=== PATIENT | male | born 1950 | race Caucasian/White ===

== ENCOUNTER 2016-08-03 02:59 | Inpatient (IN) | payer MEDICARE, MEDICAID ==
[~2016-08-03] VITALS: Ht 185.4 cm; Wt 86.5 kg
[2016-08-03] VITALS (8 sets, daily range): BP systolic 111–160; BP diastolic 63–88; PULSE 53–71; RESP 17–22; TEMP 96.3–97.9; O2SAT 97–100
[~2016-08-03 02:59] MED LIST: AMLO5 PO; CALC0.25 PO; COUM3TAB PO; DIAL800T3 PO; DOCU1CAP39 PO; FENO54TA PO; HYDR-3516 PO; LEVA250T PO; MEMA1TAB PO; ROPI0.25 PO; SEVEL800 PO; VANC1000P IP
[2016-08-03] MEDS ORDERED: SODIUM CHLOR 0.9% 1000 ML INJ 1,000 ML IV SCH ×2 (03:18→04:48)
[2016-08-03] MEDS ORDERED: ONDANSETRON HCL 4 MG/2 ML VIAL IVP ONE (03:30)
[2016-08-03] MEDS ORDERED: MORPHINE SULFATE 8 MG/ML INJ IV PUSH ONE (03:30)
[2016-08-03] MEDS ORDERED: SODIUM CHLORIDE 0.9% FLUSH 5 ML FLUSH IVF PRN ×2 (03:30→13:45)
[2016-08-03 03:41] LABS: AUTOMATED NEUTROPHIL # 6.6 TH/MM3 (1.8-7.7); BASOPHIL # 0.1 TH/MM3 (0-0.2); BASOPHIL % 0.9 % (0.0-2.0); EOSINOPHIL # 0.2 TH/MM3 (0-0.4); EOSINOPHIL % 2.4 % (0.0-4.0); HEMATOCRIT 38.7 % (39.0-51.0); HEMO FLAGS DIFF FINAL; LYMPH % 17.5 % (9.0-44.0); LYMPHOCYTE # 1.6 TH/MM3 (1.0-4.8); MEAN CELL VOLUME 93.5 FL (80.0-100.0); MEAN CORPUSCULAR HGB CONC 34.2 % (32.0-36.0); MONO % 6.3 % (0.0-8.0); NEUT % 72.9 % (16.0-70.0); PLATELET COUNT 229 TH/MM3 (150-450); RED BLOOD COUNT 4.14 MIL/MM3 (4.50-5.90); RED CELL DISTRIBUTION WIDTH 14.2 % (11.6-17.2); WHITE BLOOD COUNT 9.1 TH/MM3 (4.0-11.0)
--- NOTE | 2016-08-03 03:46 | PD ---
HPI Chief Complaint: Abdominal Pain Time Seen by Provider: 03:18 Travel History International Travel<30 days: No Contact w/Intl Traveler<30days: No Traveled to known affect area: No History of Present Illness HPI 66-year-old male history pancreatitis arrives with epigastric bowel pain that radiates to the back. Duration a few hours. He cannot recall last oral intake which he attributes to prior stroke. Pain is constant. Moderate to severe in severity. Worse with palpation. No fever. No vomiting. Onset sudden. Similar episodes have occurred previously. He does not know etiology of his pancreatitis. PFSH Past Medical History Hx Anticoagulant Therapy: Yes Arthritis: No Asthma: No Atrial Fibrillation: Yes (ABLATION) Autoimmune Disease: No Blood Disorders: No Anxiety: No Depression: No Heart Rhythm Problems: Yes (Afib) Cancer: No Cardiac Catheterization: Yes Cardiovascular Problems: Yes High Cholesterol: No Chemotherapy: No Chest Pain: Yes (history ) Congestive Heart Failure: No COPD: No Cerebrovascular Accident: Yes (January 2016) Diabetes: Yes Patient Takes Glucophage: No Dialysis: Yes (PERITONEAL DIALYSIS ) Diminished Hearing: No Endocrine: Yes (Diabetes) Gastrointestinal Disorders: No GERD: No Genitourinary: No Headaches: No Hepatitis: Yes (B) Hiatal Hernia: No Heparin Induced Thrombocytopen: No Hypertension: Yes Immune Disorder: No Implanted Vascular Access Dvce: No Insomnia: Yes (OCCASIONAL) Kidney Stones: No Musculoskeletal: No Neurologic: Yes Psychiatric: No Reproductive: No Respiratory: No Immunizations Current: Yes Migraines: No Radiation Therapy: No Renal Failure: Yes (PERITONEAL DIALYSIS ) Seizures: No Sickle Cell Disease: No Sleep Apnea: No Thyroid Disease: No Ulcer: No Tetanus Vaccination: Unknown Influenza Vaccination: Yes Past Surgical History Abdominal Surgery: Yes (appendectomy at age 10) AICD: No Appendectomy: Yes Arteriovenous Shunt: No Cardiac Surgery: Yes (ablation 2014) Coronary Artery Bypass Graft: No Ear Surgery: No Endocrine Surgery: No Eye Surgery: No Genitourinary Surgery: No Gynecologic Surgery: No Insulin Pump: No Joint Replacement: No Neurologic Surgery: No Oral Surgery: Yes Pacemaker: No Thoracic Surgery: No Tonsillectomy: Yes Other Surgery: Yes (Open Heart) Family History Family Myocardial Infarction: Yes (SISTER) Social History Alcohol Use: No Tobacco Use: Yes (5 CIGS PER DAY) Substance Use: No Allergies-Medications (Allergen,Severity, Reaction): Coded Allergies: Contrast Media (Verified Allergy, Mild, Itching, 08/03/16) STATES AFTER IV CONTRAST FROM LAST HOSPITAL VISIT WAS ITCHY FOR 10 DAYS WITH BAD HEARTBURN Reported Meds & Prescriptions Reported Meds & Active Scripts Active Coumadin (Warfarin) 3 Mg Tab 3 Mg PO DAILY@16 Dok (Docusate Sodium) 100 Mg Cap 100 Mg PO Q12HR Norvasc (Amlodipine Besylate) 5 Mg Tab 5 Mg PO DAILY Reported Calcitriol 0.25 Mcg Cap 0.25 Mcg PO DAILY Ropinirole 0.25 Mg Tab 0.25 Mg PO HS Renvela (Sevelamer Carbonate) 800 Mg Tab 800 Mg PO TID Memantine 5 Mg Tab 5 Mg PO DAILY Fenofibrate 54 Mg Tab 54 Mg PO DAILY Dialyvite 800 (B-Complex W/ C & Folic Acid) 1 Tab 800 Mg PO Review of Systems Except as stated in HPI: all other systems reviewed are Neg Physical Exam Narrative GENERAL: 66-year-old male well-nourished well-developed SKIN: Warm and dry. HEAD: Atraumatic. Normocephalic. EYES: Pupils equal and round. No scleral icterus. No injection or drainage. ENT: No nasal bleeding or discharge. Mucous membranes pink and moist. NECK: Trachea midline. No JVD. CARDIOVASCULAR: Regular rate and rhythm. RESPIRATORY: No accessory muscle use. Clear to auscultation. Breath sounds equal bilaterally. GASTROINTESTINAL: Soft. Mild epigastric tenderness. MUSCULOSKELETAL: Extremities without clubbing, cyanosis, or edema. No obvious deformities. NEUROLOGICAL: Awake and alert. No obvious cranial nerve deficits. Motor grossly within normal limits. Five out of 5 muscle strength in the arms and legs. Normal speech. PSYCHIATRIC: Appropriate mood and affect; insight and judgment normal. Data Data Last Documented VS Vital Signs Date Time Temp Pulse Resp B/P Pulse Ox O2 Delivery O2 Flow Rate FiO2 08/03/16 03:12 97.9 71 20 145/72 98 Room Air Orders Complete Blood Count With Diff (08/03/16 03:18) Comprehensive Metabolic Panel (08/03/16 03:18) Lipase (08/03/16 03:18) Iv Access Insert/Monitor (08/03/16 03:18) Ecg Monitoring (08/03/16 03:18) Oximetry (08/03/16 03:18) Ondansetron Inj (Zofran Inj) (08/03/16 03:30) Sodium Chlor 0.9% 1000 Ml Inj (Ns 1000 M (08/03/16 03:18) Sodium Chloride 0.9% Flush (Ns Flush) (08/03/16 03:30) Morphine Inj (Morphine Inj) (08/03/16 03:30) Admit Order (Ed Use Only) (08/03/16 04:39) Labs Laboratory Tests Test 08/03/16 03:30 White Blood Count 9.1 TH/MM3 Red Blood Count 4.14 MIL/MM3 Hemoglobin 13.3 GM/DL Hematocrit 38.7 % Mean Corpuscular Volume 93.5 FL Mean Corpuscular Hemoglobin 32.0 PG Mean Corpuscular Hemoglobin 34.2 % Concent Red Cell Distribution Width 14.2 % Platelet Count 229 TH/MM3 Mean Platelet Volume 8.1 FL Neutrophils (%) (Auto) 72.9 % Lymphocytes (%) (Auto) 17.5 % Monocytes (%) (Auto) 6.3 % Eosinophils (%) (Auto) 2.4 % Basophils (%) (Auto) 0.9 % Neutrophils # (Auto) 6.6 TH/MM3 Lymphocytes # (Auto) 1.6 TH/MM3 Monocytes # (Auto) 0.6 TH/MM3 Eosinophils # (Auto) 0.2 TH/MM3 Basophils # (Auto) 0.1 TH/MM3 CBC Comment DIFF FINAL Differential Comment Sodium Level 141 MEQ/L Potassium Level 3.9 MEQ/L Chloride Level 107 MEQ/L Carbon Dioxide Level 23.4 MEQ/L Anion Gap 11 MEQ/L Blood Urea Nitrogen 35 MG/DL Creatinine 6.15 MG/DL Random Glucose 125 MG/DL Calcium Level 9.2 MG/DL Total Bilirubin 0.4 MG/DL Aspartate Amino Transf 26 U/L (AST/SGOT) Alanine Aminotransferase 34 U/L (ALT/SGPT) Alkaline Phosphatase 45 U/L Total Protein 7.3 GM/DL Albumin 3.3 GM/DL Lipase 37174 U/L [facility] Medical Decision Making Medical Screen Exam Complete: Yes Emergency Medical Condition: Yes Medical Record Reviewed: Yes Differential Diagnosis Constipation, Gastritis, Acute Cholecystitis, Biliary Colic, Pancreatitis, COOPER , Hepatitis, Bowel Obstruction, Cystitis, Mesenteric Ischemia, AAA, Appendicitis , Renal Stone/Hydronephrosis, GERD, perforated viscous Narrative Course CBC & BMP Diagram 08/03/16 03:30 LFTs are normal Lipase 12,927 Patient will be admitted for treatment of pancreatitis. He has received 5 mg of morphine with some benefit. Etiology of pancreatitis is unclear based on review of prior documentation. The patient has poor memory 2/[address] Najera. Diagnosis Primary Impression: Pancreatitis Qualified Code: K85.90 - Acute pancreatitis, unspecified complication status, unspecified pancreatitis type Admitting Information Admitting Physician Requests: Admit Additional Instructions: You have a choice when it comes to health care, and we are glad that you chose [facility]. Hopefully, we have met your expectations on today's visit. You are welcome to return to [facility] at any time, as we are committed to meeting the health care needs of our community. Ruiz Dean MD Aug 03, 2016 03:46
[2016-08-03 04:08] LABS: ALT (GPT) 34 U/L (12-78); ANION GAP 11 MEQ/L (5-15); AST (GOT) 26 U/L (15-37); BICARBONATE 23.4 MEQ/L (21.0-32.0); BLOOD UREA NITROGEN 35 MG/DL (7-18); CHLORIDE 107 MEQ/L (98-107); POTASSIUM 3.9 MEQ/L (3.5-5.1); SODIUM (NA) 141 MEQ/L (136-145)
[2016-08-03 04:11] LABS: ALKALINE PHOSPHATASE 45 U/L (45-117); TOTAL BILIRUBIN ADULT 0.4 MG/DL (0.2-1.0)
[2016-08-03] MEDS ORDERED: ACETAMINOPHEN/HYDROcodone 325 MG/5 MG TAB PO PRN (05:00)
[2016-08-03] MEDS ORDERED: ACETAMINOPHEN 325 MG TAB PO PRN (05:00)
[2016-08-03] MEDS ORDERED: ONDANSETRON HCL 4 MG/2 ML VIAL IVP PRN (05:00)
--- NOTE | 2016-08-03 05:11 | HHI.HP ---
[facility] Her MD Admission Diagnosis Pancreatitis Diagnoses: (1) Pancreatitis Diagnosis: Principal (2) ESRD (end stage renal disease) on dialysis Diagnosis: Principal (3) AF (atrial fibrillation) Diagnosis: Principal (4) HTN (hypertension) Diagnosis: Principal Travel History International Travel<30 Days: No Contact w/Intl Traveler <30 Da: No Traveled to Known Affected Are: No History of Present Illness This is a 66-year-old male with PMH of HTN, ESRD on PD, A. fib on Coumadin, CAD and Recurrent Pancreatitis who came into the ER with complaints of epigastric pain with radiation to his back, typical of his previous episodes of pancreatitis. Denies fever, chills or diarrhea. Reports nausea, but no vomiting. On arrival, BP 160/88, HR 66, O2 sat 98% on RA, Afebrile. CBC essentially unremarkable. Creatinine 6.15, previously 4.40 and 06/18/16. Lipase 12,927. S/p Morphine in ER w/ improvement in pain. Review of Systems Other ROS: 14 point review of systems otherwise negative. Past Family Social History Past Medical History PMH: HTN, ESRD on PD, A. fib on Coumadin, CAD and Recurrent Pancreatitis Past Surgical History PAST SURGICAL HISTORY: Appendectomy, Peritoneal Dialysis Catheter, Tonsillectomy, Cardiac Ablation Allergies: Coded Allergies: Contrast Media (Verified Allergy, Mild, Itching, 08/03/16) STATES AFTER IV CONTRAST FROM LAST HOSPITAL VISIT WAS ITCHY FOR 10 DAYS WITH BAD HEARTBURN Family History PAST FAMILY HISTORY: Reviewed. No h/o DM or CAD Social History PAST SOCIAL HISTORY: Negative for alcohol or drugs. Positive for tobacco. Physical Exam Vital Signs Vital Signs Date Time Temp Pulse Resp B/P Pulse Ox O2 Delivery O2 Flow Rate FiO2 08/03/16 03:12 97.9 71 20 145/72 98 Room Air 08/03/16 03:05 97.9 66 20 160/88 98 Physical Exam PE: GENERAL: Pleasant middle-aged male in no acute distress. HEENT: PERRLA, EOMI. No scleral icterus or conjunctival pallor. No lid lag or facial droop. CARDIOVASCULAR: Regular rate and rhythm. No obvious murmurs to auscultation. No chest tenderness to palpation. RESPIRATORY: No obvious rhonchi or wheezing. Clear to auscultation. Breath sounds equal bilaterally. GASTROINTESTINAL: Abdomen soft, mild epigastric tenderness to palpation, nondistended. BS normal. MUSCULOSKELETAL: Extremities without clubbing, cyanosis, or edema. No obvious deformities. NEUROLOGICAL: Awake, alert and oriented x4. No focal neurologic deficits. Moving both upper and lower extremities spontaneously. Laboratory Laboratory Tests Test 08/03/16 03:30 White Blood Count 9.1 Red Blood Count 4.14 Hemoglobin 13.3 Hematocrit 38.7 Mean Corpuscular Volume 93.5 Mean Corpuscular Hemoglobin 32.0 Mean Corpuscular Hemoglobin 34.2 Concent Red Cell Distribution Width 14.2 Platelet Count 229 Mean Platelet Volume 8.1 Neutrophils (%) (Auto) 72.9 Lymphocytes (%) (Auto) 17.5 Monocytes (%) (Auto) 6.3 Eosinophils (%) (Auto) 2.4 Basophils (%) (Auto) 0.9 Neutrophils # (Auto) 6.6 Lymphocytes # (Auto) 1.6 Monocytes # (Auto) 0.6 Eosinophils # (Auto) 0.2 Basophils # (Auto) 0.1 CBC Comment DIFF FINAL Differential Comment Sodium Level 141 Potassium Level 3.9 Chloride Level 107 Carbon Dioxide Level 23.4 Anion Gap 11 Blood Urea Nitrogen 35 Creatinine 6.15 Random Glucose 125 Calcium Level 9.2 Total Bilirubin 0.4 Aspartate Amino Transf 26 (AST/SGOT) Alanine Aminotransferase 34 (ALT/SGPT) Alkaline Phosphatase 45 Total Protein 7.3 Albumin 3.3 Lipase 39745 Result Diagram: 08/03/16 0330 08/03/16 0330 Assessment and Plan Problem List: (1) Pancreatitis ICD Code: K85.90 Status: Acute (2) ESRD (end stage renal disease) on dialysis ICD Code: N18.6 Status: Chronic (3) AF (atrial fibrillation) ICD Code: I48.91 Status: Acute (4) HTN (hypertension) ICD Code: I10 Status: Chronic Assessment and Plan A/P: 1. Pancreatitis: Recurrent. Etiology unclear. Previous admit 06/13-06/20/16 for same. Lipase 12,927. NPO, IVF, Protonix IV, repeat Lipase. LFTs normal. Check PT/INR. 2. ESRD on PD: Follows w/ Dr. Bird as outpatient, will consult to resume PD. Resume home meds. 3. A-fib: On Coumadin. Check PT/INR, resume Coumadin to keep INR 2-3. 4. DVT Prophylaxis: Coumadin 5. Social work for d/c planning as needed. 6. Case discussed w/ ER physician at length. Physician Certification 2 Midnight Certification Type: Admission for Inpatient Services Order for Inpatient Services The services are ordered in accordance with Medicare regulations or non- Medicare payer requirements, as applicable. In the case of services not specified as inpatient-only, they are appropriately provided as inpatient services in accordance with the 2-midnight benchmark. Estimated LOS (days): 2 days is the estimated time the patient will need to remain in the hospital, assuming treatment plan goals are met and no additional complications. Post-Hospital Plan: Home Problem Qualifiers (1) Pancreatitis: Qualified Code: K85.90 - Acute pancreatitis, unspecified complication status, unspecified pancreatitis type Adore Najera MD Aug 03, 2016 05:11
[2016-08-03] MEDS: PANTOPRAZOLE SODIUM 40 MG VIAL IV PUSH SCH ×2 (05:50→18:32)
[2016-08-03] MEDS: MORPHINE SULFATE 4 MG/ML INJ IV PRN ×3 (06:32→13:25)
[2016-08-03] MEDS: CALCITRIOL 0.25 MCG CAP PO SCH (10:05)
[2016-08-03] MEDS: SEVELAMER CARBONATE 800 MG TAB PO SCH ×3 (10:05→18:00)
[2016-08-03] MEDS: MEMANTINE HCL 5 MG TAB PO SCH (10:05)
[2016-08-03] MEDS: amLODIPine BESYLATE 5 MG TAB PO SCH (10:05)
[2016-08-03] MEDS: SODIUM CHLORIDE 0.9% FLUSH 5 ML FLUSH FLUSH SCH ×2 (10:06→22:28)
[2016-08-03 11:04] LABS: INTERNATIONAL NORMALIZED RATIO 1.2 RATIO; PROTHROMBIN TIME - PATIENT 13.9 SEC (9.8-11.6)
--- NOTE | 2016-08-03 13:26 | HHI.PR ---
Subjective Remarks Follow-up pancreatitis Abdominal pain stools, had soup for lunch, no nausea or vomiting today. Afebrile. Not short of breath. Had episodes of hypertriglyceridemia in the past. Objective Vitals Vital Signs Date Time Temp Pulse Resp B/P Pulse Ox O2 Delivery O2 Flow Rate FiO2 08/03/16 11:40 97.1 53 20 117/71 98 08/03/16 07:50 96.3 61 20 122/72 100 08/03/16 07:00 20 08/03/16 06:19 97.9 71 22 158/84 100 08/03/16 05:51 57 22 132/82 100 Room Air 08/03/16 05:51 22 100 Room Air 08/03/16 03:12 97.9 71 20 145/72 98 Room Air 08/03/16 03:05 97.9 66 20 160/88 98 Result Diagram: 08/03/16 03308/03/16 033 Objective Remarks Not in distress, well-nourished, looks stated age PERRL, pink conjunctiva without injection, anicteric Nose without bleeding, airway patent, oropharynx clear Supple neck, no masses or thyromegaly, trachea midline Normal rate and regular rhythm, no murmurs gallops or rubs appreciated. Clear to auscultation and symmetric bilaterally, normal respiratory effort. Normal bowel sounds, soft, non-tender, nondistended, no guarding. ED catheter in place, positive for epigastric tenderness. Extremities without clubbing, cyanosis, or edema. No rash of generalized distribution. Skin is warm and dry. AAO x3, no cranial nerve deficits, moves all 4 extremities, no focal neurologic deficits Normal mood, appropriate affect A/P Problem List: (1) Pancreatitis ICD Code: K85.90 Status: Acute (2) ESRD (end stage renal disease) on dialysis ICD Code: N18.6 Status: Chronic (3) AF (atrial fibrillation) ICD Code: I48.91 Status: Acute (4) HTN (hypertension) ICD Code: I10 Status: Chronic Assessment and Plan Pancreatitis: Recurrent. Etiology unclear. Previous admit 06/13-06/20/[address] scan of the abdomen from June reviewed, no cholelithiasis. Keep nothing by mouth, recheck lipase tomorrow, IVF, Protonix, supportive management with pain medications intravenously. LFTs are within normal limits. Check triglycerides. End stage renal disease-nephrology consulted, continue peritoneal dialysis. Atrial fibrillation-on Coumadin, INR subtherapeutic, monitor for now. Hypertension-continue Norvasc DVT prophylaxis: Coumadin. Problem Qualifiers (1) Pancreatitis: Qualified Code: K85.90 - Acute pancreatitis, unspecified complication status, unspecified pancreatitis type Ivory Hanson MD Aug 03, 2016 13:26
--- NOTE | 2016-08-03 13:40 | PD.CONS ---
HPI Service Nephrology Consult Requested By Dr. Najera Reason for Consult ESRD on peritoneal dialysis Primary Care Physician Griffin Her MD History of Present Illness Patient is 66-year-old white male with history of atrial fibrillation status post ablation 2, hypertension, ESRD who has recurrent pancreatitis and developed abdominal pain yesterday around 6 PM which got worse and he has to come to the emergency is lipase is greater than 12,000, he was admitted for pancreatitis, he states that he has missed his peritoneal dialysis yesterday as he was in abdominal pain. He has nausea associated with denies any vomiting and pain is in epigastric area. Review of Systems Constitutional: COMPLAINS OF: Fatigue Gastrointestinal: COMPLAINS OF: Abdominal pain Psychiatric: COMPLAINS OF: Anxiety Past Family Social History Allergies: Coded Allergies: Contrast Media (Verified Allergy, Mild, Itching, 08/03/16) STATES AFTER IV CONTRAST FROM LAST HOSPITAL VISIT WAS ITCHY FOR 10 DAYS WITH BAD HEARTBURN Past Medical History Atrial fibrillation status post ablation 2 Hypertension COPD GERD Recurrent pancreatitis Anemia Secondary hyperparathyroidism Past Surgical History Appendectomy Tonsillectomy Tenckhoff catheter placement Cardiac ablation x 2 Reported Medications Reported Meds & Active Scripts Active Coumadin (Warfarin) 3 Mg Tab 3 Mg PO DAILY@16 Dok (Docusate Sodium) 100 Mg Cap 100 Mg PO Q12HR Norvasc (Amlodipine Besylate) 5 Mg Tab 5 Mg PO DAILY Reported Calcitriol 0.25 Mcg Cap 0.25 Mcg PO DAILY Ropinirole 0.25 Mg Tab 0.25 Mg PO HS Renvela (Sevelamer Carbonate) 800 Mg Tab 800 Mg PO TID Memantine 5 Mg Tab 5 Mg PO DAILY Fenofibrate 54 Mg Tab 54 Mg PO DAILY Dialyvite 800 (B-Complex W/ C & Folic Acid) 1 Tab 800 Mg PO Active Ordered Medications Current Medications Medications (Trade) Dose Ordered Sig/Maximus Route Start Time Stop Time Status Last Admin (NS 1000 ml Inj) 1,000 ml @ 50 mls/hr Q20H IV 08/03/16 04:48 08/03/16 05:50 (NS Flush) 2 ml UNSCH PRN FLUSH 08/03/16 05:00 (NS Flush) 2 ml BID FLUSH 08/03/16 09:00 08/03/16 10:06 (Zofran Inj) 4 mg Q6H PRN IVP 08/03/16 05:00 (Dulcolax Supp) 10 mg DAILY PRN W[place] 08/03/16 05:00 (Tylenol) 650 mg Q6H PRN PO 08/03/16 05:00 ([place]well 5-325 Mg) 1 tab Q4H PRN PO 08/03/16 05:00 08/03/16 12:20 (Morphine Inj) 2 mg Q3H PRN IV 08/03/16 05:00 08/03/16 13:25 (Norvasc) 5 mg DAILY PO 08/03/16 09:00 08/03/16 10:05 (Rocaltrol) 0.25 mcg DAILY PO 08/03/16 09:00 08/03/16 10:05 (Namenda) 5 mg DAILY PO 08/03/16 09:00 08/03/16 10:05 (Requip) 0.25 mg HS PO 08/03/16 21:00 (Renvela) 800 mg TID PO 08/03/16 09:00 08/03/16 12:48 (Protonix Inj) 40 mg Q12H IV PUSH 08/03/16 06:00 08/03/16 05:50 Family History Noncontributory Social History Previous history of smoking Physical Exam Vital Signs Vital Signs Date Time Temp Pulse Resp B/P Pulse Ox O2 Delivery O2 Flow Rate FiO2 08/03/16 11:40 97.1 53 20 117/71 98 08/03/16 07:50 96.3 61 20 122/72 100 08/03/16 07:00 20 08/03/16 06:19 97.9 71 22 158/84 100 08/03/16 05:51 57 22 132/82 100 Room Air 08/03/16 05:51 22 100 Room Air 08/03/16 03:12 97.9 71 20 145/72 98 Room Air 08/03/16 03:05 97.9 66 20 160/88 98 Physical Exam GENERAL: Well-nourished, well-developed patient. SKIN: Warm and dry. HEAD: Normocephalic. EYES: No scleral icterus. No injection or drainage. NECK: Supple, trachea midline. No JVD or lymphadenopathy. CARDIOVASCULAR: Regular rate and rhythm without murmurs, gallops, or rubs. RESPIRATORY: Breath sounds equal bilaterally. No accessory muscle use. GASTROINTESTINAL: Abdomen tender, nondistended. EXTREMITIES: No cyanosis, or edema. NEUROLOGICAL: Awake, alert, and oriented x 3. Non-focal. Laboratory Laboratory Tests Test 08/03/16 08/03/16 03:30 10:05 White Blood Count 9.1 Red Blood Count 4.14 Hemoglobin 13.3 Hematocrit 38.7 Mean Corpuscular Volume 93.5 Mean Corpuscular Hemoglobin 32.0 Mean Corpuscular Hemoglobin 34.2 Concent Red Cell Distribution Width 14.2 Platelet Count 229 Mean Platelet Volume 8.1 Neutrophils (%) (Auto) 72.9 Lymphocytes (%) (Auto) 17.5 Monocytes (%) (Auto) 6.3 Eosinophils (%) (Auto) 2.4 Basophils (%) (Auto) 0.9 Neutrophils # (Auto) 6.6 Lymphocytes # (Auto) 1.6 Monocytes # (Auto) 0.6 Eosinophils # (Auto) 0.2 Basophils # (Auto) 0.1 CBC Comment DIFF FINAL Differential Comment Sodium Level 141 Potassium Level 3.9 Chloride Level 107 Carbon Dioxide Level 23.4 Anion Gap 11 Blood Urea Nitrogen 35 Creatinine 6.15 Random Glucose 125 Calcium Level 9.2 Total Bilirubin 0.4 Aspartate Amino Transf 26 (AST/SGOT) Alanine Aminotransferase 34 (ALT/SGPT) Alkaline Phosphatase 45 Total Protein 7.3 Albumin 3.3 Triglycerides Level 110 Lipase 64603 Prothrombin Time 13.9 Prothromb Time International 1.2 Ratio Result Diagram: 08/03/16 0330 08/03/16 0330 Assessment and Plan Problem List: (1) ESRD (end stage renal disease) on dialysis Plan: Patient is going to get peritoneal dialysis tonight we will continue to monitor send fluid for Gram stain and cell count and culture (2) Acute pancreatitis Plan: Patient has history of recurrent pancreatitis continue to observe (3) HTN (hypertension) Plan: Monitor blood pressure Michelle Bird MD Aug 03, 2016 13:40
[2016-08-03] MEDS ORDERED: HEPARIN SODIUM - IV 10,000 UNITS/10 ML VIAL XX PRN (13:45)
[2016-08-03] MEDS: HYDROmorphone HCL PF 1 MG/ML VIAL IV PUSH PRN ×2 (14:20→18:33)
[2016-08-03] MEDS: DEXT 5%-NACL 0.45% 1000 ML INJ 1,000 ML IV SCH (14:22)
[2016-08-03] MEDS: diphenhydrAMINE HCL 50 MG/ML VIAL IV PRN (18:33)
[2016-08-03 21:05] LABS: PERITONEAL LYMPHS 26 %; PERITONEAL MESOTHELIAL 12 %; PERITONEAL MONOS 34 %; PERITONEAL POLYS(SEGS) 28 %; PERITONEAL WBC 26 /MM3 (0-10)
[2016-08-04] VITALS: BP 129/75; PULSE 55; RESP 16; TEMP 96.5; O2SAT 100
[2016-08-04] MEDS: DEXT 5%-NACL 0.45% 1000 ML INJ 1,000 ML IV SCH ×2 (02:00→18:26)
[2016-08-04 04:00] VITALS: BP 144/79; PULSE 66; RESP 16; TEMP 96.3; O2SAT 99
[2016-08-04] MEDS: diphenhydrAMINE HCL 50 MG/ML VIAL IV PRN ×4 (04:58→18:26)
[2016-08-04] MEDS: HYDROmorphone HCL PF 1 MG/ML VIAL IV PUSH PRN ×4 (04:59→18:26)
[2016-08-04] MEDS: PANTOPRAZOLE SODIUM 40 MG VIAL IV PUSH SCH ×2 (04:59→18:29)
[2016-08-04 07:39] LABS: AUTOMATED NEUTROPHIL # 4.1 TH/MM3 (1.8-7.7); BASOPHIL # 0.1 TH/MM3 (0-0.2); BASOPHIL % 0.9 % (0.0-2.0); EOSINOPHIL # 0.2 TH/MM3 (0-0.4); EOSINOPHIL % 3.2 % (0.0-4.0); HEMATOCRIT 36.8 % (39.0-51.0); HEMO FLAGS DIFF FINAL; LYMPH % 25.7 % (9.0-44.0); LYMPHOCYTE # 1.7 TH/MM3 (1.0-4.8); MEAN CELL VOLUME 95.8 FL (80.0-100.0); MEAN CORPUSCULAR HEMOGLOBIN 31.3 PG (27.0-34.0); MEAN CORPUSCULAR HGB CONC 32.7 % (32.0-36.0); MONO % 9.1 % (0.0-8.0); NEUT % 61.1 % (16.0-70.0); PLATELET COUNT 197 TH/MM3 (150-450); RED BLOOD COUNT 3.85 MIL/MM3 (4.50-5.90); RED CELL DISTRIBUTION WIDTH 14.4 % (11.6-17.2); WHITE BLOOD COUNT 6.7 TH/MM3 (4.0-11.0)
[2016-08-04 07:45] LABS: INTERNATIONAL NORMALIZED RATIO 1.3 RATIO; PROTHROMBIN TIME - PATIENT 14.8 SEC (9.8-11.6)
[2016-08-04 07:56] LABS: ALT (GPT) 35 U/L (12-78); ANION GAP 8 MEQ/L (5-15); AST (GOT) 28 U/L (15-37); BICARBONATE 23.8 MEQ/L (21.0-32.0); CHLORIDE 109 MEQ/L (98-107); POTASSIUM 4.4 MEQ/L (3.5-5.1); SODIUM (NA) 141 MEQ/L (136-145)
[2016-08-04 07:58] LABS: ALKALINE PHOSPHATASE 42 U/L (45-117); BLOOD UREA NITROGEN 30 MG/DL (7-18); TOTAL BILIRUBIN ADULT 0.4 MG/DL (0.2-1.0)
[2016-08-04 08:00] VITALS: BP 108/62; PULSE 55; RESP 18; TEMP 97.5; O2SAT 97
[2016-08-04] MEDS: amLODIPine BESYLATE 5 MG TAB PO SCH (09:00)
[2016-08-04] MEDS: BISACODYL 10 MG SUPP PR PRN (09:11)
[2016-08-04] MEDS: CALCITRIOL 0.25 MCG CAP PO SCH (09:11)
[2016-08-04] MEDS: MEMANTINE HCL 5 MG TAB PO SCH (09:12)
[2016-08-04] MEDS: SODIUM CHLORIDE 0.9% FLUSH 5 ML FLUSH FLUSH SCH ×2 (09:12→19:54)
[2016-08-04] MEDS: SEVELAMER CARBONATE 800 MG TAB PO SCH ×3 (09:12→17:10)
--- NOTE | 2016-08-04 10:59 | HHI.PR ---
Subjective Remarks Follow-up for pancreatitis Still having severe epigastric abdominal pain, about 8/10, controlled by IV narcotics, however has itching with Dilaudid, no nausea or vomiting, not hungry. No fever or chills. Objective Vitals Vital Signs Date Time Temp Pulse Resp B/P Pulse Ox O2 Delivery O2 Flow Rate FiO2 08/04/16 08:00 97.5 55 18 108/62 97 08/04/16 04:00 96.3 66 16 144/79 99 08/04/16 00:00 96.5 55 16 129/75 100 08/03/16 20:00 96.5 54 17 114/68 100 08/03/16 15:30 96.9 55 20 111/63 97 08/03/16 11:40 97.1 53 20 117/71 98 I/O 08/03/16 08/03/16 08/03/16 08/04/16 08/04/16 08/04/16 07:00 15:00 23:00 07:00 15:00 23:00 Intake Total 120 ml 672 ml 600 ml Output Total 350 ml 400 ml 0 ml Balance -230 ml 672 ml 200 ml 0 ml Intake Oral 120 ml 0 ml IV Total 672 ml 600 ml Output Urine Total 350 ml 400 ml Peritoneal Fluid 0 ml # Voids 0 # Bowel Movements 0 Result Diagram: 08/04/1671308/04/16713 Objective Remarks Not in distress, well-nourished, looks stated age PERRL, pink conjunctiva without injection, anicteric Nose without bleeding, airway patent, oropharynx clear Supple neck, no masses or thyromegaly, trachea midline Normal rate and regular rhythm, no murmurs gallops or rubs appreciated. Clear to auscultation and symmetric bilaterally, normal respiratory effort. Normal bowel sounds, soft, non-tender, nondistended, no guarding. PD catheter in place, positive for mild epigastric tenderness. Extremities without clubbing, cyanosis, or edema. No rash of generalized distribution. Skin is warm and dry. AAO x3, no cranial nerve deficits, moves all 4 extremities, no focal neurologic deficits Normal mood, appropriate affect A/P Problem List: (1) Pancreatitis ICD Code: K85.90 Status: Acute (2) ESRD (end stage renal disease) on dialysis ICD Code: N18.6 Status: Chronic (3) AF (atrial fibrillation) ICD Code: I48.91 Status: Acute (4) HTN (hypertension) ICD Code: I10 Status: Chronic Assessment and Plan Pancreatitis: Recurrent. Etiology unclear. Previous admit 06/13-06/20/[address] scan of the abdomen from June reviewed, no cholelithiasis. Keep nothing by mouth, lipase improved, continue IVF, Protonix, continue supportive management with pain medications intravenously. LFTs are within normal limits. Triglycerides normal, CA 199 normal. Check ultrasound of the gallbladder to rule out choledocholithiasis or cholelithiasis. Continue nothing by mouth for now. Peritoneal fluid negative for peritonitis. No antibiotics. End stage renal disease-nephrology consulted, continue peritoneal dialysis. Atrial fibrillation-on Coumadin, INR subtherapeutic, monitor for now. Restart. Hypertension-continue Norvasc DVT prophylaxis: Coumadin. Problem Qualifiers (1) Pancreatitis: Qualified Code: K85.90 - Acute pancreatitis, unspecified complication status, unspecified pancreatitis type Ivory Hanson MD Aug 04, 2016 10:59
[2016-08-04 12:00] VITALS: BP 109/60; PULSE 55; RESP 16; TEMP 98; O2SAT 95
--- NOTE | 2016-08-04 13:49 | HHI.NPPN ---
Subjective History of Present Illness 66 year old with acute pancreatitis ESRD on PD Objective Data Data 08/03/16 08/04/16 19:00 07:00 Intake Total 120 ml 1272 ml Output Total 350 ml 400 ml Balance -230 ml 872 ml Intake Oral 120 ml 0 ml IV Total 1272 ml Output Urine Total 350 ml 400 ml # Voids 0 # Bowel Movements 0 Vital Signs Date Time Temp Pulse Resp B/P Pulse Ox O2 Delivery O2 Flow Rate FiO2 08/04/16 08:00 97.5 55 18 108/62 97 08/04/16 04:00 96.3 66 16 144/79 99 08/04/16 00:00 96.5 55 16 129/75 100 08/03/16 20:00 96.5 54 17 114/68 100 08/03/16 15:30 96.9 55 20 111/63 97 -: 08/04/16 0714 08/04/16 0714 Microbiology 08/03/16 Gram Stain - Final, Resulted 08/03/16 Body Fluid Culture - Preliminary, Resulted NO GROWTH IN 24 HOURS. Physical Exam General Appearance: Well Developed, Well Nourished Neck Neck Exam: Neck Supple Pulmonary Resp Exam: Clear Bilaterally, Breath Sounds Equal Cardiology CV Exam: Regular, Normal Sinus Rhythm Gastrointestinal/Abdomen GI Exam: Soft GI Remarks Tender in epigastric area Extremeties Extremities Exam: No Edema Assessment/Plan Problem List: (1) ESRD (end stage renal disease) on dialysis Plan: Patient is on peritoneal dialysis tonight we will continue to monitor cell count not significant (2) Acute pancreatitis Plan: Patient has history of recurrent pancreatitis continue to observe (3) HTN (hypertension) Plan: Monitor blood pressure Michelle Bird MD Aug 04, 2016 13:49
[2016-08-04 16:00] VITALS: BP 107/66; PULSE 54; RESP 16; TEMP 97.5; O2SAT 100
[2016-08-04] MEDS: WARFARIN SOD 3 MG TAB PO SCH (16:55)
[2016-08-04 20:00] VITALS: BP 113/67; PULSE 58; RESP 18; TEMP 98.8; O2SAT 96
[2016-08-05] VITALS: BP 131/71; PULSE 60; RESP 17; TEMP 99.2; O2SAT 99
[2016-08-05 04:00] VITALS: BP 129/77; PULSE 65; RESP 17; TEMP 98.5; O2SAT 97
[2016-08-05] MEDS: diphenhydrAMINE HCL 50 MG/ML VIAL IV PRN ×3 (04:30→18:18)
[2016-08-05] MEDS: PANTOPRAZOLE SODIUM 40 MG VIAL IV PUSH SCH ×2 (04:30→18:18)
[2016-08-05] MEDS: HYDROmorphone HCL PF 1 MG/ML VIAL IV PUSH PRN ×4 (04:30→22:11)
[2016-08-05] MEDS: DEXT 5%-NACL 0.45% 1000 ML INJ 1,000 ML IV SCH (04:31)
[2016-08-05 07:50] VITALS: BP 102/67; PULSE 66; RESP 20; TEMP 97.9; O2SAT 97
[2016-08-05 08:03] LABS: INTERNATIONAL NORMALIZED RATIO 1.4 RATIO; PROTHROMBIN TIME - PATIENT 16.2 SEC (9.8-11.6)
[2016-08-05] MEDS: MEMANTINE HCL 5 MG TAB PO SCH (08:12)
[2016-08-05] MEDS: amLODIPine BESYLATE 5 MG TAB PO SCH (08:12)
[2016-08-05] MEDS: SEVELAMER CARBONATE 800 MG TAB PO SCH ×3 (08:12→18:18)
[2016-08-05] MEDS: CALCITRIOL 0.25 MCG CAP PO SCH (08:12)
[2016-08-05] MEDS: SODIUM CHLORIDE 0.9% FLUSH 5 ML FLUSH FLUSH SCH ×2 (08:12→22:12)
--- NOTE | 2016-08-05 09:42 | RADRPT ---
EXAM DATE/TIME: 08/05/2016 08:38 [place] COMPARISON: CT ABDOMEN & PELVIS W/O CONTRAST, June 13, 2016, 15:43. INDICATIONS : Pancreatitis. MEDICAL HISTORY : Hypertension. Hepatitis B. Hypertension. Atrial fibrillation. CVA. Dialysis. Diabetes. SURGICAL HISTORY : Appendectomy. Cardiac ablation. Cardiac catheterization. ENCOUNTER: Initial ACUITY: 2 days PAIN SCORE: 0/10 LOCATION: Right upper quadrant MEASUREMENTS: LIVER: 17.4 cm length COMMON DUCT: 5 mm RIGHT KIDNEY: 8.0 x 3.8 x 3.8 cm FINDINGS: LIVER: Normal echotexture without focal lesion or ductal dilatation. COMMON DUCT: No intraluminal mass or stone visualized. GALLBLADDER: Olelithiasis, gallbladder appears contracted with mild wall thickening. No pericholecystic fluid. PANCREAS: The visualized portions are within normal limits. RIGHT KIDNEY: No evidence of hydronephrosis, stone, or mass. CONCLUSION: Mild perihepatic free fluid, cholelithiasis with mild wall thickening. Gallbladder appears contracted . Mild hepatomegaly. Karl Curtis MD on August 05, 2016 at 9:39 Board Certified Radiologist. This report was verified electronically.
[2016-08-05 11:50] VITALS: BP 154/86; PULSE 75; RESP 20; TEMP 97.7; O2SAT 95
--- NOTE | 2016-08-05 12:48 | HHI.PR ---
Subjective Remarks Follow-up for pancreatitis Abdominal pain is mild to moderate, no nausea or vomiting. Afebrile. No shortness of breath or chest pain. Objective Vitals Vital Signs Date Time Temp Pulse Resp B/P Pulse Ox O2 Delivery O2 Flow Rate FiO2 08/05/16 07:50 97.9 66 20 102/67 97 08/05/16 04:00 98.5 65 17 129/77 97 08/05/16 00:00 99.2 60 17 131/71 99 08/04/16 20:00 98.8 58 18 113/67 96 08/04/16 16:00 97.5 54 16 107/66 100 I/O 08/04/16 08/04/16 08/04/16 08/05/16 08/05/16 08/05/16 07:00 15:00 23:00 07:00 15:00 23:00 Intake Total 600 ml 0 ml 1515 ml 600 ml Output Total 400 ml 500 ml 400 ml 400 ml 107 ml Balance 200 ml -500 ml 1115 ml 200 ml -107 ml Intake Oral 0 ml IV Total 600 ml 1515 ml 600 ml Output Urine Total 400 ml 500 ml 400 ml 400 ml Peritoneal Fluid 0 ml 107 ml # Voids 4 # Bowel Movements 1 Result Diagram: 08/04/1671308/04/16713 Objective Remarks Not in distress, well-nourished, looks stated age PERRL, pink conjunctiva without injection, anicteric Nose without bleeding, airway patent, oropharynx clear Supple neck, no masses or thyromegaly, trachea midline Normal rate and regular rhythm, no murmurs gallops or rubs appreciated. Clear to auscultation and symmetric bilaterally, normal respiratory effort. Normal bowel sounds, soft, non-tender, nondistended, no guarding. PD catheter in place, tenderness resolved. Extremities without clubbing, cyanosis, or edema. No rash of generalized distribution. Skin is warm and dry. AAO x3, no cranial nerve deficits, moves all 4 extremities, no focal neurologic deficits Normal mood, appropriate affect A/P Problem List: (1) Pancreatitis ICD Code: K85.90 Status: Acute (2) ESRD (end stage renal disease) on dialysis ICD Code: N18.6 Status: Chronic (3) AF (atrial fibrillation) ICD Code: I48.91 Status: Acute (4) HTN (hypertension) ICD Code: I10 Status: Chronic Assessment and Plan Pancreatitis: Recurrent. Etiology unclear. Previous admit 06/13-06/20/[address] scan of the abdomen from June reviewed, no cholelithiasis. Lipase now 400, resume diet, full liquid, decrease IVF. Continue Protonix and supportive management with pain medications intravenously. LFTs are within normal limits. Triglycerides normal, CA 199 normal. Ultrasound of the gallbladder revealed contracted gallbladder, cholelithiasis, and hepatomegaly. Consult general surgery, will likely need cholecystectomy. Patient's second episode. Peritoneal fluid negative for peritonitis. No antibiotics. End stage renal disease-nephrology following, continue peritoneal dialysis. Atrial fibrillation-on Coumadin, INR subtherapeutic, monitor for now. Hold Coumadin today, might need surgery. Hypertension-continue Norvasc DVT prophylaxis: Coumadin. Heparin while INR subtherapeutic. Problem Qualifiers (1) Pancreatitis: Qualified Code: K85.90 - Acute pancreatitis, unspecified complication status, unspecified pancreatitis type Ivory Hanson MD Aug 05, 2016 12:48
[2016-08-05] MEDS: HEPARIN SODIUM - SQ 10,000 UNITS/ML VIAL SQ SCH ×2 (14:09→22:15)
--- NOTE | 2016-08-05 15:25 | HHI.NPPN ---
Subjective History of Present Illness 66 year old with acute pancreatitis ESRD on PD Objective Data Data 08/04/16 08/05/16 19:00 07:00 Intake Total 865 ml 1250 ml Output Total 500 ml 800 ml Balance 365 ml 450 ml Intake Oral 0 ml IV Total 865 ml 1250 ml Output Urine Total 500 ml 800 ml Peritoneal Fluid 0 ml # Voids 4 # Bowel Movements 1 Vital Signs Date Time Temp Pulse Resp B/P Pulse Ox O2 Delivery O2 Flow Rate FiO2 08/05/16 11:50 97.7 75 20 154/86 95 08/05/16 07:50 97.9 66 20 102/67 97 08/05/16 04:00 98.5 65 17 129/77 97 08/05/16 00:00 99.2 60 17 131/71 99 08/04/16 20:00 98.8 58 18 113/67 96 08/04/16 16:00 97.5 54 16 107/66 100 -: 08/04/16 0714 08/04/16 0714 Physical Exam General Appearance: Well Developed, Well Nourished Neck Neck Exam: Neck Supple Pulmonary Resp Exam: Clear Bilaterally, Breath Sounds Equal Cardiology CV Exam: Regular, Normal Sinus Rhythm Gastrointestinal/Abdomen GI Exam: Soft GI Remarks Tender in epigastric area Extremeties Extremities Exam: No Edema Assessment/Plan Problem List: (1) ESRD (end stage renal disease) on dialysis Plan: Patient is on peritoneal dialysis doing well Pancreatitis resolved GB stone may need surgery (2) Acute pancreatitis Plan: Patient has history of recurrent pancreatitis continue to observe (3) HTN (hypertension) Plan: Monitor blood pressure Michelle Bird MD Aug 05, 2016 15:25
[2016-08-05 15:45] VITALS: BP 129/73; PULSE 70; RESP 20; TEMP 98.8; O2SAT 96
[2016-08-05 20:00] VITALS: BP 117/73; PULSE 71; RESP 16; TEMP 98.2; O2SAT 97
[2016-08-06] VITALS: BP 132/67; PULSE 71; RESP 16; TEMP 98.5; O2SAT 97
[2016-08-06 04:00] VITALS: BP 122/68; PULSE 67; RESP 16; TEMP 98.3; O2SAT 95
[2016-08-06] MEDS: SODIUM CHLORIDE 0.9% FLUSH 5 ML FLUSH FLUSH PRN (06:02)
[2016-08-06] MEDS: PANTOPRAZOLE SODIUM 40 MG VIAL IV PUSH SCH ×2 (06:02→18:41)
[2016-08-06] MEDS: HEPARIN SODIUM - SQ 10,000 UNITS/ML VIAL SQ SCH ×3 (06:06→22:25)
[2016-08-06 08:00] VITALS: BP 126/79; PULSE 70; RESP 18; TEMP 98; O2SAT 97
[2016-08-06 08:05] LABS: INTERNATIONAL NORMALIZED RATIO 1.5 RATIO; PROTHROMBIN TIME - PATIENT 16.8 SEC (9.8-11.6)
[2016-08-06] MEDS: SODIUM CHLORIDE 0.9% FLUSH 5 ML FLUSH FLUSH SCH ×2 (09:53→20:34)
[2016-08-06] MEDS: CALCITRIOL 0.25 MCG CAP PO SCH (09:53)
[2016-08-06] MEDS: amLODIPine BESYLATE 5 MG TAB PO SCH (09:54)
[2016-08-06] MEDS: MEMANTINE HCL 5 MG TAB PO SCH (09:54)
[2016-08-06] MEDS: SEVELAMER CARBONATE 800 MG TAB PO SCH ×3 (09:55→18:40)
[2016-08-06 12:00] VITALS: BP 133/87; PULSE 73; RESP 20; TEMP 97.2; O2SAT 98
--- NOTE | 2016-08-06 14:47 | HHI.NPPN ---
Subjective History of Present Illness 66 year old with acute pancreatitis ESRD on PD Objective Data Data 08/05/16 08/06/16 19:00 07:00 Intake Total 120 ml 680 ml Output Total 957 ml 400 ml Balance -837 ml 280 ml Intake Oral 120 ml 680 ml Output Urine Total 850 ml 400 ml Peritoneal Fluid 107 ml # Bowel Movements 0 Vital Signs Date Time Temp Pulse Resp B/P Pulse Ox O2 Delivery O2 Flow Rate FiO2 08/06/16 12:00 97.2 73 20 133/87 98 08/06/16 08:00 98.0 70 18 126/79 97 08/06/16 04:00 98.3 67 16 122/68 95 08/06/16 00:00 98.5 71 16 132/67 97 08/05/16 20:00 98.2 71 16 117/73 97 08/05/16 15:45 98.8 70 20 129/73 96 -: 08/04/16 0714 08/04/16 0714 Physical Exam General Appearance: Well Developed, Well Nourished Neck Neck Exam: Neck Supple Pulmonary Resp Exam: Clear Bilaterally, Breath Sounds Equal Cardiology CV Exam: Regular, Normal Sinus Rhythm Gastrointestinal/Abdomen GI Exam: Soft GI Remarks Tender in epigastric area Extremeties Extremities Exam: No Edema Assessment/Plan Problem List: (1) ESRD (end stage renal disease) on dialysis Plan: Patient is on peritoneal dialysis doing well Pancreatitis resolved GB stone may need surgery but surgery has yet to see I told him to eat today (2) Acute pancreatitis Plan: Patient has history of recurrent pancreatitis continue to observe (3) HTN (hypertension) Plan: Monitor blood pressure Michelle Bird MD Aug 06, 2016 14:46
[2016-08-06 16:00] VITALS: BP 168/90; PULSE 80; RESP 18; TEMP 98; O2SAT 98
--- NOTE | 2016-08-06 16:48 | HHI.PR ---
Subjective Remarks Follow-up for acute pancreatitis Abdominal pain mild, almost resolved, no nausea or vomiting, tolerated full liquid diet. Afebrile. Objective Vitals Vital Signs Date Time Temp Pulse Resp B/P Pulse Ox O2 Delivery O2 Flow Rate FiO2 08/06/16 16:00 98.0 80 18 168/90 98 08/06/16 12:00 97.2 73 20 133/87 98 08/06/16 08:00 98.0 70 18 126/79 97 08/06/16 04:00 98.3 67 16 122/68 95 08/06/16 00:00 98.5 71 16 132/67 97 08/05/16 20:00 98.2 71 16 117/73 97 I/O 08/05/16 08/05/16 08/05/16 08/06/16 08/06/16 08/06/16 07:00 15:00 23:00 07:00 15:00 23:00 Intake Total 600 ml 120 ml 480 ml 200 ml 531 ml Output Total 400 ml 957 ml 400 ml Balance 200 ml -837 ml 80 ml 200 ml 531 ml Intake Oral 120 ml 480 ml 200 ml IV Total 600 ml Other 531 ml Output Urine Total 400 ml 850 ml 400 ml Peritoneal Fluid 107 ml # Bowel Movements 0 Result Diagram: 08/04/1671308/04/16713 Objective Remarks Not in distress, well-nourished, looks stated age PERRL, pink conjunctiva without injection, anicteric Nose without bleeding, airway patent, oropharynx clear Supple neck, no masses or thyromegaly, trachea midline Normal rate and regular rhythm, no murmurs gallops or rubs appreciated. Clear to auscultation and symmetric bilaterally, normal respiratory effort. Normal bowel sounds, soft, non-tender, nondistended, no guarding. PD catheter in place, tenderness resolved. Extremities without clubbing, cyanosis, or edema. No rash of generalized distribution. Skin is warm and dry. AAO x3, no cranial nerve deficits, moves all 4 extremities, no focal neurologic deficits Normal mood, appropriate affect A/P Problem List: (1) Pancreatitis ICD Code: K85.90 Status: Acute (2) ESRD (end stage renal disease) on dialysis ICD Code: N18.6 Status: Chronic (3) AF (atrial fibrillation) ICD Code: I48.91 Status: Acute (4) HTN (hypertension) ICD Code: I10 Status: Chronic Assessment and Plan Pancreatitis: Recurrent. Etiology unclear. Previous admit 06/13-06/20/[address] scan of the abdomen from June reviewed, no cholelithiasis. Continue Protonix and supportive management with pain medications intravenously. LFTs are within normal limits. Triglycerides normal, CA 199 normal. Ultrasound of the gallbladder revealed contracted gallbladder, cholelithiasis, and hepatomegaly. Consult general surgery, will likely need cholecystectomy, awaiting input. This is Patient's second episode. Peritoneal fluid negative for peritonitis. No antibiotics. Tolerated full liquid diet, advance to regular diet, stop IVF. End stage renal disease-nephrology following, continue peritoneal dialysis. Atrial fibrillation-on Coumadin, INR subtherapeutic, monitor for now. Hold Coumadin , might need surgery. Hypertension-continue Norvasc DVT prophylaxis: Coumadin. Heparin while INR subtherapeutic. Discharge Planning Discharge tomorrow if tolerating diet and if surgery will do elective cholecystectomy as outpatient, otherwise, will wait until patient status post cholecystectomy. Problem Qualifiers (1) Pancreatitis: Qualified Code: K85.90 - Acute pancreatitis, unspecified complication status, unspecified pancreatitis type Ivory Hanson MD Aug 06, 2016 16:48
[2016-08-06 20:00] VITALS: BP 131/79; PULSE 74; RESP 18; TEMP 99.5; O2SAT 97
[2016-08-07] VITALS: BP 117/74; PULSE 77; RESP 16; TEMP 98.6; O2SAT 96
[2016-08-07 04:00] VITALS: BP 120/75; PULSE 74; RESP 16; TEMP 98.6; O2SAT 95
[2016-08-07] MEDS: PANTOPRAZOLE SODIUM 40 MG VIAL IV PUSH SCH ×2 (05:49→18:03)
[2016-08-07] MEDS: SODIUM CHLORIDE 0.9% FLUSH 5 ML FLUSH FLUSH PRN (05:49)
[2016-08-07] MEDS: HEPARIN SODIUM - SQ 10,000 UNITS/ML VIAL SQ SCH ×3 (05:49→19:32)
[2016-08-07 08:00] VITALS: BP 157/85; PULSE 75; RESP 20; TEMP 98.4; O2SAT 96
[2016-08-07 08:27] LABS: INTERNATIONAL NORMALIZED RATIO 1.5 RATIO; PROTHROMBIN TIME - PATIENT 16.4 SEC (9.8-11.6)
[2016-08-07] MEDS: amLODIPine BESYLATE 5 MG TAB PO SCH (09:18)
[2016-08-07] MEDS: SEVELAMER CARBONATE 800 MG TAB PO SCH ×3 (09:18→18:02)
[2016-08-07] MEDS: MEMANTINE HCL 5 MG TAB PO SCH (09:18)
[2016-08-07] MEDS: CALCITRIOL 0.25 MCG CAP PO SCH (09:18)
[2016-08-07] MEDS: SODIUM CHLORIDE 0.9% FLUSH 5 ML FLUSH FLUSH SCH ×2 (09:21→19:37)
[2016-08-07 12:00] VITALS: BP 119/59; PULSE 73; RESP 18; TEMP 97.9; O2SAT 96
--- NOTE | 2016-08-07 12:36 | HHI.NPPN ---
Subjective History of Present Illness 66 year old with acute pancreatitis ESRD on PD Objective Data Data 08/06/16 08/07/16 19:00 07:00 Intake Total 531 ml 720 ml Balance 531 ml 720 ml Intake Oral 0 ml 720 ml Other 531 ml # Voids 3 1 # Bowel Movements 0 Vital Signs Date Time Temp Pulse Resp B/P Pulse Ox O2 Delivery O2 Flow Rate FiO2 08/07/16 08:00 98.4 75 20 157/85 96 08/07/16 04:00 98.6 74 16 120/75 95 08/07/16 00:00 98.6 77 16 117/74 96 08/06/16 20:00 99.5 74 18 131/79 97 08/06/16 16:00 98.0 80 18 168/90 98 -: 08/04/16 0714 08/04/16 0714 Physical Exam General Appearance: Well Developed, Well Nourished Neck Neck Exam: Neck Supple Pulmonary Resp Exam: Clear Bilaterally, Breath Sounds Equal Cardiology CV Exam: Regular, Normal Sinus Rhythm Gastrointestinal/Abdomen GI Exam: Soft GI Remarks Tender in epigastric area Extremeties Extremities Exam: No Edema Assessment/Plan Problem List: (1) ESRD (end stage renal disease) on dialysis Plan: Patient is on peritoneal dialysis doing well Pancreatitis resolved GB stone may need surgery he was seen by Dr. Medina possible surgery tomorrow he will need a PermCath for temp HD until he heals (2) Acute pancreatitis Plan: Patient has history of recurrent pancreatitis continue to observe (3) HTN (hypertension) Plan: Monitor blood pressure Michelle Bird MD Aug 07, 2016 12:36
[2016-08-07] MEDS ORDERED: metroNIDAZOLE 500 MG INJ 100 ML IV SCH (12:45)
[2016-08-07] MEDS ORDERED: ceFAZolin 2 GM PREMIX 50 ML IV SCH (12:45)
[2016-08-07] MEDS ORDERED: SODIUM CHLOR 0.9% 1000 ML INJ 1,000 ML IV PRN ×3 (12:52→13:00)
[2016-08-07] MEDS ORDERED: HEPARIN SODIUM - IV 10,000 UNITS/10 ML VIAL IVF PRN (13:00)
[2016-08-07] MEDS ORDERED: ACETAMINOPHEN 325 MG TAB PO PRN (13:00)
[2016-08-07] MEDS ORDERED: ALBUMIN HUMAN 25% 25 GM/100 ML BAGP IV PRN (13:00)
[2016-08-07] MEDS ORDERED: GELATIN 12 MM/7 MM FOAM TOP PRN (13:00)
[2016-08-07] MEDS ORDERED: cloNIDine HCL 0.1 MG TAB PO PRN (13:00)
[2016-08-07] MEDS ORDERED: diphenhydrAMINE HCL 25 MG CAP PO PRN (13:00)
[2016-08-07] MEDS ORDERED: EPOETIN ALFA 10,000 UNITS/ML VIAL IV PRN (13:00)
[2016-08-07] MEDS ORDERED: ONDANSETRON HCL 4 MG/2 ML VIAL IV PRN (13:00)
[2016-08-07] MEDS ORDERED: HEPARIN SODIUM - IV 10,000 UNITS/10 ML VIAL PRN (13:00)
[2016-08-07] MEDS ORDERED: MANNITOL 12.5 GM/50 ML VIAL IV PRN (13:00)
[2016-08-07] MEDS ORDERED: NITROGLYCERIN 0.4 MG SL 25 TABS/BTL SL PRN (13:00)
[2016-08-07] MEDS ORDERED: SODIUM CHLORIDE 0.9% FLUSH 5 ML FLUSH IVF PRN (13:00)
--- NOTE | 2016-08-07 13:24 | MB ---
cc: FLORINDA EUGENE M.D. DATE OF CONSULTATION 08/07/2016 REASON FOR CONSULTATION Cholelithiasis, cholecystitis, gallstone pancreatitis. HISTORY This is a pleasant 66-year-old gentleman who is had problems with abdominal pain on and off, has been in the emergency room and admitted a few times over the last 18 months. He has had problems with atrial fibrillation with RVR and was admitted for some vague abdominal discomfort. Imaging at that time did not show any gallstones. He had an elevation of his amylase and lipase in the past and had clinical symptomatology consistent with gallstone pancreatitis. Ultrasound recently done shows gallstones. Surgery was consulted for consideration of cholecystectomy. He is on chronic Coumadin because of atrial fibrillation and he is presently on heparin and his pancreatitis is somewhat resolving. PAST MEDICAL HISTORY 1. Consistent with previous atrial fibrillation and RVR in the past, was recently evaluated by the improvement coordinator. 2. He also is on peritoneal dialysis for renal insufficiency and has a peritoneal dialysis catheter in. 3. He had a CVA in January of last year. 4. He has had cardiac ablation in the past as well. 5. Appendectomy when he was 10 years old. 6. He has had recurrent pancreatitis thought to be related to his renal disease but recently found to have gallstones. 7. History of hepatitis C as well. He does his peritoneal dialysis on a daily basis. His main complaint is mid-epigastric pain that is somewhat resolved, sometimes radiating to the back. OUTPATIENT MEDICATIONS 1. Norvasc. 2. Dialyvite. 3. Calcitriol. 4. Some fiber. 5. Memantine. 6. Ropinirole 25 mcg each night. 7. Renvela 800 mg t.i.d. 8. Coumadin 3 mg - not on presently. ALLERGIES ALLERGIC TO CONTRAST MEDIUM. PHYSICAL EXAMINATION General: On physical exam he is an alert gentleman. Neck: Supple. Chest: Clear. Heart: Irregularly irregular. Chest: He has a monitor subcutaneous in the left chest wall. Lungs: Good breath sounds bilaterally. Abdomen: He has a peritoneal dialysis catheter in his abdomen on the right side. He has some mild tenderness in the right upper quadrant midepigastric region with deep palpation. No rebound or guarding. Extremities: He moves all extremities well. No clubbing, cyanosis or edema. Neurologic: He is alert, seems aware of his surroundings. Able to converse with me and give me his history. LABORATORY DATA He had a white count of 6 on the , H&H of 12 and 36. Chemistry showed elevation of his lipase in the 12,000 range; on the it was 400. His creatinine is 5.6 when he came in; it is in the 4-5 range for his chronic end-stage renal disease. His liver enzymes are fairly normal. When he came on the , they were all completely normal. IMAGING STUDIES He had an ultrasound which shows gallstones and some fluid around the gallbladder. A CT scan done in June when he came in with similar symptomatology did not show any stones but they did showed some inflammation around the pancreas. I suspect he had problems with gallstone pancreatitis back at that setting. He has the peritoneal dialysis catheter in. He had a nuclear medicine scan of his heart done in February showing an ejection fraction of 67%. ASSESSMENT AND PLAN A 66-year-old gentleman with end-stage renal disease, atrial fibrillation on chronic Coumadin with gallstones and probably three bouts of documented gallstone pancreatitis, recently in the hospital. I believe at this time, with him off his Coumadin, we can certainly proceed with cholecystectomy as his symptomatology has improved. He is willing to undergo cholecystectomy and I explained in detail with him possible open and other complications otherwise from doing a cholecystectomy. He does not want to come back to the hospital with another bout of gallstone pancreatitis. We will see when there is time in the operating room, we will hold his heparin prior surgical intervention. MD BRUCE Cameron/CHANTE /12:45 PM /1:03 PM
[2016-08-07 16:00] VITALS: BP 156/84; PULSE 78; RESP 18; TEMP 98; O2SAT 98
--- NOTE | 2016-08-07 16:16 | HHI.PR ---
Subjective Remarks currently no pain complain,nausea or vomiting Objective Vitals Vital Signs Date Time Temp Pulse Resp B/P Pulse Ox O2 Delivery O2 Flow Rate FiO2 08/07/16 12:00 97.9 73 18 119/59 96 08/07/16 08:00 98.4 75 20 157/85 96 08/07/16 04:00 98.6 74 16 120/75 95 08/07/16 00:00 98.6 77 16 117/74 96 08/06/16 20:00 99.5 74 18 131/79 97 I/O 08/06/16 08/06/16 08/06/16 08/07/16 08/07/16 08/07/16 07:00 15:00 23:00 07:00 15:00 23:00 Intake Total 200 ml 531 ml 480 ml 240 ml Output Total 0 ml Balance 200 ml 531 ml 480 ml 240 ml 0 ml Intake Oral 200 ml 0 ml 480 ml 240 ml Other 531 ml Peritoneal Fluid 0 ml # Voids 3 1 # Bowel Movements 0 Result Diagram: 08/04/16 0714 08/04/16 0714 Imaging Last Impressions Gall Bladder Ultrasound 08/05/16 0000 Signed Impressions: Service Date/Time: Friday, August 05, 2016 08:38 - CONCLUSION: Mild perihepatic free fluid, cholelithiasis with mild wall thickening. Gallbladder appears contracted. Mild hepatomegaly. Karl Curtis MD Objective Remarks awake and alert, oriented x 3 anicteric lungs clear irregular rhythm abdomen- soft, good bowel sounds, nontender right upper quadrant extremities no edema A/P Problem List: (1) Pancreatitis ICD Code: K85.90 Status: Acute (2) ESRD (end stage renal disease) on dialysis ICD Code: N18.6 Status: Chronic (3) AF (atrial fibrillation) ICD Code: I48.91 Status: Acute (4) HTN (hypertension) ICD Code: I10 Status: Chronic Assessment and Plan Gallstone Pancreatitis: Recurrent. CT scan of the abdomen from June, no cholelithiasis. Continue Protonix and supportive management with pain medications intravenously. LFTs are within normal limits. Triglycerides normal, CA 199 normal. Ultrasound of the gallbladder revealed contracted gallbladder, cholelithiasis, and hepatomegaly. GS ff- plan for lap- cholecystectomy End stage renal disease-nephrology following, continue peritoneal dialysis. Atrial fibrillation-on Coumadin, INR subtherapeutic, monitor for now. Hold Coumadin Hypertension-continue Norvasc DVT prophylaxis: Coumadin. Heparin while INR subtherapeutic. Problem Qualifiers (1) Pancreatitis: Qualified Code: K85.90 - Acute pancreatitis, unspecified complication status, unspecified pancreatitis type Marci Cadet MD Aug 07, 2016 16:16
[2016-08-07 20:00] VITALS: BP 169/90; PULSE 80; RESP 16; TEMP 97.8; O2SAT 97
[2016-08-07] MEDS: HYDROmorphone HCL PF 1 MG/ML VIAL IV PUSH PRN (22:38)
[2016-08-08] VITALS (8 sets, daily range): BP systolic 125–164; BP diastolic 78–92; PULSE 62–81; RESP 16–18; TEMP 96.1–97.4; O2SAT 94–97
[2016-08-08] MEDS: PANTOPRAZOLE SODIUM 40 MG VIAL IV PUSH SCH ×3 (04:44→18:00)
[2016-08-08 07:00] LABS: AUTOMATED NEUTROPHIL # 3.1 TH/MM3 (1.8-7.7); BASOPHIL # 0.1 TH/MM3 (0-0.2); BASOPHIL % 1.7 % (0.0-2.0); EOSINOPHIL # 0.3 TH/MM3 (0-0.4); EOSINOPHIL % 5.6 % (0.0-4.0); HEMATOCRIT 37.6 % (39.0-51.0); HEMO FLAGS DIFF FINAL; LYMPH % 22.5 % (9.0-44.0); LYMPHOCYTE # 1.2 TH/MM3 (1.0-4.8); MEAN CELL VOLUME 93.3 FL (80.0-100.0); MEAN CORPUSCULAR HEMOGLOBIN 31.5 PG (27.0-34.0); MEAN CORPUSCULAR HGB CONC 33.8 % (32.0-36.0); MONO % 11.2 % (0.0-8.0); PLATELET COUNT 242 TH/MM3 (150-450); RED BLOOD COUNT 4.03 MIL/MM3 (4.50-5.90); RED CELL DISTRIBUTION WIDTH 13.9 % (11.6-17.2); WHITE BLOOD COUNT 5.2 TH/MM3 (4.0-11.0)
[2016-08-08 07:04] LABS: INTERNATIONAL NORMALIZED RATIO 1.3 RATIO; PROTHROMBIN TIME - PATIENT 14.7 SEC (9.8-11.6)
[2016-08-08 07:21] LABS: BICARBONATE 25.6 MEQ/L (21.0-32.0); POTASSIUM 3.4 MEQ/L (3.5-5.1)
[2016-08-08] MEDS: SEVELAMER CARBONATE 800 MG TAB PO SCH ×4 (07:28→18:00)
[2016-08-08] MEDS: MEMANTINE HCL 5 MG TAB PO SCH (07:28)
[2016-08-08] MEDS: amLODIPine BESYLATE 5 MG TAB PO SCH (07:29)
[2016-08-08] MEDS: SODIUM CHLORIDE 0.9% FLUSH 5 ML FLUSH FLUSH SCH ×2 (07:29→21:00)
[2016-08-08] MEDS: CALCITRIOL 0.25 MCG CAP PO SCH (11:30)
--- NOTE | 2016-08-08 11:46 | HHI.NPPN ---
Subjective History of Present Illness 66 year old with acute pancreatitis ESRD on PD Objective Data Data 08/07/16 08/08/16 19:00 07:00 Intake Total 240 ml Output Total 0 ml Balance 0 ml 240 ml Intake Oral 240 ml Peritoneal Fluid 0 ml Vital Signs Date Time Temp Pulse Resp B/P Pulse Ox O2 Delivery O2 Flow Rate FiO2 08/08/16 08:09 94 21 08/08/16 08:00 97.4 79 16 164/92 95 08/08/16 04:00 96.6 62 16 132/78 95 08/08/16 00:00 97.1 65 18 150/80 94 08/07/16 23:39 18 08/07/16 20:00 97.8 80 16 169/90 97 08/07/16 16:00 98.0 78 18 156/84 98 08/07/16 12:00 97.9 73 18 119/59 96 -: 08/08/16 0621 08/08/16 0621 Physical Exam General Appearance: Well Developed, Well Nourished Neck Neck Exam: Neck Supple Pulmonary Resp Exam: Clear Bilaterally, Breath Sounds Equal Cardiology CV Exam: Regular, Normal Sinus Rhythm Gastrointestinal/Abdomen GI Exam: Soft GI Remarks Tender in epigastric area Extremeties Extremities Exam: No Edema Assessment/Plan Problem List: (1) ESRD (end stage renal disease) on dialysis Plan: Patient is on peritoneal dialysis doing well Pancreatitis resolved he was seen by Dr. Medina cholecystectomy this afternoon he will need a PermCath for temp HD K 3.4 Start NS With 20 meq KCL at 42 cc/hr until he heals (2) Acute pancreatitis Plan: Patient has history of recurrent pancreatitis continue to observe (3) HTN (hypertension) Plan: Monitor blood pressure Michelle Bird MD Aug 08, 2016 11:45
[2016-08-08] MEDS ORDERED: PROPOFOL 200 MG/20 ML AMP IV ONE (12:00)
[2016-08-08] MEDS ORDERED: NEOSTIGMINE 3 MG/3 ML SYR IV ONE (12:00)
[2016-08-08] MEDS ORDERED: BUPIVACAINE/EPINEPHRINE 0.25% PF 30 ML VIAL ONE (12:45)
[2016-08-08] MEDS ORDERED: MIDAZOLAM HCL 2 MG/2 ML VIAL ONE (15:15)
[2016-08-08] MEDS ORDERED: ONDANSETRON HCL 4 MG/2 ML VIAL ONE (15:16)
[2016-08-08] MEDS ORDERED: fentaNYL CITRATE 250 MCG/5 ML AMP ONE (15:16)
[2016-08-08] MEDS ORDERED: DEXAMETHASONE SOD PHOS 4 MG/ML VIAL ONE (15:16)
[2016-08-08] MEDS ORDERED: ceFAZolin INJ 1,000 MG VIAL IV ONE (15:50)
--- NOTE | 2016-08-08 16:10 | HHI.PR ---
Subjective Remarks had lap cholecystectomy done tolerated procedure well Objective Vitals Vital Signs Date Time Temp Pulse Resp B/P Pulse Ox O2 Delivery O2 Flow Rate FiO2 08/08/16 12:00 97.1 68 16 128/91 97 08/08/16 08:09 94 21 08/08/16 08:00 97.4 79 16 164/92 95 08/08/16 04:00 96.6 62 16 132/78 95 08/08/16 00:00 97.1 65 18 150/80 94 08/07/16 23:39 18 08/07/16 20:00 97.8 80 16 169/90 97 I/O 08/07/16 08/07/16 08/07/16 08/08/16 08/08/16 08/08/16 07:00 15:00 23:00 07:00 15:00 23:00 Intake Total 240 ml 240 ml Output Total 0 ml 553 ml Balance 240 ml 0 ml 240 ml -553 ml Intake Oral 240 ml 240 ml Peritoneal Fluid 0 ml 553 ml Result Diagram: 08/08/16 0621 08/08/16 0621 Imaging Last Impressions Gall Bladder Ultrasound 08/05/16 0000 Signed Impressions: Service Date/Time: Friday, August 05, 2016 08:38 - CONCLUSION: Mild perihepatic free fluid, cholelithiasis with mild wall thickening. Gallbladder appears contracted. Mild hepatomegaly. Karl Curtis MD Objective Remarks awake and alert, oriented x 3 anicteric lungs clear irregular rhythm abdomen- soft, good bowel sounds, nontender right upper quadrant extremities no edema Procedures 08/08- laparoscopic cholecystectomy A/P Problem List: (1) Pancreatitis ICD Code: K85.90 Status: Acute (2) ESRD (end stage renal disease) on dialysis ICD Code: N18.6 Status: Chronic (3) AF (atrial fibrillation) ICD Code: I48.91 Status: Acute (4) HTN (hypertension) ICD Code: I10 Status: Chronic Assessment and Plan S/P Laparoscopic cholecystectomy 08/08- for Gallstone Pancreatitis: Triglycerides normal, CA 199 normal. Ultrasound of the gallbladder revealed contracted gallbladder, cholelithiasis, and hepatomegaly. GS ff- End stage renal disease-nephrology following, continue peritoneal dialysis. Atrial fibrillation-on Coumadin, INR subtherapeutic, monitor for now. Hold Coumadin for OR. restart post op Hypertension-continue Norvasc DVT prophylaxis:- post op Problem Qualifiers (1) Pancreatitis: Qualified Code: K85.90 - Acute pancreatitis, unspecified complication status, unspecified pancreatitis type Marci Cadet MD Aug 08, 2016 16:10 Marci Cadet MD Aug 08, 2016 16:10
--- NOTE | 2016-08-08 16:39 | HHI.PR ---
cc: Ashvin Medina MD Immediate Post Op Note Procedure Date: Aug 08, 2016 Pre Op Diagnosis: (1) Hepatitis C (2) Pancreatitis (3) Acute pancreatitis (4) Gallstone Post Op Diagnosis: (1) Impaired cognition (2) Impaired mobility and activities of daily living (3) Elevated troponin (4) Hepatitis C (5) Hypothyroidism (6) Anemia (7) Metabolic bone disease (8) Atypical chest pain (9) Memory impairment (10) History of CVA (cerebrovascular accident) (11) Atrial fibrillation (12) Tobacco abuse (13) CVA (cerebral vascular accident) (14) Paroxysmal atrial fibrillation (15) Peritonitis (16) Pancreatitis (17) AF (atrial fibrillation) (18) Gallstone (19) Fever (20) Ileus (21) Acute pancreatitis (22) Fluid overload (23) ESRD (end stage renal disease) on dialysis (24) Chest pain (25) HTN (hypertension) (26) Mass of pancreas (27) Pulmonary edema (28) Increased serum lipase level (29) Abdominal pain (30) Gastritis (31) Palpitations Surgeon: Ashvin Medina [employer] Supervisor(s): see records Procedure: ammon almaguer Findings: inflammed gb Complications: 0 Specimen(s) removed: gallbladder Anesthesia: General Drains: None IVF Patient to: PACU Patient Condition: Good Implant/Devices: SEE IMPLANT LOG (if applicable) Date/Time of Procedure: SEE SURGICAL CARE RECORD Ashvin Medina MD Aug 08, 2016 16:38
[2016-08-08] MEDS ORDERED: DO NOT ADM ANY ANTICOAGULANT DRUGS XX PRN (16:56)
[2016-08-08] MEDS ORDERED: *morphine SULFATE 8 MG/ML PERIprocedure ONLY ONE ×2 (17:34→17:51)
[2016-08-08] MEDS: NS + KCL 20 MEQ INJ 1,000 ML IV SCH (18:53)
[2016-08-08] MEDS: HYDROmorphone HCL PF 1 MG/ML VIAL IV PUSH PRN ×2 (18:56→22:54)
[2016-08-09] VITALS: BP 140/78; PULSE 61; RESP 17; TEMP 96.3; O2SAT 96
[2016-08-09] MEDS: HYDROmorphone HCL PF 1 MG/ML VIAL IV PUSH PRN ×4 (02:55→22:05)
[2016-08-09 04:15] VITALS: BP 131/85; PULSE 66; RESP 20; TEMP 96.6; O2SAT 94
[2016-08-09] MEDS: PANTOPRAZOLE SODIUM 40 MG VIAL IV PUSH SCH ×2 (05:29→17:46)
[2016-08-09 07:21] LABS: INTERNATIONAL NORMALIZED RATIO 1.2 RATIO; PROTHROMBIN TIME - PATIENT 13.4 SEC (9.8-11.6)
[2016-08-09] MEDS: amLODIPine BESYLATE 5 MG TAB PO SCH (07:49)
[2016-08-09] MEDS: MEMANTINE HCL 5 MG TAB PO SCH (07:50)
[2016-08-09] MEDS: SODIUM CHLORIDE 0.9% FLUSH 5 ML FLUSH FLUSH SCH ×2 (07:50→20:35)
[2016-08-09] MEDS: CALCITRIOL 0.25 MCG CAP PO SCH (07:50)
[2016-08-09] MEDS: SEVELAMER CARBONATE 800 MG TAB PO SCH ×3 (07:50→17:45)
[2016-08-09 08:00] VITALS: BP 127/89; PULSE 92; RESP 16; TEMP 95.9; O2SAT 94
--- NOTE | 2016-08-09 09:34 | MP ---
cc: FLORINDA MEDINA M.D. DATE OF SURGERY: 08/08/2016 PREOPERATIVE DIAGNOSIS 1. Cholelithiasis, cholecystitis, history of gallstone pancreatitis. 2. End-stage renal disease on peritoneal dialysis. 3. Hepatitis C. POSTOPERATIVE DIAGNOSIS 1. Cholelithiasis, cholecystitis, history of gallstone pancreatitis. 2. End-stage renal disease on peritoneal dialysis. 3. Hepatitis C. 4. Mild cirrhosis of the liver. ANESTHESIA General. SURGEON Dr. Medina PROCEDURE Laparoscopic cholecystectomy INDICATION This is a pleasant elderly gentleman who was admitted to the hospital with gallstone pancreatitis. He had problems with gallstone pancreatitis for many months. He had a recurrent bout and was then set for the above-mentioned surgery. It is noted that he has a peritoneal dialysis catheter in. DETAILS OF PROCEDURE The patient is taken to the operating room, placed in supine position. After endotracheal anesthesia his abdomen is prepped with Betadine solution. We make an incision just below the umbilicus. A Veress needle was inserted and saline load test performed. The abdomen is insufflated to 15 mmHg. The camera is introduced after a 10 mm port is placed. A 5 mm port is placed below the xyphoid and a 5 mm in between the two previously placed ports. The peritoneal dialysis catheter can be seen below the umbilical port coming into the abdomen, going down to the pelvis. We place a third working port in the right upper quadrant. The gallbladder can be seen and is obviously inflamed. He has chronic scar tissue around the gallbladder and it is somewhat contracted as well. Omentum was stuck to the gallbladder. This is taken down with a mixture of blunt dissection, hydrodissection and electrocautery. We then dissect around the neck of the gallbladder, identifying the cystic duct and cystic artery, both of which are doubly ligated and transected. The gallbladder is then easily teased off the gallbladder bed, although it is chronically inflamed into the gallbladder fossa. Once it is completely free we placed it in an EndoCatch and pull it out through the umbilical incision and is passed off the field. Then we re-inspect the dissection. There is excellent hemostasis without biliary leakage. There is mild bleeding along the edge of the liver which is stopped with the electrocautery device. It is noted that the liver is consistent with cirrhosis, is very firm and nodular. After we irrigate copiously, removing all the irrigating solution and a small amount of blood, we then remove the trocars. The umbilical port is then closed with 0 Vicryl and skin is closed with 4-0 Vicryl. Steri-Strips are applied. Sterile bandage applied. The patient tolerated the procedure well with no immediate post-op complications. MD BRUCE Cameron/BLUE /8:42 AM /9:12 AM [id number]
[2016-08-09] MEDS ORDERED: ceFAZolin 2 GM PREMIX 50 ML IV SCH (11:00)
[2016-08-09] MEDS ORDERED: VANCOMYCIN INJ 1,000 MG in SODIUM CHLOR 0.9% 250 ML INJ 250 ML IV SCH (11:00)
[2016-08-09] MEDS: NS + KCL 20 MEQ INJ 1,000 ML IV SCH (11:49)
--- NOTE | 2016-08-09 11:49 | HHI.NPPN ---
Subjective History of Present Illness 66 year old with acute pancreatitis ESRD on PD Objective Data Data 08/08/16 08/09/16 19:00 07:00 Intake Total 400 ml 700 ml Output Total 553 ml 300 ml Balance -153 ml 400 ml Intake Oral 240 ml IV Total 460 ml Other 400 ml Output Urine Total 300 ml Peritoneal Fluid 553 ml # Voids 3 Vital Signs Date Time Temp Pulse Resp B/P Pulse Ox O2 Delivery O2 Flow Rate FiO2 08/09/16 08:00 95.9 92 16 127/89 94 08/09/16 07:40 19 08/09/16 04:15 96.6 66 20 131/85 94 08/09/16 00:00 96.3 61 17 140/78 96 08/08/16 21:30 95 Nasal Cannula 1.00 08/08/16 20:00 96.5 81 17 125/79 96 08/08/16 18:20 96.1 77 16 128/79 95 08/08/16 18:00 98.0 78 16 147/89 98 Nasal Cannula 2 08/08/16 17:45 79 17 151/86 98 08/08/16 17:30 78 16 148/95 97 08/08/16 17:15 80 16 149/92 99 08/08/16 17:00 88 18 145/90 97 Nasal Cannula 2 08/08/16 16:58 97.4 99 12 139/86 97 Nasal Cannula 2 08/08/16 12:00 97.1 68 16 128/91 97 -: 08/08/16 0621 08/08/16 0621 Physical Exam General Appearance: Well Developed, Well Nourished Neck Neck Exam: Neck Supple Pulmonary Resp Exam: Clear Bilaterally, Breath Sounds Equal Cardiology CV Exam: Regular, Normal Sinus Rhythm Gastrointestinal/Abdomen GI Exam: Soft GI Remarks Tender in epigastric area Extremeties Extremities Exam: No Edema Assessment/Plan Problem List: (1) ESRD (end stage renal disease) on dialysis Plan: Patient is on peritoneal dialysis cholecystectomy yesterday he will need a PermCath for temp HD HD today (2) Acute pancreatitis Plan: Patient has history of recurrent pancreatitis continue to observe (3) HTN (hypertension) Plan: Monitor blood pressure Michelle Bird MD Aug 09, 2016 11:49
--- NOTE | 2016-08-09 12:17 | HHI.PR ---
Subjective Subjective Notes doing well feels better Objective Vitals/I&O Vital Signs Date Time Temp Pulse Resp B/P Pulse Ox O2 Delivery O2 Flow Rate FiO2 08/09/16 08:00 95.9 92 16 127/89 94 08/08/16 21:30 Nasal Cannula 1.00 08/08/16 08:09 21 Labs Laboratory Tests Test 08/09/16 06:03 Prothrombin Time 13.4 Prothromb Time International 1.2 Ratio Radiology Last Impressions Gall Bladder Ultrasound 08/05/16 0000 Signed Impressions: Service Date/Time: Friday, August 05, 2016 08:38 - CONCLUSION: Mild perihepatic free fluid, cholelithiasis with mild wall thickening. Gallbladder appears contracted. Mild hepatomegaly. Karl Curtis MD Cardiovascular: Regular, Irregular Lungs: Clear Abdomen: Post-op tenderness, BS normal A/P Problem List: (1) Post-operative state (2) S/P laparoscopic cholecystectomy (3) AF (atrial fibrillation) (4) Gallstone (5) Hepatitis C (6) HCV (hepatitis C virus) Assessment and Plan 66-year-old gentleman with end-stage renal disease doing well status post laparoscopic cholecystectomy. Advance diet as tolerated discharge when medically cleared Okay for discharge at this point from general surgery standpoint Follow-up my office in 7-10 days I gave the patient my business card and contact information Problem Qualifiers (1) AF (atrial fibrillation): Qualified Code: I48.2 - Chronic atrial fibrillation (2) Gallstone: (3) Hepatitis C: (4) HCV (hepatitis C virus): Ashvin Medina MD Aug 09, 2016 12:17
[2016-08-09] MEDS ORDERED: MIDAZOLAM HCL 5 MG/5 ML VIAL ONE (12:56)
[2016-08-09] MEDS ORDERED: fentaNYL CITRATE 250 MCG/5 ML AMP ONE (12:57)
[2016-08-09] MEDS ORDERED: LIDOCAINE 1%/EPINEPHrine 1:100,000 SOLN 20 ML VIAL ONE (13:23)
--- NOTE | 2016-08-09 14:24 | PD.RAD ---
Post Procedure Progress Note Pre Procedure Diagnosis: (1) ESRD (end stage renal disease) on dialysis Post Procedure Diagnosis: (1) ESRD (end stage renal disease) on dialysis Procedure Date: Aug 09, 2016 Supervising Radiologist: Griffin Euceda Proceduralist/Assist: Julia Archibald RT(R)(CV) Anesthesia: Local, Conscious Sedation Plan of Activity Patient to Unit: Other Patient Condition: Good See PACS Report for procedural detail/treatment Central Venous Access Device Procedure 1 Right Internal Jugular Hemodialysis Catheter Tunneled Placement dual lumen [place]: 15 Additional Detail: 23cm Lundberg II permacath Griffin Euceda MD Aug 09, 2016 14:24
[2016-08-09] MEDS ORDERED: HEPARIN SODIUM - IV 10,000 UNITS/10 ML VIAL IVF PRN (14:30)
[2016-08-09] MEDS ORDERED: SODIUM CHLORIDE 0.9% FLUSH 5 ML FLUSH IVF PRN (14:30)
[2016-08-09] MEDS: GENTAMICIN SULFATE (DIALYSIS USE ONLY) 20 MG/2 ML VIAL IV PRN (16:58)
--- NOTE | 2016-08-09 17:32 | HHI.PR ---
Subjective Remarks f/u abdominal pain abdominal pain today after permcath placement, no N/V, no fever, No BM or flatus since Sx? No chest pain or SOB Objective Vitals Vital Signs Date Time Temp Pulse Resp B/P Pulse Ox O2 Delivery O2 Flow Rate FiO2 08/09/16 08:00 95.9 92 16 127/89 94 08/09/16 07:40 19 08/09/16 04:15 96.6 66 20 131/85 94 08/09/16 00:00 96.3 61 17 140/78 96 08/08/16 21:30 95 Nasal Cannula 1.00 08/08/16 20:00 96.5 81 17 125/79 96 08/08/16 18:20 96.1 77 16 128/79 95 08/08/16 18:00 98.0 78 16 147/89 98 Nasal Cannula 2 08/08/16 17:45 79 17 151/86 98 I/O 08/08/16 08/08/16 08/08/16 08/09/16 08/09/16 08/09/16 07:00 15:00 23:00 07:00 15:00 23:00 Intake Total 699 ml 401 ml Output Total 553 ml 300 ml 2000 ml Balance -553 ml 699 ml 101 ml -2000 ml Intake Oral 120 ml 120 ml IV Total 179 ml 281 ml Other 400 ml Output Urine Total 300 ml Peritoneal Fluid 553 ml Hemodialysis 2000 ml # Voids 3 Result Diagram: 08/08/16 0621 08/08/16 0621 Objective Remarks Not in distress, well-nourished, looks stated age PERRL, pink conjunctiva without injection, anicteric Nose without bleeding, airway patent, oropharynx clear Supple neck, no masses or thyromegaly, trachea midline Normal rate and regular rhythm, no murmurs gallops or rubs appreciated. Clear to auscultation and symmetric bilaterally, normal respiratory effort. sluggish BS, but present, soft, non-tender, nondistended, no guarding. PD catheter in place, tenderness resolved. Extremities without clubbing, cyanosis, or edema. No rash of generalized distribution. Skin is warm and dry. AAO x3, no cranial nerve deficits, moves all 4 extremities, no focal neurologic deficits Normal mood, appropriate affect Procedures 08/08- laparoscopic cholecystectomy A/P Problem List: (1) Pancreatitis ICD Code: K85.90 Status: Acute (2) ESRD (end stage renal disease) on dialysis ICD Code: N18.6 Status: Chronic (3) AF (atrial fibrillation) ICD Code: I48.91 Status: Acute (4) HTN (hypertension) ICD Code: I10 Status: Chronic Assessment and Plan This is a 66-year-old male with history of end-stage renal disease and peritoneal dialysis admitted for abdominal pain. S/P Laparoscopic cholecystectomy 08/08- for Gallstone Pancreatitis: Triglycerides normal, CA 199 normal. Ultrasound of the gallbladder revealed contracted gallbladder, cholelithiasis, and hepatomegaly. Cleared by general surgery for discharge. New abdominal pain, r/o Ileus - sluggis BS, no BM or flatus, check AXR, pain meds for now. End stage renal disease-nephrology following, continue peritoneal dialysis. Will convert to hemodialysis, status post PermCath placement today. Atrial fibrillation-on Coumadin, resume Coumadin today. Hypertension-continue Norvasc DVT prophylaxis:-Heparin Discharge Planning Discharge tomorrow if okay with nephrology. Problem Qualifiers (1) Pancreatitis: Qualified Code: K85.90 - Acute pancreatitis, unspecified complication status, unspecified pancreatitis type (2) AF (atrial fibrillation): Qualified Code: I48.2 - Chronic atrial fibrillation Ivory Hanson MD Aug 09, 2016 17:32
--- NOTE | 2016-08-09 19:11 | RADRPT ---
EXAM DATE/TIME: 08/09/2016 18:11 [facility] COMPARISON: No previous studies available for comparison. INDICATIONS : No bowel movement for 2 days and abdominal pain. MEDICAL HISTORY : None. SURGICAL HISTORY : Appendectomy. Cholecystectomy. ENCOUNTER: Initial ACUITY: 2 days PAIN SCORE: 4/10 LOCATION: Bilateral abdomen. FINDINGS: Supine view of the abdomen was performed. There is gaseous distention a small and large bowel charact eristic of diffuse ileus. Peritoneal dialysis catheter in the pelvis. Cholecystectomy clips. CONCLUSION: 1. Mild diffuse ileus. No free air identified. Ashvin Lopez MD on August 09, 2016 at 19:08 Board Certified Radiologist. This report was verified electronically.
[2016-08-09 20:00] VITALS: BP 108/65; PULSE 67; RESP 16; TEMP 98.3; O2SAT 97
[2016-08-09] MEDS: HEPARIN SODIUM - SQ 10,000 UNITS/ML VIAL SQ SCH (22:08)
[2016-08-10] VITALS (8 sets, daily range): BP systolic 107–128; BP diastolic 68–79; PULSE 66–76; RESP 16–20; TEMP 97–98.4; O2SAT 95–99
[2016-08-10] MEDS: HYDROmorphone HCL PF 1 MG/ML VIAL IV PUSH PRN ×6 (02:04→21:59)
[2016-08-10] MEDS: PANTOPRAZOLE SODIUM 40 MG VIAL IV PUSH SCH ×2 (06:02→16:23)
[2016-08-10] MEDS: HEPARIN SODIUM - SQ 10,000 UNITS/ML VIAL SQ SCH ×3 (06:02→20:46)
--- NOTE | 2016-08-10 07:57 | HHI.PR ---
Subjective Remarks Did not have a BM yet. Passed gas. Has pain at the surgical site. Has pain at the permacath. No fever or chills. no n/v/d/c. Objective Vitals Vital Signs Date Time Temp Pulse Resp B/P Pulse Ox O2 Delivery O2 Flow Rate FiO2 08/10/16 06:44 19 08/10/16 04:00 98.0 71 17 128/79 95 08/10/16 00:00 98.4 76 16 107/68 95 08/09/16 20:00 98.3 67 16 108/65 97 08/09/16 08:00 95.9 92 16 127/89 94 I/O 08/09/16 08/09/16 08/09/16 08/10/16 08/10/16 08/10/16 07:00 15:00 23:00 07:00 15:00 23:00 Intake Total 401 ml 240 ml 120 ml Output Total 300 ml 400 ml 2200 ml 300 ml Balance 101 ml -400 ml -1960 ml -180 ml Intake Oral 120 ml 240 ml 120 ml IV Total 281 ml Output Urine Total 300 ml 400 ml 200 ml 300 ml Hemodialysis 2000 ml # Bowel Movements 0 Result Diagram: 08/08/16 0621 08/08/16 0621 Imaging Last Impressions Abdomen X-Ray 08/09/16 0000 Signed Impressions: Service Date/Time: Tuesday, August 09, 2016 18:11 - CONCLUSION: 1. Mild diffuse ileus. No free air identified. Ashvin Lopez MD Gall Bladder Ultrasound 08/05/16 0000 Signed Impressions: Service Date/Time: Friday, August 05, 2016 08:38 - CONCLUSION: Mild perihepatic free fluid, cholelithiasis with mild wall thickening. Gallbladder appears contracted. Mild hepatomegaly. Karl Curtis MD Objective Remarks GENERAL: 66 yo male, well nourished, well developed appears in nad. SKIN: Warm and dry. HEAD: Atraumatic. Normocephalic. EYES: Pupils equal and round. No scleral icterus. No injection or drainage. ENT: No nasal bleeding or discharge. Mucous membranes pink and moist. NECK: Trachea midline. No JVD. Permacath in place right side. CARDIOVASCULAR: Regular rate and rhythm. RESPIRATORY: No accessory muscle use. Clear to auscultation. Breath sounds equal bilaterally. GASTROINTESTINAL: Abdomen soft, tender at the surgical site, nondistended. MUSCULOSKELETAL: Extremities without clubbing, cyanosis, or edema. No obvious deformities. NEUROLOGICAL: Awake and alert. No obvious cranial nerve deficits. Motor grossly within normal limits. Five out of 5 muscle strength in the arms and legs. Normal speech. PSYCHIATRIC: Appropriate mood and affect; insight and judgment normal. Procedures 08/08- laparoscopic cholecystectomy A/P Problem List: (1) Pancreatitis ICD Code: K85.90 Status: Acute (2) ESRD (end stage renal disease) on dialysis ICD Code: N18.6 Status: Chronic (3) AF (atrial fibrillation) ICD Code: I48.91 Status: Acute (4) HTN (hypertension) ICD Code: I10 Status: Chronic Assessment and Plan This is a 66-year-old male with history of end-stage renal disease and peritoneal dialysis admitted for abdominal pain. S/P Laparoscopic cholecystectomy 08/08- for Gallstone Pancreatitis: Triglycerides normal, CA 199 normal. Ultrasound of the gallbladder revealed contracted gallbladder, cholelithiasis, and hepatomegaly. Cleared by general surgery for discharge. Abdominal pain, with Ileus postsurgical - sluggish BS, no BM or flatus, Abd XR reviewed. Pain meds for now. Patient did not have a BM yet End stage renal disease-nephrology following, continue peritoneal dialysis. Will convert to hemodialysis, status post PermCath placement today. Atrial fibrillation-on Coumadin, resume Coumadin today. Hypertension-continue Norvasc DVT prophylaxis:-Heparin Discharge Planning Discharge tomorrow if okay with nephrology and ileus resolving Problem Qualifiers (1) Pancreatitis: Qualified Code: K85.90 - Acute pancreatitis, unspecified complication status, unspecified pancreatitis type (2) AF (atrial fibrillation): Qualified Code: I48.2 - Chronic atrial fibrillation Sandra Parker MD Aug 10, 2016 07:57
[2016-08-10 08:12] LABS: AUTOMATED NEUTROPHIL # 3.5 TH/MM3 (1.8-7.7); BASOPHIL # 0.1 TH/MM3 (0-0.2); BASOPHIL % 1.3 % (0.0-2.0); EOSINOPHIL # 0.1 TH/MM3 (0-0.4); EOSINOPHIL % 1.8 % (0.0-4.0); HEMATOCRIT 34.2 % (39.0-51.0); HEMO FLAGS DIFF FINAL; LYMPH % 23.7 % (9.0-44.0); LYMPHOCYTE # 1.3 TH/MM3 (1.0-4.8); MEAN CELL VOLUME 94.2 FL (80.0-100.0); MEAN CORPUSCULAR HEMOGLOBIN 31.9 PG (27.0-34.0); MEAN CORPUSCULAR HGB CONC 33.8 % (32.0-36.0); MONO % 10.1 % (0.0-8.0); NEUT % 63.1 % (16.0-70.0); PLATELET COUNT 189 TH/MM3 (150-450); RED BLOOD COUNT 3.63 MIL/MM3 (4.50-5.90); WHITE BLOOD COUNT 5.6 TH/MM3 (4.0-11.0)
[2016-08-10 08:15] LABS: INTERNATIONAL NORMALIZED RATIO 1.2 RATIO; PROTHROMBIN TIME - PATIENT 13.1 SEC (9.8-11.6)
[2016-08-10] MEDS: CALCITRIOL 0.25 MCG CAP PO SCH (08:29)
[2016-08-10] MEDS: amLODIPine BESYLATE 5 MG TAB PO SCH (08:29)
[2016-08-10] MEDS: MEMANTINE HCL 5 MG TAB PO SCH (08:29)
[2016-08-10] MEDS: SEVELAMER CARBONATE 800 MG TAB PO SCH ×3 (08:30→16:22)
[2016-08-10] MEDS: SODIUM CHLORIDE 0.9% FLUSH 5 ML FLUSH FLUSH SCH ×2 (08:30→20:45)
[2016-08-10 08:33] LABS: BICARBONATE 30.6 MEQ/L (21.0-32.0)
[2016-08-10] MEDS: NS + KCL 20 MEQ INJ 1,000 ML IV SCH (11:38)
--- NOTE | 2016-08-10 12:10 | HHI.NPPN ---
Subjective History of Present Illness 66 year old with acute pancreatitis ESRD on PD Interval History patient feels well. Some pain in the right upper quadrant. Review of Systems General Constitutional: Fatigue Objective Data Data 08/09/16 08/10/16 19:00 07:00 Intake Total 360 ml Output Total 2400 ml 500 ml Balance -2400 ml -140 ml Intake Oral 360 ml Output Urine Total 400 ml 500 ml Hemodialysis 2000 ml # Bowel Movements 0 Vital Signs Date Time Temp Pulse Resp B/P Pulse Ox O2 Delivery O2 Flow Rate FiO2 08/10/16 09:04 95 21 08/10/16 08:00 97.3 68 20 125/69 97 08/10/16 06:44 19 08/10/16 04:00 98.0 71 17 128/79 95 08/10/16 00:00 98.4 76 16 107/68 95 08/09/16 20:00 98.3 67 16 108/65 97 -: 08/10/16 0730 08/10/16 0730 Physical Exam General Appearance: Well Developed, Well Nourished Neck Neck Exam: Neck Supple Pulmonary Resp Exam: Clear Bilaterally, Breath Sounds Equal Cardiology CV Exam: Regular, Normal Sinus Rhythm Gastrointestinal/Abdomen GI Exam: Soft Extremeties Extremities Exam: No Edema Assessment/Plan Problem List: (1) ESRD (end stage renal disease) on dialysis Plan: He was on PD, underwent cholecystectomy on the . Transitioned to HD , had HD yesterday. Next dialysis will be on Friday. Needs outpatient placement for continued HD for a few weeks. (2) Acute pancreatitis Plan: Patient has history of recurrent pancreatitis continue to observe (3) HTN (hypertension) Plan: Monitor blood pressure Alex Rushing MD Aug 10, 2016 12:10
[2016-08-10] MEDS: WARFARIN SOD 3 MG TAB PO SCH (16:22)
[2016-08-11] VITALS (8 sets, daily range): BP systolic 110–126; BP diastolic 69–77; PULSE 58–87; RESP 16–20; TEMP 97.4–98.1; O2SAT 95–98
[2016-08-11] MEDS: HYDROmorphone HCL PF 1 MG/ML VIAL IV PUSH PRN ×2 (04:34→15:06)
[2016-08-11] MEDS: HEPARIN SODIUM - SQ 10,000 UNITS/ML VIAL SQ SCH ×3 (05:31→22:26)
[2016-08-11] MEDS: PANTOPRAZOLE SODIUM 40 MG VIAL IV PUSH SCH ×2 (05:31→17:17)
[2016-08-11 07:45] LABS: AUTOMATED NEUTROPHIL # 2.8 TH/MM3 (1.8-7.7); BASOPHIL # 0.1 TH/MM3 (0-0.2); BASOPHIL % 2.1 % (0.0-2.0); EOSINOPHIL # 0.2 TH/MM3 (0-0.4); EOSINOPHIL % 3.5 % (0.0-4.0); HEMATOCRIT 32.6 % (39.0-51.0); HEMO FLAGS DIFF FINAL; LYMPH % 26.9 % (9.0-44.0); LYMPHOCYTE # 1.3 TH/MM3 (1.0-4.8); MEAN CELL VOLUME 94.3 FL (80.0-100.0); MEAN CORPUSCULAR HEMOGLOBIN 32.3 PG (27.0-34.0); MEAN CORPUSCULAR HGB CONC 34.3 % (32.0-36.0); MONO % 11.8 % (0.0-8.0); NEUT % 55.7 % (16.0-70.0); PLATELET COUNT 175 TH/MM3 (150-450); RED BLOOD COUNT 3.46 MIL/MM3 (4.50-5.90)
[2016-08-11 08:15] LABS: BICARBONATE 25.9 MEQ/L (21.0-32.0); POTASSIUM 3.6 MEQ/L (3.5-5.1)
--- NOTE | 2016-08-11 09:06 | HHI.NPPN ---
Subjective History of Present Illness 66 year old with acute pancreatitis ESRD on PD Interval History He has been switched to HD. Needs confirmation of outpatient dialysis time and facility before discharge. We will verify this on Friday. Review of Systems General Constitutional: Fatigue Objective Data Data 08/10/16 08/11/16 19:00 07:00 Intake Total 1680 ml 1200 ml Output Total 1700 ml Balance -20 ml 1200 ml Intake Oral 1680 ml 1200 ml Output Urine Total 1700 ml # Voids 5 Vital Signs Date Time Temp Pulse Resp B/P Pulse Ox O2 Delivery O2 Flow Rate FiO2 08/11/16 08:00 97.4 58 20 124/69 97 08/11/16 05:41 18 08/11/16 04:00 98.0 87 18 110/75 95 08/11/16 00:00 97.4 64 16 118/76 97 08/10/16 20:00 97.6 74 18 121/78 96 08/10/16 17:41 99 21 08/10/16 16:00 97.0 66 20 117/71 99 08/10/16 12:00 97.1 66 20 121/71 97 08/10/16 09:04 95 21 -: 08/11/16 0619 08/11/16 0619 Physical Exam General Appearance: Well Developed, Well Nourished Neck Neck Exam: Neck Supple Pulmonary Resp Exam: Clear Bilaterally, Breath Sounds Equal Cardiology CV Exam: Regular, Normal Sinus Rhythm Gastrointestinal/Abdomen GI Exam: Soft Extremeties Extremities Exam: No Edema Assessment/Plan Problem List: (1) ESRD (end stage renal disease) on dialysis Plan: He was on PD, underwent cholecystectomy on the . Transitioned to HD , had HD yesterday. Next dialysis will be on Friday. Needs outpatient placement for continued HD for a few weeks. (2) Acute pancreatitis Plan: Patient has history of recurrent pancreatitis continue to observe (3) HTN (hypertension) Plan: Monitor blood pressure (4) Atrial fibrillation Plan: Coumadin has been resumed. Alex Rushing MD Aug 11, 2016 09:06
[2016-08-11] MEDS: SEVELAMER CARBONATE 800 MG TAB PO SCH ×3 (09:12→17:17)
[2016-08-11] MEDS: SODIUM CHLORIDE 0.9% FLUSH 5 ML FLUSH FLUSH SCH ×2 (09:12→21:00)
[2016-08-11] MEDS: CALCITRIOL 0.25 MCG CAP PO SCH (09:12)
[2016-08-11] MEDS: MEMANTINE HCL 5 MG TAB PO SCH (09:12)
[2016-08-11] MEDS: amLODIPine BESYLATE 5 MG TAB PO SCH (09:13)
[2016-08-11] MEDS: BISACODYL 10 MG SUPP PR PRN (09:20)
--- NOTE | 2016-08-11 10:34 | HHI.FPPN ---
Subjective Remarks Patient seen and examined this am. Vitals are stable and he is afebrile. Complaining of right neck pain. Tolerating full diet. Passing gas, but has not yet had a BM. Objective Vitals Vital Signs Date Time Temp Pulse Resp B/P Pulse Ox O2 Delivery O2 Flow Rate FiO2 08/11/16 10:10 96 21 08/11/16 08:00 97.4 58 20 124/69 97 08/11/16 05:41 18 08/11/16 04:00 98.0 87 18 110/75 95 08/11/16 00:00 97.4 64 16 118/76 97 08/10/16 20:00 97.6 74 18 121/78 96 08/10/16 17:41 99 21 08/10/16 16:00 97.0 66 20 117/71 99 08/10/16 12:00 97.1 66 20 121/71 97 I/O 08/10/16 08/10/16 08/10/16 08/11/16 08/11/16 08/11/16 07:00 15:00 23:00 07:00 15:00 23:00 Intake Total 120 ml 1680 ml 720 ml 480 ml Output Total 300 ml 1300 ml 400 ml Balance -180 ml 380 ml 320 ml 480 ml Intake Oral 120 ml 1680 ml 720 ml 480 ml Output Urine Total 300 ml 1300 ml 400 ml # Voids 3 2 # Bowel Movements 0 Result Diagram: 08/11/16 0619 08/11/16 0619 Imaging Last Impressions Abdomen X-Ray 08/09/16 0000 Signed Impressions: Service Date/Time: Tuesday, August 09, 2016 18:11 - CONCLUSION: 1. Mild diffuse ileus. No free air identified. Ashvin Lopez MD Gall Bladder Ultrasound 08/05/16 0000 Signed Impressions: Service Date/Time: Friday, August 05, 2016 08:38 - CONCLUSION: Mild perihepatic free fluid, cholelithiasis with mild wall thickening. Gallbladder appears contracted. Mild hepatomegaly. Karl Curtis MD Objective Remarks GENERAL: 66 yo male, well nourished, well developed appears in nad. SKIN: Warm and dry. HEAD: Atraumatic. Normocephalic. EYES: Pupils equal and round. No scleral icterus. No injection or drainage. ENT: No nasal bleeding or discharge. Mucous membranes pink and moist. NECK: Trachea midline. No JVD. Permacath in place right chest. CARDIOVASCULAR: Regular rate and rhythm. RESPIRATORY: No accessory muscle use. Clear to auscultation. Breath sounds equal bilaterally. GASTROINTESTINAL: Abdomen soft, nondistended. Surgical incision the the left of the umbilicus is c/d/i. Peritoneal dialysis catheter in place on right LQ that is clean and dry. MUSCULOSKELETAL: Extremities without clubbing, cyanosis, or edema. No obvious deformities. NEUROLOGICAL: Awake and alert. No obvious cranial nerve deficits. Motor grossly within normal limits. Normal speech. PSYCHIATRIC: Appropriate mood and affect; insight and judgment normal. Procedures Lap manuel 08/08 A/P Assessment and Plan This is a 66-year-old male with history of end-stage renal disease and peritoneal dialysis admitted for abdominal pain. S/P Laparoscopic cholecystectomy 08/08- for Gallstone Pancreatitis: Triglycerides normal, CA 199 normal. Ultrasound of the gallbladder revealed contracted gallbladder, cholelithiasis, and hepatomegaly. Cleared by general surgery for discharge. Advance diet as tolerated. Pain well controlled. Abdominal pain- improved; Ileus postsurgical - sluggish BS, no BM, + flatus, Abd XR reviewed per above. Pain meds for now. Encourage patient to get out of bed. End stage renal disease-nephrology following, converted to hemodialysis after status post PermCath placement yesterday. Will have dialysis on Friday and outpatient dialysis will be arranged at this time per Nephro, then may be discharge. Atrial fibrillation- Coumadin resumed, INR 1.2 Hypertension-continue Norvasc Neck pain/muscle spasm- flexiril 10 mg x1 Hepatitis C positive, to be followed up as an outpatient. DVT prophylaxis:-Heparin, coumadin resumed, subtherapeutic INR Discharge Planning D/C Fri per Nephro, outpatient dialysis to be arranged. Problem List: (1) Pancreatitis Status: Acute (2) Gallstone Status: Acute (3) Memory impairment Status: Acute (4) Atrial fibrillation Status: Chronic (5) History of CVA (cerebrovascular accident) Status: Acute (6) Ileus Status: Acute (7) HTN (hypertension) Status: Chronic Problem Qualifiers (1) Pancreatitis: Qualified Code: K85.90 - Acute pancreatitis, unspecified complication status, unspecified pancreatitis type (2) Gallstone: Gabbi Lara MD R3 Aug 11, 2016 10:34
[2016-08-11] MEDS ORDERED: CYCLOBENZAPRINE HCL 10 MG TAB PO ONE (11:00)
[2016-08-11] MEDS: NS + KCL 20 MEQ INJ 1,000 ML IV SCH (11:41)
[2016-08-11] MEDS: WARFARIN SOD 3 MG TAB PO SCH (15:06)
[2016-08-11] MEDS: ACETAMINOPHEN/HYDROcodone 325 MG/5 MG TAB PO PRN (20:43)
[2016-08-12] VITALS (8 sets, daily range): BP systolic 92–150; BP diastolic 59–77; PULSE 56–93; RESP 16–20; TEMP 97–99.5; O2SAT 93–97
[2016-08-12] MEDS: ACETAMINOPHEN/HYDROcodone 325 MG/5 MG TAB PO PRN ×2 (04:52→13:07)
[2016-08-12] MEDS: HEPARIN SODIUM - SQ 10,000 UNITS/ML VIAL SQ SCH ×3 (06:04→22:15)
[2016-08-12] MEDS: PANTOPRAZOLE SODIUM 40 MG VIAL IV PUSH SCH ×2 (06:05→16:41)
[2016-08-12 07:16] LABS: AUTOMATED NEUTROPHIL # 2.7 TH/MM3 (1.8-7.7); BASOPHIL # 0.1 TH/MM3 (0-0.2); BASOPHIL % 1.3 % (0.0-2.0); EOSINOPHIL # 0.2 TH/MM3 (0-0.4); EOSINOPHIL % 4.3 % (0.0-4.0); HEMATOCRIT 31.2 % (39.0-51.0); HEMO FLAGS DIFF FINAL; INTERNATIONAL NORMALIZED RATIO 1.1 RATIO; LYMPH % 32.2 % (9.0-44.0); LYMPHOCYTE # 1.7 TH/MM3 (1.0-4.8); MEAN CELL VOLUME 94.5 FL (80.0-100.0); MEAN CORPUSCULAR HEMOGLOBIN 32.3 PG (27.0-34.0); MEAN CORPUSCULAR HGB CONC 34.2 % (32.0-36.0); MONO % 10.9 % (0.0-8.0); NEUT % 51.3 % (16.0-70.0); PLATELET COUNT 181 TH/MM3 (150-450); PROTHROMBIN TIME - PATIENT 11.7 SEC (9.8-11.6); RED CELL DISTRIBUTION WIDTH 13.6 % (11.6-17.2); WHITE BLOOD COUNT 5.2 TH/MM3 (4.0-11.0)
[2016-08-12 07:43] LABS: BICARBONATE 23.4 MEQ/L (21.0-32.0)
--- NOTE | 2016-08-12 08:19 | HHI.PR ---
Subjective Remarks Patient complaints of neck pain. Will give flexeril. Still did not have a BM. Abd pain controlled by meds. No n/v/d/c. Objective Vitals Vital Signs Date Time Temp Pulse Resp B/P Pulse Ox O2 Delivery O2 Flow Rate FiO2 08/12/16 04:00 97.8 74 18 114/70 97 08/12/16 00:00 98.9 93 16 137/70 95 08/11/16 21:42 98 Nasal Cannula 08/11/16 20:00 98.1 72 18 126/72 97 08/11/16 16:00 97.8 60 20 111/77 97 08/11/16 12:00 97.7 62 18 115/69 95 08/11/16 10:10 96 21 I/O 08/11/16 08/11/16 08/11/16 08/12/16 08/12/16 08/12/16 07:00 15:00 23:00 07:00 15:00 23:00 Intake Total 480 ml 1320 ml 891 ml 1230 ml Output Total 650 ml 425 ml 500 ml Balance 480 ml 670 ml 466 ml 730 ml Intake Oral 480 ml 1320 ml 480 ml 960 ml IV Total 411 ml 270 ml Output Urine Total 650 ml 425 ml 500 ml # Voids 2 2 3 Result Diagram: 08/12/16 0637 08/12/16 0637 Imaging Last Impressions Abdomen X-Ray 08/09/16 0000 Signed Impressions: Service Date/Time: Tuesday, August 09, 2016 18:11 - CONCLUSION: 1. Mild diffuse ileus. No free air identified. Ashvin Lopez MD Gall Bladder Ultrasound 08/05/16 0000 Signed Impressions: Service Date/Time: Friday, August 05, 2016 08:38 - CONCLUSION: Mild perihepatic free fluid, cholelithiasis with mild wall thickening. Gallbladder appears contracted. Mild hepatomegaly. Karl Curtis MD Objective Remarks GENERAL: 66 yo male, well nourished, well developed appears in nad. SKIN: Warm and dry. HEAD: Atraumatic. Normocephalic. EYES: Pupils equal and round. No scleral icterus. No injection or drainage. ENT: No nasal bleeding or discharge. Mucous membranes pink and moist. NECK: Trachea midline. No JVD. Permacath in place right side. CARDIOVASCULAR: Regular rate and rhythm. RESPIRATORY: No accessory muscle use. Clear to auscultation. Breath sounds equal bilaterally. GASTROINTESTINAL: Abdomen soft, tender at the surgical site, nondistended. MUSCULOSKELETAL: Extremities without clubbing, cyanosis, or edema. No obvious deformities. NEUROLOGICAL: Awake and alert. No obvious cranial nerve deficits. Motor grossly within normal limits. Five out of 5 muscle strength in the arms and legs. Normal speech. PSYCHIATRIC: Appropriate mood and affect; insight and judgment normal. Procedures 08/08- laparoscopic cholecystectomy A/P Problem List: (1) Pancreatitis ICD Code: K85.90 Status: Acute (2) ESRD (end stage renal disease) on dialysis ICD Code: N18.6 Status: Chronic (3) AF (atrial fibrillation) ICD Code: I48.91 Status: Acute (4) HTN (hypertension) ICD Code: I10 Status: Chronic Assessment and Plan This is a 66-year-old male with history of end-stage renal disease and peritoneal dialysis admitted for abdominal pain. S/P Laparoscopic cholecystectomy 08/08- for Gallstone Pancreatitis: Triglycerides normal, CA 199 normal. Ultrasound of the gallbladder revealed contracted gallbladder, cholelithiasis, and hepatomegaly. Cleared by general surgery for discharge. Abdominal pain, with Ileus postsurgical - sluggish BS, no BM or flatus, Abd XR reviewed. Pain meds for now. Patient did not have a BM yet Constipation, postop ileus. Will add MOM, pericolace, lactulose, enema if need. Neck muscle spasm. Add flexeril. End stage renal disease-nephrology following, continue peritoneal dialysis. Will convert to hemodialysis, status post PermCath placement today. Atrial fibrillation-on Coumadin, resume Coumadin today. Hypertension-continue Norvasc DVT prophylaxis:-Heparin Discharge Planning Discharge tomorrow if okay with nephrology and ileus resolving Problem Qualifiers (1) Pancreatitis: Qualified Code: K85.90 - Acute pancreatitis, unspecified complication status, unspecified pancreatitis type (2) AF (atrial fibrillation): Qualified Code: I48.2 - Chronic atrial fibrillation Sandra Parker MD Aug 12, 2016 08:19
[2016-08-12] MEDS ORDERED: LACTULOSE SYRUP 20 GM/30 ML CUP PO PRN (08:30)
[2016-08-12] MEDS: SEVELAMER CARBONATE 800 MG TAB PO SCH ×3 (09:00→16:41)
[2016-08-12] MEDS ORDERED: SOD PHOSPHATE/SOD BIPHOSPHATE (ADULT) ENEMA 133ML PR ONE (09:30)
[2016-08-12] MEDS: GENTAMICIN SULFATE (DIALYSIS USE ONLY) 20 MG/2 ML VIAL IV PRN (12:17)
[2016-08-12] MEDS: MAGNESIUM HYDROXIDE SUSP 30 ML CUP PO PRN ×2 (13:05→13:06)
--- NOTE | 2016-08-12 13:05 | HHI.NPPN ---
Subjective History of Present Illness 66 year old with acute pancreatitis ESRD on PD Interval History converted to HD last Friday Review of Systems General Constitutional: Fatigue Objective Data Data 08/11/16 08/12/16 19:00 07:00 Intake Total 1446 ml 1995 ml Output Total 650 ml 925 ml Balance 796 ml 1070 ml Intake Oral 1320 ml 1440 ml IV Total 126 ml 555 ml Output Urine Total 650 ml 925 ml # Voids 2 3 Vital Signs Date Time Temp Pulse Resp B/P Pulse Ox O2 Delivery O2 Flow Rate FiO2 08/12/16 12:52 97.0 74 20 118/69 95 08/12/16 10:13 96 21 08/12/16 08:00 97.4 66 20 150/77 96 08/12/16 04:00 97.8 74 18 114/70 97 08/12/16 00:00 98.9 93 16 137/70 95 08/11/16 21:42 98 Nasal Cannula 08/11/16 20:00 98.1 72 18 126/72 97 08/11/16 16:00 97.8 60 20 111/77 97 -: 08/12/16 0637 08/12/16 0637 Physical Exam General Appearance: Well Developed, Well Nourished Neck Neck Exam: Neck Supple Pulmonary Resp Exam: Clear Bilaterally, Breath Sounds Equal Cardiology CV Exam: Regular, Normal Sinus Rhythm Gastrointestinal/Abdomen GI Exam: Soft GI Remarks Tender in epigastric area Extremeties Extremities Exam: No Edema Assessment/Plan Problem List: (1) ESRD (end stage renal disease) on dialysis Plan: He was on PD, underwent cholecystectomy on the . Transitioned to HD , had HD earlier 3 L taken off Next dialysis will be on Friday. Needs outpatient placement for continued HD for a few weeks. (2) Acute pancreatitis Plan: Patient has history of recurrent pancreatitis continue to observe (3) HTN (hypertension) Plan: Monitor blood pressure (4) Atrial fibrillation Plan: Coumadin has been resumed. Michelle Bird MD Aug 12, 2016 13:04
[2016-08-12] MEDS: CALCITRIOL 0.25 MCG CAP PO SCH (13:06)
[2016-08-12] MEDS: MEMANTINE HCL 5 MG TAB PO SCH (13:06)
[2016-08-12] MEDS: amLODIPine BESYLATE 5 MG TAB PO SCH (13:06)
[2016-08-12] MEDS: SODIUM CHLORIDE 0.9% FLUSH 5 ML FLUSH FLUSH SCH ×2 (13:08→21:00)
[2016-08-12] MEDS: NS + KCL 20 MEQ INJ 1,000 ML IV SCH (13:09)
[2016-08-12] MEDS: DOCUSATE SODIUM 50 MG/SENNA 8.6 MG TAB PO SCH ×2 (14:08→22:15)
[2016-08-12] MEDS: WARFARIN SOD 3 MG TAB PO SCH (16:41)
[2016-08-12] MEDS ORDERED: CYCLOBENZAPRINE HCL 10 MG TAB PO PRN (17:00)
[2016-08-13 00:45] VITALS: BP 134/79; PULSE 65; RESP 16; TEMP 97.3; O2SAT 97
[2016-08-13] MEDS: ACETAMINOPHEN/HYDROcodone 325 MG/5 MG TAB PO PRN ×2 (01:07→13:47)
[2016-08-13 05:30] VITALS: BP 108/65; PULSE 64; RESP 16; TEMP 97.1; O2SAT 97
[2016-08-13] MEDS: HEPARIN SODIUM - SQ 10,000 UNITS/ML VIAL SQ SCH ×2 (05:43→13:47)
[2016-08-13] MEDS: PANTOPRAZOLE SODIUM 40 MG VIAL IV PUSH SCH (05:44)
[2016-08-13] MEDS ORDERED: CYCL1TAB29 PO (07:37)
--- NOTE | 2016-08-13 07:38 | HHI.DCPOC ---
Discharge Care Plan Goals to Promote Your Health * To prevent worsening of your condition and complications * To maintain your health at the optimal level Directions to Meet Your Goals Take your medications as prescribed Follow your dietary instruction Follow activity as directed Keep your appointments as scheduled Take your immunizations and boosters as scheduled If your symptoms worsen call your PCP, if no PCP go to Urgent Care Center or Emergency Room Smoking is Dangerous to Your Health. Avoid second hand smoke Call the 24-hour hour crisis hotline for domestic abuse at Sandra Parker MD Aug 13, 2016 07:38
--- NOTE | 2016-08-13 07:38 | HHI.DS ---
Discharge Summary Admission Date Aug 03, 2016 at 04:41 Discharge Date: Aug 13, 2016 Admitting Diagnosis Pancreatitis (1) Pancreatitis ICD Code: K85.90 Diagnosis: Principal (2) ESRD (end stage renal disease) on dialysis ICD Code: N18.6 Diagnosis: Secondary (3) AF (atrial fibrillation) ICD Code: I48.91 Diagnosis: Secondary (4) HTN (hypertension) ICD Code: I10 Diagnosis: Secondary (5) Ileus ICD Code: K56.7 Diagnosis: Principal (6) History of CVA (cerebrovascular accident) ICD Code: Z86.73 Diagnosis: Secondary (7) S/P laparoscopic cholecystectomy ICD Code: Z90.49 Diagnosis: Principal Procedures 08/08- laparoscopic cholecystectomy Brief History - From Admission This is a 66-year-old male with PMH of HTN, ESRD on PD, A. fib on Coumadin, CAD and Recurrent Pancreatitis who came into the ER with complaints of epigastric pain with radiation to his back, typical of his previous episodes of pancreatitis. Denies fever, chills or diarrhea. Reports nausea, but no vomiting. On arrival, BP 160/88, HR 66, O2 sat 98% on RA, Afebrile. CBC essentially unremarkable. Creatinine 6.15, previously 4.40 and 06/18/16. Lipase 12,927. S/p Morphine in ER w/ improvement in pain. CBC/BMP: 08/12/16 0637 08/12/16 0637 Significant Findings Laboratory Tests Test 08/11/16 08/12/16 06:19 06:37 Red Blood Count 3.46 MIL/MM3 3.30 MIL/MM3 (4.50-5.90) (4.50-5.90) Hemoglobin 11.2 GM/DL 10.7 GM/DL (13.0-17.0) (13.0-17.0) Hematocrit 32.6 % 31.2 % (39.0-51.0) (39.0-51.0) Monocytes (%) (Auto) 11.8 % 10.9 % (0.0-8.0) (0.0-8.0) Basophils (%) (Auto) 2.1 % (0.0-2.0) Blood Urea Nitrogen 21 MG/DL (7-18) 26 MG/DL (7-18) Creatinine 5.67 MG/DL 6.11 MG/DL (0.60-1.30) (0.60-1.30) Estimat Glomerular Filtration 10 ML/MIN (>89) 9 ML/MIN (>89) Rate Random Glucose 107 MG/DL (74-106) Calcium Level 8.3 MG/DL (8.5-10.1) Eosinophils (%) (Auto) 4.3 % (0.0-4.0) Prothrombin Time 11.7 SEC (9.8-11.6) Chloride Level 111 MEQ/L (98-107) Imaging Last Impressions Abdomen X-Ray 08/09/16 0000 Signed Impressions: Service Date/Time: Tuesday, August 09, 2016 18:11 - CONCLUSION: 1. Mild diffuse ileus. No free air identified. Ashvin Lopez MD Gall Bladder Ultrasound 08/05/16 0000 Signed Impressions: Service Date/Time: Friday, August 05, 2016 08:38 - CONCLUSION: Mild perihepatic free fluid, cholelithiasis with mild wall thickening. Gallbladder appears contracted. Mild hepatomegaly. Karl Curtis MD PE at Discharge GENERAL: 66 yo male, well nourished, well developed appears in nad. SKIN: Warm and dry. HEAD: Atraumatic. Normocephalic. EYES: Pupils equal and round. No scleral icterus. No injection or drainage. ENT: No nasal bleeding or discharge. Mucous membranes pink and moist. NECK: Trachea midline. No JVD. Permacath in place right side. CARDIOVASCULAR: Regular rate and rhythm. RESPIRATORY: No accessory muscle use. Clear to auscultation. Breath sounds equal bilaterally. GASTROINTESTINAL: Abdomen soft, tender at the surgical site, nondistended. MUSCULOSKELETAL: Extremities without clubbing, cyanosis, or edema. No obvious deformities. NEUROLOGICAL: Awake and alert. No obvious cranial nerve deficits. Motor grossly within normal limits. Five out of 5 muscle strength in the arms and legs. Normal speech. PSYCHIATRIC: Appropriate mood and affect; insight and judgment normal. Pt update on day of discharge Feels much better. Had a BM yesterday 08/12. Pain is controlled by meds. No n/v/d/ c. Tolerates food. Hospital Course This is a 66-year-old male with history of end-stage renal disease and peritoneal dialysis admitted for abdominal pain. S/P Laparoscopic cholecystectomy 08/08- for Gallstone Pancreatitis: Triglycerides normal, CA 199 normal. Ultrasound of the gallbladder revealed contracted gallbladder, cholelithiasis, and hepatomegaly. Cleared by general surgery for discharge. Abdominal pain, with Ileus postsurgical - Abd XR reviewed. Pain meds for now. Had a normal BM 08/12/16. Pain controlled. Constipation, postop ileus. Will add MOM, pericolace, lactulose, enema if need. Neck muscle spasm. Add flexeril. End stage renal disease-nephrology following, continue peritoneal dialysis. Will convert to hemodialysis, status post PermCath placement today. Atrial fibrillation-on Coumadin, resume Coumadin today. Hypertension-continue Norvasc DVT prophylaxis:-Heparin Improved. Was DC home in fairly good condition. To followup with PCP and consultants as OP. Pt Condition on Discharge: Fair Discharge Disposition: Discharge Home Discharge Time: <= 30 minutes Discharge Instructions DIET: Follow Instructions for: Heart Healthy Diet, Diabetic Diet Follow up Referrals: Nephrology - 3-5 Days PCP Follow-up - 3-5 Days Surgical - 10 Days with Ashvin Medina MD New Medications: Hydrocodone-Acetaminophen (Rector) 5-325 mg Tab 1 TAB PO Q4H PRN PAIN #20 Ref 0 TAB Sennosides-Docusate Sodium (Aidee-Colace) 8.6-50 Mg Tab 1 TAB PO BID PRN Constipation #60 Ref 0 TAB Cyclobenzaprine (Flexeril) 10 Mg Tab 10 MG PO Q8H PRN neck pain/ spasm #14 TAB Continued Medications: Amlodipine (Norvasc) 5 Mg Tab 5 MG PO DAILY HTN #30 TAB B-Complex W/ C & Folic Acid (Dialyvite 800) 1 Tab 800 MG PO Calcitriol (Calcitriol) 0.25 Mcg Cap 0.25 MCG PO DAILY Calcium Supplement #30 Ref 0 CAP Docusate Sodium (Dok) 100 Mg Cap 100 MG PO Q12HR constipation #14 CAP Fenofibrate (Fenofibrate) 54 Mg Tab 54 MG PO DAILY #30 Ref 0 TAB Memantine (Memantine) 5 Mg Tab 5 MG PO DAILY Alzheimer's Dementia Ref 0 TAB Ropinirole (Ropinirole) 0.25 Mg Tab 0.25 MG PO HS #30 Ref 0 TAB Sevelamer Carbonate (Renvela) 800 Mg Tab 800 MG PO TID Control phosphorous levels #90 Ref 0 TAB Warfarin (Coumadin) 3 Mg Tab 3 MG PO DAILY@16 bloodthinner #30 TAB Sandra Parker MD Aug 13, 2016 07:38
[2016-08-13] MEDS ORDERED: PERI8.6T PO (07:40)
[2016-08-13] MEDS ORDERED: NORC5TAB PO (07:58)
[2016-08-13 08:00] VITALS: BP 124/78; PULSE 62; RESP 16; TEMP 96.9; O2SAT 97
[2016-08-13] MEDS: SEVELAMER CARBONATE 800 MG TAB PO SCH ×2 (08:57→13:47)
[2016-08-13] MEDS: MEMANTINE HCL 5 MG TAB PO SCH (08:58)
[2016-08-13] MEDS: CALCITRIOL 0.25 MCG CAP PO SCH (08:58)
[2016-08-13] MEDS: amLODIPine BESYLATE 5 MG TAB PO SCH (08:58)
[2016-08-13] MEDS: DOCUSATE SODIUM 50 MG/SENNA 8.6 MG TAB PO SCH (08:58)
[2016-08-13] MEDS: SODIUM CHLORIDE 0.9% FLUSH 5 ML FLUSH FLUSH SCH (08:58)
[2016-08-13 10:38] VITALS: O2SAT 98
[2016-08-13 12:00] VITALS: BP 152/83; PULSE 60; RESP 16; TEMP 97.5; O2SAT 97
--- NOTE | 2016-08-13 12:13 | HHI.NPPN ---
Subjective History of Present Illness 66 year old with acute pancreatitis ESRD on PD Review of Systems General Constitutional: Fatigue Objective Data Data 08/12/16 08/13/16 19:00 07:00 Intake Total 84 ml 1455 ml Output Total 3000 ml 300 ml Balance -2916 ml 1155 ml Intake Oral 840 ml IV Total 84 ml 615 ml Output Urine Total 300 ml Hemodialysis 3000 ml # Bowel Movements 1 Vital Signs Date Time Temp Pulse Resp B/P Pulse Ox O2 Delivery O2 Flow Rate FiO2 08/13/16 08:00 96.9 62 16 124/78 97 08/13/16 05:30 97.1 64 16 108/65 97 08/13/16 02:13 18 08/13/16 00:45 97.3 65 16 134/79 97 08/12/16 22:00 99.5 65 16 127/71 96 08/12/16 21:44 95 21 08/12/16 16:00 97.7 69 18 92/63 95 08/12/16 12:52 97.0 74 20 118/69 95 -: 08/12/16 0637 08/12/16 0637 Physical Exam General Appearance: Well Developed, Well Nourished Neck Neck Exam: Neck Supple Pulmonary Resp Exam: Clear Bilaterally, Breath Sounds Equal Cardiology CV Exam: Regular, Normal Sinus Rhythm Gastrointestinal/Abdomen GI Exam: Soft GI Remarks Tender in epigastric area Extremeties Extremities Exam: No Edema Assessment/Plan Problem List: (1) ESRD (end stage renal disease) on dialysis Plan: He was on PD, underwent cholecystectomy on the . Transitioned to HD , Next dialysis will be on Friday. Needs outpatient placement for continued HD for a few weeks. (2) Acute pancreatitis Plan: Patient has history of recurrent pancreatitis continue to observe (3) HTN (hypertension) Plan: Monitor blood pressure (4) Atrial fibrillation Plan: Coumadin has been resumed. Michelle Bird MD Aug 13, 2016 12:13
[2016-08-13] MEDS: NS + KCL 20 MEQ INJ 1,000 ML IV SCH (13:53)
[2016-08-13 16:00] VITALS: BP 140/81; PULSE 60; RESP 16; TEMP 97; O2SAT 98
[2016-08-13] MEDS: WARFARIN SOD 3 MG TAB PO SCH (17:09)
[2016-08-13] MEDS ORDERED: PANTOPRAZOLE SOD 40 MG DELAYED RELEASE TAB PO SCH (21:00)
== END 2016-08-13 19:20 | disposition home or self-care (01) | DRG 417 ==
LOC: NEPE 02:59 → NEDA 04:41 → HOCB 06:15
PROVIDERS: ADMIT Hospitalist; ATTEND Hospitalist
PROC: 0FT44ZZ Resection of Gallbladder, Percutaneous Endoscopic Approach (ICD-10-PCS; principal; 2016-08-08 15:24)
PROC: 5A1D60Z (ICD-10-PCS; 2016-08-09)
PROC: 05HM33Z Insertion of Infusion Device into Right Internal Jugular Vein, Percutaneous Approach (ICD-10-PCS; 2016-08-09)
DX: K85.10 Biliary acute pancreatitis without necrosis or infection (principal); N18.6 End stage renal disease; I12.0 Hypertensive chronic kidney disease with stage 5 chronic kidney disease or end stage renal disease; N25.81 Secondary hyperparathyroidism of renal origin; K74.60 Unspecified cirrhosis of liver; I48.2 Chronic atrial fibrillation; K56.7 Ileus, unspecified; K80.10 Calculus of gallbladder with chronic cholecystitis without obstruction; K91.89 Other postprocedural complications and disorders of digestive system; I48.91 Unspecified atrial fibrillation; J44.9 Chronic obstructive pulmonary disease, unspecified; K86.1 Other chronic pancreatitis; I25.10 Atherosclerotic heart disease of native coronary artery without angina pectoris; I69.311 Memory deficit following cerebral infarction; K21.9 Gastro-esophageal reflux disease without esophagitis; B19.20 Unspecified viral hepatitis C without hepatic coma; M62.838 Other muscle spasm; M54.2 Cervicalgia; F17.210 Nicotine dependence, cigarettes, uncomplicated; Z79.01 Long term (current) use of anticoagulants; Z91.041 Radiographic dye allergy status; Z99.2 Dependence on renal dialysis
CPT/HCPCS: 36558; 74000; 76705; 76937; 77001; 80048; 80053; 80074; 83690; 84478; 85025; 85610; 86301; 87070; 87205; 88304; 89051; 90935; 96374; 96375; 99152; 99153; C1750; C1769; C9113; J0690; J1100; J1170; J1200; J1580; J1644; J2250; J2270; J2405; J2710; J3010; J3370; J3480; J7030; J7050; Q4081

== ENCOUNTER 2017-01-18 23:09 | Observation (INO) | payer MEDICARE, MEDICAID ==
[~2017-01-18] VITALS: Ht 188 cm; Wt 90.0 kg
[~2017-01-18 23:09] MED LIST changes: +CYCL1TAB29 PO; -HYDR-3516 PO; -LEVA250T PO; +NORC5TAB PO; +PERI8.6T PO; -VANC1000P IP
[2017-01-18 23:18] VITALS: BP 159/79; PULSE 60; RESP 28; TEMP 98.7; O2SAT 100
[2017-01-18 23:24] VITALS: BP_SYST 131; BP_SYST 159; BP_DIAS 74; BP_DIAS 79
[2017-01-18] MEDS ORDERED: SODIUM CHLORIDE 0.9% FLUSH 10 ML FLUSH IVF PRN (23:30)
[2017-01-18] MEDS ORDERED: TAMS0.4C4 PO (23:44)
[2017-01-18] MEDS ORDERED: METO100T9 PO (23:44)
[2017-01-18] MEDS ORDERED: CALC0.5C6 PO (23:44)
[2017-01-18] MEDS ORDERED: FURO40TA PO (23:44)
[2017-01-18] MEDS ORDERED: COUM5TAB PO (23:44)
--- NOTE | 2017-01-18 23:45 | RADRPT ---
EXAM DATE/TIME: 01/18/2017 23:21 [facility] COMPARISON: CHEST SINGLE AP, June 15, 2016, 10:03. INDICATIONS : Pt having chest pain with exertion x 2 weeks. MEDICAL HISTORY : Hypertension. Hepatitis B. CVA, A-FIB, Peritoneal Dialysis SURGICAL HISTORY : None. ENCOUNTER: Initial ACUITY: 2 weeks PAIN SCORE: 6/10 LOCATION: Bilateral chest FINDINGS: Single AP view of the chest. Loop recorder in place. The lungs are clear. Cardiomediastinal silhouett e within normal limits. No evidence of pleural effusion or pneumothorax. CONCLUSION: No acute cardiopulmonary disease identified. Michel Davis MD on January 18, 2017 at 23:42 Board Certified Radiologist. This report was verified electronically.
--- NOTE | 2017-01-18 23:49 | PD ---
HPI Chief Complaint: Chest Pain Time Seen by Provider: 23:20 Travel History International Travel<30 days: No Contact w/Intl Traveler<30days: No Traveled to known affect area: No History of Present Illness HPI 66-year-old male with history of HTN, ESRD on PD, A. fib status post ablation, CAD and recurrent pancreatitis here with complaint of chest pain. Patient states that he has been having approximately 2 weeks of pain within the xiphoid region. Describes this as a pressure pain. It is made worse with exertion, ambulating. He gets associated shortness breath, nausea and lightheadedness. He denies any associated abdominal pain. Patient has been compliant with his nightly peritoneal dialysis and states that he has not had any cloudiness or sediment in the effluent. No fevers or chills. He is unsure when his last provocative testing was. States he sees Dr. Cheng for cardiology. Patient is pain-free at this time. PFSH Past Medical History Hx Anticoagulant Therapy: Yes Arthritis: No Asthma: No Atrial Fibrillation: Yes (ABLATION) Autoimmune Disease: No Blood Disorders: No Anxiety: No Depression: No Heart Rhythm Problems: Yes (Afib) Cancer: No Cardiac Catheterization: Yes Cardiovascular Problems: Yes High Cholesterol: No Chemotherapy: No Chest Pain: Yes (history ) Congestive Heart Failure: No COPD: No Cerebrovascular Accident: Yes Diabetes: No Dialysis: Yes (PERITONEAL DIALYSIS ) Diminished Hearing: No Endocrine: No Gastrointestinal Disorders: No GERD: No Genitourinary: No Headaches: No Hepatitis: Yes (B) Hiatal Hernia: No Heparin Induced Thrombocytopen: No Hypertension: Yes Immune Disorder: No Implanted Vascular Access Dvce: Yes Insomnia: Yes (OCCASIONAL) Kidney Stones: No Musculoskeletal: No Neurologic: No Psychiatric: No Reproductive: No Respiratory: No Immunizations Current: Yes Migraines: No Radiation Therapy: No Renal Failure: Yes (PERITONEAL DIALYSIS ) Seizures: No Sickle Cell Disease: No Sleep Apnea: No Thyroid Disease: No Ulcer: No Tetanus Vaccination: Unknown Past Surgical History Abdominal Surgery: Yes (appendectomy at age 10) AICD: No Appendectomy: Yes Arteriovenous Shunt: No Body Medical Devices: Right abdominal peritoneal dialysis port. Coronary Artery Bypass Graft: No Ear Surgery: No Endocrine Surgery: No Eye Surgery: No Genitourinary Surgery: No Gynecologic Surgery: No Insulin Pump: No Joint Replacement: No Neurologic Surgery: No Oral Surgery: Yes (Tonsillectomy) Pacemaker: No Thoracic Surgery: No Tonsillectomy: Yes Other Surgery: Yes (Open Heart) Family History Family Myocardial Infarction: Yes (SISTER) Social History Alcohol Use: No Tobacco Use: Yes (5 CIGS PER DAY) Substance Use: No Allergies-Medications (Allergen,Severity, Reaction): Coded Allergies: Contrast Media (Verified Allergy, Mild, Itching, 01/18/17) STATES AFTER IV CONTRAST FROM LAST HOSPITAL VISIT WAS ITCHY FOR 10 DAYS WITH BAD HEARTBURN Reported Meds & Prescriptions Reported Meds & Active Scripts Active Aidee-Colace (Sennosides-Docusate Sodium) 8.6-50 Mg Tab 1 Tab PO BID PRN Norvasc (Amlodipine Besylate) 5 Mg Tab 5 Mg PO DAILY Reported Metoprolol Succinate ER 24 HR (Metoprolol Succinate) 100 Mg Tab 100 Mg PO DAILY Furosemide 40 Mg Tab 40 Mg PO DAILY Tamsulosin (Tamsulosin HCl) 0.4 Mg Cap 0.4 Mg PO HS Coumadin (Warfarin) 5 Mg Tab 5 Mg PO DAILY Calcitriol 0.5 Mcg Cap 0.5 Mcg PO DAILY Ropinirole 0.25 Mg Tab 0.25 Mg PO HS Renvela (Sevelamer Carbonate) 800 Mg Tab 800 Mg PO TID Memantine 5 Mg Tab 5 Mg PO DAILY Fenofibrate 54 Mg Tab 54 Mg PO DAILY Dialyvite 800 (B-Complex W/ C & Folic Acid) 1 Tab 800 Mg PO Review of Systems Except as stated in HPI: all other systems reviewed are Neg Physical Exam Narrative GENERAL: Well-appearing male in no acute distress SKIN: Focused skin assessment warm/dry. HEAD: Normocephalic. EYES: No scleral icterus. No injection or drainage. ENT: Mucous membranes pink and moist. NECK: Supple CARDIOVASCULAR: Regular rate and rhythm. No murmur appreciated. No tenderness to palpation of the chest wall RESPIRATORY: No accessory muscle use. Clear to auscultation. Breath sounds equal bilaterally. GASTROINTESTINAL: Abdomen soft, no epigastrium tenderness to palpation. Peritoneal dialysis catheter intact MUSCULOSKELETAL: No obvious deformities. No edema. NEUROLOGICAL: Awake and alert. Normal speech. PSYCHIATRIC: Appropriate mood and affect; insight and judgment normal. Data Data Last Documented VS Vital Signs Date Time Temp Pulse Resp B/P Pulse Ox O2 Delivery O2 Flow Rate FiO2 01/18/17 23:24 159/79 131/74 01/18/17 23:24 100 Room Air 01/18/17 23:18 98.7 60 28 Orders Electrocardiogram (01/18/17 23:20) Ckmb (Isoenzyme) Profile (01/18/17 23:20) Complete Blood Count With Diff (01/18/17 23:20) Comprehensive Metabolic Panel (01/18/17 23:20) Magnesium (Mg) (01/18/17 23:20) Prothrombin Time / Inr (Pt) (01/18/17 23:20) Act Partial Throm Time (Ptt) (01/18/17 23:20) Troponin I (01/18/17 23:20) Lipase (01/18/17 23:20) Chest, Single Ap (01/18/17 23:20) Ecg Monitoring (01/18/17 23:20) Bilateral Bp Monitoring (01/18/17 23:20) Iv Access Insert/Monitor (01/18/17 23:20) Oximetry (01/18/17 23:20) Sodium Chloride 0.9% Flush (Ns Flush) (01/18/17 23:30) Labs Laboratory Tests Test 01/18/17 23:20 White Blood Count 9.8 TH/MM3 Red Blood Count 3.93 MIL/MM3 Hemoglobin 12.7 GM/DL Hematocrit 36.7 % Mean Corpuscular Volume 93.3 FL Mean Corpuscular Hemoglobin 32.3 PG Mean Corpuscular Hemoglobin 34.7 % Concent Red Cell Distribution Width 13.2 % Platelet Count 256 TH/MM3 Mean Platelet Volume 8.2 FL Neutrophils (%) (Auto) 58.8 % Lymphocytes (%) (Auto) 29.4 % Monocytes (%) (Auto) 7.4 % Eosinophils (%) (Auto) 3.0 % Basophils (%) (Auto) 1.4 % Neutrophils # (Auto) 5.7 TH/MM3 Lymphocytes # (Auto) 2.9 TH/MM3 Monocytes # (Auto) 0.7 TH/MM3 Eosinophils # (Auto) 0.3 TH/MM3 Basophils # (Auto) 0.1 TH/MM3 CBC Comment DIFF FINAL Differential Comment Prothrombin Time 41.5 SEC Prothromb Time International 3.6 RATIO Ratio Activated Partial 44.6 SEC Thromboplast Time Sodium Level 140 MEQ/L Potassium Level 3.7 MEQ/L Chloride Level 109 MEQ/L Carbon Dioxide Level 19.1 MEQ/L Anion Gap 12 MEQ/L Blood Urea Nitrogen 44 MG/DL Creatinine 6.77 MG/DL Estimat Glomerular Filtration 8 ML/MIN Rate Random Glucose 87 MG/DL Calcium Level 8.5 MG/DL Magnesium Level 2.3 MG/DL Total Bilirubin 0.4 MG/DL Aspartate Amino Transf 28 U/L (AST/SGOT) Alanine Aminotransferase 28 U/L (ALT/SGPT) Alkaline Phosphatase 49 U/L Total Creatine Kinase 54 U/L Troponin I LESS THAN 0.02 NG/ML Total Protein 7.5 GM/DL Albumin 3.3 GM/DL Lipase 514 U/L [facility] Medical Decision Making Medical Screen Exam Complete: Yes Emergency Medical Condition: Yes Medical Record Reviewed: Yes Differential Diagnosis 66-year-old male with history of HTN, ESRD on PD, A. fib status post ablation, CAD and recurrent pancreatitis with 2 weeks of intermittent exertional pressure in the xiphoid region. Differential includes ACS, musculoskeletal, pancreatitis , GERD, pericarditis and less likely PE or dissection Narrative Course Patient is a monitor, IV established and blood obtained. A twelve-lead EKG shows sinus bradycardia, rate [address] or T-wave abnormalities and normal intervals. Portable chest x-ray obtained that by my read shows no acute abnormalities. CBC, CMP, lipase, magnesium, CK-MB, troponin, coags notable for INR 3.6. BUN 44/creatinine 6.77 consistent with ESRD. Troponin is negative and with his peritoneal dialysis I should expect this to be elevated with any cardiac ischemia. Lipase slightly elevated at 514. His symptoms seem less consistent with pancreatitis given the exertional component. He believes that he had a stress test with Dr. Chegn sometime in 2017 but cannot be sure for certain. I don't have access to that here in my system. I would like to admit him for nothing by mouth in case this is an early pancreatitis do serial EKG/ cardiac enzymes and get a hold due to the heart group to see when his last provocative testing was. Patient will be admitted, Dr. Najera accepts. Diagnosis Primary Impression: Exertional chest pain Additional Impression: Elevated lipase Admitting Information Admitting Physician Requests: Grisel Gonzalez MD Jan 18, 2017 23:49
[2017-01-19] VITALS (7 sets, daily range): BP systolic 112–154; BP diastolic 70–87; PULSE 52–81; RESP 16–24; TEMP 97.6–97.7; O2SAT 98–100
[2017-01-19] LABS: AUTOMATED NEUTROPHIL # 5.7 TH/MM3 (1.8-7.7); BASOPHIL # 0.1 TH/MM3 (0-0.2); BASOPHIL % 1.4 % (0.0-2.0); EOSINOPHIL # 0.3 TH/MM3 (0-0.4); HEMATOCRIT 36.7 % (39.0-51.0); HEMO FLAGS DIFF FINAL; LYMPH % 29.4 % (9.0-44.0); LYMPHOCYTE # 2.9 TH/MM3 (1.0-4.8); MEAN CELL VOLUME 93.3 FL (80.0-100.0); MEAN CORPUSCULAR HEMOGLOBIN 32.3 PG (27.0-34.0); MEAN CORPUSCULAR HGB CONC 34.7 % (32.0-36.0); MONO % 7.4 % (0.0-8.0); NEUT % 58.8 % (16.0-70.0); PLATELET COUNT 256 TH/MM3 (150-450); RED BLOOD COUNT 3.93 MIL/MM3 (4.50-5.90); RED CELL DISTRIBUTION WIDTH 13.2 % (11.6-17.2); WHITE BLOOD COUNT 9.8 TH/MM3 (4.0-11.0)
[2017-01-19 00:10] LABS: APTT (PATIENT) 44.6 SEC (24.3-30.1); INTERNATIONAL NORMALIZED RATIO 3.6 RATIO; PROTHROMBIN TIME - PATIENT 41.5 SEC (9.8-11.6)
[2017-01-19 00:21] LABS: ANION GAP 12 MEQ/L (5-15); AST (GOT) 28 U/L (15-37); BICARBONATE 19.1 MEQ/L (21.0-32.0); BLOOD UREA NITROGEN 44 MG/DL (7-18); CHLORIDE 109 MEQ/L (98-107); GLOMERULAR FILTRATION RATE 8 ML/MIN (>89); MAGNESIUM 2.3 MG/DL (1.5-2.5); POTASSIUM 3.7 MEQ/L (3.5-5.1); SODIUM (NA) 140 MEQ/L (136-145)
[2017-01-19 00:26] LABS: ALKALINE PHOSPHATASE 49 U/L (45-117); ALT (GPT) 28 U/L (12-78); TOTAL BILIRUBIN ADULT 0.4 MG/DL (0.2-1.0)
[2017-01-19 00:41] LABS: CREATINE KINASE 54 U/L (39-308)
[2017-01-19] MEDS ORDERED: MAGNESIUM HYDROXIDE SUSP 30 ML CUP PO PRN (02:15)
[2017-01-19] MEDS ORDERED: PANTOPRAZOLE SODIUM 40 MG VIAL IV PUSH ONE (02:15)
[2017-01-19] MEDS ORDERED: SODIUM CHLORIDE 0.9% FLUSH 10 ML FLUSH IV FLUSH PRN (02:15)
[2017-01-19] MEDS ORDERED: ACETAMINOPHEN 325 MG TAB PO PRN (02:15)
[2017-01-19] MEDS ORDERED: MORPHINE SULFATE 4 MG/ML INJ IV PRN (02:15)
[2017-01-19] MEDS ORDERED: ACETAMINOPHEN/HYDROcodone 325 MG/5 MG TAB PO PRN (02:15)
[2017-01-19] MEDS ORDERED: ONDANSETRON HCL 4 MG/2 ML VIAL IVP PRN (02:15)
[2017-01-19] MEDS ORDERED: SENNOSIDES 8.6 MG TAB PO PRN (02:15)
[2017-01-19] MEDS ORDERED: LACTULOSE SYRUP 20 GM/30 ML CUP PO PRN (02:15)
[2017-01-19] MEDS ORDERED: BISACODYL 10 MG SUPP RECTAL PRN (02:15)
[2017-01-19] MEDS ORDERED: HYDROmorphone HCL PF 1 MG/ML VIAL IV PUSH PRN (02:30)
--- NOTE | 2017-01-19 03:54 | HHI.HP ---
HPI Service [facility] Primary Care Physician Griffin Her MD Admission Diagnosis exertional chest pain, elevated lipase Diagnoses: (1) Chest pain Diagnosis: Principal (2) Pancreatitis Diagnosis: Principal (3) ESRD on peritoneal dialysis Diagnosis: Principal (4) HTN (hypertension) Diagnosis: Principal (5) A-fib Diagnosis: Principal Travel History International Travel<30 Days: No Contact w/Intl Traveler <30 Da: No Traveled to Known Affected Are: No History of Present Illness This is a 66-year-old male with a PMH of HTN, A. fib s/p Ablation, h/o CVA on Coumadin, CAD, Recurrent Pancreatitis and ESRD on PD who presented to the ER w/ complaints of epigastric/substernal chest pain for approx 2wks w/ associated SOB. States symptoms are mostly exertional and resolve at rest. Pain is intermittent w/ varying degree of intensity. Today, states he had acute onset of pain after 1 mile walk, however not during. Reports pain radiates to back, however not typical of his previous episodes of Pancreatitis. Denies fever, chills, cough, nausea, vomiting or diarrhea. On arrival, BP 159/79, HR 60, O2 sat 100% on RA, Afebrile. Creatinine 6.77, previously 6.11 08/12/16. Troponin negative. Lipase 514. INR 3.6. CXR with no acute findings. Review of Systems Except as stated in HPI: all other systems reviewed are Neg ROS: 14 point review of systems otherwise negative. Past Family Social History Past Medical History PMH: HTN, A. fib s/p Ablation, h/o CVA on Coumadin, CAD, Recurrent Pancreatitis and ESRD on PD Past Surgical History PAST SURGICAL HISTORY: Appendectomy, Peritoneal Dialysis Catheter, Tonsillectomy Allergies: Coded Allergies: Contrast Media (Verified Allergy, Mild, Itching, 01/18/17) STATES AFTER IV CONTRAST FROM LAST HOSPITAL VISIT WAS ITCHY FOR 10 DAYS WITH BAD HEARTBURN Family History PAST FAMILY HISTORY: Reviewed. No h/o DM or CAD Social History PAST SOCIAL HISTORY: Negative for alcohol or drugs. Positive for tobacco. Physical Exam Vital Signs Vital Signs Date Time Temp Pulse Resp B/P Pulse Ox O2 Delivery O2 Flow Rate FiO2 01/18/17 23:24 159/79 131/74 01/18/17 23:24 100 Room Air 01/18/17 23:18 98.7 60 28 159/79 100 Physical Exam PE: GENERAL: Pleasant middle-aged white male in no acute distress. HEENT: PERRLA, EOMI. No scleral icterus or conjunctival pallor. No lid lag or facial droop. CARDIOVASCULAR: Regular rate and rhythm. No obvious murmurs to auscultation. No chest tenderness to palpation. RESPIRATORY: No obvious rhonchi or wheezing. Clear to auscultation. Breath sounds equal bilaterally. GASTROINTESTINAL: Abdomen soft, epigastric tenderness to palpation, nondistended. BS normal. MUSCULOSKELETAL: Extremities without clubbing, cyanosis, or edema. No obvious deformities. NEUROLOGICAL: Awake, alert and oriented x4. No focal neurologic deficits. Moving both upper and lower extremities spontaneously. Laboratory Laboratory Tests Test 01/18/17 23:20 White Blood Count 9.8 Red Blood Count 3.93 Hemoglobin 12.7 Hematocrit 36.7 Mean Corpuscular Volume 93.3 Mean Corpuscular Hemoglobin 32.3 Mean Corpuscular Hemoglobin 34.7 Concent Red Cell Distribution Width 13.2 Platelet Count 256 Mean Platelet Volume 8.2 Neutrophils (%) (Auto) 58.8 Lymphocytes (%) (Auto) 29.4 Monocytes (%) (Auto) 7.4 Eosinophils (%) (Auto) 3.0 Basophils (%) (Auto) 1.4 Neutrophils # (Auto) 5.7 Lymphocytes # (Auto) 2.9 Monocytes # (Auto) 0.7 Eosinophils # (Auto) 0.3 Basophils # (Auto) 0.1 CBC Comment DIFF FINAL Differential Comment Prothrombin Time 41.5 Prothromb Time International 3.6 Ratio Activated Partial 44.6 Thromboplast Time Sodium Level 140 Potassium Level 3.7 Chloride Level 109 Carbon Dioxide Level 19.1 Anion Gap 12 Blood Urea Nitrogen 44 Creatinine 6.77 Estimat Glomerular Filtration 8 Rate Random Glucose 87 Calcium Level 8.5 Magnesium Level 2.3 Total Bilirubin 0.4 Aspartate Amino Transf 28 (AST/SGOT) Alanine Aminotransferase 28 (ALT/SGPT) Alkaline Phosphatase 49 Total Creatine Kinase 54 Troponin I LESS THAN 0.02 Total Protein 7.5 Albumin 3.3 Lipase 514 Result Diagram: 01/18/17231901/18/172319 Assessment and Plan Problem List: (1) Chest pain ICD Code: R07.9 Status: Acute (2) Pancreatitis ICD Code: K85.90 Status: Acute (3) HTN (hypertension) ICD Code: I10 Status: Chronic (4) ESRD on peritoneal dialysis ICD Code: N18.6 Status: Acute (5) A-fib ICD Code: I48.91 Status: Acute Assessment and Plan A/P: 1. Chest Pain: vague epigastric/substernal chest pain x2 wks, occurs after exertion (not during). Follows w/ Dr. Dias as outpatient, reports normal outpatient Stress this year, no records available. Admit for Observation, telemetry, check serial enzymes, resume home Metoprolol and Statin. Will consult Dr. Dias for further eval. CXR w/ no acute findings, images reviewed by me. 2. Pancreatitis: Recurrent. Lipase 514. +epigastric tenderness to palpation. Clear liquids, advance diet as tolerated, analgesics/antiemetics as needed. 3. HTN: BP 150's on arrival, will resume home medications, monitor BP. 4. ESRD on PD: Follows w/ Dr. Bird, creatinine at baseline, will consult to resume PD. 5. A-fib: Chronic. On Coumadin. INR 3.6, hold Coumadin, repeat INR, restart if therapeutic. 6. DVT Prophylaxis: As above, on Coumadin. 7. Social work for d/c planning as needed. 8. Case discussed w/ ER physician at length. Adore Najera MD Jan 19, 2017 03:54
--- NOTE | 2017-01-19 08:37 | PD.CONS ---
HPI Service Nephrology Consult Requested By Reason for Consult ESRD on PD Primary Care Physician Griffin Her MD History of Present Illness Mr. Arroyo is a 66 year old male with history of ESRD for which he is on PD. He has had history of recurrent pancreatitis and atrial fibrillation with failed ablations. He has been having chest pain on and off for the past 2 weeks. Non exertional. Possible radiation of the pain to the back. No fever. No nausea/ vomiting. Patient was admitted with these complaints. His lipase is noted to be high. Troponin not elevated. Currently he is pain free. No shortness of breath. Review of Systems Constitutional: COMPLAINS OF: Fatigue Ears, nose, mouth, throat: DENIES: Vertigo Respiratory: DENIES: Apneas Cardiovascular: COMPLAINS OF: Chest pain, DENIES: Palpitations, Dyspnea on Exertion, Lower Extremity Edema Gastrointestinal: COMPLAINS OF: Abdominal pain, DENIES: Black stools, Constipation, Diarrhea, Nausea, Vomiting Musculoskeletal: DENIES: Joint pain, Muscle aches Neurologic: DENIES: Abnormal gait, Headache, Localized weakness Psychiatric: DENIES: Anxiety, Confusion Past Family Social History Allergies: Coded Allergies: Contrast Media (Verified Allergy, Mild, Itching, 01/18/17) STATES AFTER IV CONTRAST FROM LAST HOSPITAL VISIT WAS ITCHY FOR 10 DAYS WITH BAD HEARTBURN Past Medical History ESRD Hypertension Anemia of CKD Atrial fibrillation. Restless leg syndrome. Secondary hyperparathyroidism. Reported Medications Active Aidee-Colace (Sennosides-Docusate Sodium) 8.6-50 Mg Tab 1 Tab PO BID PRN Norvasc (Amlodipine Besylate) 5 Mg Tab 5 Mg PO DAILY Reported Metoprolol Succinate ER 24 HR (Metoprolol Succinate) 100 Mg Tab 100 Mg PO DAILY Furosemide 40 Mg Tab 40 Mg PO DAILY Tamsulosin (Tamsulosin HCl) 0.4 Mg Cap 0.4 Mg PO HS Coumadin (Warfarin) 5 Mg Tab 5 Mg PO DAILY Calcitriol 0.5 Mcg Cap 0.5 Mcg PO DAILY Ropinirole 0.25 Mg Tab 0.25 Mg PO HS Renvela (Sevelamer Carbonate) 800 Mg Tab 800 Mg PO TID Memantine 5 Mg Tab 5 Mg PO DAILY Fenofibrate 54 Mg Tab 54 Mg PO DAILY Dialyvite 800 (B-Complex W/ C & Folic Acid) 1 Tab 800 Mg PO Active Ordered Medications Current Medications Medications (Trade) Dose Ordered Sig/Maximus Route Start Time Stop Time Status Last Admin (NS Flush) 2 ml UNSCH PRN IV FLUSH 01/19/17 02:15 (NS Flush) 2 ml BID IV FLUSH 01/19/17 09:00 (Zofran Inj) 4 mg Q6H PRN IVP 01/19/17 02:15 (Tylenol) 650 mg Q6H PRN PO 01/19/17 02:15 ([place] 5-325 Mg) 1 tab Q4H PRN PO 01/19/17 02:15 (Aidee-Colace) 1 tab BID PO 01/19/17 09:00 (Milk Of Magnesia Liq) 30 ml Q12H PRN PO 01/19/17 02:15 (Senokot) 17.2 mg Q12H PRN PO 01/19/17 02:15 (Dulcolax Supp) 10 mg DAILY PRN RECTAL 01/19/17 02:15 (Lactulose Liq) 30 ml DAILY PRN PO 01/19/17 02:15 (Norvasc) 5 mg DAILY PO 01/19/17 09:00 (Rocaltrol) 0.5 mcg DAILY PO 01/19/17 09:00 (Lasix) 40 mg DAILY PO 01/19/17 09:00 (Namenda) 5 mg DAILY PO 01/19/17 09:00 (Requip) 0.25 mg HS PO 01/19/17 21:00 (Renvela) 800 mg TIDAC PO 01/19/17 08:00 (Flomax) 0.4 mg HS PO 01/19/17 21:00 (Tricor) 48 mg DAILY PO 01/19/17 09:00 (Toprol Xl) 100 mg DAILY PO 01/19/17 09:00 (Dilaudid Pf Inj) 1 mg Q3H PRN IV PUSH 01/19/17 02:30 01/19/17 03:46 (Protonix) 40 mg DAILY PO 01/19/17 09:00 Family History reviewed, non contributory. Social History Lives alone. Smokes 1 ppd, no ETOH. No other recreational drugs. Physical Exam Vital Signs Vital Signs Date Time Temp Pulse Resp B/P Pulse Ox O2 Delivery O2 Flow Rate FiO2 01/19/17 07:52 97.7 52 16 112/73 99 01/19/17 05:41 97.6 81 18 140/87 99 01/19/17 04:33 16 01/19/17 03:00 56 18 135/70 100 01/19/17 02:00 54 18 154/74 100 01/19/17 01:00 54 24 139/77 100 01/19/17 00:00 66 24 140/83 98 01/18/17 23:24 159/79 131/74 01/18/17 23:24 100 Room Air 01/18/17 23:18 98.7 60 28 159/79 100 Physical Exam GENERAL: alert, oriented, not in distress. SKIN: Warm and dry. HEAD: Normocephalic. EYES: No scleral icterus. No injection or drainage. NECK: Supple, trachea midline. No JVD or lymphadenopathy. CARDIOVASCULAR: Regular rate and rhythm without murmurs, gallops, or rubs. RESPIRATORY: Breath sounds equal bilaterally. No accessory muscle use. GASTROINTESTINAL: Abdomen soft, non-tender, nondistended. PD catheter in place. MUSCULOSKELETAL: No cyanosis, or edema. BACK: Nontender without obvious deformity. No CVA tenderness. Laboratory Laboratory Tests Test 01/18/17 01/19/17 23:20 07:05 White Blood Count 9.8 Red Blood Count 3.93 Hemoglobin 12.7 Hematocrit 36.7 Mean Corpuscular Volume 93.3 Mean Corpuscular Hemoglobin 32.3 Mean Corpuscular Hemoglobin 34.7 Concent Red Cell Distribution Width 13.2 Platelet Count 256 Mean Platelet Volume 8.2 Neutrophils (%) (Auto) 58.8 Lymphocytes (%) (Auto) 29.4 Monocytes (%) (Auto) 7.4 Eosinophils (%) (Auto) 3.0 Basophils (%) (Auto) 1.4 Neutrophils # (Auto) 5.7 Lymphocytes # (Auto) 2.9 Monocytes # (Auto) 0.7 Eosinophils # (Auto) 0.3 Basophils # (Auto) 0.1 CBC Comment DIFF FINAL Differential Comment Prothrombin Time 41.5 Prothromb Time International 3.6 Ratio Activated Partial 44.6 Thromboplast Time Sodium Level 140 Potassium Level 3.7 Chloride Level 109 Carbon Dioxide Level 19.1 Anion Gap 12 Blood Urea Nitrogen 44 Creatinine 6.77 Estimat Glomerular Filtration 8 Rate Random Glucose 87 Calcium Level 8.5 Magnesium Level 2.3 Total Bilirubin 0.4 Aspartate Amino Transf 28 (AST/SGOT) Alanine Aminotransferase 28 (ALT/SGPT) Alkaline Phosphatase 49 Total Creatine Kinase 54 Troponin I LESS THAN 0.02 LESS THAN 0.02 Total Protein 7.5 Albumin 3.3 Lipase 514 Result Diagram: 01/18/17231901/18/172319 Assessment and Plan Problem List: (1) ESRD on peritoneal dialysis Plan: resume PD today. He does CCPD: 4 cycles, total duration of therapy is 9 hours. No last fill. He has been using 1.5 % dextrose PD solution and 2.5 % dextrose PD solution. Monitor electrolytes and fluid status. Avoid Gadolinium. Avoid IVF. (2) Atrial fibrillation Plan: Paroxysmal. Appeared to be in NSR when I saw him. On Coumadin. (3) Metabolic bone disease Plan: Continue Calcitriol. Obtain phosphorus periodically. (4) Tobacco abuse Plan: Cessation was advised. (5) Anemia Plan: Epogen per protocol. (6) Elevated lipase Plan: Lipase can be high in patients with renal disease. He does have some symptoms of abdominal pain and he has had history of pancreatitis in the past. It is unclear if he has another acute episode. May benefit from pancreatic enzymes, may have chronic pancreatitis. Advance diet as tolerated. Assessment and Plan Thanks for the consult. Dr. Bird will follow from tomorrow. Alex Rushing MD Jan 19, 2017 08:37
[2017-01-19] MEDS ORDERED: amLODIPine BESYLATE 5 MG TAB PO SCH (09:00)
[2017-01-19] MEDS ORDERED: PANTOPRAZOLE SOD 40 MG DELAYED RELEASE TAB PO SCH (09:00)
[2017-01-19] MEDS ORDERED: FENOFIBRATE 48 MG TAB PO SCH (09:00)
[2017-01-19] MEDS ORDERED: MEMANTINE HCL 5 MG TAB PO SCH (09:00)
[2017-01-19] MEDS ORDERED: METOPROLOL SUCCINATE 50 MG EXTENDED RELEASE TAB PO SCH (09:00)
[2017-01-19] MEDS ORDERED: SODIUM CHLORIDE 0.9% FLUSH 10 ML FLUSH IV FLUSH SCH (09:00)
[2017-01-19] MEDS ORDERED: DOCUSATE SODIUM 50 MG/SENNA 8.6 MG TAB PO SCH (09:00)
[2017-01-19] MEDS ORDERED: CALCITRIOL 0.25 MCG CAP PO SCH (09:00)
[2017-01-19] MEDS ORDERED: FUROSEMIDE 40 MG TAB PO SCH (09:00)
--- NOTE | 2017-01-19 10:57 | HHI.PR ---
Subjective Remarks Follow-up for chest/epigastric pain. The patient states that he has been having worsening intermittent episodes of pain under her xiphoid process for the past 2 weeks. He does state that he's had intermittent chest pain for his entire life. He states the pain occurs after extended exertion and is relieved by rest. He denies any aggravating or relieving factors with foods. He states the quality of the pain is different at times. He states at times it is sharp and radiates to his back and at times it is heavy like a pressure and radiates to his left arm. He has associated nausea and shortness of breath with the pain. He has an implanted loop recorder. The patient denies any nausea, vomiting and has been tolerating diet. He denies any greasy, fatty, or floating stools. He does not follow with a oceanographer geological. Objective Vitals Vital Signs Date Time Temp Pulse Resp B/P Pulse Ox O2 Delivery O2 Flow Rate FiO2 01/19/17 07:52 97.7 52 16 112/73 99 01/19/17 05:41 97.6 81 18 140/87 99 01/19/17 04:33 16 01/19/17 03:00 56 18 135/70 100 01/19/17 02:00 54 18 154/74 100 01/19/17 01:00 54 24 139/77 100 01/19/17 00:00 66 24 140/83 98 01/18/17 23:24 159/79 131/74 01/18/17 23:24 100 Room Air 01/18/17 23:18 98.7 60 28 159/79 100 I/O 01/18/17 01/18/17 01/18/17 01/19/17 01/19/17 01/19/17 07:00 15:00 23:00 07:00 15:00 23:00 Intake Total 360 ml Balance 360 ml Intake Oral 360 ml Result Diagram: 01/18/17231901/18/172319 Imaging Last Impressions Chest X-Ray 01/18/172319 Signed Impressions: Service Date/Time: Wednesday, January 18, 2017 23:21 - CONCLUSION: No acute cardiopulmonary disease identified. Michel Davis MD Objective Remarks GENERAL: Well-developed well-nourished. In no acute distress. SKIN: Warm and dry. No lesions noted. HEENT: Normocephalic. Pupils equal and round. Mucous membranes pink and moist. CARDIOVASCULAR: Regular rate and rhythm. No murmur appreciated. No chest wall TTP. RESPIRATORY: No accessory muscle use. Clear to auscultation. Breath sounds equal bilaterally. GASTROINTESTINAL: Abdomen soft, very mild epigastric TTP, nondistended. Bowel sounds x4. PD catheter in midabdomen. MUSCULOSKELETAL: No obvious deformities. No clubbing or cyanosis. No edema. NEUROLOGICAL: Awake and alert. No focal neurological deficits. Moves upper and lower extremities spontaneously. Normal speech. PSYCHIATRIC: Appropriate mood and affect; insight and judgment normal. A/P Problem List: (1) Chest pain ICD Code: R07.9 Status: Acute (2) Pancreatitis ICD Code: K85.90 Status: Acute (3) HTN (hypertension) ICD Code: I10 Status: Chronic (4) ESRD on peritoneal dialysis ICD Code: N18.6 Status: Acute (5) A-fib ICD Code: I48.91 Status: Acute Assessment and Plan 66-year-old male with a PMH of HTN, A. fib s/p Ablation, h/o CVA on Coumadin, CAD, Recurrent Pancreatitis and ESRD on PD who presented w/ complaints of epigastric/substernal chest pain for approx 2wks Chest Pain: vague epigastric/substernal chest pain with worsening x2 wks, occurs after exertion (not during). Follows w/ Dr. Dias as outpatient, reports normal outpatient Stress this year, no records available. Reviewed: Troponin negative 2. EKG with NSR, rate 58, no ischemic changes. INR 3.6. Chest x-ray was no acute process. -telemetry -check serial enzymes -Continue home Metoprolol and Statin. -Consulted patient's finger buff sewer for further eval. Possible chronic pancreatitis: History of acute pancreatitis in the past. No signs or symptoms of acute pancreatitis. Lipase currently 514, previously 516 on 08/10/16. Diet as tolerated. Analgesics/antiemetics if needed. Possible GERD: Epigastric TTP. Start ppi. Tolerating diet. Recommend outpatient GI evaluation. ESRD on PD: Consulted nephrology to resume PD. A-fib: Chronic. On Coumadin. INR 3.6, hold Coumadin, repeat INR, restart if therapeutic. DVT Prophylaxis: As above, on Coumadin. Discharge Planning Follow-up cardiology recommendations. D/W Dr. Yi, patient cleared for discharge from cardiac standpoint once ACS ruled out per protocol. The patient needs outpatient follow-up with gastroenterology. D/W Dr. Parker. Discharge home today. Ismael Venegas Jan 19, 2017 10:56
[2017-01-19] MEDS: SEVELAMER CARBONATE 800 MG TAB PO SCH ×2 (10:58→14:51)
--- NOTE | 2017-01-19 12:13 | EKG ---
Date Performed: 01/18/2017 Time Performed: 23:20:36 PTAGE: 66 years EKG: SINUS BRADYCARDIA BORDERLINE ECG PREVIOUS TRACING : 06/13/2016 14.21 COMPARED TO THE PREVIOUS EKG SINUS BRADYCARDIA IS NEW DOCTOR: Mert Rosen Interpretating Date/Time 01/19/2017 12:11:24
--- NOTE | 2017-01-19 13:07 | MB ---
cc: PETE BHATTI MD DATE OF CONSULTATION: 01/19/2017. REASON FOR CONSULTATION: Chest pain. HISTORY OF PRESENT ILLNESS: Mr. Arroyo is a 66-year-old man who does have a history of hypertension, atrial fibrillation status post ablation, CVA, recurrent pericarditis and end-stage renal disease on peritoneal dialysis. The patient complains of an epigastric discomfort that radiates to his back. It has been going on for approximately two weeks. The patient reports that it is essentially random as he has had episodes at rest and with activity. The pain is of varying intensity. Of note, the patient reports a recent normal stress test. PAST MEDICAL HISTORY: 1. Hypertension. 2. End-stage renal disease. 3. Atrial fibrillation. 4. CVA. ALLERGIES: CONTRAST. FAMILY HISTORY: Negative for coronary artery disease. SOCIAL HISTORY: The patient does smoke. PHYSICAL EXAMINATION: VITAL SIGNS: On physical exam, vital signs are 97.7, 52, 16, 122/73. GENERAL: In general, he is a well-appearing man who is in no apparent distress. NECK: The neck is free from jugular venous distention. LUNGS: The lungs are bilaterally clear to auscultation. CARDIOVASCULAR: On cardiovascular examination, he has a normal S1 and S2. There is a 2/6 systolic murmur. No rubs or gallops are appreciated. ABDOMEN: The abdomen is soft. EKGS: EKG shows normal sinus rhythm and is without any acute S-T changes. LABORATORY STUDIES: Lab values significant for creatinine of 6.8. Serial troponins of less than 0.02 x2. ASSESSMENT: 1. Chest pain - epigastric pain - the patient does have a history of a recent normal stress test per his report. His lipase is elevated at 514 and troponins are negative. In light of his atypical symptoms, the location which is more epigastric, and the elevated lipase, at this point I would manage him conservatively from a cardiac perspective. Consideration should be given to alternate etiologies such as perhaps pancreatitis. If his third set of enzymes is negative, he is reasonable for a discharge from a CV perspective. Pete Bhatti M.D. ALYSON/GONZALO /11:40 AM /1:04 PM
[2017-01-19 14:13] LABS: INTERNATIONAL NORMALIZED RATIO 4.1 RATIO; PROTHROMBIN TIME - PATIENT 48.8 SEC (9.8-11.6)
[2017-01-19] MEDS ORDERED: COUM5TAB PO (14:50)
[2017-01-19] MEDS ORDERED: PANT40TA3 PO (14:50)
[2017-01-19] MEDS ORDERED: TAMSULOSIN HCL 0.4 MG CAP PO SCH (21:00)
== END 2017-01-19 15:32 | disposition home or self-care (01) ==
LOC: NEPE 23:09 → NEDA 01-19 02:05 → NEPHCDU 01-19 05:12
PROVIDERS: ADMIT Hospitalist; ATTEND Hospitalist
DX: R07.9 Chest pain, unspecified (principal); K86.1 Other chronic pancreatitis; I12.0 Hypertensive chronic kidney disease with stage 5 chronic kidney disease or end stage renal disease; N18.6 End stage renal disease; I48.2 Chronic atrial fibrillation; R06.02 Shortness of breath; I25.10 Atherosclerotic heart disease of native coronary artery without angina pectoris; D63.1 Anemia in chronic kidney disease; G25.81 Restless legs syndrome; N25.81 Secondary hyperparathyroidism of renal origin; K86.81 Exocrine pancreatic insufficiency; Z99.2 Dependence on renal dialysis; R74.8 Abnormal levels of other serum enzymes; F17.210 Nicotine dependence, cigarettes, uncomplicated; Z79.01 Long term (current) use of anticoagulants
CPT/HCPCS: 71010; 80053; 82550; 83690; 83735; 84484; 85025; 85610; 85730; 93005; 99285; C9113; G0378; J1170

== ENCOUNTER 2017-02-12 21:51 | Observation (INO) | payer MEDICARE, MEDICAID ==
[~2017-02-12] VITALS: Ht 190.5 cm; Wt 91.0 kg
[~2017-02-12 21:51] MED LIST changes: -CALC0.25 PO; +CALC0.5C6 PO; -COUM3TAB PO; +COUM5TAB PO; -CYCL1TAB29 PO; -DOCU1CAP39 PO; +FURO40TA PO; +METO100T9 PO; -NORC5TAB PO; +PANT40TA3 PO; +TAMS0.4C4 PO
[2017-02-12 21:54] VITALS: BP 138/80; PULSE 69; RESP 16; TEMP 97.7; O2SAT 99
--- NOTE | 2017-02-12 22:18 | PD ---
Physical Exam Date Seen by Provider: Feb 12, 2017 Time Seen by Provider: 22:17 Narrative 66 yo male here for chest pain. History of this in the past. Has been told it was pancreatitis, pain is similar. Pain is severe 10/10. No relieving factors. No trauma or injury. Started today. Recently seen two weeks ago. Vitals are stable. Awaiting bed placement. Data Data Last Documented VS Vital Signs Date Time Temp Pulse Resp B/P Pulse Ox O2 Delivery O2 Flow Rate FiO2 02/12/17 21:54 97.7 69 16 138/80 99 Room Air [facility] Medical Record Reviewed: Yes Supervised Visit with MAYLIN: No Saw Byrd Feb 12, 2017 22:18
[2017-02-12] MEDS ORDERED: SODIUM CHLORIDE 0.9% FLUSH 10 ML FLUSH IV FLUSH PRN (22:30)
[2017-02-12 22:48] LABS: AUTOMATED NEUTROPHIL # 5.1 TH/MM3 (1.8-7.7); BASOPHIL # 0.1 TH/MM3 (0-0.2); BASOPHIL % 1.2 % (0.0-2.0); EOSINOPHIL # 0.3 TH/MM3 (0-0.4); EOSINOPHIL % 3.5 % (0.0-4.0); HEMATOCRIT 38.5 % (39.0-51.0); HEMO FLAGS DIFF FINAL; LYMPH % 30.2 % (9.0-44.0); LYMPHOCYTE # 2.8 TH/MM3 (1.0-4.8); MEAN CELL VOLUME 95.2 FL (80.0-100.0); MEAN CORPUSCULAR HEMOGLOBIN 31.8 PG (27.0-34.0); MEAN CORPUSCULAR HGB CONC 33.4 % (32.0-36.0); MONO % 9.7 % (0.0-8.0); NEUT % 55.4 % (16.0-70.0); PLATELET COUNT 234 TH/MM3 (150-450); RED BLOOD COUNT 4.04 MIL/MM3 (4.50-5.90); RED CELL DISTRIBUTION WIDTH 13.9 % (11.6-17.2); WHITE BLOOD COUNT 9.2 TH/MM3 (4.0-11.0)
[2017-02-12 23:05] LABS: ALT (GPT) 31 U/L (12-78); ANION GAP 8 MEQ/L (5-15); AST (GOT) 30 U/L (15-37); BICARBONATE 21.3 MEQ/L (21.0-32.0); BLOOD UREA NITROGEN 43 MG/DL (7-18); CHLORIDE 113 MEQ/L (98-107); GLOMERULAR FILTRATION RATE 8 ML/MIN (>89); POTASSIUM 4.1 MEQ/L (3.5-5.1); SODIUM (NA) 142 MEQ/L (136-145)
[2017-02-12 23:07] LABS: ALKALINE PHOSPHATASE 46 U/L (45-117); TOTAL BILIRUBIN ADULT 0.4 MG/DL (0.2-1.0)
[2017-02-12] MEDS ORDERED: HYDROmorphone HCL PF 1 MG/ML VIAL IV PUSH ONE (23:15)
[2017-02-12] MEDS ORDERED: SODIUM CHLORID 0.9% 500 ML INJ 500 ML IV ONE (23:15)
[2017-02-12] MEDS ORDERED: ONDANSETRON HCL 4 MG/2 ML VIAL IV PUSH ONE (23:15)
[2017-02-12 23:16] LABS: INTERNATIONAL NORMALIZED RATIO 2.6 RATIO; PROTHROMBIN TIME - PATIENT 29.6 SEC (9.8-11.6)
[2017-02-13] VITALS (9 sets, daily range): BP systolic 109–148; BP diastolic 70–88; PULSE 45–64; RESP 16–20; TEMP 97.6–98; O2SAT 98–100
[2017-02-13] MEDS ORDERED: SODIUM CHLORIDE 0.9% FLUSH 10 ML FLUSH IV FLUSH PRN (00:45)
[2017-02-13] MEDS ORDERED: NALOXONE HCL 0.4 MG/ML AMP IV PRN (00:45)
[2017-02-13] MEDS ORDERED: HYDROmorphone HCL PF 1 MG/ML VIAL IVS ONE (00:45)
--- NOTE | 2017-02-13 01:57 | HHI.HP ---
[facility] Admission Diagnosis recurrent pancreatitis Diagnoses: Travel History International Travel<30 Days: No Contact w/Intl Traveler <30 Da: No Traveled to Known Affected Are: No History of Present Illness History from patient, ER physician, claudication, and review of medical records. Patient reported that he came to the hospital because he was having abdominal pain starting today. Pointed to mid epigastrium. He states he vomited once. Denies any black color of red color vomitus. Denies fever. He reports that he has had history of pancreatitis and this was his normal symptoms. However this time, he was also extremely nauseous and that this nausea came on quickly. He states this was mainly the reason why he came to hospital. His friend drove him. Apart from the above, patient denies any recent fever/urinary burning or pain on urination. Denies diarrhea. Denies any chest pain/palpitations/shortness of breath/4 weakness. Review of Systems Except as stated in HPI: all other systems reviewed are Neg Past Family Social History Past Medical History htn afib on coumdadin 1970s-hepatitis C esrd pd cva Past Surgical History appendectomy tonsillectomy PD catheter loop monitor cholecystectomy 08/2016 Allergies: Coded Allergies: Contrast Media (Verified Allergy, Mild, Itching, 01/18/17) STATES AFTER IV CONTRAST FROM LAST HOSPITAL VISIT WAS ITCHY FOR 10 DAYS WITH BAD HEARTBURN Family History sister- heart problems grandmother- maternal- dm paternal grandfather- heart issues paternal grandmother- lung cancer- never smoked Social History a pack a day smoker no drinking no drugs Physical Exam Vital Signs Vital Signs Date Time Temp Pulse Resp B/P Pulse Ox O2 Delivery O2 Flow Rate FiO2 02/12/17 21:54 97.7 69 16 138/80 99 Room Air Physical Exam GENERAL: This is a well-nourished, well-developed patient, in no apparent distress. SKIN: No rashes, ecchymoses or lesions. Cool and dry. HEAD: Atraumatic. Normocephalic. No temporal or scalp tenderness. EYES: No scleral icterus. No injection or drainage. ENT: Nose without bleeding, purulent drainage or septal hematoma. Airway patent. NECK: Trachea midline. No JVD CARDIOVASCULAR: Regular rate and rhythm without murmurs, gallops, or rubs. RESPIRATORY: Clear to auscultation. Breath sounds equal bilaterally. No wheezes , rales, or rhonchi. GASTROINTESTINAL: Abdomen soft, pain at mid epigastrium, nondistended. No guarding. MUSCULOSKELETAL: Extremities without clubbing, cyanosis, or edema.. No calf tenderness. NEUROLOGICAL: Awake and alert Motor and sensory grossly within normal limits. Normal speech. Laboratory Laboratory Tests Test 02/12/17 22:40 White Blood Count 9.2 Red Blood Count 4.04 Hemoglobin 12.9 Hematocrit 38.5 Mean Corpuscular Volume 95.2 Mean Corpuscular Hemoglobin 31.8 Mean Corpuscular Hemoglobin 33.4 Concent Red Cell Distribution Width 13.9 Platelet Count 234 Mean Platelet Volume 8.0 Neutrophils (%) (Auto) 55.4 Lymphocytes (%) (Auto) 30.2 Monocytes (%) (Auto) 9.7 Eosinophils (%) (Auto) 3.5 Basophils (%) (Auto) 1.2 Neutrophils # (Auto) 5.1 Lymphocytes # (Auto) 2.8 Monocytes # (Auto) 0.9 Eosinophils # (Auto) 0.3 Basophils # (Auto) 0.1 CBC Comment DIFF FINAL Differential Comment Prothrombin Time 29.6 Prothromb Time International 2.6 Ratio Activated Partial 36.0 Thromboplast Time Sodium Level 142 Potassium Level 4.1 Chloride Level 113 Carbon Dioxide Level 21.3 Anion Gap 8 Blood Urea Nitrogen 43 Creatinine 7.00 Estimat Glomerular Filtration 8 Rate Random Glucose 121 Calcium Level 8.6 Total Bilirubin 0.4 Aspartate Amino Transf 30 (AST/SGOT) Alanine Aminotransferase 31 (ALT/SGPT) Alkaline Phosphatase 46 Troponin I LESS THAN 0.02 Total Protein 7.6 Albumin 3.3 Lipase 489 Result Diagram: 02/12/17223902/12/172239 Assessment and Plan Assessment and Plan Impression: Acute on chronic recurrent pancreatitis Hypertension Atrial fibrillation Chronic anticoagulation on Coumadin Hepatitis C ESRD on her tendon dialysis CVA Plan: Nothing by mouth. Patient was given normal saline 1 L bolus in ER. For now, I would hold off on hydration and since patient is dialysis patient. Will hydrate orally if patient can tolerate. Hold Lasix. Hold fenofibrate. Suspect that his recurrent pancreatitis may be secondary to medications, particularly Lasix. Patient does have appointment with Dr. Burt of gastroenterology on the of this month. Therefore workup of this etiology for pancreatitis could be done as an outpatient as well. Nephrology consult for possible peritoneal dialysis if patient stays overnight. If patient is clinically improved, he will likely be discharged later today. DVT prophylaxison Coumadin. Discussed Condition With patient, ER , nursing staff Chago Bucio MD Feb 13, 2017 01:57
[2017-02-13] MEDS ORDERED: DOCUSATE SODIUM 50 MG/SENNA 8.6 MG TAB PO PRN (02:30)
[2017-02-13 06:43] LABS: BLOOD, URINE NEG (NEG); GLUCOSE,URINE TRACE mg/dL (NEG); KETONE, URINE NEG (NEG); NITRITE,URINE NEG (NEG); URINE COLOR YELLOW (YELLW/STRAW)
[2017-02-13 07:40] LABS: COMMENT (UR) CULT NOT INDICATED; CULTURE IF INDICATED CULT NOT INDICATED
--- NOTE | 2017-02-13 08:38 | EKG ---
Date Performed: 02/12/2017 Time Performed: 21:58:31 PTAGE: 66 years EKG: Sinus rhythm NONSPECIFIC ST/T-WAVE ABNORMALITY BORDERLINE ECG NO PREVIOUS TRACING DOCTOR: Jf Morgan Interpretating Date/Time 02/13/2017 08:37:34
[2017-02-13] MEDS: SEVELAMER CARBONATE 800 MG TAB PO SCH ×2 (08:43→12:00)
[2017-02-13] MEDS ORDERED: amLODIPine BESYLATE 5 MG TAB PO SCH (09:00)
[2017-02-13] MEDS ORDERED: CALCITRIOL 0.25 MCG CAP PO SCH (09:00)
[2017-02-13] MEDS ORDERED: METOPROLOL SUCCINATE 50 MG EXTENDED RELEASE TAB PO SCH (09:00)
[2017-02-13] MEDS ORDERED: PANTOPRAZOLE SOD 40 MG DELAYED RELEASE TAB PO SCH (09:00)
[2017-02-13] MEDS ORDERED: MEMANTINE HCL 5 MG TAB PO SCH (09:00)
[2017-02-13] MEDS ORDERED: SODIUM CHLORIDE 0.9% FLUSH 10 ML FLUSH IV FLUSH SCH (09:00)
[2017-02-13] MEDS ORDERED: PERC10TA27 PO (11:18)
[2017-02-13] MEDS ORDERED: ZOFR4TAB3 SL (11:18)
[2017-02-13 14:20] LABS: AUTOMATED NEUTROPHIL # 4.7 TH/MM3 (1.8-7.7); BASOPHIL # 0.1 TH/MM3 (0-0.2); BASOPHIL % 1.2 % (0.0-2.0); EOSINOPHIL # 0.3 TH/MM3 (0-0.4); EOSINOPHIL % 3.1 % (0.0-4.0); HEMATOCRIT 40.9 % (39.0-51.0); HEMO FLAGS DIFF FINAL; LYMPH % 37.9 % (9.0-44.0); LYMPHOCYTE # 3.5 TH/MM3 (1.0-4.8); MEAN CELL VOLUME 97.8 FL (80.0-100.0); MEAN CORPUSCULAR HEMOGLOBIN 31.2 PG (27.0-34.0); MEAN CORPUSCULAR HGB CONC 31.9 % (32.0-36.0); NEUT % 50.8 % (16.0-70.0); PLATELET COUNT 214 TH/MM3 (150-450); RED BLOOD COUNT 4.18 MIL/MM3 (4.50-5.90); RED CELL DISTRIBUTION WIDTH 14.4 % (11.6-17.2); WHITE BLOOD COUNT 9.2 TH/MM3 (4.0-11.0)
[2017-02-13 14:40] LABS: ALT (GPT) 44 U/L (12-78); ANION GAP 11 MEQ/L (5-15); AST (GOT) 47 U/L (15-37); BICARBONATE 22.3 MEQ/L (21.0-32.0); BLOOD UREA NITROGEN 39 MG/DL (7-18); CHLORIDE 113 MEQ/L (98-107); GLOMERULAR FILTRATION RATE 9 ML/MIN (>89); POTASSIUM 3.8 MEQ/L (3.5-5.1); SODIUM (NA) 146 MEQ/L (136-145)
[2017-02-13 14:42] LABS: INTERNATIONAL NORMALIZED RATIO 2.7 RATIO; PROTHROMBIN TIME - PATIENT 31.4 SEC (9.8-11.6)
[2017-02-13 14:43] LABS: ALKALINE PHOSPHATASE 46 U/L (45-117); TOTAL BILIRUBIN ADULT 0.4 MG/DL (0.2-1.0)
--- NOTE | 2017-02-13 15:20 | HHI.PR ---
Subjective Remarks Follow-up for abdominal pain Abdominal pain almost resolved, no nausea or vomiting. Passing gas. No diarrhea. No chest pain. Patient prefers to follow-up with Dr. Pate for which she is scheduled to see her in February 24, specially the pain has resolved. Objective Vitals Vital Signs Date Time Temp Pulse Resp B/P Pulse Ox O2 Delivery O2 Flow Rate FiO2 02/13/17 15:08 97.8 57 17 109/70 100 02/13/17 13:51 62 16 128/78 98 02/13/17 09:07 97.6 50 20 120/74 02/13/17 08:00 98.0 62 16 128/77 99 Room Air 02/13/17 07:04 60 18 134/72 100 Room Air 02/13/17 06:58 18 100 Room Air 02/13/17 06:58 98 Room Air 02/13/17 06:00 45 18 148/88 98 Room Air 02/13/17 05:00 60 18 140/85 100 02/12/17 21:54 97.7 69 16 138/80 99 Room Air Result Diagram: 02/13/17 1359 02/13/17 1359 Objective Remarks Not in distress, well-nourished, looks stated age PERRL, pink conjunctiva without injection, anicteric Nose without bleeding, airway patent, oropharynx clear Supple neck, no masses or thyromegaly, trachea midline Normal rate and regular rhythm, no murmurs gallops or rubs appreciated. Clear to auscultation and symmetric bilaterally, normal respiratory effort. Normal bowel sounds, soft, non-tender, nondistended, no guarding. Extremities without clubbing, cyanosis, or edema. No rash of generalized distribution. Skin is warm and dry. AAO x3, no cranial nerve deficits, moves all 4 extremities, no focal neurologic deficits Normal mood, appropriate affect A/P Assessment and Plan Acute on chronic recurrent pancreatitis-consistently elevated lipase, likely chronic, could also be secondary to accumulation from end-stage renal disease. Hold Lasix and fenofibrate for now. Triglycerides are normal. Lipase is stable. CBC and CMP stable Pain is controlled. No nausea or vomiting. May discharge home. Discharged on Percocet for pain control. End-stage renal disease-per patient, he can resume peritoneal dialysis at home tonight. Atrial fibrillation-continue anticoagulation with Coumadin Hypertension-continue antihypertensives Discharge today Discharge Planning Discharge home today Discharge patient to home Condition on discharge: Improved Regular Diet as tolerated Ad Lynnette activity Rx written: Percocet Follow-up with GI on February 24. Ivory Hanson MD Feb 13, 2017 15:20
[2017-02-13] MEDS ORDERED: WARFARIN SOD 5 MG TAB PO SCH (16:00)
[2017-02-13] MEDS ORDERED: TAMSULOSIN HCL 0.4 MG CAP PO SCH (21:00)
--- NOTE | 2017-02-24 08:48 | PD ---
HPI Chief Complaint: Chest Pain Time Seen by Provider: 22:48 Travel History International Travel<30 days: No Contact w/Intl Traveler<30days: No Traveled to known affect area: No History of Present Illness HPI Patient presents to he Ed complaining of abdominal pain, vomiting, and a history of pancreatitis. The nausea has been his most prominent symptoms. Symptoms have been constant and worsening. History Past Medical History Narrative Medical htn afib on coumdadin 1970s-hepatitis C esrd pd cva Tetanus Vaccination: < 5 Years Influenza Vaccination: Yes Social History Alcohol Use: No Tobacco Use: Yes (5 CIGS PER DAY) Allergies-Medications (Allergen,Severity, Reaction): Coded Allergies: Contrast Media (Verified Allergy, Mild, Itching, 01/18/17) STATES AFTER IV CONTRAST FROM LAST HOSPITAL VISIT WAS ITCHY FOR 10 DAYS WITH BAD HEARTBURN Reported Meds & Prescriptions Reported Meds & Active Scripts Active Percocet (Oxycodone-Acetaminophen) 10-325 mg Tab 1 Tab PO Q6H PRN Zofran Odt (Ondansetron Odt) 4 Mg Tab 4 Mg SL Q6HR PRN Pantoprazole (Pantoprazole Sodium) 40 Mg Tab 40 Mg PO DAILY Coumadin (Warfarin) 5 Mg Tab 5 Mg PO DAILY Hold Coumadin for 2 days or until cleared by PCP. Repeat INR in 2 days. Aidee-Colace (Sennosides-Docusate Sodium) 8.6-50 Mg Tab 1 Tab PO BID PRN Norvasc (Amlodipine Besylate) 5 Mg Tab 5 Mg PO DAILY Reported Metoprolol Succinate ER 24 HR (Metoprolol Succinate) 100 Mg Tab 100 Mg PO DAILY Tamsulosin (Tamsulosin HCl) 0.4 Mg Cap 0.4 Mg PO HS Calcitriol 0.5 Mcg Cap 0.5 Mcg PO DAILY Ropinirole 0.25 Mg Tab 0.25 Mg PO HS Renvela (Sevelamer Carbonate) 800 Mg Tab 800 Mg PO TID Memantine 5 Mg Tab 5 Mg PO DAILY Dialyvite 800 (B-Complex W/ C & Folic Acid) 1 Tab 800 Mg PO Review of Systems Except as stated in HPI: all other systems reviewed are Neg Physical Exam Narrative GENERAL: SKIN: Warm and dry. HEAD: Atraumatic. Normocephalic. EYES: Pupils equal and round. No scleral icterus. No injection or drainage. ENT: No nasal bleeding or discharge. Mucous membranes pink and moist. NECK: Trachea midline. No JVD. CARDIOVASCULAR: Regular rate and rhythm. RESPIRATORY: No accessory muscle use. Clear to auscultation. Breath sounds equal bilaterally. GASTROINTESTINAL: Abdomen soft, non-tender, nondistended. Hepatic and splenic margins not palpable. MUSCULOSKELETAL: Extremities without clubbing, cyanosis, or edema. No obvious deformities. NEUROLOGICAL: Awake and alert. No obvious cranial nerve deficits. Motor grossly within normal limits. Five out of 5 muscle strength in the arms and legs. Normal speech. PSYCHIATRIC: Appropriate mood and affect; insight and judgment normal. Data Data Orders Complete Blood Count With Diff (02/12/17 22:) Comprehensive Metabolic Panel (02/12/17 22:) Lipase (02/12/17 22:) Prothrombin Time / Inr (Pt) (02/12/17 22:) Act Partial Throm Time (Ptt) (02/12/17 22:27) Urinalysis - C+S If Indicated (02/12/17 22:) Iv Access Insert/Monitor (02/12/17 22:27) Ecg Monitoring (02/12/17 22:27) Oximetry (02/12/17 22:27) Sodium Chloride 0.9% Flush (Ns Flush) (02/12/17 22:30) Electrocardiogram (02/12/17 22:27) Troponin I (02/12/17 22:28) Hydromorphone Pf Inj (Dilaudid Pf Inj) (02/12/17 23:15) Ondansetron Inj (Zofran Inj) (02/12/17 23:15) Sodium Chlorid 0.9% 500 Ml Inj (Ns 500 M (02/12/17 23:15) Admit Order (Ed Use Only) (02/13/17 ) [facility] Medical Decision Making Medical Screen Exam Complete: Yes Emergency Medical Condition: Yes Interpretation(s) lab show elevated lipase, cbc is unremarakble, cmp with elevated cr Differential Diagnosis pancreatitis, gastritis, gerd Narrative Course patient with pancreatitis, will be admitted Diagnosis Primary Impression: Pancreatitis Patient Instructions: Chest Pain (DC), Pancreatitis (DC) Scripts Oxycodone-Acetaminophen (Percocet)10-325 mg Tab1 Tab PO Q6H PRN (PAIN) #30 TAB Ref 0 Prov:Ivory Hanson MD 02/13/17 Ondansetron Odt (Zofran Odt)4 Mg Tab4 Mg SL Q6HR PRN (Nausea/Vomiting) #30 TAB Ref 0 Prov:Ivory Hanson MD 02/13/17 Roly Allred MD Feb 24, 2017 08:48
== END 2017-02-13 17:29 | disposition home or self-care (01) ==
LOC: NEPC 21:51 → NEDA 02-13 00:38 → NEPHCDU 02-13 13:53
PROVIDERS: ADMIT Hospitalist; ATTEND Hospitalist
DX: K85.90 Acute pancreatitis without necrosis or infection, unspecified (principal); K86.1 Other chronic pancreatitis; R07.9 Chest pain, unspecified; I12.0 Hypertensive chronic kidney disease with stage 5 chronic kidney disease or end stage renal disease; N18.6 End stage renal disease; I48.91 Unspecified atrial fibrillation; B19.20 Unspecified viral hepatitis C without hepatic coma; F17.200 Nicotine dependence, unspecified, uncomplicated; Z79.01 Long term (current) use of anticoagulants; Z86.73 Personal history of transient ischemic attack (TIA), and cerebral infarction without residual deficits; Z99.2 Dependence on renal dialysis; I63.9 Cerebral infarction, unspecified; Z79.899 Other long term (current) drug therapy; R74.8 Abnormal levels of other serum enzymes
CPT/HCPCS: 80053; 81001; 83690; 84478; 84484; 85025; 85610; 85730; 93005; 96374; 96375; 99285; G0378; J1170; J2405; J7040

== ENCOUNTER 2017-03-20 19:13 | Observation (INO) | payer MEDICARE, MEDICAID ==
[~2017-03-20] VITALS: Ht 190.5 cm; Wt 91.8 kg
[~2017-03-20 19:13] MED LIST changes: -FENO54TA PO; -FURO40TA PO; +PERC10TA27 PO; +ZOFR4TAB3 SL
[2017-03-20 19:22] VITALS: BP 163/85; PULSE 68; RESP 16; TEMP 98; O2SAT 98
[2017-03-20] MEDS ORDERED: HYDROmorphone HCL PF 1 MG/ML VIAL IVS ONE (19:30)
[2017-03-20] MEDS ORDERED: ONDANSETRON HCL 4 MG/2 ML VIAL IVP ONE (19:30)
[2017-03-20] MEDS ORDERED: FURO1TAB62 PO (19:32)
--- NOTE | 2017-03-20 19:40 | PD ---
HPI Chief Complaint: Abdominal Pain Time Seen by Provider: 19:24 Travel History International Travel<30 days: No Contact w/Intl Traveler<30days: No Traveled to known affect area: No History of Present Illness HPI patient comes in c/o 2 days of upper abd pain, crampy/sharp, rad straight to back, assoc with n/v, denies any alleviating/aggravating factors all: reviewed and noted pmhx: gonzalez previous esrd on pd, pancreatitis, htn, cholecystectomy aug [address] salazar, kidney:bernadette, cardio dr anand. PFSH Past Medical History Hx Anticoagulant Therapy: Yes Arthritis: No Asthma: No Atrial Fibrillation: Yes (ABLATION) Autoimmune Disease: No Blood Disorders: No Anxiety: No Depression: No Heart Rhythm Problems: Yes (Afib) Cancer: No Cardiac Catheterization: Yes Cardiovascular Problems: Yes High Cholesterol: No Chemotherapy: No Chest Pain: Yes (history ) Congestive Heart Failure: No COPD: No Cerebrovascular Accident: Yes Diabetes: No Dialysis: Yes (PERITONEAL DIALYSIS ) Diminished Hearing: No Endocrine: No Gastrointestinal Disorders: No GERD: No Genitourinary: No Headaches: No Hepatitis: Yes (B) Hiatal Hernia: No Heparin Induced Thrombocytopen: No Hypertension: Yes Immune Disorder: No Implanted Vascular Access Dvce: Yes Insomnia: Yes (OCCASIONAL) Kidney Stones: No Musculoskeletal: No Neurologic: No Psychiatric: No Reproductive: No Respiratory: No Immunizations Current: Yes Migraines: No Radiation Therapy: No Renal Failure: Yes (PERITONEAL DIALYSIS ) Seizures: No Sickle Cell Disease: No Sleep Apnea: No Thyroid Disease: No Ulcer: No Past Surgical History Abdominal Surgery: Yes (appendectomy at age 10) AICD: No Appendectomy: Yes Arteriovenous Shunt: No Body Medical Devices: Right abdominal peritoneal dialysis port. Coronary Artery Bypass Graft: No Ear Surgery: No Endocrine Surgery: No Eye Surgery: No Genitourinary Surgery: No Gynecologic Surgery: No Insulin Pump: No Joint Replacement: No Neurologic Surgery: No Oral Surgery: Yes (Tonsillectomy) Pacemaker: No Thoracic Surgery: No Tonsillectomy: Yes Other Surgery: Yes (Open Heart) Family History Family Myocardial Infarction: Yes (SISTER) Social History Alcohol Use: No Tobacco Use: Yes (1PPD) Substance Use: No Allergies-Medications (Allergen,Severity, Reaction): Coded Allergies: diatrizoate meglumine (Unverified Allergy, Mild, Itching, 03/18/17) STATES AFTER IV CONTRAST FROM LAST HOSPITAL VISIT WAS ITCHY FOR 10 DAYS WITH BAD HEARTBURN gadobenic acid (Unverified Allergy, Mild, Itching, 03/18/17) STATES AFTER IV CONTRAST FROM LAST HOSPITAL VISIT WAS ITCHY FOR 10 DAYS WITH BAD HEARTBURN gadodiamide (Unverified Allergy, Mild, Itching, 03/18/17) STATES AFTER IV CONTRAST FROM LAST HOSPITAL VISIT WAS ITCHY FOR 10 DAYS WITH BAD HEARTBURN gadoteridol (Unverified Allergy, Mild, Itching, 03/18/17) STATES AFTER IV CONTRAST FROM LAST HOSPITAL VISIT WAS ITCHY FOR 10 DAYS WITH BAD HEARTBURN iodixanol (Unverified Allergy, Mild, Itching, 03/18/17) STATES AFTER IV CONTRAST FROM LAST HOSPITAL VISIT WAS ITCHY FOR 10 DAYS WITH BAD HEARTBURN iohexol (Unverified Allergy, Mild, Itching, 03/18/17) STATES AFTER IV CONTRAST FROM LAST HOSPITAL VISIT WAS ITCHY FOR 10 DAYS WITH BAD HEARTBURN Reported Meds & Prescriptions Reported Meds & Active Scripts Active Percocet (Oxycodone-Acetaminophen) 10-325 mg Tab 1 Tab PO Q6H PRN Zofran Odt (Ondansetron Odt) 4 Mg Tab 4 Mg SL Q6HR PRN Coumadin (Warfarin) 5 Mg Tab 5 Mg PO DAILY Hold Coumadin for 2 days or until cleared by PCP. Repeat INR in 2 days. Aidee-Colace (Sennosides-Docusate Sodium) 8.6-50 Mg Tab 1 Tab PO BID PRN Norvasc (Amlodipine Besylate) 5 Mg Tab 5 Mg PO DAILY Reported Metoprolol Succinate ER 24 HR (Metoprolol Succinate) 100 Mg Tab 50 Mg PO DAILY Tamsulosin (Tamsulosin HCl) 0.4 Mg Cap 0.4 Mg PO HS Calcitriol 0.5 Mcg Cap 0.5 Mcg PO DAILY Ropinirole 0.25 Mg Tab 0.25 Mg PO HS Renvela (Sevelamer Carbonate) 800 Mg Tab 800 Mg PO TID Memantine 5 Mg Tab 5 Mg PO DAILY Dialyvite 800 (B-Complex W/ C & Folic Acid) 1 Tab 800 Mg PO Lasix (Furosemide) 20 Mg Tab 20 Mg PO BID Review of Systems Except as stated in HPI: all other systems reviewed are Neg Gastrointestinal: Positive: Nausea, Abdominal Pain Physical Exam Narrative GENERAL: SKIN: Warm and dry. HEAD: Atraumatic. Normocephalic. EYES: Pupils equal and round. No scleral icterus. No injection or drainage. ENT: No nasal bleeding or discharge. Mucous membranes pink and moist. NECK: Trachea midline. No JVD. CARDIOVASCULAR: Regular rate and rhythm. RESPIRATORY: No accessory muscle use. Clear to auscultation. Breath sounds equal bilaterally. GASTROINTESTINAL: Abdomen soft, non-tender, nondistended. peritoneal dialysis cath in place, no sorrounding cellulitic changes MUSCULOSKELETAL: Extremities without clubbing, cyanosis, or edema. No obvious deformities. NEUROLOGICAL: Awake and alert. No obvious cranial nerve deficits. Motor grossly within normal limits. Five out of 5 muscle strength in the arms and legs. Normal speech. PSYCHIATRIC: Appropriate mood and affect; insight and judgment normal. Data Data Last Documented VS Vital Signs Date Time Temp Pulse Resp B/P Pulse Ox O2 Delivery O2 Flow Rate FiO2 03/20/17 19:22 98.0 68 16 163/85 98 Orders Complete Blood Count With Diff (03/20/17 19:28) Comprehensive Metabolic Panel (03/20/17 19:28) Lipase (03/20/17 19:28) Prothrombin Time / Inr (Pt) (03/20/17 19:28) Act Partial Throm Time (Ptt) (03/20/17 19:28) Ct Abd/Pel W/O Iv Contrast (03/20/17 19:28) Iv Access Insert/Monitor (03/20/17 19:28) Ecg Monitoring (03/20/17 19:28) Oximetry (03/20/17 19:28) NPO (03/20/17 19:28) Ondansetron Inj (Zofran Inj) (03/20/17 19:30) Electrocardiogram (03/20/17 19:28) Hydromorphone Pf Inj (Dilaudid Pf Inj) (03/20/17 19:30) Labs Laboratory Tests Test 03/20/17 19:35 White Blood Count 9.4 TH/MM3 Red Blood Count 3.87 MIL/MM3 Hemoglobin 13.1 GM/DL Hematocrit 37.3 % Mean Corpuscular Volume 96.5 FL Mean Corpuscular Hemoglobin 33.8 PG Mean Corpuscular Hemoglobin 35.0 % Concent Red Cell Distribution Width 14.1 % Platelet Count 210 TH/MM3 Mean Platelet Volume 7.8 FL Neutrophils (%) (Auto) 56.5 % Lymphocytes (%) (Auto) 30.2 % Monocytes (%) (Auto) 8.0 % Eosinophils (%) (Auto) 4.4 % Basophils (%) (Auto) 0.9 % Neutrophils # (Auto) 5.3 TH/MM3 Lymphocytes # (Auto) 2.8 TH/MM3 Monocytes # (Auto) 0.8 TH/MM3 Eosinophils # (Auto) 0.4 TH/MM3 Basophils # (Auto) 0.1 TH/MM3 CBC Comment DIFF FINAL Differential Comment MDM Medical Decision Making Medical Screen Exam Complete: Yes Emergency Medical Condition: Yes Medical Record Reviewed: Yes Interpretation(s) SINUS GRETCHEN 53, NONSPEC STT CHANGES Differential Diagnosis pancreatitis v sbo v ileus v mi Narrative Course CT FINDINGS C/W PANCREATITIS W/O HEMORRHAGE, PATIENT'S PAIN IS CONTROLLED AND PO TOLERATED Diagnosis Primary Impression: Acute on chronic pancreatitis Disposition: 01 DISCHARGE HOME Condition: Stable Jose Carlos Haro MD Mar 20, 2017 19:40
[2017-03-20 20:00] VITALS: BP 160/78; PULSE 68; RESP 16; O2SAT 96
[2017-03-20 20:11] LABS: AUTOMATED NEUTROPHIL # 5.3 TH/MM3 (1.8-7.7); BASOPHIL # 0.1 TH/MM3 (0-0.2); BASOPHIL % 0.9 % (0.0-2.0); EOSINOPHIL # 0.4 TH/MM3 (0-0.4); EOSINOPHIL % 4.4 % (0.0-4.0); HEMATOCRIT 37.3 % (39.0-51.0); HEMO FLAGS DIFF FINAL; LYMPH % 30.2 % (9.0-44.0); LYMPHOCYTE # 2.8 TH/MM3 (1.0-4.8); MEAN CELL VOLUME 96.5 FL (80.0-100.0); MEAN CORPUSCULAR HEMOGLOBIN 33.8 PG (27.0-34.0); NEUT % 56.5 % (16.0-70.0); PLATELET COUNT 210 TH/MM3 (150-450); RED BLOOD COUNT 3.87 MIL/MM3 (4.50-5.90); RED CELL DISTRIBUTION WIDTH 14.1 % (11.6-17.2); WHITE BLOOD COUNT 9.4 TH/MM3 (4.0-11.0)
--- NOTE | 2017-03-20 20:19 | RADRPT ---
EXAM DATE/TIME: 03/20/2017 19:37 [place] COMPARISON: No previous studies available for comparison. INDICATIONS : Mid abdominal pain. History of pancreatitis. ORAL CONTRAST: No oral contrast ingested. RADIATION DOSE: 9.96 CTDIvol (mGy) MEDICAL HISTORY : Cardiovascular disease. Pancreatitis. SURGICAL HISTORY : Appendectomy. ENCOUNTER: Initial ACUITY: 1 day PAIN SCALE: 6/10 LOCATION: mid abdomen TECHNIQUE: Volumetric scanning of the abdomen and pelvis was performed. Using automated exposure control and ad justment of the mA and/or kV according to patient size, radiation dose was kept as low as reasonably achievable to obtain optimal diagnostic quality images. DICOM format image data is available electro nically for review and comparison. FINDINGS: Lung bases are clear. There are punctate calcifications predominantly in the pancreatic head characte ristic of chronic pancreatitis. There is some stranding of fat around the pancreatic head characteris tic of a mild acute pancreatitis. No biliary ductal dilatation. Previous cholecystectomy. No acute findings in the liver, spleen, adrenals. Both kidneys are atrophic. Peritoneal dialysis cath eter is present in the pelvis. There is mild constipation. CONCLUSION: 1. Mild inflammatory or edematous changes around the pancreatic head characteristic of mild acute botello creatitis. There is also evidence for chronic pancreatitis with calcifications in the pancreatic head as well. 2. No biliary ductal dilatation. Previous cholecystectomy. 3. Atrophic kidneys with peritoneal dialysis catheter present. Ashvin Lopez MD on March 20, 2017 at 20:12 Board Certified Radiologist. This report was verified electronically.
[2017-03-20 20:28] LABS: APTT (PATIENT) 31.9 SEC (24.3-30.1); INTERNATIONAL NORMALIZED RATIO 1.7 RATIO; PROTHROMBIN TIME - PATIENT 19.8 SEC (9.8-11.6)
[2017-03-20 20:41] LABS: ANION GAP 10 MEQ/L (5-15); AST (GOT) 35 U/L (15-37); BICARBONATE 20.1 MEQ/L (21.0-32.0); BLOOD UREA NITROGEN 40 MG/DL (7-18); CHLORIDE 107 MEQ/L (98-107); GLOMERULAR FILTRATION RATE 8 ML/MIN (>89); SODIUM (NA) 137 MEQ/L (136-145)
[2017-03-20 20:43] LABS: ALT (GPT) 44 U/L (12-78)
[2017-03-20 20:44] LABS: ALKALINE PHOSPHATASE 80 U/L (45-117); TOTAL BILIRUBIN ADULT 0.5 MG/DL (0.2-1.0)
[2017-03-20 21:00] VITALS: BP 129/79; PULSE 62; RESP 16; O2SAT 96
[2017-03-20] MEDS ORDERED: HYDROmorphone HCL PF 1 MG/ML VIAL IV PUSH ONE (21:45)
[2017-03-20 22:00] VITALS: BP 150/80; PULSE 60; RESP 16; O2SAT 96
--- NOTE | 2017-03-20 22:40 | HHI.HP ---
[facility] Griffin Her MD Admission Diagnosis ACUTE PANCREATITIS Diagnoses: (1) Intractable abdominal pain Diagnosis: Principal (2) Pancreatitis Diagnosis: Principal (3) ESRD (end stage renal disease) on dialysis Diagnosis: Principal (4) HTN (hypertension) Diagnosis: Principal (5) Tobacco abuse Diagnosis: Principal Travel History International Travel<30 Days: No Contact w/Intl Traveler <30 Da: No Traveled to Known Affected Are: No History of Present Illness This is a 66-year-old male with a PMH of [place] powers on Coumadin, HTN, ESRD on PD, h/ o Pancreatitis and Tobacco Abuse who presented to the ER with complaints of severe epigastric abdominal pain with radiation to the back x2 days. Denies fever or chills. Intermittent episodes of nausea, no vomiting or diarrhea. On arrival, BP 163/85, HR 68, O2 sat 98% on RA, Temp 98. CBC unremarkable. Chemistry essentially at baseline. Creatinine 7.19, previously 6.60 on . INR 1.7. Lipase 535. CT Abd/Pelvis w/ mild inflammatory or edematous changes around pancreatic head characteristic of mild acute pancreatitis, also evidence of chronic pancreatitis with calcifications. S/p multiple doses of antiemetics and analgesics in the ER w/ minimal improvement. Review of Systems Except as stated in HPI: all other systems reviewed are Neg ROS: 14 point review of systems otherwise negative. Past Family Social History Past Medical History PMH: A. fib on Coumadin, HTN, ESRD on PD, h/o Pancreatitis and Tobacco Abuse Past Surgical History PAST SURGICAL HISTORY: Appendectomy, Peritoneal Dialysis Port, Tonsillectomy Allergies: Coded Allergies: diatrizoate meglumine (Unverified Allergy, Mild, Itching, 03/18/17) STATES AFTER IV CONTRAST FROM LAST HOSPITAL VISIT WAS ITCHY FOR 10 DAYS WITH BAD HEARTBURN gadobenic acid (Unverified Allergy, Mild, Itching, 03/18/17) STATES AFTER IV CONTRAST FROM LAST HOSPITAL VISIT WAS ITCHY FOR 10 DAYS WITH BAD HEARTBURN gadodiamide (Unverified Allergy, Mild, Itching, 03/18/17) STATES AFTER IV CONTRAST FROM LAST HOSPITAL VISIT WAS ITCHY FOR 10 DAYS WITH BAD HEARTBURN gadoteridol (Unverified Allergy, Mild, Itching, 03/18/17) STATES AFTER IV CONTRAST FROM LAST HOSPITAL VISIT WAS ITCHY FOR 10 DAYS WITH BAD HEARTBURN iodixanol (Unverified Allergy, Mild, Itching, 03/18/17) STATES AFTER IV CONTRAST FROM LAST HOSPITAL VISIT WAS ITCHY FOR 10 DAYS WITH BAD HEARTBURN iohexol (Unverified Allergy, Mild, Itching, 03/18/17) STATES AFTER IV CONTRAST FROM LAST HOSPITAL VISIT WAS ITCHY FOR 10 DAYS WITH BAD HEARTBURN Family History PAST FAMILY HISTORY: Reviewed. No h/o DM or CAD Social History PAST SOCIAL HISTORY: Negative for alcohol or drugs. Smokes 1ppd. Physical Exam Vital Signs Vital Signs Date Time Temp Pulse Resp B/P Pulse Ox O2 Delivery O2 Flow Rate FiO2 03/20/17 20:00 68 16 160/78 96 03/20/17 19:22 98.0 68 16 163/85 98 Physical Exam PE: GENERAL: Middle-aged male in no acute distress. HEENT: PERRLA, EOMI. No scleral icterus or conjunctival pallor. No lid lag or facial droop. CARDIOVASCULAR: Regular rate and rhythm. No obvious murmurs to auscultation. No chest tenderness to palpation. RESPIRATORY: No obvious rhonchi or wheezing. Clear to auscultation. Breath sounds equal bilaterally. GASTROINTESTINAL: Abdomen soft, generalized tenderness to palpation, nondistended. BS normal. MUSCULOSKELETAL: Extremities without clubbing, cyanosis, or edema. No obvious deformities. NEUROLOGICAL: Awake, alert and oriented x4. No focal neurologic deficits. Moving both upper and lower extremities spontaneously. Laboratory Laboratory Tests Test 03/20/17 19:35 White Blood Count 9.4 Red Blood Count 3.87 Hemoglobin 13.1 Hematocrit 37.3 Mean Corpuscular Volume 96.5 Mean Corpuscular Hemoglobin 33.8 Mean Corpuscular Hemoglobin 35.0 Concent Red Cell Distribution Width 14.1 Platelet Count 210 Mean Platelet Volume 7.8 Neutrophils (%) (Auto) 56.5 Lymphocytes (%) (Auto) 30.2 Monocytes (%) (Auto) 8.0 Eosinophils (%) (Auto) 4.4 Basophils (%) (Auto) 0.9 Neutrophils # (Auto) 5.3 Lymphocytes # (Auto) 2.8 Monocytes # (Auto) 0.8 Eosinophils # (Auto) 0.4 Basophils # (Auto) 0.1 CBC Comment DIFF FINAL Differential Comment Prothrombin Time 19.8 Prothromb Time International 1.7 Ratio Activated Partial 31.9 Thromboplast Time Sodium Level 137 Potassium Level 4.0 Chloride Level 107 Carbon Dioxide Level 20.1 Anion Gap 10 Blood Urea Nitrogen 40 Creatinine 7.19 Estimat Glomerular Filtration 8 Rate Random Glucose 93 Calcium Level 8.2 Total Bilirubin 0.5 Aspartate Amino Transf 35 (AST/SGOT) Alanine Aminotransferase 44 (ALT/SGPT) Alkaline Phosphatase 80 Total Protein 7.5 Albumin 3.3 Lipase 535 Result Diagram: 03/20/17193403/20/171934 Assessment and Plan Problem List: (1) Intractable abdominal pain ICD Code: R10.9 Status: Acute (2) Pancreatitis ICD Code: K85.90 Status: Acute (3) ESRD (end stage renal disease) on dialysis ICD Code: N18.6 Status: Chronic (4) HTN (hypertension) ICD Code: I10 Status: Chronic (5) Tobacco abuse ICD Code: Z72.0 Status: Chronic Assessment and Plan A/P: 1. Intractable Abdominal Pain: Acute onset of epigastric abdominal pain x2 days, h/o Chronic Pancreatitis, s/p multiple doses of analgesics/antiemetics in ER w/ minimal relief, will admit for Observation to optimize pain control. 2. Pancreatitis: Acute and Chronic. H/o chronic pancreatitis w/ acute exacerbation. Lipase 535. CT Abd/Pelvis w/ mild inflammatory changes around pancreatic head characteristic of mild acute pancreatitis and evidence of chronic pancreatitis with calcifications in pancreatic head, images reviewed by me. Diet as tolerated, Protonix IV, IVF, repeat Lipase, analgesics/antiemetics as needed. 3. ESRD on PD: Follows w/ Dr. Bird as outpatient, will consult to resume PD as scheduled. 4. HTN: BP 150-160's, likely compounded by pain complaints, resume home medications, arrange for PD, monitor BP. 5. DVT Prophylaxis: Heparin sq 6. Social work for d/c planning as needed 7. Case discussed w/ ER physician at length Adore Najera MD Mar 20, 2017 22:40
[2017-03-20] MEDS ORDERED: BISACODYL 10 MG SUPP RECTAL PRN (22:45)
[2017-03-20] MEDS ORDERED: MAGNESIUM HYDROXIDE SUSP 30 ML CUP PO PRN (22:45)
[2017-03-20] MEDS ORDERED: SODIUM CHLORIDE 0.9% FLUSH 10 ML FLUSH IV FLUSH PRN (22:45)
[2017-03-20] MEDS ORDERED: ONDANSETRON HCL 4 MG/2 ML VIAL IVP PRN (22:45)
[2017-03-20] MEDS ORDERED: ACETAMINOPHEN 325 MG TAB PO PRN (22:45)
[2017-03-20] MEDS ORDERED: SENNOSIDES 8.6 MG TAB PO PRN (22:45)
[2017-03-20] MEDS ORDERED: HYDROmorphone HCL PF 1 MG/ML VIAL IV PRN (22:45)
[2017-03-20] MEDS ORDERED: LACTULOSE SYRUP 20 GM/30 ML CUP PO PRN (22:45)
[2017-03-20 23:00] VITALS: BP 138/77; PULSE 56; RESP 16; O2SAT 96
[2017-03-21] VITALS: BP 115/67; PULSE 48; RESP 18; O2SAT 97
[2017-03-21 05:54] VITALS: BP 118/74; PULSE 59; RESP 20; TEMP 98.6; O2SAT 99
[2017-03-21] MEDS ORDERED: HEPARIN SODIUM - IV 10,000 UNITS/10 ML VIAL XX PRN (08:00)
[2017-03-21] MEDS ORDERED: SODIUM CHLORIDE 0.9% FLUSH 10 ML FLUSH IV FLUSH PRN (08:00)
--- NOTE | 2017-03-21 08:20 | PD.CONS ---
HPI Service Nephrology Consult Requested By Dr. Najera Reason for Consult End-stage renal disease Primary Care Physician Griffin Her MD History of Present Illness Patient is a 66-year-old white male with history of end-stage renal disease on peritoneal dialysis, having recurrent pancreatitis, chronic cigarette smoking who presented again with epigastric pain and was diagnosed with acute pancreatitis with mildly elevated lipase, CT of the abdomen showed mild pancreatitis, patient is on peritoneal dialysis and did not do dialysis last night due to his abdominal pain. Review of Systems Constitutional: COMPLAINS OF: Fatigue Gastrointestinal: COMPLAINS OF: Abdominal pain, Nausea Psychiatric: COMPLAINS OF: Anxiety Past Family Social History Allergies: Coded Allergies: diatrizoate meglumine (Unverified Allergy, Mild, Itching, 03/18/17) STATES AFTER IV CONTRAST FROM LAST HOSPITAL VISIT WAS ITCHY FOR 10 DAYS WITH BAD HEARTBURN gadobenic acid (Unverified Allergy, Mild, Itching, 03/18/17) STATES AFTER IV CONTRAST FROM LAST HOSPITAL VISIT WAS ITCHY FOR 10 DAYS WITH BAD HEARTBURN gadodiamide (Unverified Allergy, Mild, Itching, 03/18/17) STATES AFTER IV CONTRAST FROM LAST HOSPITAL VISIT WAS ITCHY FOR 10 DAYS WITH BAD HEARTBURN gadoteridol (Unverified Allergy, Mild, Itching, 03/18/17) STATES AFTER IV CONTRAST FROM LAST HOSPITAL VISIT WAS ITCHY FOR 10 DAYS WITH BAD HEARTBURN iodixanol (Unverified Allergy, Mild, Itching, 03/18/17) STATES AFTER IV CONTRAST FROM LAST HOSPITAL VISIT WAS ITCHY FOR 10 DAYS WITH BAD HEARTBURN iohexol (Unverified Allergy, Mild, Itching, 03/18/17) STATES AFTER IV CONTRAST FROM LAST HOSPITAL VISIT WAS ITCHY FOR 10 DAYS WITH BAD HEARTBURN Past Medical History End-stage renal disease Hypertension History of atrial fibrillation History of ablation Pancreatitis Cigarette smoking CVA Memory loss Past Surgical History Tenckhoff catheter placement PermCath insertion and removal Cholecystectomy Reported Medications Reported Meds & Active Scripts Active Percocet (Oxycodone-Acetaminophen) 10-325 mg Tab 1 Tab PO Q6H PRN Zofran Odt (Ondansetron Odt) 4 Mg Tab 4 Mg SL Q6HR PRN Coumadin (Warfarin) 5 Mg Tab 5 Mg PO DAILY Hold Coumadin for 2 days or until cleared by PCP. Repeat INR in 2 days. Aidee-Colace (Sennosides-Docusate Sodium) 8.6-50 Mg Tab 1 Tab PO BID PRN Norvasc (Amlodipine Besylate) 5 Mg Tab 5 Mg PO DAILY Reported Metoprolol Succinate ER 24 HR (Metoprolol Succinate) 100 Mg Tab 50 Mg PO DAILY Tamsulosin (Tamsulosin HCl) 0.4 Mg Cap 0.4 Mg PO HS Calcitriol 0.5 Mcg Cap 0.5 Mcg PO DAILY Ropinirole 0.25 Mg Tab 0.25 Mg PO HS Renvela (Sevelamer Carbonate) 800 Mg Tab 800 Mg PO TID Memantine 5 Mg Tab 5 Mg PO DAILY Dialyvite 800 (B-Complex W/ C & Folic Acid) 1 Tab 800 Mg PO Lasix (Furosemide) 20 Mg Tab 20 Mg PO BID Active Ordered Medications Current Medications Medications (Trade) Dose Ordered Sig/Maximus Route Start Time Stop Time Status Last Admin (NS Flush) 2 ml UNSCH PRN IV FLUSH 03/20/17 22:45 (NS Flush) 2 ml BID IV FLUSH 03/21/17 09:00 (Zofran Inj) 4 mg Q6H PRN IVP 03/20/17 22:45 (Heparin Inj) 5,000 units Q12H SQ 03/21/17 09:00 (Tylenol) 650 mg Q6H PRN PO 03/20/17 22:45 ([place] 5-325 Mg) 1 tab Q4H PRN PO 03/20/17 22:45 (Dilaudid Pf Inj) 1 mg Q3H PRN IV 03/20/17 22:45 (Aidee-Colace) 1 tab BID PO 03/21/17 09:00 (Milk Of Magnesia Liq) 30 ml Q12H PRN PO 03/20/17 22:45 (Senokot) 17.2 mg Q12H PRN PO 03/20/17 22:45 (Dulcolax Supp) 10 mg DAILY PRN RECTAL 03/20/17 22:45 (Lactulose Liq) 30 ml DAILY PRN PO 03/20/17 22:45 (Norvasc) 5 mg DAILY PO 03/21/17 09:00 (Rocaltrol) 0.5 mcg DAILY PO 03/21/17 09:00 (Namenda) 5 mg DAILY PO 03/21/17 09:00 (Requip) 0.25 mg HS PO 03/21/17 21:00 (Renvela) 800 mg TID PO 03/21/17 09:00 (Flomax) 0.4 mg HS PO 03/21/17 21:00 (Coumadin) 5 mg DAILY@16 PO 03/21/17 16:00 (Toprol Xl) 50 mg DAILY PO 03/21/17 09:00 (Pneumovax-23 Inj) 25 mcg ONCE ONCE IM 03/21/17 09:00 03/21/17 09:01 Family History Noncontributory Social History Smoking cigarettes one pack per day, denies alcohol intake Physical Exam Vital Signs Vital Signs Date Time Temp Pulse Resp B/P Pulse Ox O2 Delivery O2 Flow Rate FiO2 03/21/17 05:54 98.6 59 20 118/74 99 03/21/17 00:00 48 18 115/67 97 03/20/17 23:00 56 16 138/77 96 03/20/17 22:00 60 16 150/80 96 03/20/17 21:00 62 16 129/79 96 03/20/17 20:00 68 16 160/78 96 03/20/17 19:22 98.0 68 16 163/85 98 Physical Exam GENERAL: Well-nourished, well-developed patient. SKIN: Warm and dry. HEAD: Normocephalic. EYES: No scleral icterus. No injection or drainage. NECK: Supple, trachea midline. No JVD or lymphadenopathy. CARDIOVASCULAR: Regular rate and rhythm without murmurs, gallops, or rubs. RESPIRATORY: Breath sounds equal bilaterally. No accessory muscle use. GASTROINTESTINAL: Abdomen soft, mildly tender epigastric area, nondistended. EXTREMITIES: No cyanosis, or edema. NEUROLOGICAL: Awake, alert, and oriented x 3. Non-focal. Laboratory Laboratory Tests Test 03/20/17 19:35 White Blood Count 9.4 Red Blood Count 3.87 Hemoglobin 13.1 Hematocrit 37.3 Mean Corpuscular Volume 96.5 Mean Corpuscular Hemoglobin 33.8 Mean Corpuscular Hemoglobin 35.0 Concent Red Cell Distribution Width 14.1 Platelet Count 210 Mean Platelet Volume 7.8 Neutrophils (%) (Auto) 56.5 Lymphocytes (%) (Auto) 30.2 Monocytes (%) (Auto) 8.0 Eosinophils (%) (Auto) 4.4 Basophils (%) (Auto) 0.9 Neutrophils # (Auto) 5.3 Lymphocytes # (Auto) 2.8 Monocytes # (Auto) 0.8 Eosinophils # (Auto) 0.4 Basophils # (Auto) 0.1 CBC Comment DIFF FINAL Differential Comment Prothrombin Time 19.8 Prothromb Time International 1.7 Ratio Activated Partial 31.9 Thromboplast Time Sodium Level 137 Potassium Level 4.0 Chloride Level 107 Carbon Dioxide Level 20.1 Anion Gap 10 Blood Urea Nitrogen 40 Creatinine 7.19 Estimat Glomerular Filtration 8 Rate Random Glucose 93 Calcium Level 8.2 Total Bilirubin 0.5 Aspartate Amino Transf 35 (AST/SGOT) Alanine Aminotransferase 44 (ALT/SGPT) Alkaline Phosphatase 80 Total Protein 7.5 Albumin 3.3 Lipase 535 Result Diagram: 03/20/17193403/20/171934 Imaging Last Impressions Abdomen/Pelvis CT 03/20/171927 Signed Impressions: Service Date/Time: March 19:37 - CONCLUSION: 1. Mild inflammatory or edematous changes around the pancreatic head characteristic of mild acute pancreatitis. There is also evidence for chronic pancreatitis with calcifications in the pancreatic head as well. 2. No biliary ductal dilatation. Previous cholecystectomy. 3. Atrophic kidneys with peritoneal dialysis catheter present. Ashvin Lopez MD Assessment and Plan Problem List: (1) ESRD (end stage renal disease) on dialysis Plan: Peritoneal dialysis will resume we will check peritoneal fluid cell count He is told to stop smoking Continue supportive care (2) Acute pancreatitis Plan: Risk factors as well as smoking (3) HTN (hypertension) Plan: Continue to monitor Michelle Bird MD Mar 21, 2017 08:20
[2017-03-21 08:49] VITALS: O2SAT 93
--- NOTE | 2017-03-21 08:53 | HHI.PR ---
Subjective Remarks Follow up for epigastric pain. The patient reports feeling slightly better this morning however still runner at the epigastric area. He reports severe intermittent waves of nausea, but no vomiting. Denies fevers/chills. Bowel movement recently have been hard, nonbloody. The patient is requesting to start with liquid diet. He has seen Dr. Burt in the past for his recurrent pancreatitis. He has no other medical complaints at this time. Objective Vitals Vital Signs Date Time Temp Pulse Resp B/P Pulse Ox O2 Delivery O2 Flow Rate FiO2 03/21/17 08:49 93 03/21/17 05:54 98.6 59 20 118/74 99 03/21/17 00:00 48 18 115/67 97 03/20/17 23:00 56 16 138/77 96 03/20/17 22:00 60 16 150/80 96 03/20/17 21:00 62 16 129/79 96 03/20/17 20:00 68 16 160/78 96 03/20/17 19:22 98.0 68 16 163/85 98 I/O 03/20/17 03/20/17 03/20/17 03/21/17 03/21/17 03/21/17 07:00 15:00 23:00 07:00 15:00 23:00 Output Total 200 ml Balance -200 ml Output Urine Total 200 ml Result Diagram: 03/20/17193403/20/171934 Imaging Last Impressions Abdomen/Pelvis CT 03/20/171927 Signed Impressions: Service Date/Time: March 19:37 - CONCLUSION: 1. Mild inflammatory or edematous changes around the pancreatic head characteristic of mild acute pancreatitis. There is also evidence for chronic pancreatitis with calcifications in the pancreatic head as well. 2. No biliary ductal dilatation. Previous cholecystectomy. 3. Atrophic kidneys with peritoneal dialysis catheter present. Ashvin Lopez MD Objective Remarks GENERAL: Well-nourished, well-developed middle aged male patient in [facility]. SKIN: Warm and dry. No rash. HEENT: Normocephalic. Atraumatic. Pupils equal and round. Mucous membranes pink and moist. CARDIOVASCULAR: Regular rate and rhythm. S1, S2 noted. No murmur appreciated. RESPIRATORY: No accessory muscle use. Clear to auscultation. Breath sounds equal bilaterally. GASTROINTESTINAL: Abdomen soft, nondistended, moderate epigastric TTP. Normoactive bowel sounds x4. MUSCULOSKELETAL: No obvious deformities. Extremities without clubbing, cyanosis , or edema. NEUROLOGICAL: Awake and alert. No obvious cranial nerve deficits. Motor grossly within normal limits. Normal speech. PSYCHIATRIC: Appropriate mood and affect; insight and judgment normal. Medications and IVs Current Medications Medications (Trade) Dose Ordered Sig/Maximus Route Start Time Stop Time Status Last Admin (NS Flush) 2 ml UNSCH PRN IV FLUSH 03/20/17 22:45 (NS Flush) 2 ml BID IV FLUSH 03/21/17 09:00 (Zofran Inj) 4 mg Q6H PRN IVP 03/20/17 22:45 (Heparin Inj) 5,000 units Q12H SQ 03/21/17 09:00 (Tylenol) 650 mg Q6H PRN PO 03/20/17 22:45 ([place] 5-325 Mg) 1 tab Q4H PRN PO 03/20/17 22:45 (Dilaudid Pf Inj) 1 mg Q3H PRN IV 03/20/17 22:45 (Aidee-Colace) 1 tab BID PO 03/21/17 09:00 (Milk Of Magnesia Liq) 30 ml Q12H PRN PO 03/20/17 22:45 (Senokot) 17.2 mg Q12H PRN PO 03/20/17 22:45 (Dulcolax Supp) 10 mg DAILY PRN RECTAL 03/20/17 22:45 (Lactulose Liq) 30 ml DAILY PRN PO 03/20/17 22:45 (Norvasc) 5 mg DAILY PO 03/21/17 09:00 (Rocaltrol) 0.5 mcg DAILY PO 03/21/17 09:00 (Namenda) 5 mg DAILY PO 03/21/17 09:00 (Requip) 0.25 mg HS PO 03/21/17 21:00 (Renvela) 800 mg TID PO 03/21/17 09:00 (Flomax) 0.4 mg HS PO 03/21/17 21:00 (Coumadin) 5 mg DAILY@16 PO 03/21/17 16:00 (Toprol Xl) 50 mg DAILY PO 03/21/17 09:00 (NS Flush) 10 ml UNSCH PRN IV FLUSH 03/21/17 08:00 A/P Problem List: (1) Intractable abdominal pain ICD Code: R10.9 Status: Acute (2) Pancreatitis ICD Code: K85.90 Status: Acute (3) ESRD (end stage renal disease) on dialysis ICD Code: N18.6 Status: Chronic (4) HTN (hypertension) ICD Code: I10 Status: Chronic (5) Tobacco abuse ICD Code: Z72.0 Status: Chronic Assessment and Plan 66-year-old male with a PMH of A. fib on Coumadin, HTN, ESRD on PD, h/o Pancreatitis and Tobacco Abuse who presented to the ER with complaints of severe epigastric abdominal pain with radiation to the back x2 days. Acute on Chronic Pancreatitis, Intractable Abdominal Pain: Acute onset of epigastric abdominal pain x2 days, h/o Chronic Pancreatitis. -CT Abd/Pelvis images reviewed, shows inflammatory changes around pancreatic head characteristic of mild acute pancreatitis and evidence of chronic pancreatitis with calcifications in pancreatic head. -Lipase 535. -Start with liquid diet, advance as tolerated. -IV Protonix. -Supportive treatment with IVF, antiemetics and pain control prn. -Repeat lipase. -Outpatient f/up with GI, patient has seen Dr. Burt in the past. ESRD on PD: Follows w/ Dr. Bird as outpatient, consulted to resume PD as scheduled. HTN: BP 150-160's, likely compounded by pain, resume home medications, monitor BP. DVT Prophylaxis: Heparin sq Discharge Planning Discharge pending further clinical improvement and tolerating oral intake, possibly later today or tomorrow. Sandra Zamora PA-C Mar 21, 2017 08:53
[2017-03-21] MEDS ORDERED: PNEUMOCOCCAL POLYVALENT INJ 25 MCG/0.5 ML SYR IM ONE (09:00)
[2017-03-21] MEDS: DOCUSATE SODIUM 50 MG/SENNA 8.6 MG TAB PO SCH ×2 (10:57→20:45)
[2017-03-21] MEDS: SEVELAMER CARBONATE 800 MG TAB PO SCH ×3 (10:57→18:42)
[2017-03-21] MEDS: METOPROLOL SUCCINATE 50 MG EXTENDED RELEASE TAB PO SCH (10:57)
[2017-03-21] MEDS: HEPARIN SODIUM - SQ 10,000 UNITS/ML VIAL SQ SCH ×2 (10:57→20:45)
[2017-03-21] MEDS: amLODIPine BESYLATE 5 MG TAB PO SCH (10:57)
[2017-03-21] MEDS: SODIUM CHLORIDE 0.9% FLUSH 10 ML FLUSH IV FLUSH SCH ×2 (10:58→20:45)
[2017-03-21] MEDS: CALCITRIOL 0.25 MCG CAP PO SCH (10:58)
[2017-03-21] MEDS: MEMANTINE HCL 5 MG TAB PO SCH (10:58)
[2017-03-21 11:58] VITALS: BP 143/79; PULSE 98; RESP 18; TEMP 97.8; O2SAT 95
[2017-03-21 12:18] LABS: AUTOMATED NEUTROPHIL # 3.7 TH/MM3 (1.8-7.7); BASOPHIL # 0.1 TH/MM3 (0-0.2); BASOPHIL % 2.2 % (0.0-2.0); EOSINOPHIL # 0.3 TH/MM3 (0-0.4); EOSINOPHIL % 4.6 % (0.0-4.0); HEMATOCRIT 38.7 % (39.0-51.0); HEMO FLAGS DIFF FINAL; LYMPH % 28.2 % (9.0-44.0); LYMPHOCYTE # 1.8 TH/MM3 (1.0-4.8); MEAN CELL VOLUME 96.2 FL (80.0-100.0); MEAN CORPUSCULAR HEMOGLOBIN 33.1 PG (27.0-34.0); MEAN CORPUSCULAR HGB CONC 34.4 % (32.0-36.0); MONO % 8.3 % (0.0-8.0); NEUT % 56.7 % (16.0-70.0); PLATELET COUNT 178 TH/MM3 (150-450); RED BLOOD COUNT 4.02 MIL/MM3 (4.50-5.90); RED CELL DISTRIBUTION WIDTH 14.2 % (11.6-17.2); WHITE BLOOD COUNT 6.5 TH/MM3 (4.0-11.0)
[2017-03-21 12:44] LABS: ANION GAP 7 MEQ/L (5-15); AST (GOT) 47 U/L (15-37); BICARBONATE 23.3 MEQ/L (21.0-32.0); BLOOD UREA NITROGEN 41 MG/DL (7-18); CHLORIDE 108 MEQ/L (98-107); GLOMERULAR FILTRATION RATE 8 ML/MIN (>89); POTASSIUM 4.1 MEQ/L (3.5-5.1); SODIUM (NA) 138 MEQ/L (136-145)
[2017-03-21 12:46] LABS: ALT (GPT) 59 U/L (12-78)
[2017-03-21 12:48] LABS: ALKALINE PHOSPHATASE 91 U/L (45-117); TOTAL BILIRUBIN ADULT 0.5 MG/DL (0.2-1.0)
[2017-03-21 14:17] LABS: PERITONEAL EOS 3 %; PERITONEAL HISTIOCYTES 4 %; PERITONEAL LYMPHS 10 %; PERITONEAL MESOTHELIAL 7 %; PERITONEAL MONOS 53 %; PERITONEAL POLYS(SEGS) 23 %; PERITONEAL WBC 616 /MM3 (0-10)
--- NOTE | 2017-03-21 15:09 | EKG ---
Date Performed: 03/20/2017 Time Performed: 20:17:12 PTAGE: 66 years EKG: SINUS BRADYCARDIA MODERATE ST DEPRESSION ABNORMAL ECG PREVIOUS TRACING : 02/12/2017 21.58 Since previous tracing, no significant change noted DOCTOR: Franklin Mcalughlin Interpretating Date/Time 03/21/2017 15:07:26
[2017-03-21 16:33] VITALS: BP 140/68; PULSE 50; RESP 20; TEMP 97.9; O2SAT 95
[2017-03-21] MEDS: WARFARIN SOD 5 MG TAB PO SCH (16:36)
[2017-03-21] MEDS: ACETAMINOPHEN/HYDROcodone 325 MG/5 MG TAB PO PRN (16:37)
[2017-03-21 20:45] VITALS: BP 122/77; PULSE 54; RESP 18; TEMP 97.9; O2SAT 96
[2017-03-21] MEDS: TAMSULOSIN HCL 0.4 MG CAP PO SCH (20:45)
[2017-03-22] VITALS (7 sets, daily range): BP systolic 105–135; BP diastolic 63–76; PULSE 48–62; RESP 17–19; TEMP 97.7–98.6; O2SAT 96–98
[2017-03-22] MEDS: amLODIPine BESYLATE 5 MG TAB PO SCH (09:00)
[2017-03-22] MEDS: HEPARIN SODIUM - SQ 10,000 UNITS/ML VIAL SQ SCH ×2 (09:11→20:31)
[2017-03-22] MEDS: DOCUSATE SODIUM 50 MG/SENNA 8.6 MG TAB PO SCH ×2 (09:11→20:30)
[2017-03-22] MEDS: MEMANTINE HCL 5 MG TAB PO SCH (09:11)
[2017-03-22] MEDS: METOPROLOL SUCCINATE 50 MG EXTENDED RELEASE TAB PO SCH (09:11)
[2017-03-22] MEDS: SEVELAMER CARBONATE 800 MG TAB PO SCH ×3 (09:11→19:26)
[2017-03-22] MEDS: CALCITRIOL 0.25 MCG CAP PO SCH (09:11)
[2017-03-22] MEDS: SODIUM CHLORIDE 0.9% FLUSH 10 ML FLUSH IV FLUSH SCH ×2 (09:12→20:32)
--- NOTE | 2017-03-22 09:26 | HHI.PR ---
Subjective Remarks Follow up for pancreatitis, epigastric pain, nausea. The patient reports feeling very fatigued, states he slept most of the day yesterday. He complains of some abdominal pain located at the peritoneal dialysis catheter site. Denies any drainage around the tube. Denies fevers/chills. He tolerated oral intake yesterday with no epigastric pain or nausea/vomiting. Objective Vitals Vital Signs Date Time Temp Pulse Resp B/P Pulse Ox O2 Delivery O2 Flow Rate FiO2 03/22/17 08:04 98.1 50 18 105/64 98 03/22/17 05:23 98.0 51 18 109/70 97 03/22/17 00:42 98.0 48 17 109/71 97 03/21/17 20:45 97.9 54 18 122/77 96 03/21/17 16:33 97.9 50 20 140/68 95 03/21/17 11:58 97.8 98 18 143/79 95 I/O 03/21/17 03/21/17 03/21/17 03/22/17 03/22/17 03/22/17 07:00 15:00 23:00 07:00 15:00 23:00 Intake Total 0 ml Output Total 200 ml Balance -200 ml 0 ml Intake IV Total 0 ml Output Urine Total 200 ml Result Diagram: 03/21/17 1151 03/21/17 1151 Imaging Last Impressions Abdomen/Pelvis CT 03/20/171927 Signed Impressions: Service Date/Time: March 19:37 - CONCLUSION: 1. Mild inflammatory or edematous changes around the pancreatic head characteristic of mild acute pancreatitis. There is also evidence for chronic pancreatitis with calcifications in the pancreatic head as well. 2. No biliary ductal dilatation. Previous cholecystectomy. 3. Atrophic kidneys with peritoneal dialysis catheter present. Ashvin Lopez MD Objective Remarks GENERAL: Well-nourished, well-developed middle aged male patient in [facility]. SKIN: Warm and dry. No rash. HEENT: Normocephalic. Atraumatic. Pupils equal and round. Mucous membranes pink and moist. CARDIOVASCULAR: Regular rate and rhythm. S1, S2 noted. No murmur appreciated. RESPIRATORY: No accessory muscle use. Clear to auscultation. Breath sounds equal bilaterally. GASTROINTESTINAL: Abdomen soft, nondistended. Normoactive bowel sounds x4. Peritoneal dialysis catheter at right abdomen, TTP, no surrounding erythema/ drainage. MUSCULOSKELETAL: No obvious deformities. Extremities without clubbing, cyanosis , or edema. NEUROLOGICAL: Awake and alert. No obvious cranial nerve deficits. Motor grossly within normal limits. Normal speech. PSYCHIATRIC: Appropriate mood and affect; insight and judgment normal. Medications and IVs Current Medications Medications (Trade) Dose Ordered Sig/Maximus Route Start Time Stop Time Status Last Admin (NS Flush) 2 ml UNSCH PRN IV FLUSH 03/20/17 22:45 (NS Flush) 2 ml BID IV FLUSH 03/21/17 09:00 03/22/17 09:12 (Zofran Inj) 4 mg Q6H PRN IVP 03/20/17 22:45 (Heparin Inj) 5,000 units Q12H SQ 03/21/17 09:00 03/22/17 09:11 (Tylenol) 650 mg Q6H PRN PO 03/20/17 22:45 ([place] 5-325 Mg) 1 tab Q4H PRN PO 03/20/17 22:45 03/21/17 16:37 (Dilaudid Pf Inj) 1 mg Q3H PRN IV 03/20/17 22:45 03/21/17 11:09 (Aidee-Colace) 1 tab BID PO 03/21/17 09:00 03/22/17 09:11 (Milk Of Magnesia Liq) 30 ml Q12H PRN PO 03/20/17 22:45 (Senokot) 17.2 mg Q12H PRN PO 03/20/17 22:45 (Dulcolax Supp) 10 mg DAILY PRN RECTAL 03/20/17 22:45 (Lactulose Liq) 30 ml DAILY PRN PO 03/20/17 22:45 (Norvasc) 5 mg DAILY PO 03/21/17 09:00 03/22/17 09:00 (Rocaltrol) 0.5 mcg DAILY PO 03/21/17 09:00 03/22/17 09:11 (Namenda) 5 mg DAILY PO 03/21/17 09:00 03/22/17 09:11 (Requip) 0.25 mg HS PO 03/21/17 21:00 (Renvela) 800 mg TID PO 03/21/17 09:00 03/22/17 09:11 (Flomax) 0.4 mg HS PO 03/21/17 21:00 03/21/17 20:45 (Coumadin) 5 mg DAILY@16 PO 03/21/17 16:00 03/21/17 16:36 (Toprol Xl) 50 mg DAILY PO 03/21/17 09:00 03/22/17 09:11 (NS Flush) 10 ml UNSCH PRN IV FLUSH 03/21/17 08:00 A/P Problem List: (1) Intractable abdominal pain ICD Code: R10.9 Status: Acute (2) Pancreatitis ICD Code: K85.90 Status: Acute (3) ESRD (end stage renal disease) on dialysis ICD Code: N18.6 Status: Chronic (4) HTN (hypertension) ICD Code: I10 Status: Chronic (5) Tobacco abuse ICD Code: Z72.0 Status: Chronic Assessment and Plan 66-year-old male with a PMH of A. fib on Coumadin, HTN, ESRD on PD, h/o Pancreatitis and Tobacco Abuse who presented to the ER with complaints of severe epigastric abdominal pain with radiation to the back x2 days. Acute on Chronic Pancreatitis, Intractable Abdominal Pain: Acute onset of epigastric abdominal pain x2 days, h/o Chronic Pancreatitis. -CT Abd/Pelvis images reviewed, shows inflammatory changes around pancreatic head characteristic of mild acute pancreatitis and evidence of chronic pancreatitis with calcifications in pancreatic head. -Lipase 535 --> 564 -IV Protonix. -Started with liquid diet, advance to regular today -Supportive treatment with IVF, antiemetics and pain control prn. -Repeat lipase pending -Outpatient f/up with GI, patient has seen Dr. Burt in the past. ESRD on PD: Follows w/ Dr. Bird as outpatient, consulted to resume PD as scheduled. -peritoneal fluid sent for studies, shows elevated WBC 616, RBC 407; culture pending -consider adding vanco to peritoneal dialysis, will await nephrology input HTN: BP 150-160's, likely compounded by pain, resume home medications, monitor BP. DVT Prophylaxis: Heparin sq Discharge Planning Discharge pending further clinical improvement. Sandra Zamora PA-C Mar 22, 2017 09:26
[2017-03-22] MEDS ORDERED: LACTULOSE SYRUP 20 GM/30 ML CUP PO ONE (09:30)
[2017-03-22 10:12] LABS: AUTOMATED NEUTROPHIL # 3.6 TH/MM3 (1.8-7.7); BASOPHIL # 0.1 TH/MM3 (0-0.2); BASOPHIL % 1.3 % (0.0-2.0); EOSINOPHIL # 0.3 TH/MM3 (0-0.4); EOSINOPHIL % 4.7 % (0.0-4.0); HEMATOCRIT 37.3 % (39.0-51.0); HEMO FLAGS DIFF FINAL; LYMPH % 32.1 % (9.0-44.0); LYMPHOCYTE # 2.2 TH/MM3 (1.0-4.8); MEAN CELL VOLUME 96.2 FL (80.0-100.0); MEAN CORPUSCULAR HEMOGLOBIN 33.2 PG (27.0-34.0); MEAN CORPUSCULAR HGB CONC 34.5 % (32.0-36.0); MONO % 9.2 % (0.0-8.0); NEUT % 52.7 % (16.0-70.0); PLATELET COUNT 168 TH/MM3 (150-450); RED BLOOD COUNT 3.88 MIL/MM3 (4.50-5.90); RED CELL DISTRIBUTION WIDTH 13.9 % (11.6-17.2); WHITE BLOOD COUNT 6.8 TH/MM3 (4.0-11.0)
[2017-03-22 10:33] LABS: BICARBONATE 20.4 MEQ/L (21.0-32.0); POTASSIUM 4.2 MEQ/L (3.5-5.1)
[2017-03-22] MEDS ORDERED: GENTAMICIN SULFATE 0.1% OINT 15 GM TUBE TOP PRN (14:00)
[2017-03-22] MEDS ORDERED: VANCOMYCIN HCL 1000 MG VIAL IP SCH (14:00)
--- NOTE | 2017-03-22 14:03 | HHI.NPPN ---
Subjective Additional Remarks Complains of some ongoing pain near PD catheter site. Tolerating PO diet Objective Data Data Vital Signs Date Time Temp Pulse Resp B/P Pulse Ox O2 Delivery O2 Flow Rate FiO2 03/22/17 12:00 97.7 58 18 107/67 96 03/22/17 10:46 03/22/17 08:04 98.1 50 18 105/64 98 03/22/17 05:23 98.0 51 18 109/70 97 03/22/17 00:42 98.0 48 17 109/71 97 03/21/17 20:45 97.9 54 18 122/77 96 03/21/17 16:33 97.9 50 20 140/68 95 -: 03/22/17 0824 03/22/17 0824 Physical Exam General Appearance: Well Developed, Well Nourished, No Acute Distress Eyes Eye Exam: Pupils Equal Throat Throat Exam: Oral Mucosa Lutsen & Moist Neck Neck Exam: Neck Supple Pulmonary Resp Exam: Clear Bilaterally Cardiology CV Exam: Regular, Normal Sinus Rhythm, Good Perfusion Gastrointestinal/Abdomen GI Exam: Soft Musculoskeletal MS Exam: Joints Intact, Normal Gait Integumentary Skin Exam: Dry, Intact Extremeties Extremities Exam: No Edema Neurologic Neuro Exam: Alert, Awake, Oriented, Speech Clear, Moving All Extremities Psychiatric Psych Exam: Appropriate Responses Assessment/Plan Problem List: (1) ESRD (end stage renal disease) on dialysis Plan: Tolerating PD well Elevated PD WBC count; however neutrophils normal and negative cultures. Will repeat cell count and cultures today - possible elevated WBCs due to pancreatitis. However, also some complaints of tenderness near PD catheter exit site. No signs or erythema or purulence. Will empirically start Vancomycin and For[place]z IP due to pain symptoms, follow repeat PD fluid analysis. Volume status and electrolytes otherwise stable. He is told to stop smoking Continue supportive care (2) Acute pancreatitis Plan: Risk factors as well as smoking (3) HTN (hypertension) Plan: Continue to monitor Ruiz King MD Mar 22, 2017 14:03
[2017-03-22] MEDS: WARFARIN SOD 5 MG TAB PO SCH (18:09)
[2017-03-22] MEDS: TAMSULOSIN HCL 0.4 MG CAP PO SCH (20:31)
[2017-03-22 22:54] LABS: PERITONEAL EOS 1 %; PERITONEAL LYMPHS 23 %; PERITONEAL MESOTHELIAL 3 %; PERITONEAL MONOS 21 %; PERITONEAL POLYS(SEGS) 52 %; PERITONEAL WBC 76 /MM3 (0-10)
[2017-03-23 04:07] VITALS: BP 114/58; PULSE 55; RESP 20; TEMP 98.3; O2SAT 99
[2017-03-23 05:24] LABS: AUTOMATED NEUTROPHIL # 3.7 TH/MM3 (1.8-7.7); BASOPHIL # 0.1 TH/MM3 (0-0.2); BASOPHIL % 1.1 % (0.0-2.0); EOSINOPHIL # 0.3 TH/MM3 (0-0.4); EOSINOPHIL % 4.3 % (0.0-4.0); HEMATOCRIT 38.6 % (39.0-51.0); HEMO FLAGS DIFF FINAL; LYMPH % 32.3 % (9.0-44.0); LYMPHOCYTE # 2.2 TH/MM3 (1.0-4.8); MEAN CELL VOLUME 96.1 FL (80.0-100.0); MEAN CORPUSCULAR HEMOGLOBIN 32.6 PG (27.0-34.0); MONO % 7.9 % (0.0-8.0); NEUT % 54.4 % (16.0-70.0); PLATELET COUNT 186 TH/MM3 (150-450); RED BLOOD COUNT 4.02 MIL/MM3 (4.50-5.90); RED CELL DISTRIBUTION WIDTH 13.9 % (11.6-17.2); WHITE BLOOD COUNT 6.8 TH/MM3 (4.0-11.0)
[2017-03-23 06:07] LABS: BICARBONATE 21.7 MEQ/L (21.0-32.0); POTASSIUM 3.8 MEQ/L (3.5-5.1)
[2017-03-23 07:42] VITALS: BP 111/66; PULSE 57; RESP 14; TEMP 98.1; O2SAT 97
--- NOTE | 2017-03-23 07:54 | HHI.PR ---
Subjective Remarks Follow up for possible peritonitis, pancreatitis, epigastric pain, nausea. Patient reports feeling better again today. He still has some intermittent pain at the peritoneal dialysis catheter site. He denies any epigastric pain, nausea, or vomiting. Denies fevers or chills. He is tolerating oral intake. He has no other medical complaints at this time. Objective Vitals Vital Signs Date Time Temp Pulse Resp B/P Pulse Ox O2 Delivery O2 Flow Rate FiO2 03/23/17 07:42 98.1 57 14 111/66 97 03/23/17 04:07 98.3 55 20 114/58 99 03/22/17 23:44 98.6 53 19 111/68 97 03/22/17 19:13 98.0 60 18 135/76 98 03/22/17 16:03 98.2 62 18 117/63 97 03/22/17 14:45 03/22/17 12:00 97.7 58 18 107/67 96 03/22/17 10:46 03/22/17 08:04 98.1 50 18 105/64 98 I/O 03/22/17 03/22/17 03/22/17 03/23/17 03/23/17 03/23/17 06:59 14:59 22:59 06:59 14:59 22:59 Intake Total 0 ml 120 ml Balance 0 ml 120 ml Intake Oral 120 ml IV Total 0 ml Result Diagram: 03/23/17 0444 03/23/17 0444 Imaging Last Impressions Abdomen/Pelvis CT 03/20/171927 Signed Impressions: Service Date/Time: March 19:37 - CONCLUSION: 1. Mild inflammatory or edematous changes around the pancreatic head characteristic of mild acute pancreatitis. There is also evidence for chronic pancreatitis with calcifications in the pancreatic head as well. 2. No biliary ductal dilatation. Previous cholecystectomy. 3. Atrophic kidneys with peritoneal dialysis catheter present. Ashvin Lopez MD Objective Remarks GENERAL: Well-nourished, well-developed middle aged male patient in [facility]. SKIN: Warm and dry. No rash. HEENT: Normocephalic. Atraumatic. Pupils equal and round. Mucous membranes pink and moist. CARDIOVASCULAR: Regular rate and rhythm. S1, S2 noted. No murmur appreciated. RESPIRATORY: No accessory muscle use. Clear to auscultation. Breath sounds equal bilaterally. GASTROINTESTINAL: Abdomen soft, nondistended. Normoactive bowel sounds x4. Peritoneal dialysis catheter at right abdomen, mildly TTP, no surrounding erythema/drainage. MUSCULOSKELETAL: No obvious deformities. Extremities without clubbing, cyanosis , or edema. NEUROLOGICAL: Awake and alert. No obvious cranial nerve deficits. Motor grossly within normal limits. Normal speech. PSYCHIATRIC: Appropriate mood and affect; insight and judgment normal. Medications and IVs Current Medications Medications (Trade) Dose Ordered Sig/Maximus Route Start Time Stop Time Status Last Admin (NS Flush) 2 ml UNSCH PRN IV FLUSH 03/20/17 22:45 (NS Flush) 2 ml BID IV FLUSH 03/21/17 09:00 03/22/17 20:32 (Zofran Inj) 4 mg Q6H PRN IVP 03/20/17 22:45 (Heparin Inj) 5,000 units Q12H SQ 03/21/17 09:00 03/22/17 20:31 (Tylenol) 650 mg Q6H PRN PO 03/20/17 22:45 ([place] 5-325 Mg) 1 tab Q4H PRN PO 03/20/17 22:45 03/21/17 16:37 (Dilaudid Pf Inj) 1 mg Q3H PRN IV 03/20/17 22:45 03/21/17 11:09 (Aidee-Colace) 1 tab BID PO 03/21/17 09:00 03/22/17 20:30 (Milk Of Magnesia Liq) 30 ml Q12H PRN PO 03/20/17 22:45 (Senokot) 17.2 mg Q12H PRN PO 03/20/17 22:45 (Dulcolax Supp) 10 mg DAILY PRN RECTAL 03/20/17 22:45 (Lactulose Liq) 30 ml DAILY PRN PO 03/20/17 22:45 (Norvasc) 5 mg DAILY PO 03/21/17 09:00 03/22/17 09:00 (Rocaltrol) 0.5 mcg DAILY PO 03/21/17 09:00 03/22/17 09:11 (Namenda) 5 mg DAILY PO 03/21/17 09:00 03/22/17 09:11 (Requip) 0.25 mg HS PO 03/21/17 21:00 03/22/17 20:31 (Renvela) 800 mg TID PO 03/21/17 09:00 03/22/17 19:26 (Flomax) 0.4 mg HS PO 03/21/17 21:00 03/22/17 20:31 (Coumadin) 5 mg DAILY@16 PO 03/21/17 16:00 03/22/17 18:09 (Toprol Xl) 50 mg DAILY PO 03/21/17 09:00 03/22/17 09:11 (NS Flush) 10 ml UNSCH PRN IV FLUSH 03/21/17 08:00 (Gentamicin 0.1% Oint) 1 applic UNSCH PRN TOP 03/22/17 14:00 (Vancomycin Inj) 2,000 mg Q7D IP 03/22/17 14:00 (Fortaz Inj) 1,000 mg DAILY IP 03/22/17 14:00 A/P Problem List: (1) Intractable abdominal pain ICD Code: R10.9 Status: Acute (2) Pancreatitis ICD Code: K85.90 Status: Acute (3) ESRD (end stage renal disease) on dialysis ICD Code: N18.6 Status: Chronic (4) HTN (hypertension) ICD Code: I10 Status: Chronic (5) Tobacco abuse ICD Code: Z72.0 Status: Chronic Assessment and Plan 66-year-old male with a PMH of A. fib on Coumadin, HTN, ESRD on PD, h/o Pancreatitis and Tobacco Abuse who presented to the ER with complaints of severe epigastric abdominal pain with radiation to the back x2 days. Acute on Chronic Pancreatitis, Intractable Abdominal Pain: Acute onset of epigastric abdominal pain x2 days, h/o Chronic Pancreatitis. -CT Abd/Pelvis images reviewed, shows inflammatory changes around pancreatic head characteristic of mild acute pancreatitis and evidence of chronic pancreatitis with calcifications in pancreatic head. -Lipase 535 --> 564 -IV Protonix. -Started with liquid diet, advance to regular today -Supportive treatment with IVF, antiemetics and pain control prn. -Repeat lipase shows improvement, 411 -patient tolerating oral intake, epigastric pain resolved -Outpatient f/up with GI, patient has seen Dr. Burt in the past. ESRD on PD, possible associated Peritonitis: Follows w/ Dr. Bird as outpatient , consulted to resume PD as scheduled. -peritoneal fluid sent for studies, shows elevated WBC 616, RBC 407; culture pending -repeat peritoneal fluid shows improvement, WBC 76, RBC 119 -nephrology ordered vanco 2g IP q7d and ceftazidime 1g IP daily -continue to monitor fluid cultures HTN: BP 150-160's, likely compounded by pain -resume home medications -monitor BP, much better controlled. DVT Prophylaxis: Heparin sq Discharge Planning Discharge pending further clinical improvement and clearance from nephrology. Sandra Zamora PA-C Mar 23, 2017 7:54 am
[2017-03-23] MEDS: SODIUM CHLORIDE 0.9% FLUSH 10 ML FLUSH IV FLUSH SCH ×2 (09:00→22:12)
[2017-03-23] MEDS: HEPARIN SODIUM - SQ 10,000 UNITS/ML VIAL SQ SCH ×3 (09:00→22:10)
[2017-03-23] MEDS: amLODIPine BESYLATE 5 MG TAB PO SCH ×2 (09:00→09:28)
[2017-03-23] MEDS: MEMANTINE HCL 5 MG TAB PO SCH ×2 (09:00→09:28)
[2017-03-23] MEDS: SEVELAMER CARBONATE 800 MG TAB PO SCH ×4 (09:00→17:55)
[2017-03-23] MEDS: METOPROLOL SUCCINATE 50 MG EXTENDED RELEASE TAB PO SCH ×2 (09:00→09:28)
[2017-03-23] MEDS: CALCITRIOL 0.25 MCG CAP PO SCH ×2 (09:00→09:28)
[2017-03-23] MEDS: DOCUSATE SODIUM 50 MG/SENNA 8.6 MG TAB PO SCH ×3 (09:00→22:09)
[2017-03-23 11:00] VITALS: BP 112/66; PULSE 63; RESP 17; TEMP 98.5; O2SAT 94
[2017-03-23] MEDS: ACETAMINOPHEN/HYDROcodone 325 MG/5 MG TAB PO PRN (15:55)
[2017-03-23] MEDS: WARFARIN SOD 5 MG TAB PO SCH (15:55)
--- NOTE | 2017-03-23 19:52 | HHI.NPPN ---
Subjective Additional Remarks Complains of some ongoing pain near PD catheter site. Objective Data Data 03/23/17 03/24/17 18:59 06:59 Output Total 0 ml Balance 0 ml Peritoneal Fluid 0 ml Vital Signs Date Time Temp Pulse Resp B/P (MAP) Pulse Ox O2 Delivery O2 Flow Rate FiO2 03/23/17 11:00 98.5 63 17 112/66 (81) 94 03/23/17 07:42 98.1 57 14 111/66 (81) 97 03/23/17 04:07 98.3 55 20 114/58 (76) 99 03/22/17 23:44 98.6 53 19 111/68 (82) 97 -: 03/23/17 0444 03/23/17 0444 Microbiology 03/22/17 Gram Stain - Final, Resulted 03/22/17 Body Fluid Culture - Preliminary, Resulted NO GROWTH IN 24 HOURS. Physical Exam General Appearance: Well Developed, Well Nourished, No Acute Distress Eyes Eye Exam: Pupils Equal Throat Throat Exam: Oral Mucosa [place] & Moist Neck Neck Exam: Neck Supple Pulmonary Resp Exam: Clear Bilaterally Cardiology CV Exam: Regular, Normal Sinus Rhythm, Good Perfusion Gastrointestinal/Abdomen GI Exam: Soft Musculoskeletal MS Exam: Joints Intact, Normal Gait Integumentary Skin Exam: Dry, Intact Extremeties Extremities Exam: No Edema Neurologic Neuro Exam: Alert, Awake, Oriented, Speech Clear, Moving All Extremities Psychiatric Psych Exam: Appropriate Responses Assessment/Plan Problem List: (1) ESRD (end stage renal disease) on dialysis ICD Codes: N18.6 - End stage renal failure on dialysis; Z99.2 - Dependence on renal dialysis Status: Chronic Plan: Tolerating PD with 2.5/1.5/2.5 solution. Empirically started IP Vanco and Fortaz with initial PD fluid WBC count 600s and pain symptoms near PD catheter exit site. However repeat testing last night showed drop in WBCs to 76, 50% neutrophills before IP antibiotics were administered. PD fluid cultures are negative x 2. Initial elevated WBCs may have been due to pancreatitis. Although labs show no signs of peritonitis, pain near catheter site is concerning. Continue IP antibiotics for now. Pain may be due to irritation from PD bandage - bandage changed to gauze with paper tape now. Hopefully symptoms are due to irritation from tape - however monitor for any signs of catheter exit site or tunnel infection. No signs of purulence today, mild erythema near tape sites. He is told to stop smoking Continue supportive care (2) Acute pancreatitis ICD Codes: K85.9 - Acute pancreatitis Status: Acute Plan: Improving, tolerating PO. Continue to monitor. (3) HTN (hypertension) ICD Codes: I10 - Hypertension Status: Chronic Plan: Continue to monitor Ruiz King MD Mar 23, 2017 19:52
[2017-03-23] MEDS: TAMSULOSIN HCL 0.4 MG CAP PO SCH (22:09)
[2017-03-23 22:18] VITALS: BP 116/74; PULSE 52; RESP 20; TEMP 97.8; O2SAT 97
[2017-03-24 05:33] LABS: AUTOMATED NEUTROPHIL # 3.7 TH/MM3 (1.8-7.7); BASOPHIL # 0.1 TH/MM3 (0-0.2); EOSINOPHIL # 0.3 TH/MM3 (0-0.4); EOSINOPHIL % 5.2 % (0.0-4.0); HEMATOCRIT 39.2 % (39.0-51.0); HEMO FLAGS DIFF FINAL; LYMPH % 28.5 % (9.0-44.0); LYMPHOCYTE # 1.9 TH/MM3 (1.0-4.8); MEAN CELL VOLUME 95.9 FL (80.0-100.0); MEAN CORPUSCULAR HEMOGLOBIN 32.5 PG (27.0-34.0); MEAN CORPUSCULAR HGB CONC 33.9 % (32.0-36.0); MONO % 10.2 % (0.0-8.0); NEUT % 55.1 % (16.0-70.0); PLATELET COUNT 193 TH/MM3 (150-450); RED BLOOD COUNT 4.09 MIL/MM3 (4.50-5.90); RED CELL DISTRIBUTION WIDTH 13.8 % (11.6-17.2); WHITE BLOOD COUNT 6.7 TH/MM3 (4.0-11.0)
[2017-03-24 06:00] LABS: BICARBONATE 25.3 MEQ/L (21.0-32.0); POTASSIUM 3.6 MEQ/L (3.5-5.1)
[2017-03-24 07:54] VITALS: BP 117/91; PULSE 82; RESP 16; TEMP 97.7; O2SAT 98
[2017-03-24] MEDS: SEVELAMER CARBONATE 800 MG TAB PO SCH ×2 (09:00→13:00)
--- NOTE | 2017-03-24 09:01 | HHI.PR ---
Subjective Remarks Follow up for possible peritonitis, pancreatitis, epigastric pain, nausea. The patient reports feeling much better. Denies any further epigastric pain, nausea/ vomiting. Tolerating oral intake. Denies fevers/chills. The patient believes he may have had some infection at the PD site because his pain resolved after receiving antibiotics. He feels ready for discharge. Objective Vitals Vital Signs Date Time Temp Pulse Resp B/P (MAP) Pulse Ox O2 Delivery O2 Flow Rate FiO2 03/24/17 07:54 97.7 82 16 117/91 (100) 98 03/23/17 22:18 97.8 52 20 116/74 (88) 97 03/23/17 11:00 98.5 63 17 112/66 (81) 94 I/O 03/23/17 03/23/17 03/23/17 03/24/17 03/24/17 03/24/17 07:00 15:00 23:00 07:00 15:00 23:00 Intake Total 120 ml 120 ml 240 ml Output Total 0 ml Balance 120 ml 0 ml 120 ml 240 ml Intake Oral 120 ml 120 ml 240 ml Peritoneal Fluid 0 ml # Voids 1 # Bowel Movements 0 Result Diagram: 03/24/17 0427 03/24/17426 Imaging Last Impressions Abdomen/Pelvis CT 03/20/171927 Signed Impressions: Service Date/Time: March 19:37 - CONCLUSION: 1. Mild inflammatory or edematous changes around the pancreatic head characteristic of mild acute pancreatitis. There is also evidence for chronic pancreatitis with calcifications in the pancreatic head as well. 2. No biliary ductal dilatation. Previous cholecystectomy. 3. Atrophic kidneys with peritoneal dialysis catheter present. Ashvin Lopez MD Objective Remarks GENERAL: Well-nourished, well-developed middle aged male patient in [facility]. SKIN: Warm and dry. No rash. HEENT: Normocephalic. Atraumatic. Pupils equal and round. Mucous membranes pink and moist. CARDIOVASCULAR: Regular rate and rhythm. S1, S2 noted. No murmur appreciated. RESPIRATORY: No accessory muscle use. Clear to auscultation. Breath sounds equal bilaterally. GASTROINTESTINAL: Abdomen soft, nondistended. Normoactive bowel sounds x4. Peritoneal dialysis catheter at right abdomen, nontender today, no surrounding erythema/drainage. MUSCULOSKELETAL: No obvious deformities. Extremities without clubbing, cyanosis , or edema. NEUROLOGICAL: Awake and alert. No obvious cranial nerve deficits. Motor grossly within normal limits. Normal speech. PSYCHIATRIC: Appropriate mood and affect; insight and judgment normal. Medications and IVs Current Medications Medications (Trade) Dose Ordered Sig/Maximus Route Start Time Stop Time Status Last Admin (NS Flush) 2 ml UNSCH PRN IV FLUSH 03/20/17 22:45 (NS Flush) 2 ml BID IV FLUSH 03/21/17 09:00 03/23/17 22:12 (Zofran Inj) 4 mg Q6H PRN IVP 03/20/17 22:45 (Heparin Inj) 5,000 units Q12H SQ 03/21/17 09:00 03/23/17 22:10 (Tylenol) 650 mg Q6H PRN PO 03/20/17 22:45 ([place] 5-325 Mg) 1 tab Q4H PRN PO 03/20/17 22:45 03/23/17 15:55 (Dilaudid Pf Inj) 1 mg Q3H PRN IV 03/20/17 22:45 03/21/17 11:09 (Aidee-Colace) 1 tab BID PO 03/21/17 09:00 03/23/17 22:09 (Milk Of Magnesia Liq) 30 ml Q12H PRN PO 03/20/17 22:45 (Senokot) 17.2 mg Q12H PRN PO 03/20/17 22:45 (Dulcolax Supp) 10 mg DAILY PRN RECTAL 03/20/17 22:45 (Lactulose Liq) 30 ml DAILY PRN PO 03/20/17 22:45 (Norvasc) 5 mg DAILY PO 03/21/17 09:00 03/23/17 09:28 (Rocaltrol) 0.5 mcg DAILY PO 03/21/17 09:00 03/23/17 09:28 (Namenda) 5 mg DAILY PO 03/21/17 09:00 03/23/17 09:28 (Requip) 0.25 mg HS PO 03/21/17 21:00 03/23/17 22:21 (Renvela) 800 mg TID PO 03/21/17 09:00 03/23/17 17:55 (Flomax) 0.4 mg HS PO 03/21/17 21:00 03/23/17 22:09 (Coumadin) 5 mg DAILY@16 PO 03/21/17 16:00 03/23/17 15:55 (Toprol Xl) 50 mg DAILY PO 03/21/17 09:00 03/23/17 09:28 (Heparin Inj) 1,000 units WITH DIALYSIS PRN XX 03/21/17 08:00 (NS Flush) 10 ml UNSCH PRN IV FLUSH 03/21/17 08:00 (Gentamicin 0.1% Oint) 1 applic UNSCH PRN TOP 03/22/17 14:00 (Vancomycin Inj) 2,000 mg Q7D IP 03/22/17 14:00 (Fortaz Inj) 1,000 mg DAILY IP 03/22/17 14:00 A/P Problem List: (1) Intractable abdominal pain ICD Code: R10.9 - Unspecified abdominal pain Status: Acute (2) Pancreatitis ICD Code: K85.90 - Acute pancreatitis without necrosis or infection, unspecified Status: Acute (3) ESRD (end stage renal disease) on dialysis ICD Code: N18.6 - End stage renal failure on dialysis; Z99.2 - Dependence on renal dialysis Status: Chronic (4) HTN (hypertension) ICD Code: I10 - Hypertension Status: Chronic (5) Tobacco abuse ICD Code: Z72.0 - Tobacco use Status: Chronic Assessment and Plan 66-year-old male with a PMH of A. fib on Coumadin, HTN, ESRD on PD, h/o Pancreatitis and Tobacco Abuse who presented to the ER with complaints of severe epigastric abdominal pain with radiation to the back x2 days. Acute on Chronic Pancreatitis, Intractable Abdominal Pain: Acute onset of epigastric abdominal pain x2 days, h/o Chronic Pancreatitis. -CT Abd/Pelvis images reviewed, shows inflammatory changes around pancreatic head characteristic of mild acute pancreatitis and evidence of chronic pancreatitis with calcifications in pancreatic head. -Lipase 535 --> 564 --> 411 -Started with liquid diet, advance to regular, patient tolerating well -Supportive treatment with IVF, antiemetics and pain control prn. -patient tolerating oral intake, epigastric pain resolved -Outpatient f/up with GI, patient has seen Dr. Burt in the past. ESRD on PD, possible associated Peritonitis: Follows w/ Dr. Bird as outpatient , consulted to resume PD as scheduled. -peritoneal fluid sent for studies, 03/21 shows elevated WBC 616, RBC 407 -repeat peritoneal fluid prior to initiation of antibiotics 03/22 showed improvement, WBC 76, RBC 119 -nephrology ordered vanco 2g IP q7d and ceftazidime 1g IP daily -patient's pain much improved after antibiotic administration -fluid cultures x2 with NGTD -await further nephrology recommendations HTN: BP 150-160's, likely compounded by pain -resume home medications -monitor BP, much better controlled. DVT Prophylaxis: Heparin sq Discharge Planning Discharge pending clearance from nephrology. Sandra Zamora PA-C Mar 24, 2017 09:01
[2017-03-24] MEDS: SODIUM CHLORIDE 0.9% FLUSH 10 ML FLUSH IV FLUSH SCH (09:31)
[2017-03-24] MEDS: HEPARIN SODIUM - SQ 10,000 UNITS/ML VIAL SQ SCH (09:32)
[2017-03-24] MEDS: MEMANTINE HCL 5 MG TAB PO SCH (09:33)
[2017-03-24] MEDS: DOCUSATE SODIUM 50 MG/SENNA 8.6 MG TAB PO SCH (09:33)
[2017-03-24] MEDS: amLODIPine BESYLATE 5 MG TAB PO SCH (09:33)
[2017-03-24] MEDS: CALCITRIOL 0.25 MCG CAP PO SCH (09:33)
[2017-03-24] MEDS: METOPROLOL SUCCINATE 50 MG EXTENDED RELEASE TAB PO SCH (09:34)
[2017-03-24 12:54] VITALS: BP 116/98; PULSE 72; RESP 16; TEMP 98; O2SAT 96
--- NOTE | 2017-03-24 13:18 | HHI.NPPN ---
Subjective Additional Remarks Complains of some ongoing pain near PD catheter site. Objective Data Data 03/24/17 03/25/17 18:59 06:59 Output Total 72 ml Balance -72 ml Hemodialysis 72 ml Vital Signs Date Time Temp Pulse Resp B/P (MAP) Pulse Ox O2 Delivery O2 Flow Rate FiO2 03/24/17 12:54 98.0 72 16 116/98 (104) 96 03/24/17 07:54 97.7 82 16 117/91 (100) 98 03/23/17 22:18 97.8 52 20 116/74 (88) 97 -: 03/24/17 0427 03/24/17 0427 Physical Exam General Appearance: Well Developed, Well Nourished, No Acute Distress Eyes Eye Exam: Pupils Equal Throat Throat Exam: Oral Mucosa [place] & Moist Neck Neck Exam: Neck Supple Pulmonary Resp Exam: Clear Bilaterally Cardiology CV Exam: Regular, Normal Sinus Rhythm, Good Perfusion Gastrointestinal/Abdomen GI Exam: Soft Musculoskeletal MS Exam: Joints Intact, Normal Gait Integumentary Skin Exam: Dry, Intact Extremeties Extremities Exam: No Edema Neurologic Neuro Exam: Alert, Awake, Oriented, Speech Clear, Moving All Extremities Psychiatric Psych Exam: Appropriate Responses Assessment/Plan Problem List: (1) ESRD (end stage renal disease) on dialysis ICD Codes: N18.6 - End stage renal failure on dialysis; Z99.2 - Dependence on renal dialysis Status: Chronic Plan: Tolerating PD with 2.5/1.5/2.5 solution. Empirically started IP Vanco and Fortaz with initial PD fluid WBC count 600s and pain symptoms near PD catheter exit site. However repeat testing last night showed drop in WBCs to 76, 50% neutrophills before IP antibiotics were administered. PD fluid cultures are negative x 2. Initial elevated WBCs may have been due to pancreatitis. all culture negative possible reactionary WBC increase due to peritonitis, stop antibiotics he feels well no pain dc home follow as out pt (2) Acute pancreatitis ICD Codes: K85.9 - Acute pancreatitis Status: Acute Plan: Improving, tolerating PO. Continue to monitor. (3) HTN (hypertension) ICD Codes: I10 - Hypertension Status: Chronic Plan: Continue to monitor Michelle Bird MD Mar 24, 2017 13:18
--- NOTE | 2017-03-24 13:25 | HHI.DCPOC ---
Discharge Care Plan Diagnosis: (1) Acute pancreatitis (2) Abdominal pain (3) ESRD on peritoneal dialysis Goals to Promote Your Health * To prevent worsening of your condition and complications * To maintain your health at the optimal level Directions to Meet Your Goals Take your medications as prescribed Follow your dietary instruction Follow activity as directed Keep your appointments as scheduled Take your immunizations and boosters as scheduled If your symptoms worsen call your PCP, if no PCP go to Urgent Care Center or Emergency Room Smoking is Dangerous to Your Health. Avoid second hand smoke Call the 24-hour hour crisis hotline for domestic abuse at Sandra Zamora PA-C Mar 24, 2017 13:25
--- NOTE | 2017-03-24 14:53 | HHI.DS ---
cc: Michelle Bird MD Discharge Summary Admission Date Mar 20, 2017 at 22:26 Discharge Date: Mar 24, 2017 Admitting Diagnosis ACUTE PANCREATITIS (1) Intractable abdominal pain ICD Code: R10.9 - Unspecified abdominal pain Status: Acute (2) Pancreatitis ICD Code: K85.90 - Acute pancreatitis without necrosis or infection, unspecified Status: Acute (3) ESRD (end stage renal disease) on dialysis ICD Code: N18.6 - End stage renal failure on dialysis; Z99.2 - Dependence on renal dialysis Status: Chronic (4) HTN (hypertension) ICD Code: I10 - Hypertension Status: Chronic (5) Tobacco abuse ICD Code: Z72.0 - Tobacco use Status: Chronic Procedures None. Brief History - From Admission This is a 66-year-old male with a PMH of Marisabel powers on Coumadin, HTN, ESRD on PD, h/ o Pancreatitis and Tobacco Abuse who presented to the ER with complaints of severe epigastric abdominal pain with radiation to the back x2 days. Denies fever or chills. Intermittent episodes of nausea, no vomiting or diarrhea. On arrival, BP 163/85, HR 68, O2 sat 98% on RA, Temp 98. CBC unremarkable. Chemistry essentially at baseline. Creatinine 7.19, previously 6.60 on . INR 1.7. Lipase 535. CT Abd/Pelvis w/ mild inflammatory or edematous changes around pancreatic head characteristic of mild acute pancreatitis, also evidence of chronic pancreatitis with calcifications. S/p multiple doses of antiemetics and analgesics in the ER w/ minimal improvement. CBC/BMP: 03/24/17 0427 03/24/17 0427 Significant Findings Laboratory Tests Test 03/22/17 08:24 03/22/17 20:30 03/23/17 04:44 03/24/17 04:27 Red Blood Count 3.88 MIL/MM3 (4.50-5.90) 4.02 MIL/MM3 (4.50-5.90) 4.09 MIL/MM3 (4.50-5.90) Hemoglobin 12.9 GM/DL (13.0-17.0) Hematocrit 37.3 % (39.0-51.0) 38.6 % (39.0-51.0) Monocytes (%) (Auto) 9.2 % (0.0-8.0) 10.2 % (0.0-8.0) Eosinophils (%) (Auto) 4.7 % (0.0-4.0) 4.3 % (0.0-4.0) 5.2 % (0.0-4.0) Blood Urea Nitrogen 36 MG/DL (7-18) 34 MG/DL (7-18) 35 MG/DL (7-18) Creatinine 6.09 MG/DL (0.60-1.30) 5.85 MG/DL (0.60-1.30) 5.67 MG/DL (0.60-1.30) Carbon Dioxide Level 20.4 MEQ/L (21.0-32.0) Estimat Glomerular Filtration Rate 9 ML/MIN (>89) 10 ML/MIN (>89) 10 ML/MIN (>89) Lipase 411 U/L (73-393) Peritoneal Fluid WBC 76 /MM3 (0-10) Peritoneal Fluid RBC 119 /MM3 (0-0) Random Glucose 107 MG/DL (74-106) 108 MG/DL (74-106) Imaging Last Impressions Abdomen/Pelvis CT 03/20/171927 Signed Impressions: Service Date/Time: March 19:37 - CONCLUSION: 1. Mild inflammatory or edematous changes around the pancreatic head characteristic of mild acute pancreatitis. There is also evidence for chronic pancreatitis with calcifications in the pancreatic head as well. 2. No biliary ductal dilatation. Previous cholecystectomy. 3. Atrophic kidneys with peritoneal dialysis catheter present. Ashvin Lopez MD PE at Discharge GENERAL: Well-nourished, well-developed middle aged male patient in [facility]. SKIN: Warm and dry. No rash. HEENT: Normocephalic. Atraumatic. Pupils equal and round. Mucous membranes pink and moist. CARDIOVASCULAR: Regular rate and rhythm. S1, S2 noted. No murmur appreciated. RESPIRATORY: No accessory muscle use. Clear to auscultation. Breath sounds equal bilaterally. GASTROINTESTINAL: Abdomen soft, nondistended. Normoactive bowel sounds x4. Peritoneal dialysis catheter at right abdomen, nontender today, no surrounding erythema/drainage. MUSCULOSKELETAL: No obvious deformities. Extremities without clubbing, cyanosis , or edema. NEUROLOGICAL: Awake and alert. No obvious cranial nerve deficits. Motor grossly within normal limits. Normal speech. PSYCHIATRIC: Appropriate mood and affect; insight and judgment normal. Pt update on day of discharge Follow up for possible peritonitis, pancreatitis, epigastric pain, nausea. The patient reports feeling much better. Denies any further epigastric pain, nausea/ vomiting. Tolerating oral intake. Denies fevers/chills. The patient believes he may have had some infection at the PD site because his pain resolved after receiving antibiotics. He feels ready for discharge. Hospital Course 66-year-old male with a PMH of A. fib on Coumadin, HTN, ESRD on PD, h/o Pancreatitis and Tobacco Abuse who presented to the ER with complaints of severe epigastric abdominal pain with radiation to the back x2 days. Acute on Chronic Pancreatitis, Intractable Abdominal Pain: Acute onset of epigastric abdominal pain x2 days, h/o Chronic Pancreatitis. CT Abd/Pelvis images reviewed, shows inflammatory changes around pancreatic head characteristic of mild acute pancreatitis and evidence of chronic pancreatitis with calcifications in pancreatic head. Lipase trended 535 --> 564 --> 411. Started with liquid diet, advance to regular, patient tolerated well, epigastric pain resolved. Recommended outpatient f/up with GI, patient has seen Dr. Burt in the past. ESRD on PD, possible associated Peritonitis: Follows w/ Dr. Bird as outpatient , consulted to resume PD. Patient also had pain at PD site, no erythema/ drainage. Peritoneal fluid sent for studies, 03/21 shows elevated WBC 616, RBC 407 . Repeat peritoneal fluid prior to initiation of antibiotics 03/22 showed improvement, WBC 76, RBC 119. Nephrology ordered vanco 2g IP q7d and ceftazidime 1g IP daily empirically. Patient's pain much improved after antibiotic administration, however fluid cultures x2 with NGTD, no evidence of true infection. Antibiotics were discontinued. Patient was cleared for discharge by Dr. Bird. Pt Condition on Discharge: Stable Discharge Disposition: Discharge Home Discharge Time: <= 30 minutes Discharge Instructions DIET: Follow Instructions for: Renal Failure Diet Activities you can perform: Regular-No Restrictions Follow up Referrals: Gastroenterology - 1 Week @ [facility] - 1 Week with Michelle Bird MD PCP Follow-up - 1 Week with Griffin Her MD Continued Medications: Amlodipine (Norvasc) 5 Mg Tab 5 MG PO DAILY for HTN, #30 TAB B-Complex W/ C & Folic Acid (Dialyvite 800) 1 Tab 800 MG PO Calcitriol (Calcitriol) 0.5 Mcg Cap 0.5 MCG PO DAILY for Calcium Supplement, #30 CAP 0 Refills Furosemide (Lasix) 20 Mg Tab 20 MG PO BID, #60 TAB 0 Refills Memantine (Memantine) 5 Mg Tab 5 MG PO DAILY for Alzheimer's Dementia, TAB 0 Refills Metoprolol Succinate ER 24 HR (Metoprolol Succinate ER 24 HR) 100 Mg Tab 50 MG PO DAILY, #30 TAB 0 Refills Ondansetron Odt (Zofran Odt) 4 Mg Tab 4 MG SL Q6HR PRN for Nausea/Vomiting, #30 TAB 0 Refills Oxycodone-Acetaminophen (Percocet) 10-325 mg Tab 1 TAB PO Q6H PRN for PAIN, #30 TAB 0 Refills Ropinirole (Ropinirole) 0.25 Mg Tab 0.25 MG PO HS, #30 TAB 0 Refills Sennosides-Docusate Sodium (Aidee-Colace) 8.6-50 Mg Tab 1 TAB PO BID PRN for Constipation, #60 TAB 0 Refills Sevelamer Carbonate (Renvela) 800 Mg Tab 800 MG PO TID for Control phosphorous levels, #90 TAB 0 Refills Tamsulosin (Tamsulosin) 0.4 Mg Cap 0.4 MG PO HS for Manage Prostate Problems, #30 CAP 0 Refills Warfarin (Coumadin) 5 Mg Tab 5 MG PO DAILY for Blood Clot Prevention, #30 TAB 0 Refills Hold Coumadin for 2 days or until cleared by PCP. Repeat INR in 2 days. Sandra Zamora PA-C Mar 24, 2017 14:53
== END 2017-03-24 16:23 | disposition home or self-care (01) ==
LOC: NEPE 19:13 → NEDA 22:26 → NEPFCDU 03-21 00:32
PROVIDERS: ADMIT Hospitalist; ATTEND Hospitalist
DX: K85.90 Acute pancreatitis without necrosis or infection, unspecified (principal); K86.1 Other chronic pancreatitis; I12.0 Hypertensive chronic kidney disease with stage 5 chronic kidney disease or end stage renal disease; N18.6 End stage renal disease; N17.9 Acute kidney failure, unspecified; I48.91 Unspecified atrial fibrillation; R00.1 Bradycardia, unspecified; F17.210 Nicotine dependence, cigarettes, uncomplicated; Z79.01 Long term (current) use of anticoagulants; Z99.2 Dependence on renal dialysis; Z86.73 Personal history of transient ischemic attack (TIA), and cerebral infarction without residual deficits; Z79.899 Other long term (current) drug therapy; Z23 Encounter for immunization
CPT/HCPCS: 74176; 80048; 80053; 83690; 85025; 85610; 85730; 87070; 87205; 89051; 90732; 90935; 93005; 96374; 96375; 99285; G0378; J1170; J1644; J2405; 90945; G0257

== ENCOUNTER 2017-04-14 01:58 | Observation (INO) | payer MEDICARE, MEDICAID ==
[2017-04-14] VITALS (11 sets, daily range): BP systolic 99–137; BP diastolic 56–85; PULSE 47–69; RESP 17–24; TEMP 97.8–98.2; O2SAT 97–99
[~2017-04-14] VITALS: Ht 188 cm; Wt 92.0 kg
[~2017-04-14 01:58] MED LIST changes: +FURO1TAB62 PO; -PANT40TA3 PO
[2017-04-14] MEDS ORDERED: NITROGLYCERIN 2% OINT 1 GM PACKET TOPICAL ONE (02:15)
[2017-04-14] MEDS ORDERED: ASPIRIN 81 MG CHEW TAB CHEW ONE (02:15)
[2017-04-14] MEDS ORDERED: NITROGLYCERIN 0.4 MG SL 25 TABS/BTL SL ONE (02:15)
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
[2017-04-14] MEDS ORDERED: ONDANSETRON HCL 4 MG/2 ML VIAL IV PUSH ONE (02:30)
[2017-04-14] MEDS ORDERED: MORPHINE SULFATE 4 MG/ML INJ IV PUSH ONE (02:30)
[2017-04-14 02:34] LABS: AUTOMATED NEUTROPHIL # 6.2 TH/MM3 (1.8-7.7); BASOPHIL # 0.1 TH/MM3 (0-0.2); EOSINOPHIL # 0.2 TH/MM3 (0-0.4); EOSINOPHIL % 2.7 % (0.0-4.0); HEMATOCRIT 35.5 % (39.0-51.0); HEMO FLAGS DIFF FINAL; LYMPHOCYTE # 2.1 TH/MM3 (1.0-4.8); MEAN CELL VOLUME 96.4 FL (80.0-100.0); MEAN CORPUSCULAR HEMOGLOBIN 32.6 PG (27.0-34.0); MEAN CORPUSCULAR HGB CONC 33.8 % (32.0-36.0); NEUT % 66.3 % (16.0-70.0); PLATELET COUNT 179 TH/MM3 (150-450); RED BLOOD COUNT 3.69 MIL/MM3 (4.50-5.90); RED CELL DISTRIBUTION WIDTH 13.4 % (11.6-17.2); WHITE BLOOD COUNT 9.4 TH/MM3 (4.0-11.0)
[2017-04-14] MEDS ORDERED: ZOLP10TA3 PO (02:40)
[2017-04-14] MEDS ORDERED: DILT120T PO (02:40)
[2017-04-14] MEDS ORDERED: BUPR150T3 PO (02:40)
[2017-04-14 02:47] LABS: APTT (PATIENT) 29.6 SEC (24.3-30.1); PROTHROMBIN TIME - PATIENT 23.2 SEC (9.8-11.6)
--- NOTE | 2017-04-14 02:47 | RADRPT ---
EXAM DATE/TIME: 04/14/2017 02:29 [facility] COMPARISON: No previous studies available for comparison. INDICATIONS : Abdominal complaint. MEDICAL HISTORY : Cardiovascular disease. Pancreatitis. Hypertension. Hep B CVA SURGICAL HISTORY : Appendectomy. ENCOUNTER: Initial ACUITY: 1 day PAIN SCORE: 0/10 LOCATION: Bilateral chest FINDINGS: A single view of the chest demonstrates the lungs to be symmetrically aerated without evidence of mas s, infiltrate or effusion. The cardiomediastinal contours are unremarkable. Osseous structures are intact. CONCLUSION: No acute disease. Ashvin Lopez MD on April 14, 2017 at 2:45 Board Certified Radiologist. This report was verified electronically.
[2017-04-14 02:52] LABS: ALT (GPT) 36 U/L (12-78); ANION GAP 9 MEQ/L (5-15); AST (GOT) 24 U/L (15-37); BICARBONATE 22.2 MEQ/L (21.0-32.0); BLOOD UREA NITROGEN 39 MG/DL (7-18); CHLORIDE 108 MEQ/L (98-107); GLOMERULAR FILTRATION RATE 8 ML/MIN (>89); MAGNESIUM 2.4 MG/DL (1.5-2.5); SODIUM (NA) 139 MEQ/L (136-145)
[2017-04-14 02:55] LABS: ALKALINE PHOSPHATASE 66 U/L (45-117); CREATINE KINASE 146 U/L (39-308); TOTAL BILIRUBIN ADULT 0.4 MG/DL (0.2-1.0)
[2017-04-14 03:07] LABS: CKMB 2.3 NG/ML (0.5-3.6)
[2017-04-14] MEDS ORDERED: SODIUM CHLORIDE 0.9% FLUSH 10 ML FLUSH IV FLUSH PRN ×2 (04:30→16:30)
[2017-04-14] MEDS ORDERED: NALOXONE HCL 0.4 MG/ML AMP IV PRN (04:30)
[2017-04-14] MEDS ORDERED: NITROGLYCERIN 0.4 MG SL 25 TABS/BTL SL PRN (04:30)
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
[2017-04-14] MEDS ORDERED: HYDROmorphone HCL PF 1 MG/ML VIAL IV PUSH PRN (05:15)
--- NOTE | 2017-04-14 05:52 | RADRPT ---
EXAM DATE/TIME: 04/14/2017 05:37 [facility] COMPARISON: No previous studies available for comparison. INDICATIONS : Head pain and weakness in his neck. RADIATION DOSE: 33.25 CTDIvol (mGy) MEDICAL HISTORY : Pancreatitis. Cardiovascular disease Hepatitis B.CVA. Peritoneal dialysis. SURGICAL HISTORY : Appendectomy. ENCOUNTER: Initial ACUITY: 1 day PAIN SCALE: 8/10 LOCATION: cranial TECHNIQUE: Multiple contiguous axial images were obtained of the head. Using automated exposure control and adj ustment of the mA and/or kV according to patient size, radiation dose was kept as low as reasonably a chievable to obtain optimal diagnostic quality images. DICOM format image data is available electro nically for review and comparison. FINDINGS: No intracranial hemorrhage, mass or shift. No recent infarct identified. No hydrocephalus. Small lacu ana rosa infarct noted in the left caudate and right basal ganglia. Findings are stable. No acute bony abn ormality. CONCLUSION: 1. No acute findings. Stable small lacunar infarcts in the basal ganglia bilaterally. Ashvin Lopez MD on April 14, 2017 at 5:48 Board Certified Radiologist. This report was verified electronically.
--- NOTE | 2017-04-14 05:59 | RADRPT ---
EXAM DATE/TIME: 04/14/2017 05:27 [facility] COMPARISON: No previous studies available for comparison. INDICATIONS : Neck pain with no injury. MEDICAL HISTORY : Hypertension. SURGICAL HISTORY : None. ENCOUNTER: Initial ACUITY: 1 day PAIN SCORE: 7/10 LOCATION: Bilateral neck. FINDINGS: Five view examination was performed. There is normal alignment and curvature of the vertebral bodies down to the level of C7. No evidence of fracture or subluxation. Vertebral body height is normal. The disc spaces are maintained. The prevertebral soft tissues are of normal thickness. The atlanto -axial articulation is intact. The bony neural foramen are patent bilaterally. CONCLUSION: Normal examination for a patient of this age. Ashvin Lopez MD on April 14, 2017 at 5:56 Board Certified Radiologist. This report was verified electronically.
[2017-04-14] MEDS ORDERED: ONDANSETRON ODT 4 MG TAB SL PRN (06:00)
[2017-04-14] MEDS ORDERED: ZOLPIDEM TARTRATE 10 MG TAB PO PRN (06:00)
[2017-04-14] MEDS: oxyCODONE/ACETAMINOPHEN 10 MG/325 MG TAB PO PRN ×3 (06:26→16:42)
[2017-04-14] MEDS: METOPROLOL SUCCINATE 50 MG EXTENDED RELEASE TAB PO SCH (07:42)
[2017-04-14] MEDS: CALCITRIOL 0.25 MCG CAP PO SCH (07:42)
[2017-04-14] MEDS: DILTIAZEM-CD 120 MG CAP ER PO SCH (07:42)
[2017-04-14] MEDS: buPROPion HCL 150 MG SUSTAINED RELEASE TAB PO SCH (07:43)
[2017-04-14] MEDS: SODIUM CHLORIDE 0.9% FLUSH 10 ML FLUSH IV FLUSH SCH ×2 (07:44→21:17)
[2017-04-14] MEDS: SEVELAMER CARBONATE 800 MG TAB PO SCH ×3 (07:48→16:43)
--- NOTE | 2017-04-14 09:41 | HHI.PR ---
Addendum to Inpatient Note Addendum Reason: Additional Documentation Additional Information Pt states chest pain restarted and is now a 4/10. located in mid chest and feels it radiates to his back. Get peritoneal dialysis daily and his tetryl screen operator is Dr. Bird. He does see Dr. Dias for atrial fib. Last saw him this year. no nausea or vomiting at this time. Tolerated a diet. On exam, laying in bed. Unable to reproduce CP during my exam, does have some epigastric discomfort w deep palpation. Lungs are clear. HR appears regular during my exam and didn't appreciate a murmur. Plan chest painrule out ACS. could most likely the pancreatitis pain by history. initial trop neg, but will continue to trend serial cardiac enzymes and EKGs. Consult cards, pt known to Dr. Dias, as pt continues to have mid chest pains 4/10. EKG shows some ST depressions in lead V4,5,6 which were present on previous. Atria fib. stable, pt on his meds. resume coumadin. INR 2.0 today. Pharmacy consult in place Hydrate patient orally as patient is end-stage renal disease patient on peritoneal dialysis and his pancreatitis is mostly from history and if present would be quite mild. ?chronic. Lipase neg. daily peritoneal dialysis. Pt known to Dr. Bird. will consult for assistance. Reviewed imaging studies and neg for acute disease. Rubia Kelly MD Apr 14, 2017 09:41
[2017-04-14 13:15] LABS: CREATINE KINASE 104 U/L (39-308)
--- NOTE | 2017-04-14 13:53 | EKG ---
Date Performed: 04/14/2017 Time Performed: 02:07:49 PTAGE: 67 years EKG: SINUS BRADYCARDIA MODERATE ST DEPRESSION ABNORMAL ECG Compared to prior tracing no signific ant change PREVIOUS TRACING : 03/20/2017 20.17 DOCTOR: Bud Ramirez Interpretating Date/Time 04/14/2017 13:51:34
[2017-04-14] MEDS ORDERED: WARFARIN SOD 5 MG TAB PO SCH (16:00)
[2017-04-14] MEDS ORDERED: HEPARIN SODIUM - IV 10,000 UNITS/10 ML VIAL XX PRN (16:30)
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
[2017-04-14] MEDS ORDERED: TAMSULOSIN HCL 0.4 MG CAP PO SCH (21:00)
[2017-04-14 21:51] LABS: CREATINE KINASE 90 U/L (39-308)
[2017-04-15] VITALS: PULSE 56
[2017-04-15 00:01] VITALS: BP 105/67; PULSE 61; RESP 17; TEMP 98.1; O2SAT 98
[2017-04-15 04:00] VITALS: PULSE 54
[2017-04-15 04:06] VITALS: BP 104/66; PULSE 60; RESP 17; TEMP 98.3; O2SAT 98
[2017-04-15 07:40] LABS: AUTOMATED NEUTROPHIL # 2.8 TH/MM3 (1.8-7.7); BASOPHIL # 0.1 TH/MM3 (0-0.2); EOSINOPHIL # 0.2 TH/MM3 (0-0.4); EOSINOPHIL % 4.3 % (0.0-4.0); HEMATOCRIT 33.1 % (39.0-51.0); HEMO FLAGS DIFF FINAL; LYMPH % 36.5 % (9.0-44.0); MEAN CELL VOLUME 96.3 FL (80.0-100.0); MEAN CORPUSCULAR HEMOGLOBIN 33.3 PG (27.0-34.0); MEAN CORPUSCULAR HGB CONC 34.6 % (32.0-36.0); MONO % 6.7 % (0.0-8.0); NEUT % 51.5 % (16.0-70.0); PLATELET COUNT 144 TH/MM3 (150-450); RED BLOOD COUNT 3.44 MIL/MM3 (4.50-5.90); RED CELL DISTRIBUTION WIDTH 13.4 % (11.6-17.2); WHITE BLOOD COUNT 5.5 TH/MM3 (4.0-11.0)
[2017-04-15 07:55] LABS: PROTHROMBIN TIME - PATIENT 22.8 SEC (9.8-11.6)
[2017-04-15 08:00] LABS: ANION GAP 10 MEQ/L (5-15); AST (GOT) 26 U/L (15-37); BICARBONATE 21.5 MEQ/L (21.0-32.0); BLOOD UREA NITROGEN 36 MG/DL (7-18); CHLORIDE 109 MEQ/L (98-107); GLOMERULAR FILTRATION RATE 8 ML/MIN (>89); POTASSIUM 4.3 MEQ/L (3.5-5.1); SODIUM (NA) 140 MEQ/L (136-145)
[2017-04-15 08:03] LABS: ALKALINE PHOSPHATASE 65 U/L (45-117); ALT (GPT) 34 U/L (12-78); TOTAL BILIRUBIN ADULT 0.3 MG/DL (0.2-1.0)
[2017-04-15 08:19] VITALS: BP 123/69; PULSE 60; RESP 18; TEMP 98; O2SAT 98
[2017-04-15 08:45] VITALS: PULSE 58
[2017-04-15] MEDS: SEVELAMER CARBONATE 800 MG TAB PO SCH (08:47)
[2017-04-15] MEDS: SODIUM CHLORIDE 0.9% FLUSH 10 ML FLUSH IV FLUSH SCH (08:47)
[2017-04-15] MEDS: CALCITRIOL 0.25 MCG CAP PO SCH (08:48)
[2017-04-15] MEDS: buPROPion HCL 150 MG SUSTAINED RELEASE TAB PO SCH (08:48)
[2017-04-15] MEDS: DILTIAZEM-CD 120 MG CAP ER PO SCH (08:48)
[2017-04-15] MEDS: METOPROLOL SUCCINATE 50 MG EXTENDED RELEASE TAB PO SCH (08:48)
--- NOTE | 2017-04-15 09:53 | PD.CARD.PN ---
Subjective Subjective Remarks no complaints Objective Medications Current Medications Medications (Trade) Dose Ordered Sig/Maximus Route Start Time Stop Time Status Last Admin (NS Flush) 2 ml UNSCH PRN IV FLUSH 04/14/17 04:30 (NS Flush) 2 ml BID IV FLUSH 04/14/17 09:00 04/15/17 08:47 (Narcan Inj) 0.4 mg UNSCH PRN IV 04/14/17 04:30 (Nitrostat Sl) 0.4 mg Q5M PRN SL 04/14/17 04:30 (Dilaudid Pf Inj) 0.5 mg Q4H PRN IV PUSH 04/14/17 05:15 (Wellbutrin Sr) 150 mg DAILY PO 04/14/17 09:00 04/15/17 08:48 (Rocaltrol) 0.5 mcg DAILY PO 04/14/17 09:00 04/15/17 08:48 (Zofran Odt) 4 mg Q6H PRN SL 04/14/17 06:00 (Percocet 10-325 Mg) 1 tab Q6H PRN PO 04/14/17 06:00 04/14/17 16:42 (Requip) 0.25 mg HS PO 04/14/17 21:00 04/14/17 21:17 (Renvela) 1,600 mg TIDAC PO 04/14/17 08:00 04/15/17 08:47 (Flomax) 0.4 mg HS PO 04/14/17 21:00 04/14/17 21:17 (Ambien) 10 mg HS PRN PO 04/14/17 06:00 (Cardizem Cd) 120 mg DAILY PO 04/14/17 09:00 04/15/17 08:48 (Toprol Xl) 100 mg DAILY PO 04/14/17 09:00 04/15/17 08:48 (Coumadin) 5 mg DAILY@1600 PO 04/14/17 16:00 04/14/17 16:42 Pharmacy Profile Note 0 ml @ 0 mls/hr UNSCH OTHER 04/14/17 09:45 (Heparin Inj) 1,000 units WITH DIALYSIS PRN XX 04/14/17 16:30 (NS Flush) 10 ml UNSCH PRN IV FLUSH 04/14/17 16:30 Vital Signs / I&O Vital Signs Date Time Temp Pulse Resp B/P (MAP) Pulse Ox O2 Delivery O2 Flow Rate FiO2 04/15/17 08:19 98.0 60 18 123/69 (87) 98 04/15/17 04:06 98.3 60 17 104/66 (79) 98 04/15/17 04:00 54 04/15/17 00:01 98.1 61 17 105/67 (80) 98 04/15/17 00:00 56 04/14/17 20:48 97.8 63 18 115/68 (84) 97 04/14/17 20:00 57 04/14/17 17:30 20 04/14/17 15:06 97.9 69 17 100/62 (75) 97 04/14/17 12:50 54 04/14/17 10:54 98.2 59 17 99/59 (72) 99 I/O 04/14/17 04/14/17 04/14/17 04/15/17 04/15/17 04/15/17 07:00 15:00 23:00 07:00 15:00 23:00 Output Total 0 ml Balance 0 ml Output Peritoneal Fluid 0 ml Physical Exam Alert Chest clear CV S1S2 RRR no edema Laboratory Laboratory Tests Test 04/14/17 12:26 04/14/17 20:34 04/15/17 07:10 Total Creatine Kinase 104 U/L 90 U/L Troponin I LESS THAN 0.02 NG/ML LESS THAN 0.02 NG/ML White Blood Count 5.5 TH/MM3 Red Blood Count 3.44 MIL/MM3 Hemoglobin 11.4 GM/DL Hematocrit 33.1 % Mean Corpuscular Volume 96.3 FL Mean Corpuscular Hemoglobin 33.3 PG Mean Corpuscular Hemoglobin Concent 34.6 % Red Cell Distribution Width 13.4 % Platelet Count 144 TH/MM3 Mean Platelet Volume 7.6 FL Neutrophils (%) (Auto) 51.5 % Lymphocytes (%) (Auto) 36.5 % Monocytes (%) (Auto) 6.7 % Eosinophils (%) (Auto) 4.3 % Basophils (%) (Auto) 1.0 % Neutrophils # (Auto) 2.8 TH/MM3 Lymphocytes # (Auto) 2.0 TH/MM3 Monocytes # (Auto) 0.4 TH/MM3 Eosinophils # (Auto) 0.2 TH/MM3 Basophils # (Auto) 0.1 TH/MM3 CBC Comment DIFF FINAL Differential Comment Prothrombin Time 22.8 SEC Prothromb Time International Ratio 2.0 RATIO Blood Urea Nitrogen 36 MG/DL Creatinine 6.68 MG/DL Random Glucose 85 MG/DL Total Protein 6.7 GM/DL Albumin 2.9 GM/DL Calcium Level 8.1 MG/DL Alkaline Phosphatase 65 U/L Aspartate Amino Transf (AST/SGOT) 26 U/L Alanine Aminotransferase (ALT/SGPT) 34 U/L Total Bilirubin 0.3 MG/DL Sodium Level 140 MEQ/L Potassium Level 4.3 MEQ/L Chloride Level 109 MEQ/L Carbon Dioxide Level 21.5 MEQ/L Anion Gap 10 MEQ/L Estimat Glomerular Filtration Rate 8 ML/MIN Assessment and Plan Problem List: (1) Paroxysmal atrial fibrillation ICD Codes: I48.0 - Paroxysmal atrial fibrillation Status: Acute Plan: cont current meds (2) Atypical chest pain ICD Codes: R07.89 - Other chest pain Status: Resolved Plan: not suggestive of ischemia. Prior negative SPECT in past year at my office. Assessment and Plan I am signing off. OK with me to [facility] Barry Gomez MD Apr 15, 2017 09:53
--- NOTE | 2017-04-15 10:43 | HHI.PR ---
Subjective Remarks Pt feeling well. CP resolved. No abdominal pain. comfortable going home today. states he spoke w water plumber and he has cleared him. no complaints of neck pain. Objective Vitals Vital Signs Date Time Temp Pulse Resp B/P (MAP) Pulse Ox O2 Delivery O2 Flow Rate FiO2 04/15/17 08:19 98.0 60 18 123/69 (87) 98 04/15/17 04:06 98.3 60 17 104/66 (79) 98 04/15/17 04:00 54 04/15/17 00:01 98.1 61 17 105/67 (80) 98 04/15/17 00:00 56 04/14/17 20:48 97.8 63 18 115/68 (84) 97 04/14/17 20:00 57 04/14/17 17:30 20 04/14/17 15:06 97.9 69 17 100/62 (75) 97 04/14/17 12:50 54 04/14/17 10:54 98.2 59 17 99/59 (72) 99 I/O 04/14/17 04/14/17 04/14/17 04/15/17 04/15/17 04/15/17 07:00 15:00 23:00 07:00 15:00 23:00 Output Total 0 ml Balance 0 ml Output Peritoneal Fluid 0 ml Result Diagram: 04/15/17 0710 04/15/17 0710 Imaging Last Impressions Chest X-Ray 04/14/17 0212 Signed Impressions: Service Date/Time: Friday, April 14, 2017 02:29 - CONCLUSION: No acute disease. Ashvin Lopez MD Head CT 04/14/17 0000 Signed Impressions: Service Date/Time: Friday, April 14, 2017 05:37 - CONCLUSION: 1. No acute findings. Stable small lacunar infarcts in the basal ganglia bilaterally. Ashvin Lopez MD Cervical Spine X-Ray 04/14/17 0000 Signed Impressions: Service Date/Time: Friday, April 14, 2017 05:27 - CONCLUSION: Normal examination for a patient of this age. Ashvin Lopez MD Objective Remarks GENERAL: This is a well-nourished, well-developed patient, appears comfortable. EYES: Extraocular motions intact. ENT: Nose without drainage.Airway patent. NECK: Trachea midline. No JVD CARDIOVASCULAR: Regular rate and rhythm without murmurs RESPIRATORY: Clear to auscultation. Breath sounds equal bilaterally. No wheezes GASTROINTESTINAL: Abdomen soft, non-tender, nondistended. No guarding. MUSCULOSKELETAL: Extremities without edema. No calf tenderness or asymmetry. NEUROLOGICAL: Awake and alert Motor and sensory grossly within normal limits. Normal speech. A/P Assessment and Plan Plan chest painrule out ACS. could most likely the pancreatitis pain by history. CE neg x 3. Pt evaluated by cards and has been cleared for d/c today. Atria fib. stable, pt on his meds. on coumadin. INR 2.0 today. Pharmacy consult in place Hydrate patient orally as patient is end-stage renal disease patient on peritoneal dialysis and his pancreatitis is mostly from history and if present would be quite mild. ?chronic. Lipase neg. daily peritoneal dialysis. Dr. Bird. followed pt while in hospital. Reviewed imaging studies and neg for acute disease. Discharge Planning will d/c pt home today f/u w specialist as outpatient no scripts given activity ad rocio. heart/renal diet condition: stable. Pt states that he takes half tablet of his metoprolol at home dose is 50mg po daily instead of the 100mg. Pt to continue doing this and f/u w his water plumber. Rubia Kelly MD Apr 15, 2017 10:43
--- NOTE | 2017-04-15 13:48 | EKG ---
Date Performed: 04/14/2017 Time Performed: 08:30:26 PTAGE: 67 years EKG: SINUS BRADYCARDIA BORDERLINE ECG Compared to prior tracing no significant change PREVIOUS TRACING : 04/14/2017 02.07 DOCTOR: Meg Ureña Interpretating Date/Time 04/15/2017 13:46:16
--- NOTE | 2017-04-15 13:56 | EKG ---
Date Performed: 04/14/2017 Time Performed: 15:19:17 PTAGE: 67 years EKG: SINUS BRADYCARDIA Limb lead reversal ABNORMAL ECG PREVIOUS TRACING : 04/14/2017 08.30 Since the prior tracing, there has probably been no signifi cant serial change when allowing for the limb lead reversal on the present tracing. DOCTOR: Meg Ureña Interpretating Date/Time 04/15/2017 13:53:54
== END 2017-04-15 11:31 | disposition home or self-care (01) ==
LOC: NEPC 01:58 → NEDA 04:22 → NEPGCP 05:49
PROVIDERS: ADMIT Hospitalist; ATTEND Hospitalist
DX: R07.9 Chest pain, unspecified (principal); R10.13 Epigastric pain; I12.0 Hypertensive chronic kidney disease with stage 5 chronic kidney disease or end stage renal disease; N18.6 End stage renal disease; I48.0 Paroxysmal atrial fibrillation; K86.1 Other chronic pancreatitis; Z79.01 Long term (current) use of anticoagulants; E78.00 Pure hypercholesterolemia, unspecified; F17.210 Nicotine dependence, cigarettes, uncomplicated; Z99.2 Dependence on renal dialysis; Z86.73 Personal history of transient ischemic attack (TIA), and cerebral infarction without residual deficits
CPT/HCPCS: 70450; 71010; 72050; 80053; 82550; 82552; 83605; 83690; 83735; 83880; 84484; 85025; 85610; 85730; 86140; 90935; 93005; 96374; 96375; 99285; G0378; J2270; J2405; 90945; G0257

== ENCOUNTER 2017-04-29 09:55 | Day surgery (SDC) | payer MEDICARE, MEDICAID ==
[~2017-04-29] VITALS: Ht 188 cm; Wt 91.6 kg
[~2017-04-29 09:55] MED LIST changes: -AMLO5 PO; +BUPR150T3 PO; +DILT120T PO; -FURO1TAB62 PO; -MEMA1TAB PO; +ZOLP10TA3 PO
[2017-04-29] MEDS ORDERED: METOPROLOL TARTRATE 25 MG TAB PO PRN (10:30)
[2017-04-29 10:46] VITALS: BP 140/83; PULSE 65; RESP 17; TEMP 97.7; O2SAT 100
[2017-04-29 10:48] LABS: AUTOMATED NEUTROPHIL # 4.2 TH/MM3 (1.8-7.7); BASOPHIL # 0.1 TH/MM3 (0-0.2); BASOPHIL % 1.4 % (0.0-2.0); EOSINOPHIL # 0.3 TH/MM3 (0-0.4); EOSINOPHIL % 4.3 % (0.0-4.0); HEMATOCRIT 39.2 % (39.0-51.0); HEMO FLAGS DIFF FINAL; LYMPH % 27.1 % (9.0-44.0); LYMPHOCYTE # 1.9 TH/MM3 (1.0-4.8); MEAN CELL VOLUME 94.8 FL (80.0-100.0); MEAN CORPUSCULAR HEMOGLOBIN 32.2 PG (27.0-34.0); MONO % 7.6 % (0.0-8.0); NEUT % 59.6 % (16.0-70.0); PLATELET COUNT 181 TH/MM3 (150-450); RED BLOOD COUNT 4.13 MIL/MM3 (4.50-5.90); RED CELL DISTRIBUTION WIDTH 13.2 % (11.6-17.2)
[2017-04-29] MEDS ORDERED: DILT-4 PO (10:51)
[2017-04-29 10:57] LABS: APTT (PATIENT) 28.3 SEC (24.3-30.1); INTERNATIONAL NORMALIZED RATIO 1.4 RATIO; PROTHROMBIN TIME - PATIENT 15.4 SEC (9.8-11.6)
[2017-04-29] MEDS ORDERED: SODIUM CHLORID 0.9% 500 ML IV PRN (11:00)
[2017-04-29] MEDS ORDERED: POVIDONE IODINE 5% (ANTISEPSIS KIT) 4 APPLICATIONS EACH NARE PRN (11:00)
[2017-04-29] MEDS ORDERED: CHLORHEXIDINE GLUCONATE 2 % 1 PACK (2 CLOTHS) TOPICAL PRN (11:00)
[2017-04-29] MEDS ORDERED: LACTATED RINGER'S 1000 ML IV PRN (11:00)
[2017-04-29] MEDS ORDERED: INSULIN HUMAN REGULAR 1,000 UNITS/10 ML VIAL SQ PRN (11:00)
[2017-04-29 11:09] LABS: BICARBONATE 21.6 MEQ/L (21.0-32.0)
[2017-04-29] MEDS ORDERED: LORazepam 1 MG TAB SL SCH (12:00)
[2017-04-29] MEDS ORDERED: MUPIROCIN 2% OINT 1 APPLIC/GM SYR NASAL SCH (12:00)
[2017-04-29] MEDS ORDERED: CHLORHEXIDINE GLUCONATE 2 % 1 PACK (2 CLOTHS) TOPICAL SCH (12:00)
[2017-04-29] MEDS ORDERED: NS 1000 ML IV SCH (12:00)
[2017-04-29] MEDS ORDERED: diphenhydrAMINE HCL 50 MG/ML VIAL ONE (13:44)
[2017-04-29] MEDS ORDERED: HYDROCORTISONE SOD SUCCINATE 100 MG VIAL ONE (13:44)
[2017-04-29] MEDS ORDERED: HYDROCORTISONE SOD SUCCINATE 100 MG VIAL IV ONE ×2 (14:00→14:30)
[2017-04-29] MEDS ORDERED: diphenhydrAMINE HCL 50 MG/ML VIAL IV ONE ×2 (14:00→14:30)
[2017-04-29] MEDS ORDERED: RANITIDINE 50 MG/2 ML VIAL IV ONE (14:00)
[2017-04-29] MEDS ORDERED: FAMOTIDINE 20 MG/2 ML VIAL IV ONE (14:30)
[2017-04-29] MEDS ORDERED: ceFAZolin INJ 1,000 MG VIAL ONE ×2 (16:39→16:59)
[2017-04-29] MEDS ORDERED: MIDAZOLAM HCL 2 MG/2 ML VIAL ONE (16:39)
[2017-04-29] MEDS ORDERED: VANCOMYCIN HCL 1000 MG VIAL ONE (16:39)
[2017-04-29] MEDS ORDERED: LIDOCAINE HCL 2% 50 ML VIAL ONE (16:39)
[2017-04-29] MEDS ORDERED: FAMOTIDINE 20 MG/2 ML VIAL ONE (16:40)
[2017-04-29] MEDS ORDERED: PROPOFOL 200 MG/20 ML AMP ONE ×2 (16:40→17:18)
[2017-04-29] MEDS ORDERED: HEPARIN SODIUM - IV 10,000 UNITS/10 ML VIAL ONE (17:42)
--- NOTE | 2017-04-29 18:24 | CATHPROC ---
[employer] HIS Report Study Information Study Number Admission Scheduled Start Study Start [id number] Apr 29 2017 9:55AM 04/29/2017 Apr 29 2017 4:09PM [place] Service Cardiac Pacer/ICD Admit Source Facility Department Other [facility] - Shop Tailor Apprentice Physician and Clinical Staff Initial Paige Brooks Farmworkers Aydee Baker,RT(R) TECH2 Other Anesthesia, TALENT SPECIALIST Other Karine Zhou,SOHAM Recorder Natasha Cline BSRN Scrub Kaye Lindsay RCIS Procedures Performed Procedure Location (Site) Vessel Name Venogram RV Ventricle Wire insertion Fem Vein (right) Femoral Vein Equipment Time Badger Distiller Operator Description Size Mfg Part Number Used/Scraped [id number] 16:24 COOK/PACER DILATOR SET (MICRA) FR8-12 Used *[id number] WIRE, GUIDE AMPLATZ STIFF [id number] 16:20 COOK/PACER 3MMJ Used 180CM *[id number] 16:18 77 Pieces PACK, CCL CUSTOM * Used *[id number] 16:23 [employer] MEDICAL WIRE, 3MMJ .035 180CM 180CM Used *[id number] 16:20 [employer] MEDICAL PACER SHEATH, FR8.5 MERIT 11CM FR 8.5 [id number] Used [id number] 16:19 NAMIC TUBING, HIGH PRESSURE 20" 20" Used *[id number] 16:21 NAMIC TUBING, HIGH PRESSURE 48" 48" Used *[id number] 17:51 [employer]ED OMNIPAQUE, 350 MG, 150ML 150ML [id number] Used [id number] 16:19 [employer] BLANKET,WARM AIR CCL * Used *[id number] 16:54 [employer] SET, [place] TUBING 17512 *[id number] Used [id number] 17:40 VITATRON MEDTRONIC SHEATH, INTRODUCER (MICRA) Used *[id number] History: Current Medications Medication Dosage/Unit Route Frequency Last Date/Time Taken Beta Andi Coumadin History: Allergies Allergy Reaction Contrast Media Iohexol (OMNIPAQUE) diatrizoate meglumine gadodiamide History: Risk Factors Family History of Hypertension Premature CAD Yes Yes Cerebrovascular Chronic Lung On Dialysis Disease Disease History: Symptoms/Diagnosis Selection Items Palpitations Labs Hgb (g/dl) Hct (%) RBC (MIL/MM3) WBC (l/cumm) Platelets (thousands) 11.60-17.00 35.00-51.00 4.00-5.90 4.00-11.00 150.00-450.00 13.3 39.2 4.1 7 181 Glucose (mg/dl) BUN (mg/dl) Creatinine (mg/dl) BUN:Creatinine (1:x) 74.00-106.00 7.00-18.00 0.50-1.30 10.00-20.00 90 29 6.9 4.2 Na (meq/l) K (meq/l) 136.00-145.00 3.50-5.10 141 4 INR (PTT:PT) 0.90-1.10 1.4 Medication Medication Total Dose (Bolus/Oral) Medication Total Dosage/Unit 2% XYLOCAINE 50 mL HEPARIN 3000 units PEPCID 20 mg Medications (Bolus/Oral) Medication Time Given Dosage/Unit Administered By Reason PEPCID 04/29/2017 5:00:00 PM 20 mg Anesthesia, TALENT SPECIALIST As per physicians verb al order 20 mg PEPCID given in lab by Anesthesia, TALENT SPECIALIST in Left Antecubital via Peripheral IV. Ordered by Paige Gonzalez. Reason: As per physicians verbal order. 2% XYLOCAINE 04/29/2017 5:32:37 PM 50 mL Paige Gonzalez As per physicians ve rbal order 50 mL 2% XYLOCAINE given in lab by Paige Gonzalez in Right Groin via Subcutaneous. Ordered by Papo Gonzalez. Reason: As per physicians verbal order. HEPARIN 04/29/2017 5:44:08 PM 3000 units Paige Gonzalez As per physicians v erbal order 3000 units HEPARIN given in lab by Paige Gonzalez in Left Antecubital via Peripheral IV. Ordered by Paige Webster. Reason: As per physicians verbal order. Medication (Drip) Medication Time Given Dosage/Unit Concentration/Unit Diluent (ml) Solution IV Solutions 04/29/2017 4:42:07 PM 0 mL (IV) NaCl .9 IV Solutions given in lab by Natasha Cline BSRN in Right Forearm via Peripheral IV. Pump/Drip Johann w = 50 ml/hr using NaCl .9. Ordered by Paige Gonzalez. Reason: As per physicians verbal order. IV Solutions 04/29/2017 4:42:41 PM 0 mL (IV) NaCl .9 IV Solutions given in lab by Natasha Cline BSRN in Right Antecubital via Peripheral IV. Pump/Drip Flow = 50 ml/hr using NaCl .9. Ordered by Paige Gonzalez. Reason: As per physicians verbal order. VANCOMYCIN DRIP 04/29/2017 5:29:00 PM 1 g 1 g VANCOMYCIN DRIP given in lab by Paige Gonzalez in Left Antecubital via Peripheral IV. Ordered by Paige Emerson. Reason: As per physicians verbal order. Initial Case Assessment Cardiovascular HR 70 Edema Present Skin color Skin None Normal Warm Dry Neurological State Oriented to time-place- Alert Moves all extremities person Respiration - General Respiration Rate SpO2 (%) (B/min) 18 100 Final Case Assessment Cardiovascular HR NIBP 70 143/86 Edema Present Skin color Skin None Normal Warm Dry Neurological State Oriented to time-place- Alert Moves all extremities person Respiration - General Respiration Rate (B/min) 18 Chronological Log Time Study Chronological Log 16:35:11 Patient arrived via Bed. 16:35:13 Patient Name, D.O.B, / Armband Verified By R.N. 16:35:16 Consent signed by the physician and the patient and verified by the Shop Tailor Apprentice staff. 16:40:18 Pre-op and post- op instructions given; patient acknowledges understanding of instructions. 16:40:38 Verbal Stimulation=2 Physical Stimulation=2 Airway=2 Respiration=2 TOTAL=10. (0=absent, 1=l imited, 2=present) 16:41:02 Anesthesia at bedside. Assumes care of patient.Marcelino TALENT SPECIALIST 16:41:11 Presedation assessment performed by Shop Tailor Apprentice RN. 16:41:14 Patient has been NPO for More than 6Hrs. 16:41:16 Skin Breakdown- none 16:41:26 Patient Warmer Placed on the Table. 16:41:30 Disposable Defibrillator Pads Placed On Patient. 16:41:33 Juanis Prominences Protected 16:41:37 A # 20 IV was noted in the Forearm (right). Grade = ~GRADE~ 16:41:56 A # 20 IV was noted in the Antecubital (left). Grade = ~GRADE~ IV Solutions given in lab by Natasha Cline BSRN in Right Forearm via Peripheral IV. Pump/Dr ip Flow = 50 ml/hr 16:42:07 using NaCl .9. Ordered by Paige Gonzalez. Reason: As per physicians verbal order. IV Solutions given in lab by Natasha Cline BSRN in Right Antecubital via Peripheral IV. Pum p/Drip Flow = 50 ml/hr 16:42:41 using NaCl .9. Ordered by Paige Gonzalez. Reason: As per physicians verbal order. 16:43:50 History and physical on the chart or being dictated. Assessment: Initial Case, HR=70 BPM, Edema=None, Color=Normal, Skin = Warm, Dry 16:43:53 Neurological: State=Alert, Ox3, FLOWERS Respiration: Resp=18 B/min, RgC4=925 % 16:45:35 Table restraints applied according to hospital policy 16:45:39 Right groin prepped with 2% chlorhexidine, and with a 3 min. waiting time. 16:45:48 Left groin prepped with 2% chlorhexidine, and with a 3 min. waiting time. 16:50:00 2% CHLORHEXIDINE GLUCONATE WASH AND NASAL SWIPE DONE PRIOR TO PROCEDURE. 16:50:01 Left Upper Chest Prepped Times Two. Patient pre medicated in DOC for iodine allergy with Solucortef 100 mgs IV, Benadryl 50 mgs IV . Given Pepcid 20 16:55:07 mgs IV by Anesthesia Marcelino in pacer lab. 16:59:58 Reference ECG taken 20 mg PEPCID given in lab by Anesthesia, TALENT SPECIALIST in Left Antecubital via Peripheral IV. Ordered by Paige Gonzalez. 17:00:00 Reason: As per physicians verbal order. 1 g VANCOMYCIN DRIP given in lab by Paige Gonzalez in Left Antecubital via Peripheral IV. Ordere d by Paige Gonzalez. 17:29:00 Reason: As per physicians verbal order. 17:32:14 Immediate Presedation assesment performed by physician. Time Out. Correct patient, procedure, procedure equipment, site and side verified with physicia n present. Time 17:32:16 concurred by MD, individual staff and TALENT SPECIALIST. Time Out #2 - Consents verified, patient in correct position, all results are labled and displa yed, safety precautions 17:32:20 taken, antibiotics administered. Time out concurred by MD, individual staff and TALENT SPECIALIST in procedu re 17:32:23 Case Start 50 mL 2% XYLOCAINE given in lab by Paige Gonzalez in Right Groin via Subcutaneous. Ordered by Paige Webster. 17:32:37 Reason: As per physicians verbal order. 17:32:56 Vascular access was obtained in the Fem Vein (right). 17:33:00 A WIRE, 3MMJ .035 180CM 180CM was inserted via Fem Vein (right). 17:34:50 A SHEATH, FR8.5 MERIT 11CM FR 8.5 was advanced into the Fem Vein (right) using the Percutan eous technique. 17:35:43 The previous wire was exchanged for a WIRE, GUIDE AMPLATZ STIFF 180CM 3MMJ. 17:42:18 A sheath introducer was exchanged via right femoral vein. 17:42:20 12, 16, 20 mohawk dialators used consecutively right femoral vein. 17:43:12 Micra sheath inserted right femoral vein. 17:43:45 A system, trans-catheter pacing (micra)VVR as inserted via right femoral vein and advanced to RV 3000 units HEPARIN given in lab by Paige Gonzalez in Left Antecubital via Peripheral IV. Ordered by Paige Gonzalez. 17:44:08 Reason: As per physicians verbal order. 17:49:50 The RV was manually injected with 10 cc's of contrast. OMNIPAQUE, 350 MG, 150ML 150ML used. 17:51:24 Micra deployed and placement confirmed under flouro in 2 views. 17:52:07 The RV device impedance and threshold being tested. 17:57:18 Delivery system and introducer removed from right femoral vein. 17:57:48 [address] Pressure held by Olu Lindsay for 30 mins 17:59:34 Sheath removed , pressure applied to access site. Hemostasis achieved. 18:02:52 Implant Procedure was performed. 18:02:59 A ~PROCEDURES~ . (~PPM TYPE~) transvenous pacer 18:03:20 Bedside Report will be given. 18:03:32 Spoke with Jacqueline on CIC 18:04:14 Sterile dressing applied to site 18:04:16 No case complications noted. 18:05:06 Cine recording checked. 18:12:13 Defibrillator and ground pads removed. Skin intact. Assessment: Final Case, HR=70 BPM, VRUN=902/86 mmhg, Edema=None, Color=Normal, Skin = Warm, Dr jaimes 18:20:00 Neurological: State=Alert, Ox3, FLOWERS Respiration: Resp=18 B/min 18:21:04 Case End 18:23:27 Patient moved to stretcher and transported to PACU in stable condition. End Study - Contrast Media Used In Study Contrast Total Opened (mL) Total Used (mL) Total Wasted (mL) Omnipaque 150 10 140 End Study - Maximum Contrast Load Max Contrast Load (mL) 66.4 End Study - Radiation Exposure Fluoro Time (minutes) 3.1 End Study - Patient Disposition Complications Transferred To Interventional Outcome No Telemetry Bed successful
[2017-04-29] MEDS ORDERED: DO NOT ADM ANY ANTICOAGULANT DRUGS PRN (18:35)
[2017-04-29] MEDS ORDERED: *morphine SULFATE 8 MG/ML PERIprocedure ONLY ONE ×3 (18:46→20:08)
[2017-04-29] MEDS ORDERED: SODIUM CHLOR 0.9% 250 ML INJ 250 ML IV PRN (20:30)
[2017-04-29] MEDS ORDERED: BACITRACIN OINT 0.9 GM PKT TOP ONE (20:30)
[2017-04-29] MEDS ORDERED: LIDOCAINE HCL 1% 50 ML VIAL INFIL PRN (20:30)
[2017-04-29] MEDS ORDERED: METOCLOPRAMIDE HCL 10 MG/2 ML VIAL IV PUSH PRN (20:30)
[2017-04-29] MEDS ORDERED: ONDANSETRON HCL 4 MG/2 ML VIAL IV PUSH PRN (20:30)
[2017-04-29] MEDS ORDERED: oxyCODONE/ACETAMINOPHEN 5 MG/325 MG TAB PO PRN ×2 (20:30)
[2017-04-29] MEDS ORDERED: LORazepam 2 MG/ML VIAL IV PUSH PRN (20:30)
[2017-04-29] MEDS ORDERED: ATROPINE SULFATE 1 MG/ML VIAL IV PUSH PRN (20:30)
[2017-04-29] MEDS ORDERED: TAMSULOSIN HCL 0.4 MG CAP PO SCH (21:00)
[2017-04-29 21:39] VITALS: BP 122/77; PULSE 55; RESP 18; TEMP 97.7; O2SAT 100
[2017-04-29 22:00] VITALS: PULSE 54
[2017-04-29 23:03] VITALS: PULSE 56
[2017-04-29 23:07] VITALS: BP 106/60; PULSE 52; RESP 18; O2SAT 98
[2017-04-30] VITALS (17 sets, daily range): BP systolic 97–131; BP diastolic 58–69; PULSE 49–64; RESP 18; TEMP 97.8–98; O2SAT 98–99
[2017-04-30 06:29] LABS: APTT (PATIENT) 26.8 SEC (24.3-30.1); INTERNATIONAL NORMALIZED RATIO 1.2 RATIO; PROTHROMBIN TIME - PATIENT 13.7 SEC (9.8-11.6)
--- NOTE | 2017-04-30 07:45 | PD.CARD.PN ---
Objective Medications Current Medications Medications (Trade) Dose Ordered Sig/Maximus Route Start Time Stop Time Status Last Admin Lactated Ringer's 1,000 ml @ 30 mls/hr Q24H PRN IV 04/29/17 11:00 05/02/17 10:59 Sodium Chloride 500 ml @ 30 mls/hr [id number] PRN IV 04/29/17 11:00 05/02/17 10:59 (Lopressor) 25 mg DOUBLE SPINDLE SHAPER OPERATOR PRN PO 04/29/17 10:30 05/02/17 10:29 (Chlorhexidine 2% Cloth) 3 pack DOUBLE SPINDLE SHAPER OPERATOR PRN TOPICAL 04/29/17 11:00 05/02/17 10:59 (NovoLIN R INJ) See Protocol Table ... DOUBLE SPINDLE SHAPER OPERATOR PRN SQ 04/29/17 11:00 05/02/17 10:59 Sodium Chloride 1,000 ml @ 30 mls/hr Q24H IV 04/29/17 12:00 (Ativan) 1 mg DOUBLE SPINDLE SHAPER OPERATOR SL 04/29/17 12:00 05/02/17 11:59 (Bactroban Nasal 2% Oint) 1 applic DOUBLE SPINDLE SHAPER OPERATOR NASAL 04/29/17 12:00 05/02/17 11:59 (Chlorhexidine 2% Cloth) 3 pack DOUBLE SPINDLE SHAPER OPERATOR TOPICAL 04/29/17 12:00 05/02/17 11:59 Miscellaneous Information ALL NURSING DEPARTME... UNSCH PRN .XX 04/29/17 18:35 04/30/17 18:34 (Percocet 5-325 Mg) 1 tab Q4H PRN PO 04/29/17 20:30 (Percocet 5-325 Mg) 2 tab Q4H PRN PO 04/29/17 20:30 04/29/17 21:18 (Ativan Inj) 0.5 mg UNSCH PRN IV PUSH 04/29/17 20:30 04/30/17 20:29 (Atropine Inj) 0.5 mg UNSCH PRN IV PUSH 04/29/17 20:30 Sodium Chloride 250 ml @ 500 mls/hr ONCE PRN IV 04/29/17 20:30 04/30/17 20:29 (Reglan Inj) 10 mg Q4H PRN IV PUSH 04/29/17 20:30 (Zofran Inj) 4 mg Q4H PRN IV PUSH 04/29/17 20:30 (Xylocaine 1% Inj (50 ml)) 10 ml UNSCH PRN INFIL 04/29/17 20:30 04/30/17 20:29 (Rocaltrol) 0.5 mcg DAILY PO 04/30/17 09:00 (Cardizem Cd) 120 mg DAILY PO 04/30/17 09:00 (Requip) 0.25 mg HS PO 04/29/17 21:00 04/29/17 21:18 (Renvela) 1,600 mg TID PO 04/30/17 09:00 (Flomax) 0.4 mg HS PO 04/29/17 21:00 04/29/17 21:18 (Coumadin) 5 mg DAILY PO 04/30/17 09:00 (Toprol Xl) 100 mg DAILY PO 04/30/17 09:00 Vital Signs / I&O Vital Signs Date Time Temp Pulse Resp B/P (MAP) Pulse Ox O2 Delivery O2 Flow Rate FiO2 04/30/17 06:01 61 04/30/17 05:01 53 04/30/17 04:13 55 04/30/17 03:01 49 04/30/17 03:00 97.8 60 18 98/58 (71) 99 04/30/17 02:12 51 04/30/17 01:39 52 04/30/17 00:00 51 04/29/17 23:07 52 18 106/60 (75) 98 04/29/17 23:03 56 04/29/17 22:00 54 04/29/17 21:39 97.7 55 18 122/77 (92) 100 04/29/17 19:30 97.5 62 12 138/77 (97) 99 Nasal Cannula 2 04/29/17 19:15 63 12 152/88 (109) 99 Nasal Cannula 2 04/29/17 19:00 63 14 152/88 (109) 99 Nasal Cannula 2 04/29/17 18:45 74 18 174/95 (121) 100 Nasal Cannula 2 04/29/17 18:39 97.4 64 16 156/84 (108) 100 Nasal Cannula 2 04/29/17 10:46 97.7 65 17 140/83 (102) 100 I/O 04/29/17 04/29/17 04/29/17 04/30/17 04/30/1727/17 07:00 15:00 23:00 07:00 15:00 23:00 Intake Total 500 ml 240 ml Output Total 10 ml 220 ml Balance 490 ml 20 ml Intake Oral 240 ml IV Total 0 ml Other 500 ml Output Urine Total 220 ml Estimated Blood Loss 10 ml Physical Exam GENERAL: Well-nourished, well-developed patient. SKIN: Warm and dry. Right groin suture removed, site soft with no bruising or bleeding. HEAD: Normocephalic. EYES: No scleral icterus. No injection or drainage. NECK: Supple, trachea midline. No JVD or lymphadenopathy. CARDIOVASCULAR: Regular rate and rhythm without murmurs, gallops, or rubs. RESPIRATORY: Breath sounds equal bilaterally. No accessory muscle use. GASTROINTESTINAL: Abdomen soft, non-tender, nondistended. EXTREMITIES: No cyanosis, or edema. NEUROLOGICAL: Awake, alert, and oriented x 3. Non-focal. Laboratory Laboratory Tests Test 04/29/17 10:30 04/30/17 06:03 White Blood Count 7.0 TH/MM3 Red Blood Count 4.13 MIL/MM3 Hemoglobin 13.3 GM/DL Hematocrit 39.2 % Mean Corpuscular Volume 94.8 FL Mean Corpuscular Hemoglobin 32.2 PG Mean Corpuscular Hemoglobin Concent 34.0 % Red Cell Distribution Width 13.2 % Platelet Count 181 TH/MM3 Mean Platelet Volume 7.0 FL Neutrophils (%) (Auto) 59.6 % Lymphocytes (%) (Auto) 27.1 % Monocytes (%) (Auto) 7.6 % Eosinophils (%) (Auto) 4.3 % Basophils (%) (Auto) 1.4 % Neutrophils # (Auto) 4.2 TH/MM3 Lymphocytes # (Auto) 1.9 TH/MM3 Monocytes # (Auto) 0.5 TH/MM3 Eosinophils # (Auto) 0.3 TH/MM3 Basophils # (Auto) 0.1 TH/MM3 CBC Comment DIFF FINAL Differential Comment Prothrombin Time 15.4 SEC 13.7 SEC Prothromb Time International Ratio 1.4 RATIO 1.2 RATIO Activated Partial Thromboplast Time 28.3 SEC 26.8 SEC Blood Urea Nitrogen 29 MG/DL Creatinine 6.97 MG/DL Random Glucose 90 MG/DL Calcium Level 8.4 MG/DL Sodium Level 141 MEQ/L Potassium Level 4.0 MEQ/L Chloride Level 111 MEQ/L Carbon Dioxide Level 21.6 MEQ/L Anion Gap 8 MEQ/L Estimat Glomerular Filtration Rate 8 ML/MIN Assessment and Plan Problem List: (1) Bradycardia ICD Codes: R00.1 - Bradycardia, unspecified Status: Acute Plan: Pacing appropriately status post Micra implant. (2) S/P cardiac pacemaker procedure ICD Codes: Z95.0 - Presence of cardiac pacemaker Status: Acute Plan: Groin sites soft, pacing appropriately, stable for discharge home per my discussion with Dr. Gonzalez. Follow up with him in 2 weeks. Contact office for any questions or concerns. Donna Keating Apr 30, 2017 07:45
[2017-04-30] MEDS: DILTIAZEM-CD 120 MG CAP ER PO SCH ×2 (09:00→09:12)
[2017-04-30] MEDS ORDERED: CALCITRIOL 0.25 MCG CAP PO SCH (09:00)
[2017-04-30] MEDS ORDERED: WARFARIN SOD 5 MG TAB PO SCH (09:00)
[2017-04-30] MEDS ORDERED: METOPROLOL SUCCINATE 50 MG EXTENDED RELEASE TAB PO SCH (09:00)
[2017-04-30] MEDS: SEVELAMER CARBONATE 800 MG TAB PO SCH ×2 (09:13→14:50)
--- NOTE | 2017-04-30 14:49 | EKG ---
Date Performed: 04/30/2017 Time Performed: 02:16:20 PTAGE: 67 years EKG: Sinus bradycardia Lateral ST-T changes are nonspecific Borderline ECG PREVIOUS TRACING : 04/29/2017 21.08 Compared to prior tracing no significant change DOCTOR: Caity Boone Interpretating Date/Time 04/30/2017 14:48:02
--- NOTE | 2017-04-30 15:02 | EKG ---
Date Performed: 04/29/2017 Time Performed: 21:08:08 PTAGE: 67 years EKG: Sinus bradycardia Anterolateral ST-T changes are nonspecific Borderline ECG PREVIOUS TRACING : 04/29/2017 10.46 Compared to prior tracing no significant change DOCTOR: Caity Boone Interpretating Date/Time 04/30/2017 15:01:42
--- NOTE | 2017-04-30 15:43 | EKG ---
Date Performed: 04/29/2017 Time Performed: 10:46:04 PTAGE: 67 years EKG: Sinus rhythm . Septal and lateral ST-T changes are nonspecific Borderline ECG PREVIOUS TRACING : 04/14/2017 15.19 Compared to prior tracing no significant change DOCTOR: Caity Boone Interpretating Date/Time 04/30/2017 15:42:23
--- NOTE | 2017-05-09 11:26 | MP ---
cc: DAREN IRVING M.D. DATE OF SURGERY 05/09/2017 PROCEDURE PERFORMED Intracardiac permanent pacemaker insertion Mr. Arroyo is a 67-year-old gentleman with a history of atrial fibrillation, bradycardia and sinus rhythm with multiple episodes of symptomatic bradycardia who will undergo permanent pacemaker insertion. Decision for Micra implantation was taken. The risks, the nature and the benefit of the procedure are clearly stated to him. The risks include pneumothorax, cardiac perforation, stroke and even . The patient understood and agreed to proceed. PROCEDURE After written informed consent was obtained, the patient was brought to the EP lab where he was prepped and draped in the usual sterile fashion. Conscious sedation was initiated and maintained throughout the procedure by anesthesiologist. Once sedation verified, the right inguinal area was anesthetized with 2% Xylocaine. Using modified Seldinger technique, the right femoral vein was cannulated on one occasion and a stiff Amplatz was advanced all the way to the superior vena cava. Then over the stiff Amplatz, I proceeded with progressive dilation of the vein. I used an 8, 12, and 20, 8-Azeri dilator. Subsequently, a 24-Azeri sheath was advanced and placed at the level of the right atrium. The patient at this point received 4000 units of heparin. Then through the sheath, the Micra delivery system was advanced. Once we reached the atrium, the sheath was pulled back all the way through the inferior vena cava. Then I did curve the delivery system and advance it in the atrium. I did place it at the septal level. The Micra was delivered. After adequate pacing and sensing thresholds were obtained, the Micra was released. Then the delivery system and the sheath was removed. Previous to that, I did place 2-0 Ethibond in a pursestring fashion around the exit point. Hemostasis was performed. No incident report portion. The patient tolerated procedure. Blood loss, minimal. IMPLANTED HARDWARE The implanted intracardiac pacemaker is a Medtronic Micra serial number [id number]. THRESHOLD The right ventricular pacing in the bipolar mode was 0.538 volts at 0.24 milliseconds. Lead impedance 880 ohms, R-wave over 20 mV. SETTINGS The device set in a VVI 50. Further decision about rate is going to be taken when the patient is seen at the office. CONCLUSION Successful single chamber Micra intracardiac pacemaker insertion. COMMENT AND RECOMMENDATIONS The patient is going to be transferred to the telemetry units. He will be observed and when stable can be discharged home. MD LACY Herrera/ASHLEY /10:42 AM /11:16 AM
== END 2017-04-30 15:30 | disposition home or self-care (01) ==
LOC: HCAT 09:55 → HDIC 09:55 → HCIN 20:57 → HCAT 04-30 15:30
PROVIDERS: ATTEND Internal Medicine Interventional Cardiology
DX: I49.5 Sick sinus syndrome (principal); Z00.6 Encounter for examination for normal comparison and control in clinical research program; I48.91 Unspecified atrial fibrillation; R00.2 Palpitations; I12.0 Hypertensive chronic kidney disease with stage 5 chronic kidney disease or end stage renal disease; N18.6 End stage renal disease
CPT/HCPCS: 00530; 0387T; 80048; 85025; 85610; 85730; 86850; 86900; 86901; 93005; C1786; J0690; J1200; J1644; J1720; J2250; J2270; J3010; J3370

== ENCOUNTER 2017-06-10 21:39 | Emergency (ER) | payer MEDICARE, MEDICAID ==
[~2017-06-10] VITALS: Ht 185.4 cm; Wt 93.0 kg
[~2017-06-10 21:39] MED LIST changes: -BUPR150T3 PO; +CALC0.5C PO; -CALC0.5C6 PO; +DILT-4 PO; -DILT120T PO; -METO100T9 PO; +METO1TAB43 PO; -PERC10TA27 PO; -PERI8.6T PO; -ZOFR4TAB3 SL; -ZOLP10TA3 PO
[2017-06-10 21:43] VITALS: BP 143/87; PULSE 61; RESP 18; TEMP 99.2; O2SAT 98
--- NOTE | 2017-06-10 21:47 | PD ---
HPI Chief Complaint: ABDOMINAL PAIN Time Seen by Provider: 21:43 Travel History International Travel<30 days: No Contact w/Intl Traveler<30days: No Traveled to known affect area: No History of Present Illness HPI ONSET OVER PAST 2HRS , UPPER ABD/EPIG REGION, 8/10, RAD TO BACK, ASSOC WITH NAUSEA BUT NOT V/D/FEVER/CP/BRAGA. NO ALLEVIATING OR AGGRAVATING FACTORS PCP: CARDIO:XAVIER PMHX: PANCREATITIS, ESRD, AFIB HX PSHX:PACEMAKER, LOOP RECORDER, APPY, PERITONEAL DIALYSIS, GB PFSH Past Medical History Hx Anticoagulant Therapy: Yes Arthritis: No Asthma: No Atrial Fibrillation: Yes (ABLATION) Autoimmune Disease: No Blood Disorders: No Anxiety: Yes (he had stroke causing memory loss, causes anx.) Depression: No Heart Rhythm Problems: No Cancer: No Cardiac Catheterization: Yes Cardiovascular Problems: Yes (AFIB) High Cholesterol: Yes (pancreatitis chronic) Chemotherapy: No Chest Pain: No Congestive Heart Failure: No COPD: No Cerebrovascular Accident: Yes Diabetes: No Dialysis: Yes (PERITONEAL DIALYSIS ) Diminished Hearing: No Endocrine: No Gastrointestinal Disorders: Yes (PANCREATITIS HX OF) GERD: No Glaucoma: No Genitourinary: No Headaches: No Hepatitis: Yes (C) Hiatal Hernia: No Heparin Induced Thrombocytopen: No Hypertension: Yes Immune Disorder: No Implanted Vascular Access Dvce: Yes Insomnia: Yes (OCCASIONAL) Kidney Stones: No Musculoskeletal: Yes (weakness post stroke, equally both sides) Neurologic: Yes (stroke last year) Psychiatric: No Reproductive: No Respiratory: Yes (DYPSNEA) Integumentary: No Immunizations Current: Yes Migraines: No Pancreatitis: Yes Radiation Therapy: No Renal Failure: Yes (PERITONEAL DIALYSIS ) Seizures: No Sickle Cell Disease: No Sleep Apnea: No Thyroid Disease: No Ulcer: No Past Surgical History Abdominal Surgery: Yes (appendectomy at age 10) AICD: No Appendectomy: Yes Arteriovenous Shunt: No Body Medical Devices: Right abdominal peritoneal dialysis port. Coronary Artery Bypass Graft: No Ear Surgery: No Endocrine Surgery: No Eye Surgery: No Genitourinary Surgery: No Gynecologic Surgery: No Insulin Pump: No Joint Replacement: No Neurologic Surgery: No Oral Surgery: Yes (Tonsillectomy) Pacemaker: No Thoracic Surgery: Yes (LOOP RECORDER INSERT) Tonsillectomy: Yes Other Surgery: Yes (peritoneal shunt. gall bladder out. hemo cath in and out) Social History Alcohol Use: No Tobacco Use: Yes (1PPD) Substance Use: No Allergies-Medications (Allergen,Severity, Reaction): Coded Allergies: Iodinated Contrast- Oral and IV Dye (Verified Allergy, Severe, 06/10/17) diatrizoate meglumine (Unverified Allergy, Mild, Itching, 06/10/17) STATES AFTER IV CONTRAST FROM LAST HOSPITAL VISIT WAS ITCHY FOR 10 DAYS WITH BAD HEARTBURN gadobenic acid (Unverified Allergy, Mild, Itching, 06/10/17) STATES AFTER IV CONTRAST FROM LAST HOSPITAL VISIT WAS ITCHY FOR 10 DAYS WITH BAD HEARTBURN gadodiamide (Unverified Allergy, Mild, Itching, 06/10/17) STATES AFTER IV CONTRAST FROM LAST HOSPITAL VISIT WAS ITCHY FOR 10 DAYS WITH BAD HEARTBURN gadoteridol (Unverified Allergy, Mild, Itching, 06/10/17) STATES AFTER IV CONTRAST FROM LAST HOSPITAL VISIT WAS ITCHY FOR 10 DAYS WITH BAD HEARTBURN iodixanol (Unverified Allergy, Mild, Itching, 06/10/17) STATES AFTER IV CONTRAST FROM LAST HOSPITAL VISIT WAS ITCHY FOR 10 DAYS WITH BAD HEARTBURN iohexol (Unverified Allergy, Mild, Itching, 06/10/17) STATES AFTER IV CONTRAST FROM LAST HOSPITAL VISIT WAS ITCHY FOR 10 DAYS WITH BAD HEARTBURN Reported Meds & Prescriptions Reported Meds & Active Scripts Active Coumadin (Warfarin) 5 Mg Tab 5 Mg PO DAILY Hold Coumadin for 2 days or until cleared by PCP. Repeat INR in 2 days. Reported Tiazac (Diltiazem ER 24 HR) 120 Mg Caper 120 Mg PO DAILY Metoprolol Succinate ER 24 HR (Metoprolol Succinate) 100 Mg Tab 100 Mg PO DAILY Tamsulosin (Tamsulosin HCl) 0.4 Mg Cap 0.4 Mg PO HS Calcitriol 0.5 Mcg Cap 0.5 Mcg PO DAILY Ropinirole 0.25 Mg Tab 0.25 Mg PO HS Renvela (Sevelamer Carbonate) 800 Mg Tab 1,600 Mg PO TID Dialyvite 800 (B-Complex W/ C & Folic Acid) 1 Tab 800 Mg PO Review of Systems Except as stated in HPI: all other systems reviewed are Neg General / Constitutional: No: Fever Eyes: No: Visual changes HENT: No: Headaches Cardiovascular: No: Chest Pain or Discomfort Respiratory: No: Shortness of Breath Gastrointestinal: Positive: Nausea, Abdominal Pain Genitourinary: No: Dysuria Musculoskeletal: No: Pain Skin: No Rash Neurologic: No: Weakness Psychiatric: No: Depression Endocrine: No: Polydipsia Hematologic/Lymphatic: No: Easy Bruising Physical Exam Narrative GENERAL: SKIN: Warm and dry. HEAD: Atraumatic. Normocephalic. EYES: Pupils equal and round. No scleral icterus. No injection or drainage. ENT: No nasal bleeding or discharge. Mucous membranes pink and moist. NECK: Trachea midline. No JVD. CARDIOVASCULAR: Regular rate and rhythm. RESPIRATORY: No accessory muscle use. Clear to auscultation. Breath sounds equal bilaterally. GASTROINTESTINAL: Abdomen soft, MILD EPIG TTPERCUSSION, nondistended. MUSCULOSKELETAL: Extremities without clubbing, cyanosis, or edema. No obvious deformities. NEUROLOGICAL: Awake and alert. No obvious cranial nerve deficits. Motor grossly within normal limits. Five out of 5 muscle strength in the arms and legs. Normal speech. PSYCHIATRIC: Appropriate mood and affect; insight and judgment normal. Data Data Last Documented VS Vital Signs Date Time Temp Pulse Resp B/P (MAP) Pulse Ox O2 Delivery O2 Flow Rate FiO2 06/10/17 21:58 18 96 Room Air 06/10/17 21:43 99.2 61 143/87 (105) Orders Orders Complete Blood Count With Diff (06/10/17 21:51) Comprehensive Metabolic Panel (06/10/17 21:51) Lipase (06/10/17 21:51) Ct Abd/Pel W/O Iv Contrast (06/10/17 21:51) Iv Access Insert/Monitor (06/10/17 21:51) Ecg Monitoring (06/10/17 21:51) Oximetry (06/10/17 21:51) NPO (06/10/17 21:51) Morphine Inj (Morphine Inj) (06/10/17 22:00) Ondansetron Inj (Zofran Inj) (06/10/17 22:00) Sodium Chloride 0.9% Flush (Ns Flush) (06/10/17 22:00) Electrocardiogram (06/10/17 21:51) Labs Laboratory Tests Test 06/10/17 22:40 White Blood Count 8.3 TH/MM3 Red Blood Count 4.33 MIL/MM3 Hemoglobin 13.8 GM/DL Hematocrit 40.3 % Mean Corpuscular Volume 93.1 FL Mean Corpuscular Hemoglobin 31.8 PG Mean Corpuscular Hemoglobin Concent 34.1 % Red Cell Distribution Width 13.3 % Platelet Count 193 TH/MM3 Mean Platelet Volume 7.6 FL Neutrophils (%) (Auto) 56.5 % Lymphocytes (%) (Auto) 31.1 % Monocytes (%) (Auto) 7.8 % Eosinophils (%) (Auto) 3.6 % Basophils (%) (Auto) 1.0 % Neutrophils # (Auto) 4.7 TH/MM3 Lymphocytes # (Auto) 2.6 TH/MM3 Monocytes # (Auto) 0.6 TH/MM3 Eosinophils # (Auto) 0.3 TH/MM3 Basophils # (Auto) 0.1 TH/MM3 CBC Comment DIFF FINAL Differential Comment Blood Urea Nitrogen 32 MG/DL Creatinine 6.77 MG/DL Random Glucose 89 MG/DL Total Protein 7.6 GM/DL Albumin 3.2 GM/DL Calcium Level 8.2 MG/DL Alkaline Phosphatase 82 U/L Aspartate Amino Transf (AST/SGOT) 30 U/L Alanine Aminotransferase (ALT/SGPT) 41 U/L Total Bilirubin 0.3 MG/DL Sodium Level 143 MEQ/L Potassium Level 3.9 MEQ/L Chloride Level 108 MEQ/L Carbon Dioxide Level 22.4 MEQ/L Anion Gap 13 MEQ/L Estimat Glomerular Filtration Rate 8 ML/MIN Lipase 3408 U/L [facility] Medical Decision Making Medical Screen Exam Complete: Yes Emergency Medical Condition: Yes Medical Record Reviewed: Yes Interpretation(s) NSR 77, 1ST DEGREE AV BLOCK, NO STEMI PATTERN Differential Diagnosis PANCREATITIS V STEMI V ELECTROLYTE ABNL V BILIARY COLIC Narrative Course NL ELECTROLYTE ABNL, NEG STEMI ON EKG, FINDINGS C/W PANCREATITIS, WHICH IS A CHRONIC Diagnosis Primary Impression: Acute on chronic pancreatitis Patient Instructions: Clear Liquid Diet (ED), General Instructions, Pancreatitis (ED) Scripts Hydrocodone-Acetaminophen (Lortab) 10-325 Mg Tab 1 TAB PO Q4H Y for PAIN, #15 TAB 0 Refills Prov: Jose Carlos Haro MD 06/11/17 Ondansetron Odt (Zofran Odt) 4 Mg Tab 4 MG SL Q6HR Y for Nausea/Vomiting, #20 TAB 0 Refills Prov: Jose Carlos Haro MD 06/11/17 Disposition: 01 DISCHARGE HOME Condition: Stable Jose Carlos Haro MD Jun 10, 2017 21:47
[2017-06-10 21:58] VITALS: RESP 18; O2SAT 96
[2017-06-10] MEDS ORDERED: SODIUM CHLORIDE 0.9% FLUSH 10 ML FLUSH IV FLUSH PRN (22:00)
[2017-06-10] MEDS ORDERED: ONDANSETRON HCL 4 MG/2 ML VIAL IVP ONE (22:00)
[2017-06-10] MEDS ORDERED: MORPHINE SULFATE 4 MG/ML INJ IV PUSH ONE (22:00)
[2017-06-10 22:58] LABS: AUTOMATED NEUTROPHIL # 4.7 TH/MM3 (1.8-7.7); BASOPHIL # 0.1 TH/MM3 (0-0.2); EOSINOPHIL # 0.3 TH/MM3 (0-0.4); EOSINOPHIL % 3.6 % (0.0-4.0); HEMATOCRIT 40.3 % (39.0-51.0); HEMO FLAGS DIFF FINAL; LYMPH % 31.1 % (9.0-44.0); LYMPHOCYTE # 2.6 TH/MM3 (1.0-4.8); MEAN CELL VOLUME 93.1 FL (80.0-100.0); MEAN CORPUSCULAR HEMOGLOBIN 31.8 PG (27.0-34.0); MEAN CORPUSCULAR HGB CONC 34.1 % (32.0-36.0); MONO % 7.8 % (0.0-8.0); NEUT % 56.5 % (16.0-70.0); PLATELET COUNT 193 TH/MM3 (150-450); RED BLOOD COUNT 4.33 MIL/MM3 (4.50-5.90); RED CELL DISTRIBUTION WIDTH 13.3 % (11.6-17.2); WHITE BLOOD COUNT 8.3 TH/MM3 (4.0-11.0)
--- NOTE | 2017-06-10 23:03 | RADRPT ---
EXAM DATE/TIME: 06/10/2017 22:25 [facility] COMPARISON: CT ABDOMEN & PELVIS W/O CONTRAST, March 20, 2017, 19:37. INDICATIONS : Bilateral upper quadrant pain with nausea. ORAL CONTRAST: No oral contrast ingested. RADIATION DOSE: 18.62 CTDIvol (mGy) MEDICAL HISTORY : Hepatitis C. Hypertension. Pancreatitis.Hep c. Renal failure. Dialysis. SURGICAL HISTORY : Appendectomy. Cholecystectomy.Peritoneal shunt. ENCOUNTER: Initial ACUITY: 1 day PAIN SCALE: 8/10 LOCATION: Bilateral upper quadrant TECHNIQUE: Volumetric scanning of the abdomen and pelvis was performed. Using automated exposure control and ad justment of the mA and/or kV according to patient size, radiation dose was kept as low as reasonably achievable to obtain optimal diagnostic quality images. DICOM format image data is available electro nically for review and comparison. FINDINGS: LOWER LUNGS: The visualized lower lungs are clear. LIVER: There is a subtle lobulation to the contour of the liver. No mass on this unenhanced exam. No ductal dilatation. Gallbladder is surgically absent. SPLEEN: Normal size without lesion. PANCREAS: There is an abnormal appearance to the pancreatic head. There is stranding of the adjacent fat. There is intermixed calcifications involving the pancreatic head. There is a reduction in density of the p ancreatic head as well. No ductal dilatation. The pancreatic tail and body are unremarkable. KIDNEYS: Normal in size and shape. There is no mass, stone, or hydronephrosis. A 1.5 cm cyst is seen involvin g the lower pole the left kidney. A units are one. Both kidneys are relatively small. ADRENAL GLANDS: Diffuse calcified atherosclerotic plaque. No significant aneurysmal change. VASCULAR: There is no aortic aneurysm. BOWEL/MESENTERY: A peritoneal dialysis catheter is coiled within the midline lower abdomen upper pelvis. No loculated fluid around the catheter. The stomach, small bowel, and colon demonstrate no acute abnormality. The re is no free intraperitoneal air or fluid. ABDOMINAL WALL: Within normal limits. RETROPERITONEUM: There is no lymphadenopathy. BLADDER: No wall thickening or mass. REPRODUCTIVE: Within normal limits. INGUINAL: There is no lymphadenopathy or hernia. MUSCULOSKELETAL: Within normal limits for patient age. CONCLUSION: 1. Acute pancreatitis without ductal dilatation. I would suggest a followup MRI of the pancreas follo wing resolution of the patient's acute symptoms to get a better evaluation of the pancreatic head to exclude an underlying mass. 2. Atrophic kidneys. 3. Peroneal dialysis catheter. 4. Prior cholecystectomy. 5. Cirrhosis. Cruz Hunter Jr., MD on June 10, 2017 at 22:57 Board Certified Radiologist. This report was verified electronically.
[2017-06-10 23:22] LABS: ANION GAP 13 MEQ/L (5-15); AST (GOT) 30 U/L (15-37); BICARBONATE 22.4 MEQ/L (21.0-32.0); BLOOD UREA NITROGEN 32 MG/DL (7-18); CHLORIDE 108 MEQ/L (98-107); GLOMERULAR FILTRATION RATE 8 ML/MIN (>89); POTASSIUM 3.9 MEQ/L (3.5-5.1); SODIUM (NA) 143 MEQ/L (136-145)
[2017-06-10 23:25] LABS: ALKALINE PHOSPHATASE 82 U/L (45-117); ALT (GPT) 41 U/L (12-78); TOTAL BILIRUBIN ADULT 0.3 MG/DL (0.2-1.0)
[2017-06-11] MEDS ORDERED: HYDR-3535 PO (02:46)
[2017-06-11] MEDS ORDERED: ZOFR4TAB3 SL (02:46)
[2017-06-11] MEDS ORDERED: ACETAMINOPHEN/HYDROcodone 325 MG/10 MG TAB PO ONE (03:15)
--- NOTE | 2017-06-11 09:39 | EKG ---
Date Performed: 06/10/2017 Time Performed: 21:52:28 PTAGE: 67 years EKG: Sinus rhythm NORMAL ECG PREVIOUS TRACING : 04/30/2017 02.16 DOCTOR: Roly Lui Interpretating Date/Time 06/11/2017 09:35:19
== END 2017-06-11 03:54 | disposition home or self-care (01) ==
LOC: NEPC 21:39
DX: K85.90 Acute pancreatitis without necrosis or infection, unspecified (principal); K86.1 Other chronic pancreatitis; I48.91 Unspecified atrial fibrillation; I44.0 Atrioventricular block, first degree; I12.0 Hypertensive chronic kidney disease with stage 5 chronic kidney disease or end stage renal disease; N18.6 End stage renal disease; Z99.2 Dependence on renal dialysis; Z79.01 Long term (current) use of anticoagulants
CPT/HCPCS: 74176; 80053; 83690; 85025; 93005; 96374; 96375; 99285; J2270; J2405

== ENCOUNTER 2017-06-15 04:54 | Observation (INO) | payer MEDICARE, MEDICAID ==
[2017-06-15] VITALS (12 sets, daily range): BP systolic 77–161; BP diastolic 50–88; PULSE 62–89; RESP 14–31; TEMP 97.5–98.8; O2SAT 97–100
[~2017-06-15] VITALS: Ht 188 cm; Wt 95.0 kg
[~2017-06-15 04:54] MED LIST changes: +HYDR-3535 PO; +ZOFR4TAB3 SL
[2017-06-15] MEDS ORDERED: TERBUTALINE INJ 1 MG/ML AMP SQ PRN (05:15)
[2017-06-15] MEDS ORDERED: SODIUM CHLOR 0.9% 1000 ML INJ 1,000 ML IV ONE (05:15)
[2017-06-15] MEDS ORDERED: SODIUM CHLORIDE 0.9% FLUSH 10 ML FLUSH IVF PRN (05:15)
[2017-06-15] MEDS ORDERED: NOREPINEPHRINE INJ 4 MG in SODIUM CHLOR 0.9% 250 ML INJ 246 ML IV PRN (05:15)
[2017-06-15] MEDS ORDERED: SODIUM CHLOR 0.9% 250 ML INJ 250 ML IV ONE ×2 (05:15→05:45)
--- NOTE | 2017-06-15 05:28 | PD ---
HPI Chief Complaint: Chest Pain Time Seen by Provider: 05:02 Travel History International Travel<30 days: No Contact w/Intl Traveler<30days: No Traveled to known affect area: No History of Present Illness HPI 67-year-old man, presents to the emergency department complaining of chest pain and lightheadedness. States symptoms started with lightheadedness especially with standing and decreased blood pressure today. EMS reported chest pain. Patient states some pressure in his chest and also in his neck but not prominent. No back pain. No abdominal pain. Patient was seen in the emergency department 5 days ago with upper abdominal/epigastric pain radiating through to the back. His lipase at that time was 3400. Hemoglobin was 13.8. CT scan confirmed acute pancreatitis. He was discharged for pain medicine and nausea medicine. History Past Medical History Narrative Medical End-stage renal disease, peritoneal dialysis Hypertension History of pacemaker A. fib, on warfarin CVA with residual memory problems Chronic pancreatitis Tetanus Vaccination: Unknown Social History Alcohol Use: No Tobacco Use: Yes (1PPD) Allergies-Medications (Allergen,Severity, Reaction): Coded Allergies: Iodinated Contrast- Oral and IV Dye (Verified Allergy, Severe, 06/15/17) diatrizoate meglumine (Unverified Allergy, Mild, Itching, 06/15/17) STATES AFTER IV CONTRAST FROM LAST HOSPITAL VISIT WAS ITCHY FOR 10 DAYS WITH BAD HEARTBURN gadobenic acid (Unverified Allergy, Mild, Itching, 06/15/17) STATES AFTER IV CONTRAST FROM LAST HOSPITAL VISIT WAS ITCHY FOR 10 DAYS WITH BAD HEARTBURN gadodiamide (Unverified Allergy, Mild, Itching, 06/15/17) STATES AFTER IV CONTRAST FROM LAST HOSPITAL VISIT WAS ITCHY FOR 10 DAYS WITH BAD HEARTBURN gadoteridol (Unverified Allergy, Mild, Itching, 06/15/17) STATES AFTER IV CONTRAST FROM LAST HOSPITAL VISIT WAS ITCHY FOR 10 DAYS WITH BAD HEARTBURN iodixanol (Unverified Allergy, Mild, Itching, 06/15/17) STATES AFTER IV CONTRAST FROM LAST HOSPITAL VISIT WAS ITCHY FOR 10 DAYS WITH BAD HEARTBURN iohexol (Unverified Allergy, Mild, Itching, 06/15/17) STATES AFTER IV CONTRAST FROM LAST HOSPITAL VISIT WAS ITCHY FOR 10 DAYS WITH BAD HEARTBURN Reported Meds & Prescriptions Reported Meds & Active Scripts Active Zofran Odt (Ondansetron Odt) 4 Mg Tab 4 Mg SL Q6HR PRN Coumadin (Warfarin) 5 Mg Tab 5 Mg PO DAILY Hold Coumadin for 2 days or until cleared by PCP. Repeat INR in 2 days. Reported Tiazac (Diltiazem ER 24 HR) 120 Mg Caper 120 Mg PO DAILY Metoprolol Succinate ER 24 HR (Metoprolol Succinate) 100 Mg Tab 100 Mg PO DAILY Tamsulosin (Tamsulosin HCl) 0.4 Mg Cap 0.4 Mg PO HS Calcitriol 0.5 Mcg Cap 0.5 Mcg PO DAILY Ropinirole 0.25 Mg Tab 0.25 Mg PO HS Renvela (Sevelamer Carbonate) 800 Mg Tab 1,600 Mg PO TID Dialyvite 800 (B-Complex W/ C & Folic Acid) 1 Tab 800 Mg PO Review of Systems Except as stated in HPI: all other systems reviewed are Neg Physical Exam Narrative GENERAL: Thin ill-appearing 67-year-old man, pale, clammy. SKIN: Pale clammy and cool. HEAD: Atraumatic. Normocephalic. EYES: Significant scleral pallor. ENT: No nasal bleeding or discharge. Mucous membranes pink and moist. NECK: Trachea midline. No JVD. CARDIOVASCULAR: Thready pulses, poorly perfused. RESPIRATORY: Some tachypnea but no respiratory distress. GASTROINTESTINAL: Abdomen is obese and soft. Peritoneal dialysis catheter in the right lower midline. MUSCULOSKELETAL: No obvious deformities. No edema. NEUROLOGICAL: Awake and alert. No obvious cranial nerve deficits. Motor grossly within normal limits. Normal speech. PSYCHIATRIC: Appropriate mood and affect; insight and judgment normal. RECTAL: Firm stool in the rectal vault. Trace guaiac positive. No melena. Data Data Last Documented VS Vital Signs Date Time Temp Pulse Resp B/P (MAP) Pulse Ox O2 Delivery O2 Flow Rate FiO2 06/15/17 06:07 97.9 64 20 133/68 100 06/15/17 05:21 Room Air Orders Orders Electrocardiogram (06/15/17 05:03) B-Type Natriuretic Peptide (06/15/17 05:03) Ckmb (Isoenzyme) Profile (06/15/17 05:03) Complete Blood Count With Diff (06/15/17 05:03) Comprehensive Metabolic Panel (06/15/17 05:03) Magnesium (Mg) (06/15/17 05:03) Prothrombin Time / Inr (Pt) (06/15/17 05:03) Act Partial Throm Time (Ptt) (06/15/17 05:03) Troponin I (06/15/17 05:03) Lipase (06/15/17 05:03) Chest, Single Ap (06/15/17 05:03) Ecg Monitoring (06/15/17 05:03) Iv Access Insert/Monitor (06/15/17 05:03) Oximetry (06/15/17 05:03) Oxygen Administration (06/15/17 05:03) Sodium Chloride 0.9% Flush (Ns Flush) (06/15/17 05:15) Lactic Acid Sepsis Protocol (06/15/17 05:03) Blood Culture (06/15/17 05:03) Red Blood Cells (Rbc) (06/15/17 05:03) Blood Product Administration (06/15/17 05:03) Sodium Chlor 0.9% 250 Ml Inj (Ns 250 Ml (06/15/17 05:15) Fresh Frozen Plasma (Ffp) (06/15/17 05:03) Ed Poc Ultrasound (06/15/17 ) Type And Screen (06/15/17 05:04) Sodium Chlor 0.9% 1000 Ml Inj (Ns 1000 M (06/15/17 05:15) ^ Infusion (06/15/17 ) Norepinephrine Inj (Levophed Inj) (06/15/17 05:15) Terbutaline Inj (Brethine Inj) (06/15/17 05:15) Arterial Blood Gas (Abg) (06/15/17 ) Blood Product Administration (06/15/17 05:35) Sodium Chlor 0.9% 250 Ml Inj (Ns 250 Ml (06/15/17 05:45) Labs Laboratory Tests Test 06/15/17 05:20 White Blood Count 11.4 TH/MM3 Red Blood Count 2.70 MIL/MM3 Hemoglobin 8.7 GM/DL Hematocrit 25.6 % Mean Corpuscular Volume 94.8 FL Mean Corpuscular Hemoglobin 32.1 PG Mean Corpuscular Hemoglobin Concent 33.9 % Red Cell Distribution Width 13.1 % Platelet Count 182 TH/MM3 Mean Platelet Volume 7.5 FL Neutrophils (%) (Auto) 50.0 % Lymphocytes (%) (Auto) 37.5 % Monocytes (%) (Auto) 10.2 % Eosinophils (%) (Auto) 0.9 % Basophils (%) (Auto) 1.4 % Neutrophils # (Auto) 5.7 TH/MM3 Lymphocytes # (Auto) 4.3 TH/MM3 Monocytes # (Auto) 1.2 TH/MM3 Eosinophils # (Auto) 0.1 TH/MM3 Basophils # (Auto) 0.2 TH/MM3 CBC Comment DIFF FINAL Differential Comment Prothrombin Time 18.1 SEC Prothromb Time International Ratio 1.6 RATIO Activated Partial Thromboplast Time 24.1 SEC Blood Gas Puncture Site RT BRACHIAL Blood Gas Patient Temperature 98.6 Blood Gas HCO3 16 mmol/L Blood Gas Base Excess -7.7 mmol/L Blood Gas Oxygen Saturation 94 % Arterial Blood pH 7.44 Arterial Blood Partial Pressure CO2 24 mmHg Arterial Blood Partial Pressure O2 81 mmHG Arterial Blood Oxygen Content 11.2 Vol % Arterial Blood Carboxyhemoglobin 2.7 % Arterial Blood Methemoglobin 0.6 % Blood Gas Hemoglobin 8.4 G/DL Oxygen Delivery Device ROOM AIR Blood Gas Inspired Oxygen 21 % [facility] Medical Decision Making Medical Screen Exam Complete: Yes Emergency Medical Condition: Yes Interpretation(s) My review of EKG: Sinus rhythm at a rate of 69, mild lateral ST depressions in could suggest ischemia. Is no definite evidence of acute ischemia. LABS: CBC remarkable for moderate anemia. Hemoglobin 8.7 down from 13 5 days ago. CMP Lipase Troponin BNP Lactate ABG 7.44/24/81/16, base excess -7.7 Differential Diagnosis Anemia or hemorrhage, sepsis, Tampnade, PE, pneumothorax, other Narrative Course Medical decision making INITIAL: Ill-appearing 67-year-old man with marked pallor and hypotension suggestive of anemia. Suspect GI bleed. Guaiacs negative. Patient recent diagnosis of pancreatitis. Point of care to suggest hypovolemia as a cause of the hypotension. Emergency blood was called for and transfuse. Patient is on warfarin. We'll check labs, x-ray, EKG, reassess. Critical Care Narrative Aggregate critical care time was 40 minutes. Time to perform other separately billable procedures was not included in the critical care time. My time did not include minutes spent treating any other patients simultaneously or on activities that did not directly contribute to the patient's treatment. The services I provided to this patient were to treat and/or prevent clinically significant deterioration that could result in: , disability, ulnar, shock , sepsis, increased morbidity. I provided critical care services requiring my management, as noted below: Chart data review, documentation time, medication orders and management, vital sign assessments/reviewing monitor data, ordering and reviewing lab tests, ordering and interpreting/reviewing x-rays and diagnostic studies, care of the patient and discussion of the patient with the admitting physicians. Procedures Procedure Narrative Point of care ultrasound: Focus transabdominal ultrasound transthoracic ultrasounds performed via for etiology for hypotension. This is satisfactory views could be obtained in the parasternal [place] which showed some pericardial effusion but no large effusion or evidence of tap and not. There is elevated collapse suggestive of hypovolemia. I was unable to obtain views in the abdomen due to bowel gas and obesity. HemaPrompt Point of Care Internal Pos. & Neg. Controls: Passed Fecal Specimen Occult Blood: Positive Admitting Information Admitting Physician Requests: Admit Roly Allred MD Jun 15, 2017 05:28
[2017-06-15 05:30] LABS: BLOOD GAS BASE EXCESS -7.7 mmol/L (-2-2); BLOOD GAS CARBOXYHEMOGLOBIN 2.7 % (0-4); BLOOD GAS HCO3 16 mmol/L (22-26); BLOOD GAS METHEMOGLOBIN 0.6 % (0-2); BLOOD GAS O2 HGB SATURATION 94 % (90-100); BLOOD GAS OXYGEN CONTENT 11.2 Vol % (12.0-20.0); BLOOD GAS PCO2 24 mmHg (38-42); BLOOD GAS PO2 81 mmHG (61-120); BLOOD GAS TOTAL HGB 8.4 G/DL (12.0-16.0); CRITICAL VALUE YES; DRAW SITE RT BRACHIAL; FIO2 21 %; NUMBER OF ARTERIAL PUNCTURES 1; OXYGEN DEVICE ROOM AIR; STAT YES; TEMP CORR TO 98.6
--- NOTE | 2017-06-15 05:37 | RADRPT ---
EXAM DATE/TIME: 06/15/2017 05:06 [facility] COMPARISON: CHEST SINGLE AP, April 14, 2017, 2:29. INDICATIONS : Chest pain. MEDICAL HISTORY : Hypertension. SURGICAL HISTORY : Appendectomy. Cholecystectomy. Peritoneal shunt. ENCOUNTER: Initial ACUITY: 1 day PAIN SCORE: 10/10 LOCATION: upper chest middle FINDINGS: A single view of the chest demonstrates the lungs to be symmetrically aerated without evidence of mas s, infiltrate or effusion. The cardiomediastinal contours are unremarkable. Osseous structures are intact. CONCLUSION: 1. No acute cardiopulmonary disease. Franklin Espinal MD on June 15, 2017 at 5:35 Board Certified Radiologist. This report was verified electronically.
[2017-06-15 05:59] LABS: AUTOMATED NEUTROPHIL # 5.7 TH/MM3 (1.8-7.7); BASOPHIL # 0.2 TH/MM3 (0-0.2); BASOPHIL % 1.4 % (0.0-2.0); EOSINOPHIL # 0.1 TH/MM3 (0-0.4); EOSINOPHIL % 0.9 % (0.0-4.0); HEMATOCRIT 25.6 % (39.0-51.0); HEMO FLAGS DIFF FINAL; LYMPH % 37.5 % (9.0-44.0); LYMPHOCYTE # 4.3 TH/MM3 (1.0-4.8); MEAN CELL VOLUME 94.8 FL (80.0-100.0); MEAN CORPUSCULAR HEMOGLOBIN 32.1 PG (27.0-34.0); MEAN CORPUSCULAR HGB CONC 33.9 % (32.0-36.0); MONO % 10.2 % (0.0-8.0); PLATELET COUNT 182 TH/MM3 (150-450); RED CELL DISTRIBUTION WIDTH 13.1 % (11.6-17.2); WHITE BLOOD COUNT 11.4 TH/MM3 (4.0-11.0)
[2017-06-15 06:12] LABS: APTT (PATIENT) 24.1 SEC (24.3-30.1); INTERNATIONAL NORMALIZED RATIO 1.6 RATIO; PROTHROMBIN TIME - PATIENT 18.1 SEC (9.8-11.6)
[2017-06-15] MEDS ORDERED: ONDANSETRON HCL 4 MG/2 ML VIAL IV ONE (06:45)
[2017-06-15 06:58] LABS: ALKALINE PHOSPHATASE 55 U/L (45-117); ALT (GPT) 33 U/L (12-78); ANION GAP 13 MEQ/L (5-15); AST (GOT) 22 U/L (15-37); BICARBONATE 18.3 MEQ/L (21.0-32.0); BLOOD UREA NITROGEN 68 MG/DL (7-18); CALCIUM-PROTEIN CORRECTED 8.5 MG/DL (8.5-10.1); CHLORIDE 111 MEQ/L (98-107); GLOMERULAR FILTRATION RATE 8 ML/MIN (>89); POTASSIUM 4.2 MEQ/L (3.5-5.1); SODIUM (NA) 142 MEQ/L (136-145); TOTAL BILIRUBIN ADULT 0.5 MG/DL (0.2-1.0)
--- NOTE | 2017-06-15 07:07 | RADRPT ---
EXAM DATE/TIME: 06/15/2017 06:53 [facility] COMPARISON: CT ABDOMEN & PELVIS W/O CONTRAST, June 10, 2017, 22:25. INDICATIONS : Epigastric pain. History of pancreatitis. RBC low. ORAL CONTRAST: No oral contrast ingested. RADIATION DOSE: 15.52 CTDIvol (mGy) MEDICAL HISTORY : Renal disease, end stage. Pancreatitis. Cardiovascular diseaseCVA. Hypertension. Hepatitis C. SURGICAL HISTORY : Pacemaker. Appendectomy.Cardiac catherization. ENCOUNTER: Initial ACUITY: 1 day PAIN SCALE: 3/10 LOCATION: Bilateral abdomen TECHNIQUE: Volumetric scanning of the abdomen and pelvis was performed. Using automated exposure control and ad justment of the mA and/or kV according to patient size, radiation dose was kept as low as reasonably achievable to obtain optimal diagnostic quality images. DICOM format image data is available electro nically for review and comparison. FINDINGS: The liver and spleen are stable again demonstrating mild enlargement but no focal abnormality. There is no evidence of delivery duct dilatation. Postcholecystectomy clips are noted. Small calcific deposits remain evident in the pancreatic head. There is mild peripancreatic haziness and increased density surrounding the head. There are no cystic fluid collections. Tiny and tail the pancreas are unremarkable. Kidneys are atrophic. Peritoneal dialysis catheter is noted in place. No acute intestinal abnormalities. Lung bases are clear CONCLUSION: 1. Continued evidence of mild acute and chronic pancreatitis in the head of the pancreas. 2. Hepatosplenomegaly 3. Status post cholecystectomy 4. No other acute abnormalities. Saeed Al MD on June 15, 2017 at 6:59 Board Certified Radiologist. This report was verified electronically.
[2017-06-15 07:08] LABS: CREATINE KINASE 55 U/L (39-308)
[2017-06-15 07:50] LABS: LACTIC ACID GHOST NOT REPORTABLE
[2017-06-15] MEDS ORDERED: SENNOSIDES 8.6 MG TAB PO PRN (08:15)
[2017-06-15] MEDS ORDERED: MAGNESIUM HYDROXIDE SUSP 30 ML CUP PO PRN (08:15)
[2017-06-15] MEDS ORDERED: NALOXONE HCL 0.4 MG/ML AMP IV PUSH PRN (08:15)
[2017-06-15] MEDS ORDERED: SODIUM CHLORIDE 0.9% FLUSH 10 ML FLUSH IV FLUSH PRN ×3 (08:15→15:30)
[2017-06-15] MEDS ORDERED: BISACODYL 10 MG SUPP RECTAL PRN (08:15)
[2017-06-15] MEDS ORDERED: LACTULOSE SYRUP 20 GM/30 ML CUP PO PRN (08:15)
[2017-06-15] MEDS ORDERED: ONDANSETRON ODT 4 MG TAB SL PRN (08:15)
[2017-06-15] MEDS ORDERED: oxyCODONE/ACETAMINOPHEN 5 MG/325 MG TAB PO PRN (08:15)
[2017-06-15] MEDS ORDERED: ACETAMINOPHEN 325 MG TAB PO PRN ×2 (08:15)
[2017-06-15] MEDS ORDERED: PROCHLORPERAZINE 25 MG SUPP RECTAL PRN (08:15)
[2017-06-15] MEDS ORDERED: MORPHINE SULFATE 4 MG/ML INJ IV PUSH PRN ×2 (08:15)
[2017-06-15] MEDS ORDERED: oxyCODONE/ACETAMINOPHEN 10 MG/325 MG TAB PO PRN (08:15)
[2017-06-15] MEDS ORDERED: ONDANSETRON HCL 4 MG/2 ML VIAL IV PUSH PRN (08:15)
--- NOTE | 2017-06-15 08:15 | PD ---
Data Data Last Documented VS Vital Signs Date Time Temp Pulse Resp B/P (MAP) Pulse Ox O2 Delivery O2 Flow Rate FiO2 06/15/17 07:43 75 14 119/71 (87) 100 Room Air 06/15/17 06:22 98.1 Orders Orders Electrocardiogram (06/15/17 05:03) B-Type Natriuretic Peptide (06/15/17 05:03) Ckmb (Isoenzyme) Profile (06/15/17 05:03) Complete Blood Count With Diff (06/15/17 05:03) Comprehensive Metabolic Panel (06/15/17 05:03) Magnesium (Mg) (06/15/17 05:03) Prothrombin Time / Inr (Pt) (06/15/17 05:03) Act Partial Throm Time (Ptt) (06/15/17 05:03) Troponin I (06/15/17 05:03) Lipase (06/15/17 05:03) Chest, Single Ap (06/15/17 05:03) Ecg Monitoring (06/15/17 05:03) Iv Access Insert/Monitor (06/15/17 05:03) Oximetry (06/15/17 05:03) Oxygen Administration (06/15/17 05:03) Sodium Chloride 0.9% Flush (Ns Flush) (06/15/17 05:15) Lactic Acid Sepsis Protocol (06/15/17 05:03) Blood Culture (06/15/17 05:03) Red Blood Cells (Rbc) (06/15/17 05:03) Blood Product Administration (06/15/17 05:03) Sodium Chlor 0.9% 250 Ml Inj (Ns 250 Ml (06/15/17 05:15) Fresh Frozen Plasma (Ffp) (06/15/17 05:03) Ed Poc Ultrasound (06/15/17 ) Type And Screen (06/15/17 05:04) Sodium Chlor 0.9% 1000 Ml Inj (Ns 1000 M (06/15/17 05:15) ^ Infusion (06/15/17 ) Norepinephrine Inj (Levophed Inj) (06/15/17 05:15) Terbutaline Inj (Brethine Inj) (06/15/17 05:15) Arterial Blood Gas (Abg) (06/15/17 ) Blood Product Administration (06/15/17 05:35) Sodium Chlor 0.9% 250 Ml Inj (Ns 250 Ml (06/15/17 05:45) Ondansetron Inj (Zofran Inj) (06/15/17 06:45) Ct Abd/Pel W/O Iv Contrast (06/15/17 ) Comprehensive Metabolic Panel (06/16/17 06:00) Free Thyroxine (T4) (06/16/17 06:00) Hemoglobin (Hgb) A1c (06/16/17 06:00) Magnesium (Mg) (06/16/17 06:00) Phosphorus (Po4) (06/16/17 06:00) Thyroid Stimulating Hormone (06/16/17 06:00) Complete Blood Count With Diff (06/16/17 06:00) Calcitriol (Rocaltrol) (06/15/17 09:00) Diltiazem Cd (Cardizem Cd) (06/15/17 09:00) Ondansetron Odt (Zofran Odt) (06/15/17 08:15) Ropinirole Hcl (Requip) (06/15/17 21:00) Sevelamer (Renvela) (06/15/17 09:00) Tamsulosin (Flomax) (06/15/17 21:00) (Nf) Metoprolol Succinate Er 24 Hr (06/15/17 09:00) Admit Order (Ed Use Only) (06/15/17 08:10) Labs Laboratory Tests Test 06/15/17 05:20 White Blood Count 11.4 TH/MM3 Red Blood Count 2.70 MIL/MM3 Hemoglobin 8.7 GM/DL Hematocrit 25.6 % Mean Corpuscular Volume 94.8 FL Mean Corpuscular Hemoglobin 32.1 PG Mean Corpuscular Hemoglobin Concent 33.9 % Red Cell Distribution Width 13.1 % Platelet Count 182 TH/MM3 Mean Platelet Volume 7.5 FL Neutrophils (%) (Auto) 50.0 % Lymphocytes (%) (Auto) 37.5 % Monocytes (%) (Auto) 10.2 % Eosinophils (%) (Auto) 0.9 % Basophils (%) (Auto) 1.4 % Neutrophils # (Auto) 5.7 TH/MM3 Lymphocytes # (Auto) 4.3 TH/MM3 Monocytes # (Auto) 1.2 TH/MM3 Eosinophils # (Auto) 0.1 TH/MM3 Basophils # (Auto) 0.2 TH/MM3 CBC Comment DIFF FINAL Differential Comment Prothrombin Time 18.1 SEC Prothromb Time International Ratio 1.6 RATIO Activated Partial Thromboplast Time 24.1 SEC Blood Gas Puncture Site RT BRACHIAL Blood Gas Patient Temperature 98.6 Blood Gas HCO3 16 mmol/L Blood Gas Base Excess -7.7 mmol/L Blood Gas Oxygen Saturation 94 % Arterial Blood pH 7.44 Arterial Blood Partial Pressure CO2 24 mmHg Arterial Blood Partial Pressure O2 81 mmHG Arterial Blood Oxygen Content 11.2 Vol % Arterial Blood Carboxyhemoglobin 2.7 % Arterial Blood Methemoglobin 0.6 % Blood Gas Hemoglobin 8.4 G/DL Oxygen Delivery Device ROOM AIR Blood Gas Inspired Oxygen 21 % Blood Urea Nitrogen 68 MG/DL Creatinine 7.00 MG/DL Random Glucose 125 MG/DL Total Protein 5.1 GM/DL Albumin 2.1 GM/DL Calcium Level 7.4 MG/DL Magnesium Level 2.0 MG/DL Alkaline Phosphatase 55 U/L Aspartate Amino Transf (AST/SGOT) 22 U/L Alanine Aminotransferase (ALT/SGPT) 33 U/L Total Bilirubin 0.5 MG/DL Sodium Level 142 MEQ/L Potassium Level 4.2 MEQ/L Chloride Level 111 MEQ/L Carbon Dioxide Level 18.3 MEQ/L Anion Gap 13 MEQ/L Estimat Glomerular Filtration Rate 8 ML/MIN Lactic Acid Level 2.4 mmol/L Protein Corrected Calcium 8.5 MG/DL Total Creatine Kinase 55 U/L Troponin I LESS THAN 0.02 NG/ML B-Type Natriuretic Peptide 35 PG/ML Lipase 280 U/L MDM Supervised Visit with MAYLIN: No Narrative Course This case was checked out to me by Dr. ponce at 7 AM. I have reevaluated the patient. At this time he is minimally symptomatic and doing better. His pain is much better. His vital signs are rock stable at this time and have been for the last one hour and 15 minutes been watching him Heart rate of 70 and blood pressure 125 systolic I have to assume he has GI bleed given his weakly positive Hemoccult and significant hemoglobin drop of 5 g over just 5 days It's that he has no report of GI bleeding or melena Patient has not needed any Levophed I reviewed his lab studies which show renal failure as expected The hemoglobin on his ABG coincides precisely with the blood hemoglobin so I don 't think this is a lab error I reviewed with the hospitalist will admit Diagnosis Primary Impression: GI bleed Qualified Codes: K92.2 - Gastrointestinal hemorrhage, unspecified Additional Impressions: Anemia Qualified Codes: D64.9 - Anemia, unspecified Hypotension arterial Qualified Codes: I95.9 - Hypotension, unspecified Admitting Information Admitting Physician Requests: Admit Yovani Ortiz MD Jun 15, 2017 08:15
[2017-06-15] MEDS: SODIUM CHLORIDE 0.9% FLUSH 10 ML FLUSH IV FLUSH SCH ×4 (09:00→21:34)
[2017-06-15] MEDS: SEVELAMER CARBONATE 800 MG TAB PO SCH ×3 (09:00→18:00)
[2017-06-15] MEDS: METOPROLOL SUCCINATE 50 MG EXTENDED RELEASE TAB PO SCH (09:00)
--- NOTE | 2017-06-15 09:04 | PD.CONS ---
HPI History of Present Illness This is a 67 year old with a history of idiopathic pancreatitis, who presented to the emergency room for evaluation of chest pain with associated lightheadedness. He reports that he went on a walk yesterday and afterwards, he was feeling lightheaded. He felt better when he was lying down, but every time, he went to sit up, his symptoms would return. He was also having some chest discomfort described as intermittent sharp pains anteriorly on the left side of his chest. He was also feeling a little short of breath and therefore called 911, who brought him to the emergency room. Here, he was noted to have a crop in hgb from a recent visit 5 days ago. Of note, he has recently been evaluated by cardiology for atypical chest pain and they did not feel this was suggestive of ischemia given a prior negative SPECT in the past year as outpatient. 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 He was seen in the ER on 06/[address] scan abdomen and pelvis at that time noted acute pancreatitis without ductal dilatation and he was discharged home on a clear liquid diet with Lortab and Zofran. Of note, his HH at that time was 13.8/40.3. Today, he was noted to have an H/H of 8.7/25.6 and positive Hemoccult. GI was consulted for GI bleeding. He reports that he has been having nausea since he was diagnosed with his pancreatitis. His pain has improved, but he has continued to have intermittent nausea. He has not had any hematemesis. He denies any heartburn or reflux. He denies any current abdominal pain, bowel changes, constipation, diarrhea, melena, or hematochezia. He does not take any NSAIDs. He does not drink ETOH. EGD (04/12/14)---> Moderate to severe gastritis, otherwise normal. Pathology revealed antral mucosa with reactive gastropathy and regenerative epithelial changes, as may be seen with bile reflux or drug therapy. A mary stain is negative for helicobacter. He has not had a colonoscopy. He does take Coumadin and last had this yesterday on 06/14. (Mary Escamilla) PFSH Past Medical History Paroxysmal atrial fibrillation HTN ESRD, on PD Pancreatitis Pancreatic mass with benign biopsy 2012 Anxiety Hyperlipidemia HCV, tx naive CVA Past Surgical History Appendectomy PPM Placement PD catheter placement Loop monitor Cholecystectomy Tonsillectomy EGD Cardiac ablation x 2 (Mary Escamilla) Coded Allergies: Iodinated Contrast- Oral and IV Dye (Verified Allergy, Severe, 06/15/17) diatrizoate meglumine (Unverified Allergy, Mild, Itching, 06/15/17) STATES AFTER IV CONTRAST FROM LAST HOSPITAL VISIT WAS ITCHY FOR 10 DAYS WITH BAD HEARTBURN gadobenic acid (Unverified Allergy, Mild, Itching, 06/15/17) STATES AFTER IV CONTRAST FROM LAST HOSPITAL VISIT WAS ITCHY FOR 10 DAYS WITH BAD HEARTBURN gadodiamide (Unverified Allergy, Mild, Itching, 06/15/17) STATES AFTER IV CONTRAST FROM LAST HOSPITAL VISIT WAS ITCHY FOR 10 DAYS WITH BAD HEARTBURN gadoteridol (Unverified Allergy, Mild, Itching, 06/15/17) STATES AFTER IV CONTRAST FROM LAST HOSPITAL VISIT WAS ITCHY FOR 10 DAYS WITH BAD HEARTBURN iodixanol (Unverified Allergy, Mild, Itching, 06/15/17) STATES AFTER IV CONTRAST FROM LAST HOSPITAL VISIT WAS ITCHY FOR 10 DAYS WITH BAD HEARTBURN iohexol (Unverified Allergy, Mild, Itching, 06/15/17) STATES AFTER IV CONTRAST FROM LAST HOSPITAL VISIT WAS ITCHY FOR 10 DAYS WITH BAD HEARTBURN Medications Allergies Coded Allergies Type Severity Reaction Last Updated Verified Iodinated Contrast- Oral and IV Dye Allergy Severe 06/15/17 Yes diatrizoate meglumine Allergy Mild Itching 06/15/17 No gadobenic acid Allergy Mild Itching 06/15/17 No gadodiamide Allergy Mild Itching 06/15/17 No gadoteridol Allergy Mild Itching 06/15/17 No iodixanol Allergy Mild Itching 06/15/17 No iohexol Allergy Mild Itching 06/15/17 No Active Scripts Medications Dose Route/Sig Max Daily Dose Days Date Category Dose Instructions Zofran Odt (Ondansetron Odt) 4 Mg Tab 4 Mg SL Q6HR PRN 06/11/17 Rx Tiazac (Diltiazem ER 24 HR) 120 Mg Caper 120 Mg PO DAILY 04/29/17 Reported Coumadin (Warfarin) 5 Mg Tab 5 Mg PO DAILY 01/19/17 Rx Hold Coumadin for 2 days or until cleared by PCP. Repeat INR in 2 days. Metoprolol Succinate ER 24 HR (Metoprolol Succinate) 100 Mg Tab 100 Mg PO DAILY 01/18/17 Reported Tamsulosin (Tamsulosin HCl) 0.4 Mg Cap 0.4 Mg PO HS 01/18/17 Reported Calcitriol 0.5 Mcg Cap 0.5 Mcg PO DAILY 01/18/17 Reported Ropinirole 0.25 Mg Tab 0.25 Mg PO HS 06/11/16 Reported Renvela (Sevelamer Carbonate) 800 Mg Tab 1,600 Mg PO TID 06/11/16 Reported Dialyvite 800 (B-Complex W/ C & Folic Acid) 1 Tab 800 Mg PO 06/11/16 Reported Family History Sister with cardiac disease, maternal grandmother with dm, paternal grandfather with cardiac issues, paternal grandmother with lung cancer Social History 1/2 PPD. No ETOH or illicit drug use. (Mary Escamilla) Review of Systems Constitutional: COMPLAINS OF: Fatigue, Dizziness, DENIES: Weight loss Respiratory: COMPLAINS OF: Shortness of breath, DENIES: Cough Cardiovascular: COMPLAINS OF: Chest pain Gastrointestinal: COMPLAINS OF: Abdominal pain, Nausea, DENIES: Black stools, Bloody stools, Constipation, Diarrhea, Vomiting, Heartburn, Hematemesis Musculoskeletal: DENIES: Joint pain Hematologic/lymphatic: DENIES: Bruising Neurologic: COMPLAINS OF: Headache Psychiatric: DENIES: Confusion (Mary Escamilla) GI Exam Vitals I&O Vital Signs Date Time Temp Pulse Resp B/P (MAP) Pulse Ox O2 Delivery O2 Flow Rate FiO2 06/15/17 08:28 100 21 06/15/17 07:43 75 14 119/71 (87) 100 Room Air 06/15/17 06:22 98.1 62 21 114/59 100 06/15/17 06:07 97.9 64 20 133/68 100 06/15/17 05:32 97.7 67 31 96/55 100 06/15/17 05:21 100 Room Air 06/15/17 05:17 97.5 66 28 98/57 100 06/15/17 05:02 71 26 100 Room Air 06/15/17 04:57 97.5 65 26 77/50 (59) 100 I/O 06/14/17 06/14/17 06/14/17 06/15/1717 11/12/17 07:00 15:00 23:00 07:00 15:00 23:00 Intake Total 1700 ml Balance 1700 ml Intake IV Total 1300 ml Packed Cells 400 ml Imaging Last Impressions Chest X-Ray 06/15/17 0503 Signed Impressions: Service Date/Time: Thursday, June 15, 2017 05:06 - CONCLUSION: 1. No acute cardiopulmonary disease. Franklin Espinal MD Abdomen/Pelvis CT 06/15/17 0000 Signed Impressions: Service Date/Time: Thursday, June 15, 2017 06:53 - CONCLUSION: 1. Continued evidence of mild acute and chronic pancreatitis in the head of the pancreas. 2. Hepatosplenomegaly 3. Status post cholecystectomy 4. No other acute abnormalities. Saeed Al MD Laboratory Test 06/15/17 05:20 White Blood Count 11.4 TH/MM3 Red Blood Count 2.70 MIL/MM3 Hemoglobin 8.7 GM/DL Hematocrit 25.6 % Mean Corpuscular Volume 94.8 FL Mean Corpuscular Hemoglobin 32.1 PG Mean Corpuscular Hemoglobin Concent 33.9 % Red Cell Distribution Width 13.1 % Platelet Count 182 TH/MM3 Mean Platelet Volume 7.5 FL Neutrophils (%) (Auto) 50.0 % Lymphocytes (%) (Auto) 37.5 % Monocytes (%) (Auto) 10.2 % Eosinophils (%) (Auto) 0.9 % Basophils (%) (Auto) 1.4 % Neutrophils # (Auto) 5.7 TH/MM3 Lymphocytes # (Auto) 4.3 TH/MM3 Monocytes # (Auto) 1.2 TH/MM3 Eosinophils # (Auto) 0.1 TH/MM3 Basophils # (Auto) 0.2 TH/MM3 CBC Comment DIFF FINAL Differential Comment Prothrombin Time 18.1 SEC Prothromb Time International Ratio 1.6 RATIO Activated Partial Thromboplast Time 24.1 SEC Blood Gas Puncture Site RT BRACHIAL Blood Gas Patient Temperature 98.6 Blood Gas HCO3 16 mmol/L Blood Gas Base Excess -7.7 mmol/L Blood Gas Oxygen Saturation 94 % Arterial Blood pH 7.44 Arterial Blood Partial Pressure CO2 24 mmHg Arterial Blood Partial Pressure O2 81 mmHG Arterial Blood Oxygen Content 11.2 Vol % Arterial Blood Carboxyhemoglobin 2.7 % Arterial Blood Methemoglobin 0.6 % Blood Gas Hemoglobin 8.4 G/DL Oxygen Delivery Device ROOM AIR Blood Gas Inspired Oxygen 21 % Blood Urea Nitrogen 68 MG/DL Creatinine 7.00 MG/DL Random Glucose 125 MG/DL Total Protein 5.1 GM/DL Albumin 2.1 GM/DL Calcium Level 7.4 MG/DL Magnesium Level 2.0 MG/DL Alkaline Phosphatase 55 U/L Aspartate Amino Transf (AST/SGOT) 22 U/L Alanine Aminotransferase (ALT/SGPT) 33 U/L Total Bilirubin 0.5 MG/DL Sodium Level 142 MEQ/L Potassium Level 4.2 MEQ/L Chloride Level 111 MEQ/L Carbon Dioxide Level 18.3 MEQ/L Anion Gap 13 MEQ/L Estimat Glomerular Filtration Rate 8 ML/MIN Lactic Acid Level 2.4 mmol/L Protein Corrected Calcium 8.5 MG/DL Total Creatine Kinase 55 U/L Troponin I LESS THAN 0.02 NG/ML B-Type Natriuretic Peptide 35 PG/ML Lipase 280 U/L Date/Time Source Procedure Growth Status 06/15/17 05:20 Blood Peripheral Aerobic Blood Culture Pending Received 06/15/17 05:20 Blood Peripheral Anaerobic Blood Culture Pending Received Physical Examination HEENT: Normocephalic; atraumatic; no jaundice. Throat is clear. NECK: Neck is supple, no JVD, no lymphadenopathy. CHEST: CTA CARDIAC: Regular at this time, 85 ABDOMEN: Soft, nondistended, nontender; no hepatosplenomegaly; bowel sounds are present in all four quadrants. Tenkoff drsg d/i EXTREMITIES: No clubbing, cyanosis, or edema. SKIN: Normal; no rash; no jaundice. 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 (Mary Escamilla) Assessment and Plan Plan ASSESSMENT: - GIB, Hemoccult positive stool. HH dropped from 13.8/40.3 on 06/10 to 8.7/25.6 on admission. No obvious bleeding. Hemoccult (+). No NSAIDs, No ETOH. Is on coumadin, last took yesterday- INR < 2.0. EGD (04/12/14)---> Moderate to severe gastritis, otherwise normal. Pathology revealed antral mucosa with reactive gastropathy and regenerative epithelial changes, as may be seen with bile reflux or drug therapy. A mary stain is negative for helicobacter. He has not had a colonoscopy. PPI. Plan for EGD/Colonoscopy in am - Anemia with drop in Hgb. S/P 2 units PRBC. Rpt. HH pending. - Acute on chronic Pancreatitis, unclear etiology. Hx of pancreatitis, undetermined etiology. Hx of pancreatic mass with benign path. 2012. He was seen in the ER on 06/[address] scan abdomen and pelvis at that time noted acute pancreatitis without ductal dilatation and he was discharged home on a clear liquid diet with Lortab and Zofran. Pain has improved, continues to have nausea. CT Scan abdomen and pelvis (07/20)---> Continued evidence of mild acute and chronic pancreatitis in the head of the pancreas. Hepatosplenomegaly. S/P Cholecystectomy. No other acute abnormalities. Lipase 280. Seems to be improving. Will check triglycerides and IgG 4 level, as the etiology of his pancreatitis is unclear. - HCV. Tx naive. - Atypical chest pain. RESOLVED. Of note, he has recently been evaluated by cardiology for atypical chest pain and they did not feel this was suggestive of ischemia given a prior negative SPECT in the past year as outpatient. 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 - ESRD, on PD. - P. Afib, HTN, Anxiety, Hyperlipidemia, Hx CVA. Coumadin on hold. PLAN: - Plan for egd/colonoscopy in am - Obtain consents - Clear liquids - NPO after MN - Golytely prep - Protonix 40mg IV BID - CBC, CMP, INR in am - Lipid profile - IgG 4 level - Coumadin is on hold - Supportive care - Further recommendations to follow based on results of above - Pt seen and examined by Dr. Bucio and myself and this note is written on his behalf (Mary Escamilla) Physician Comments Seen and examined, plan as above. Further recommendations to follow pending EGD/Colonoscopy. Thank you for the consult. (Nenita Bucio MD) Mary Escamilla Jun 15, 2017 09:04 eNnita Bucio MD Jun 15, 2017 13:28
[2017-06-15] MEDS: PANTOPRAZOLE SODIUM 40 MG VIAL IV PUSH SCH ×2 (09:48→21:33)
--- NOTE | 2017-06-15 10:26 | HHI.HP ---
[facility] Service [facility] [facility] Primary Care Physician Griffin Her MD Admission Diagnosis gi bleed,resolved hypotension, anemia,ESRD Diagnoses: Chief Complaint: abdominal/chest pain Travel History International Travel<30 Days: No Contact w/Intl Traveler <30 Da: No Traveled to Known Affected Are: No History of Present Illness PATIENT is a 67 year old with a history of idiopathic pancreatitis, who presented to the emergency room for evaluation of chest pain with associated lightheadedness. He reports that he went on a walk yesterday and afterwards, he was feeling lightheaded. He felt better when he was lying down, but every time, he went to sit up, his symptoms would return. He was also having some chest discomfort described as intermittent sharp pains anteriorly on the left side of his chest. He was also feeling a little short of breath and therefore called 911, who brought him to the emergency room. Here, he was noted to have a Drop in hgb from a recent visit 5 days ago. Of note, he has recently been evaluated by cardiology for atypical chest pain and they did not feel this was suggestive of ischemia given a prior negative SPECT in the past year as outpatient. 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 He was seen in the ER on 06/[address] scan abdomen and pelvis at that time noted acute pancreatitis without ductal dilatation and he was discharged home on a clear liquid diet with Lortab and Zofran. Of note, his HH at that time was 13.8/40.3. Today, he was noted to have an H/H of 8.7/25.6 and positive Hemoccult. GI was consulted for GI bleeding. HAS ALREADY BEEN TRANSFUSED 2 UNITS OF PRBC TODAY. He reports that he has been having nausea since he was diagnosed with his pancreatitis. His pain has improved, but he has continued to have intermittent nausea. He has not had any hematemesis. He denies any heartburn or reflux. He denies any current abdominal pain, bowel changes, constipation, diarrhea, melena, or hematochezia. He does not take any NSAIDs. He does not drink ETOH. He does take Coumadin and last had this yesterday on 06/14. Review of Systems Constitutional: COMPLAINS OF: Fatigue, Dizziness, DENIES: Diaphoretic episodes , Fever, Weight gain, Weight loss, Chills Endocrine: DENIES: Heat/cold intolerance, Polydipsia, Polyuria Eyes: DENIES: Blurred vision, Diplopia, Eye inflammation, Eye pain Ears, nose, mouth, throat: DENIES: Tinnitus, Hearing loss, Vertigo Respiratory: DENIES: Apneas, Cough, Snoring Cardiovascular: DENIES: Chest pain, Palpitations, Syncope Gastrointestinal: COMPLAINS OF: Abdominal pain, Nausea, Vomiting, DENIES: Black stools, Bloody stools, Constipation, Diarrhea Genitourinary: DENIES: Sexual dysfunction, Urinary frequency Musculoskeletal: DENIES: Joint pain, Muscle aches, Stiffness Integumentary: DENIES: Abnormal pigmentation, Nail changes Hematologic/lymphatic: DENIES: Bruising, Lymphadenopathy Immunologic/allergic: DENIES: Eczema, Urticaria Neurologic: DENIES: Abnormal gait, Headache, Localized weakness, Paresthesias, Seizures Psychiatric: DENIES: Anxiety, Confusion, Mood changes, Depression Past Family Social History Past Medical History Paroxysmal atrial fibrillation HTN ESRD, on PD Pancreatitis Pancreatic mass with benign biopsy 2013 Anxiety Hyperlipidemia HCV, tx naive CVA Past Surgical History Appendectomy PPM Placement PD catheter placement Loop monitor Cholecystectomy Tonsillectomy EGD Cardiac ablation x 2 Reported Medications Reported Meds & Active Scripts Active Zofran Odt (Ondansetron Odt) 4 Mg Tab 4 Mg SL Q6HR PRN Coumadin (Warfarin) 5 Mg Tab 5 Mg PO DAILY Hold Coumadin for 2 days or until cleared by PCP. Repeat INR in 2 days. Reported Tiazac (Diltiazem ER 24 HR) 120 Mg Caper 120 Mg PO DAILY Metoprolol Succinate ER 24 HR (Metoprolol Succinate) 100 Mg Tab 100 Mg PO DAILY Tamsulosin (Tamsulosin HCl) 0.4 Mg Cap 0.4 Mg PO HS Calcitriol 0.5 Mcg Cap 0.5 Mcg PO DAILY Ropinirole 0.25 Mg Tab 0.25 Mg PO HS Renvela (Sevelamer Carbonate) 800 Mg Tab 1,600 Mg PO TID Dialyvite 800 (B-Complex W/ C & Folic Acid) 1 Tab 800 Mg PO Allergies: Coded Allergies: Iodinated Contrast- Oral and IV Dye (Verified Allergy, Severe, 06/15/17) diatrizoate meglumine (Unverified Allergy, Mild, Itching, 06/15/17) STATES AFTER IV CONTRAST FROM LAST HOSPITAL VISIT WAS ITCHY FOR 10 DAYS WITH BAD HEARTBURN gadobenic acid (Unverified Allergy, Mild, Itching, 06/15/17) STATES AFTER IV CONTRAST FROM LAST HOSPITAL VISIT WAS ITCHY FOR 10 DAYS WITH BAD HEARTBURN gadodiamide (Unverified Allergy, Mild, Itching, 06/15/17) STATES AFTER IV CONTRAST FROM LAST HOSPITAL VISIT WAS ITCHY FOR 10 DAYS WITH BAD HEARTBURN gadoteridol (Unverified Allergy, Mild, Itching, 06/15/17) STATES AFTER IV CONTRAST FROM LAST HOSPITAL VISIT WAS ITCHY FOR 10 DAYS WITH BAD HEARTBURN iodixanol (Unverified Allergy, Mild, Itching, 06/15/17) STATES AFTER IV CONTRAST FROM LAST HOSPITAL VISIT WAS ITCHY FOR 10 DAYS WITH BAD HEARTBURN iohexol (Unverified Allergy, Mild, Itching, 06/15/17) STATES AFTER IV CONTRAST FROM LAST HOSPITAL VISIT WAS ITCHY FOR 10 DAYS WITH BAD HEARTBURN Active Ordered Medications Current Medications Sodium Chloride (NS Flush) 2 ml UNSCH PRN IVF FLUSH AFTER USING IV ACCESS; Start 06/15/17 at 05:15 Sodium Chloride 250 ml @ 15 mls/hr ONCE ONCE IV Last administered on 05:20; Start 06/15/17 at 05:15; Stop 06/15/17 at 21:54 Sodium Chloride 1,000 ml @ 2,000 mls/hr Q30M ONCE IV Last administered on 05:19; Start 06/15/17 at 05:15; Stop 06/15/17 at 05:44; Status DC Norepinephrine Bitartrate 4 mg/ Sodium Chloride 250 ml @ 7.5 mls/hr TITRATE PRN IV Blood pressure management; Start 06/15/17 at 05:15 Terbutaline Sulfate (Brethine Inj) 1 mg UNSCH PRN SQ For Extravasation; Start 06/15/17 at 05:15 Sodium Chloride 250 ml @ 15 mls/hr ONCE ONCE IV Last administered on 06:26; Start 06/15/17 at 05:45; Stop 06/15/17 at 22:24 Ondansetron HCl (Zofran Inj) 4 mg ONCE ONCE IV Last administered on 06:41; Start 06/15/17 at 06:45; Stop 06/15/17 at 06:46; Status DC Calcitriol (Rocaltrol) 0.5 mcg DAILY PO ; Start 06/15/17 at 09:00 Diltiazem HCl (Cardizem Cd) 120 mg DAILY PO ; Start 06/15/17 at 09:00 Ondansetron HCl (Zofran Odt) 4 mg Q6HR PRN SL Nausea/Vomiting; Start at 08:15 Ropinirole HCl (Requip) 0.25 mg HS PO ; Start 06/15/17 at 21:00 Sevelamer Carbonate (Renvela) 1,600 mg TID PO ; Start 06/15/17 at 09:00 Tamsulosin HCl (Flomax) 0.4 mg HS PO ; Start 06/15/17 at 21:00 Metoprolol Succinate (Toprol Xl) 100 mg DAILY PO ; Start 06/15/17 at 09:00 Sodium Chloride (NS Flush) 2 ml UNSCH PRN IV FLUSH FLUSH AFTER USING IV ACCESS ; Start 06/15/17 at 08:15 Sodium Chloride (NS Flush) 2 ml BID IV FLUSH Last administered on 06/15/17 09 :25; Start 06/15/17 at 09:00 Pantoprazole Sodium (Protonix Inj) 40 mg BID IV PUSH Last administered on 06/15 09:48; Start 06/15/17 at 09:00 Ondansetron HCl (Zofran Inj) 4 mg Q6H PRN IV PUSH NAUSEA OR VOMITING; Start at 08:15 Sodium Chloride (NS Flush) 2 ml UNSCH PRN IV FLUSH FLUSH AFTER USING IV ACCESS ; Start 06/15/17 at 08:15 Sodium Chloride (NS Flush) 2 ml BID IV FLUSH ; Start 06/15/17 at 09:00 Acetaminophen (Tylenol) 650 mg Q4H PRN PO TEMP > 100.4; Start 06/15/17 at 08: 15 Prochlorperazine (Compazine Supp) 25 mg Q12H PRN RECTAL NAUSEA OR VOMITING; Start 06/15/17 at 08:15 Acetaminophen (Tylenol) 650 mg Q6H PRN PO PAIN SCALE 1 TO 2 Last administered on 06/15/17t 09:49; Start 06/15/17 at 08:15 Oxycodone/ Acetaminophen (Percocet 5-325 Mg) 1 tab Q6H PRN PO PAIN SCALE 3 TO 5; Start 06/15/17 at 08:15 Oxycodone/ Acetaminophen (Percocet 10-325 Mg) 1 tab Q6H PRN PO PAIN SCALE 6 TO 10; Start 06/15/17 at 08:15 Morphine Sulfate (Morphine Inj) 2 mg Q3H PRN IV PUSH Pain 3-5; if unable to take PO; Start 06/15/17 at 08:15 Morphine Sulfate (Morphine Inj) 4 mg Q3H PRN IV PUSH Pain 6-10;if unable to take PO; Start 06/15/17 at 08:15 Naloxone HCl (Narcan Inj) 0.4 mg UNSCH PRN IV PUSH SEE LABEL COMMENTS; Start 06/15/17 at 08:15 Senna/Docusate Sodium (Aidee-Colace) 1 tab BID PO ; Start 06/15/17 at 09:00 Magnesium Hydroxide (Milk Of Magnesia Liq) 30 ml Q12H PRN PO Mild constipation ; Start 06/15/17 at 08:15 Sennosides (Senokot) 17.2 mg Q12H PRN PO Moderate constipation; Start at 08:15 Bisacodyl (Dulcolax Supp) 10 mg DAILY PRN RECTAL SEVERE CONSITIPATION; Start 06/15/17 at 08:15 Lactulose (Lactulose Liq) 30 ml DAILY PRN PO SEVERE CONSITIPATION; Start 06/15 at 08:15 Polyethylene Glycol/ Electrolytes (Colyte Liq) 4,000 ml ONCE ONCE PO ; Start 06/15/17 at 16:00; Stop 06/15/17 at 16:01 Family History Sister with cardiac disease, maternal grandmother with dm, paternal grandfather with cardiac issues, paternal grandmother with lung cancer Social History 1/2 PPD. No ETOH or illicit drug use. Physical Exam Vital Signs Vital Signs Date Time Temp Pulse Resp B/P (MAP) Pulse Ox O2 Delivery O2 Flow Rate FiO2 06/15/17 10:07 06/15/17 08:28 100 21 06/15/17 07:43 75 14 119/71 (87) 100 Room Air 06/15/17 06:22 98.1 62 21 114/59 100 06/15/17 06:07 97.9 64 20 133/68 100 06/15/17 05:32 97.7 67 31 96/55 100 06/15/17 05:21 100 Room Air 06/15/17 05:17 97.5 66 28 98/57 100 06/15/17 05:02 71 26 100 Room Air 06/15/17 04:57 97.5 65 26 77/50 (59) 100 Physical Exam GENERAL: This is a well-nourished, well-developed patient, in no apparent distress. SKIN: No rashes, ecchymoses or lesions. Cool and dry. RIGHT FOOT ON PLANTAR ASPECT AT BASE OF 3RD/4TH DIGIT AREA WITH INDURATION AND DISCOLORATION- NOT OPEN HEAD: Atraumatic. Normocephalic. No temporal or scalp tenderness. EYES: Pupils equal round and reactive. Extraocular motions intact. No scleral icterus. No injection or drainage. ENT: Nose without bleeding, purulent drainage or septal hematoma. Throat without erythema, tonsillar hypertrophy or exudate. Uvula midline. Airway patent. NECK: Trachea midline. No JVD or lymphadenopathy. Supple, nontender, no meningeal signs. CARDIOVASCULAR: Regular rate and rhythm without murmurs, gallops, or rubs. RESPIRATORY: Clear to auscultation. Breath sounds equal bilaterally. No wheezes , rales, or rhonchi. GASTROINTESTINAL: Abdomen soft, non-tender, nondistended. No hepato-splenomegaly , or palpable masses. No guarding. 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 No joint tenderness, effusion, or edema noted. No calf tenderness. Negative Homans sign bilaterally. NEUROLOGICAL: Awake and alert. Cranial nerves II through XII intact. Motor and sensory grossly within normal limits. Five out of 5 muscle strength in all muscle groups. Normal speech. INSIGHT AND JUDGEMENT ARE GOOD MOOD AND BEHAVIOR ARE APPROPRIATE Laboratory Laboratory Tests Test 06/15/17 05:20 White Blood Count 11.4 Red Blood Count 2.70 Hemoglobin 8.7 Hematocrit 25.6 Mean Corpuscular Volume 94.8 Mean Corpuscular Hemoglobin 32.1 Mean Corpuscular Hemoglobin Concent 33.9 Red Cell Distribution Width 13.1 Platelet Count 182 Mean Platelet Volume 7.5 Neutrophils (%) (Auto) 50.0 Lymphocytes (%) (Auto) 37.5 Monocytes (%) (Auto) 10.2 Eosinophils (%) (Auto) 0.9 Basophils (%) (Auto) 1.4 Neutrophils # (Auto) 5.7 Lymphocytes # (Auto) 4.3 Monocytes # (Auto) 1.2 Eosinophils # (Auto) 0.1 Basophils # (Auto) 0.2 CBC Comment DIFF FINAL Differential Comment Prothrombin Time 18.1 Prothromb Time International Ratio 1.6 Activated Partial Thromboplast Time 24.1 Blood Gas Puncture Site RT BRACHIAL Blood Gas Patient Temperature 98.6 Blood Gas HCO3 16 Blood Gas Base Excess -7.7 Blood Gas Oxygen Saturation 94 Arterial Blood pH 7.44 Arterial Blood Partial Pressure CO2 24 Arterial Blood Partial Pressure O2 81 Arterial Blood Oxygen Content 11.2 Arterial Blood Carboxyhemoglobin 2.7 Arterial Blood Methemoglobin 0.6 Blood Gas Hemoglobin 8.4 Oxygen Delivery Device ROOM AIR Blood Gas Inspired Oxygen 21 Blood Urea Nitrogen 68 Creatinine 7.00 Random Glucose 125 Total Protein 5.1 Albumin 2.1 Calcium Level 7.4 Magnesium Level 2.0 Alkaline Phosphatase 55 Aspartate Amino Transf (AST/SGOT) 22 Alanine Aminotransferase (ALT/SGPT) 33 Total Bilirubin 0.5 Sodium Level 142 Potassium Level 4.2 Chloride Level 111 Carbon Dioxide Level 18.3 Anion Gap 13 Estimat Glomerular Filtration Rate 8 Lactic Acid Level 2.4 Protein Corrected Calcium 8.5 Total Creatine Kinase 55 Troponin I LESS THAN 0.02 B-Type Natriuretic Peptide 35 Lipase 280 Date/Time Source Procedure Growth Status 06/15/17 05:20 Blood Peripheral Aerobic Blood Culture Pending Received 06/15/17 05:20 Blood Peripheral Anaerobic Blood Culture Pending Received Result Diagram: 06/15/17 0520 06/15/17 0520 Imaging Last Impressions Chest X-Ray 06/15/17 0503 Signed Impressions: Service Date/Time: Thursday, June 15, 2017 05:06 - CONCLUSION: 1. No acute cardiopulmonary disease. Franklin Espinal MD Abdomen/Pelvis CT 06/15/17 0000 Signed Impressions: Service Date/Time: Thursday, June 15, 2017 06:53 - CONCLUSION: 1. Continued evidence of mild acute and chronic pancreatitis in the head of the pancreas. 2. Hepatosplenomegaly 3. Status post cholecystectomy 4. No other acute abnormalities. Saeed Al MD Caprini VTE Risk Assessment Caprini VTE Risk Assessment: Mod/High Risk (score >= 2) Caprini Risk Assessment Model Point Value = 1 Point Value = 2 Point Value = 3 Point Value = 5 Age 41-60 Minor surgery BMI > 25 kg/m2 Swollen legs Varicose veins or History of unexplained or recurrent spontaneous Oral contraceptives or hormone replacement Sepsis (< 1 month) Serious lung disease, including pneumonia (< 1 month) Abnormal pulmonary function Acute myocardial infarction Congestive heart failure (< 1 month) History of inflammatory bowel disease Medical patient at bed rest Age 61-74 Arthroscopic surgery Major open surgery (> 45 min) Laparoscopic surgery (> 45 min) Malignancy Confined to bed (> 72 hours) Immobilizing plaster cast Central venous access Age >= 75 History of VTE Family history of VTE Factor V Leiden Prothrombin [id number] Lupus anticoagulant Anticardiolipin antibodies Elevated serum homocysteine Heparin-induced thrombocytopenia Other congenital or acquired thrombophilia Stroke (< 1 month) Elective arthroplasty Hip, pelvis, or leg fracture Acute spinal cord injury (< 1 month) Prophylaxis Regimen Total Risk Factor Score Risk Level Prophylaxis Regimen 0-1 Low Early ambulation 2 Moderate Order ONE of the following: *Sequential Compression Device (SCD) *Heparin 5000 units SQ BID 3-4 Higher Order ONE of the following medications: *Heparin 5000 units SQ TID *Enoxaparin/Lovenox 40 mg SQ daily (WT < 150 kg, CrCl > 30 mL/min) *Enoxaparin/Lovenox 30 mg SQ daily (WT < 150 kg, CrCl > 10-29 mL/min) *Enoxaparin/Lovenox 30 mg SQ BID (WT < 150 kg, CrCl > 30 mL/min) AND/OR *Sequential Compression Device (SCD) 5 or more Highest Order ONE of the following medications: *Heparin 5000 units SQ TID (Preferred with Epidurals) *Enoxaparin/Lovenox 40 mg SQ daily (WT < 150 kg, CrCl > 30 mL/min) *Enoxaparin/Lovenox 30 mg SQ daily (WT < 150 kg, CrCl > 10-29 mL/min) *Enoxaparin/Lovenox 30 mg SQ BID (WT < 150 kg, CrCl > 30 mL/min) AND *Sequential Compression Device (SCD) Assessment and Plan Problem List: (1) ESRD on peritoneal dialysis ICD Code: N18.6 - End stage renal disease; Z99.2 - Dependence on renal dialysis Status: Acute (2) Atypical chest pain ICD Code: R07.89 - Other chest pain Status: Resolved (3) Abdominal pain ICD Code: R10.9 - Abdominal pain Status: Acute (4) HTN (hypertension) ICD Code: I10 - Hypertension Status: Chronic (5) Acute on chronic pancreatitis ICD Code: K85.90 - Acute pancreatitis without necrosis or infection, unspecified; K86.1 - Other chronic pancreatitis Status: Acute (6) Hypotension arterial ICD Code: I95.9 - Hypotension, unspecified Status: Acute (7) Tobacco abuse ICD Code: Z72.0 - Tobacco use Status: Chronic (8) GI bleed ICD Code: K92.2 - Gastrointestinal hemorrhage, unspecified Status: Acute (9) Anemia ICD Code: D64.9 - Anemia, unspecified Status: Acute (10) Acute pancreatitis ICD Code: K85.9 - Acute pancreatitis Status: Acute (11) HCV (hepatitis C virus) ICD Code: B19.20 - Viral hepatitis C Status: Acute (12) S/P cardiac pacemaker procedure ICD Code: Z95.0 - Presence of cardiac pacemaker Status: Acute Assessment and Plan ASSESSMENT: - GIB, Hemoccult positive stool. HH dropped from 13.8/40.3 on 06/10 to 8.7/ 25.6 on admission. No obvious bleeding. Hemoccult (+). No NSAIDs, No ETOH. Is on coumadin, last took yesterday- INR < 2.0. HAS BEEN TRANSFUSED 2 UNITS PRBC -- PPI BID. Plan for EGD/Colonoscopy in am - Anemia with drop in Hgb. S/P 2 units PRBC. AM LABS - Acute on chronic Pancreatitis, unclear etiology. Hx of pancreatitis, undetermined etiology. Hx of pancreatic mass with benign path. 2012. He was seen in the ER on 06/[address] scan abdomen and pelvis at that time noted acute pancreatitis without ductal dilatation and he was discharged home on a clear liquid diet with Lortab and Zofran. Pain has improved, continues to have nausea. CT Scan abdomen and pelvis (07/20)---> Continued evidence of mild acute and chronic pancreatitis in the head of the pancreas. Hepatosplenomegaly. S/P Cholecystectomy. No other acute abnormalities. Lipase 280. Seems to be improving. - HCV. Tx naive. - Atypical chest pain. RESOLVED. Of note, he has recently been evaluated by cardiology for atypical chest pain and they did not feel this was suggestive of ischemia given a prior negative SPECT in the past year as outpatient. 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 - ESRD, on PD. CONSULT RENAL - P. Afib HOLD COUMADIN AT THIS TIME HTN RESTART MEDS Anxiety HOME MEDS Hyperlipidemia HOME MEDS Hx CVA. Coumadin on hold. HEADACHE- PRN PAIN CONTROL PLAN: - Plan for egd/colonoscopy in am PER GI - Clear liquids - Protonix 40mg IV BID - CBC, CMP, INR in am - Lipid profile - Coumadin is on hold RESUME OTHER HOME MEDICATIONS CONTINUE PAIN CONTROL - Code Status FULL CODE Discussed Condition With ER PHYSICIAN AND RN AND PT Problem Qualifiers (1) Hypotension arterial: Qualified Codes: I95.9 - Hypotension, unspecified (2) GI bleed: Qualified Codes: K92.2 - Gastrointestinal hemorrhage, unspecified (3) Anemia: Qualified Codes: D64.9 - Anemia, unspecified Brenden Olivarez DO Jun 15, 2017 10:26
[2017-06-15] MEDS: CALCITRIOL 0.25 MCG CAP PO SCH (11:07)
[2017-06-15] MEDS: DOCUSATE SODIUM 50 MG/SENNA 8.6 MG TAB PO SCH ×2 (11:07→21:33)
[2017-06-15] MEDS: DILTIAZEM-CD 120 MG CAP ER PO SCH (11:07)
[2017-06-15 11:10] LABS: HEMATOCRIT 29.1 % (39.0-51.0); REVIEW FLAG FINAL
[2017-06-15 11:36] LABS: HDL CHOLESTEROL 26.3 MG/DL (40.0-60.0)
--- NOTE | 2017-06-15 13:19 | EKG ---
Date Performed: 06/15/2017 Time Performed: 04:57:42 PTAGE: 67 years EKG: Sinus rhythm MINIMAL ST DEPRESSION BORDERLINE ECG Compared to PREVIOUS TRACING , the minimal ST depression is unchanged. PREVIOUS TRACIN06/10/2017 2 1.52 DOCTOR: Den Elizaebth Interpretating Date/Time 06/15/2017 13:18:09
[2017-06-15] MEDS ORDERED: SODIUM CHLORID 0.9% 500 ML IV PRN (14:30)
[2017-06-15] MEDS ORDERED: METOPROLOL TARTRATE 25 MG TAB PO PRN (14:30)
[2017-06-15] MEDS ORDERED: LACTATED RINGER'S 1000 ML IV PRN (14:30)
[2017-06-15] MEDS ORDERED: POVIDONE IODINE 5% (ANTISEPSIS KIT) 4 APPLICATIONS EACH NARE PRN (15:00)
[2017-06-15] MEDS ORDERED: CHLORHEXIDINE GLUCONATE 2 % 1 PACK (2 CLOTHS) TOPICAL PRN (15:00)
[2017-06-15] MEDS ORDERED: HEPARIN SODIUM - IV 10,000 UNITS/10 ML VIAL XX PRN (15:30)
[2017-06-15 15:39] LABS: HEMATOCRIT 25.3 % (39.0-51.0); REVIEW FLAG FINAL
[2017-06-15] MEDS ORDERED: PEG (High)/E-LYTE SOLN 4000 ML BTL PO ONE (16:00)
--- NOTE | 2017-06-15 16:58 | PD.CONS ---
HPI Service Nephrology Consult Requested By Dr. Stevens Reason for Consult ESRD Primary Care Physician Griffin Her MD History of Present Illness 67 year old on PD who became lightheaded and had chest pains he came in with these complaints and found to have anemia he says his blood pressure was low use 1.5 alternating with 2.5 and at times gets dizzy, he was told to use the 1.5 on alternate days use 1.5 and 2.5 Dialysate few days a week He is being admitted and he is scheduled to undergo colonoscopy due to anemia Review of Systems Constitutional: COMPLAINS OF: Fatigue, Dizziness Neurologic: COMPLAINS OF: Headache Psychiatric: COMPLAINS OF: Mood changes Past Family Social History Allergies: Coded Allergies: Iodinated Contrast- Oral and IV Dye (Verified Allergy, Severe, Itching, ) patient states that he only has itching when he drinks the contrast or has it iv. Patient states he does not have a reaction to topical iodine. diatrizoate meglumine (Unverified Allergy, Mild, Itching, 06/15/17) STATES AFTER IV CONTRAST FROM LAST HOSPITAL VISIT WAS ITCHY FOR 10 DAYS WITH BAD HEARTBURN gadobenic acid (Unverified Allergy, Mild, Itching, 06/15/17) STATES AFTER IV CONTRAST FROM LAST HOSPITAL VISIT WAS ITCHY FOR 10 DAYS WITH BAD HEARTBURN gadodiamide (Unverified Allergy, Mild, Itching, 06/15/17) STATES AFTER IV CONTRAST FROM LAST HOSPITAL VISIT WAS ITCHY FOR 10 DAYS WITH BAD HEARTBURN gadoteridol (Unverified Allergy, Mild, Itching, 06/15/17) STATES AFTER IV CONTRAST FROM LAST HOSPITAL VISIT WAS ITCHY FOR 10 DAYS WITH BAD HEARTBURN iodixanol (Unverified Allergy, Mild, Itching, 06/15/17) STATES AFTER IV CONTRAST FROM LAST HOSPITAL VISIT WAS ITCHY FOR 10 DAYS WITH BAD HEARTBURN iohexol (Unverified Allergy, Mild, Itching, 06/15/17) STATES AFTER IV CONTRAST FROM LAST HOSPITAL VISIT WAS ITCHY FOR 10 DAYS WITH BAD HEARTBURN Past Medical History Paroxysmal atrial fibrillation HTN ESRD, on PD Pancreatitis Pancreatic mass with benign biopsy 2012 Anxiety Hyperlipidemia HCV, tx naive CVA Past Surgical History Appendectomy PPM Placement PD catheter placement Loop monitor Cholecystectomy Tonsillectomy EGD Cardiac ablation x 2 Reported Medications Reported Meds & Active Scripts Active Zofran Odt (Ondansetron Odt) 4 Mg Tab 4 Mg SL Q6HR PRN Coumadin (Warfarin) 5 Mg Tab 5 Mg PO DAILY Hold Coumadin for 2 days or until cleared by PCP. Repeat INR in 2 days. Reported Tiazac (Diltiazem ER 24 HR) 120 Mg Caper 120 Mg PO DAILY Metoprolol Succinate ER 24 HR (Metoprolol Succinate) 100 Mg Tab 100 Mg PO DAILY Tamsulosin (Tamsulosin HCl) 0.4 Mg Cap 0.4 Mg PO HS Calcitriol 0.5 Mcg Cap 0.5 Mcg PO DAILY Ropinirole 0.25 Mg Tab 0.25 Mg PO HS Renvela (Sevelamer Carbonate) 800 Mg Tab 1,600 Mg PO TID Dialyvite 800 (B-Complex W/ C & Folic Acid) 1 Tab 800 Mg PO Active Ordered Medications Current Medications Medications (Trade) Dose Ordered Sig/Maximus Route Start Time Stop Time Status Last Admin (NS Flush) 2 ml UNSCH PRN IVF 06/15/17 05:15 Sodium Chloride 250 ml @ 15 mls/hr ONCE ONCE IV 06/15/17 05:15 06/15/17 21:54 06/15/17 05:20 Norepinephrine Bitartrate 4 mg/ Sodium Chloride 250 ml @ 7.5 mls/hr TITRATE PRN IV 06/15/17 05:15 (Brethine Inj) 1 mg UNSCH PRN SQ 06/15/17 05:15 Sodium Chloride 250 ml @ 15 mls/hr ONCE ONCE IV 06/15/17 05:45 06/15/17 22:24 06/15/17 06:26 (Rocaltrol) 0.5 mcg DAILY PO 06/15/17 09:00 06/15/17 11:07 (Cardizem Cd) 120 mg DAILY PO 06/15/17 09:00 06/15/17 11:07 (Zofran Odt) 4 mg Q6HR PRN SL 06/15/17 08:15 (Requip) 0.25 mg HS PO 06/15/17 21:00 (Renvela) 1,600 mg TID PO 06/15/17 09:00 06/15/17 12:07 (Flomax) 0.4 mg HS PO 06/15/17 21:00 (Toprol Xl) 100 mg DAILY PO 06/15/17 09:00 (NS Flush) 2 ml UNSCH PRN IV FLUSH 06/15/17 08:15 (NS Flush) 2 ml BID IV FLUSH 06/15/17 09:00 06/15/17 09:25 (Protonix Inj) 40 mg BID IV PUSH 06/15/17 09:00 06/15/17 09:48 (Zofran Inj) 4 mg Q6H PRN IV PUSH 06/15/17 08:15 (NS Flush) 2 ml UNSCH PRN IV FLUSH 06/15/17 08:15 (NS Flush) 2 ml BID IV FLUSH 06/15/17 09:00 (Tylenol) 650 mg Q4H PRN PO 06/15/17 08:15 (Compazine Supp) 25 mg Q12H PRN RECTAL 06/15/17 08:15 (Tylenol) 650 mg Q6H PRN PO 06/15/17 08:15 06/15/17 09:49 (Percocet 5-325 Mg) 1 tab Q6H PRN PO 06/15/17 08:15 (Percocet 10-325 Mg) 1 tab Q6H PRN PO 06/15/17 08:15 (Morphine Inj) 2 mg Q3H PRN IV PUSH 06/15/17 08:15 (Morphine Inj) 4 mg Q3H PRN IV PUSH 06/15/17 08:15 (Narcan Inj) 0.4 mg UNSCH PRN IV PUSH 06/15/17 08:15 (Aidee-Colace) 1 tab BID PO 06/15/17 09:00 06/15/17 11:07 (Milk Of Magnesia Liq) 30 ml Q12H PRN PO 06/15/17 08:15 (Senokot) 17.2 mg Q12H PRN PO 06/15/17 08:15 (Dulcolax Supp) 10 mg DAILY PRN RECTAL 06/15/17 08:15 (Lactulose Liq) 30 ml DAILY PRN PO 06/15/17 08:15 Lactated Ringer's 1,000 ml @ 30 mls/hr Q24H PRN IV 06/15/17 14:30 06/18/17 14:29 Sodium Chloride 500 ml @ 30 mls/hr [id number] PRN IV 06/15/17 14:30 06/18/17 14:29 (Lopressor) 25 mg TAX TECHNICIAN PRN PO 06/15/17 14:30 06/18/17 14:29 (Betadine 5% Antisepsis Kit) 1 applic TAX TECHNICIAN PRN EACH NARE 06/15/17 15:00 06/18/17 14:59 (Chlorhexidine 2% Cloth) 3 pack TAX TECHNICIAN PRN TOPICAL 06/15/17 15:00 06/18/17 14:59 (Heparin Inj) 1,000 units WITH DIALYSIS PRN XX 06/15/17 15:30 (NS Flush) 10 ml UNSCH PRN IV FLUSH 06/15/17 15:30 Family History Noncontributory Social History History of smoking in the past Physical Exam Vital Signs Vital Signs Date Time Temp Pulse Resp B/P (MAP) Pulse Ox O2 Delivery O2 Flow Rate FiO2 06/15/17 15:55 97.7 74 18 122/58 (79) 100 06/15/17 11:15 97.8 82 18 122/68 (86) 99 06/15/17 10:07 06/15/17 08:28 100 21 06/15/17 07:43 75 14 119/71 (87) 100 Room Air 06/15/17 06:22 98.1 62 21 114/59 100 06/15/17 06:07 97.9 64 20 133/68 100 06/15/17 05:32 97.7 67 31 96/55 100 06/15/17 05:21 100 Room Air 06/15/17 05:17 97.5 66 28 98/57 100 06/15/17 05:02 71 26 100 Room Air 06/15/17 04:57 97.5 65 26 77/50 (59) 100 Physical Exam GENERAL: Well-nourished, well-developed patient. SKIN: Warm and dry. HEAD: Normocephalic. EYES: No scleral icterus. No injection or drainage. NECK: Supple, trachea midline. No JVD or lymphadenopathy. CARDIOVASCULAR: Regular rate and rhythm without murmurs, gallops, or rubs. RESPIRATORY: Breath sounds equal bilaterally. No accessory muscle use. GASTROINTESTINAL: Abdomen soft, non-tender, nondistended. Tenckhoff catheter in place EXTREMITIES: No cyanosis, or edema. NEUROLOGICAL: Awake, alert, and oriented x 3. Non-focal. Laboratory Laboratory Tests Test 06/15/17 05:20 06/15/17 10:50 06/15/17 15:12 White Blood Count 11.4 Red Blood Count 2.70 Hemoglobin 8.7 9.8 9.0 Hematocrit 25.6 29.1 25.3 Mean Corpuscular Volume 94.8 Mean Corpuscular Hemoglobin 32.1 Mean Corpuscular Hemoglobin Concent 33.9 Red Cell Distribution Width 13.1 Platelet Count 182 Mean Platelet Volume 7.5 Neutrophils (%) (Auto) 50.0 Lymphocytes (%) (Auto) 37.5 Monocytes (%) (Auto) 10.2 Eosinophils (%) (Auto) 0.9 Basophils (%) (Auto) 1.4 Neutrophils # (Auto) 5.7 Lymphocytes # (Auto) 4.3 Monocytes # (Auto) 1.2 Eosinophils # (Auto) 0.1 Basophils # (Auto) 0.2 CBC Comment DIFF FINAL Differential Comment Prothrombin Time 18.1 Prothromb Time International Ratio 1.6 Activated Partial Thromboplast Time 24.1 Blood Gas Puncture Site RT BRACHIAL Blood Gas Patient Temperature 98.6 Blood Gas HCO3 16 Blood Gas Base Excess -7.7 Blood Gas Oxygen Saturation 94 Arterial Blood pH 7.44 Arterial Blood Partial Pressure CO2 24 Arterial Blood Partial Pressure O2 81 Arterial Blood Oxygen Content 11.2 Arterial Blood Carboxyhemoglobin 2.7 Arterial Blood Methemoglobin 0.6 Blood Gas Hemoglobin 8.4 Oxygen Delivery Device ROOM AIR Blood Gas Inspired Oxygen 21 Blood Urea Nitrogen 68 Creatinine 7.00 Random Glucose 125 Total Protein 5.1 Albumin 2.1 Calcium Level 7.4 Magnesium Level 2.0 Alkaline Phosphatase 55 Aspartate Amino Transf (AST/SGOT) 22 Alanine Aminotransferase (ALT/SGPT) 33 Total Bilirubin 0.5 Sodium Level 142 Potassium Level 4.2 Chloride Level 111 Carbon Dioxide Level 18.3 Anion Gap 13 Estimat Glomerular Filtration Rate 8 Lactic Acid Level 2.4 1.0 Protein Corrected Calcium 8.5 Total Creatine Kinase 55 148 205 Troponin I LESS THAN 0.02 0.02 0.02 B-Type Natriuretic Peptide 35 Lipase 280 Triglycerides Level 213 Cholesterol Level 106 LDL Cholesterol 37 HDL Cholesterol 26.3 Cholesterol/HDL Ratio 4.03 Date/Time Source Procedure Growth Status 06/15/17 05:20 Blood Peripheral Aerobic Blood Culture Pending Received 06/15/17 05:20 Blood Peripheral Anaerobic Blood Culture Pending Received Result Diagram: 06/15/17 1512 06/15/17 0520 Imaging Last Impressions Chest X-Ray 06/15/17 0503 Signed Impressions: Service Date/Time: Thursday, June 15, 2017 05:06 - CONCLUSION: 1. No acute cardiopulmonary disease. Franklin Espinal MD Abdomen/Pelvis CT 06/15/17 0000 Signed Impressions: Service Date/Time: Thursday, June 15, 2017 06:53 - CONCLUSION: 1. Continued evidence of mild acute and chronic pancreatitis in the head of the pancreas. 2. Hepatosplenomegaly 3. Status post cholecystectomy 4. No other acute abnormalities. Saeed Al MD Assessment and Plan Problem List: (1) ESRD (end stage renal disease) on dialysis ICD Codes: N18.6 - End stage renal failure on dialysis; Z99.2 - Dependence on renal dialysis Status: Chronic Plan: On peritoneal dialysis this will be resumed tonight continue to observe he is undergoing preparation for colonoscopy Use 1.5% Continue to monitor his blood pressure (2) HTN (hypertension) ICD Codes: I10 - Hypertension Status: Chronic Plan: Blood pressure drops frequently (3) Anemia ICD Codes: D64.9 - Anemia, unspecified Status: Acute Plan: Going to have colonoscopy Michelle Bird MD Jun 15, 2017 16:57
--- NOTE | 2017-06-15 16:59 | OTSOAPIP ---
TIME SESSION COMPLETED: AM TREATMENT TIME: 0 MINS. CHART REVIEWED. ATTEMPTED TO SEE FOR OT HOWEVER HAVING A PROCEDURE IN ROOM. WILL FOLLOW TOMORROW. Therapist: RANDELL GAUTAM OT/Tadeo Signature on file
[2017-06-15] MEDS: TAMSULOSIN HCL 0.4 MG CAP PO SCH (21:33)
[2017-06-15 23:00] LABS: HEMATOCRIT 28.3 % (39.0-51.0); REVIEW FLAG FINAL
[2017-06-16 04:49] VITALS: BP 105/66; PULSE 94; RESP 18; TEMP 98.1; O2SAT 100
[2017-06-16 05:18] LABS: AUTOMATED NEUTROPHIL # 4.2 TH/MM3 (1.8-7.7); BASOPHIL # 0.1 TH/MM3 (0-0.2); BASOPHIL % 0.9 % (0.0-2.0); EOSINOPHIL # 0.2 TH/MM3 (0-0.4); EOSINOPHIL % 2.3 % (0.0-4.0); HEMATOCRIT 26.4 % (39.0-51.0); HEMO FLAGS DIFF FINAL; LYMPH % 39.4 % (9.0-44.0); LYMPHOCYTE # 3.2 TH/MM3 (1.0-4.8); MEAN CELL VOLUME 92.5 FL (80.0-100.0); MEAN CORPUSCULAR HEMOGLOBIN 31.5 PG (27.0-34.0); MONO % 5.7 % (0.0-8.0); NEUT % 51.7 % (16.0-70.0); PLATELET COUNT 179 TH/MM3 (150-450); RED BLOOD COUNT 2.85 MIL/MM3 (4.50-5.90); RED CELL DISTRIBUTION WIDTH 14.1 % (11.6-17.2); WHITE BLOOD COUNT 8.2 TH/MM3 (4.0-11.0)
[2017-06-16 05:28] LABS: INTERNATIONAL NORMALIZED RATIO 1.3 RATIO; PROTHROMBIN TIME - PATIENT 14.4 SEC (9.8-11.6)
[2017-06-16 05:47] LABS: ALKALINE PHOSPHATASE 59 U/L (45-117); ALT (GPT) 31 U/L (12-78); AMYLASE 31 U/L (25-115); ANION GAP 13 MEQ/L (5-15); AST (GOT) 19 U/L (15-37); BLOOD UREA NITROGEN 88 MG/DL (7-18); CHLORIDE 111 MEQ/L (98-107); FREE T4 0.93 NG/DL (0.76-1.46); GLOMERULAR FILTRATION RATE 9 ML/MIN (>89); POTASSIUM 3.7 MEQ/L (3.5-5.1); SODIUM (NA) 144 MEQ/L (136-145); TOTAL BILIRUBIN ADULT 0.3 MG/DL (0.2-1.0)
[2017-06-16 08:02] VITALS: BP 153/75; PULSE 91; RESP 20; TEMP 98.7; O2SAT 100
[2017-06-16] MEDS ORDERED: MORPHINE SULFATE 4 MG/ML INJ IV PUSH PRN (08:15)
[2017-06-16] MEDS ORDERED: WALKER WHEELS/F1 MIS (08:22)
[2017-06-16] MEDS: SEVELAMER CARBONATE 800 MG TAB PO SCH ×3 (09:00→18:09)
[2017-06-16] MEDS: SODIUM CHLORIDE 0.9% FLUSH 10 ML FLUSH IV FLUSH SCH ×4 (09:00→21:10)
[2017-06-16 10:01] VITALS: O2SAT 97
[2017-06-16] MEDS: PANTOPRAZOLE SODIUM 40 MG VIAL IV PUSH SCH ×2 (10:40→21:09)
[2017-06-16] MEDS: METOPROLOL SUCCINATE 50 MG EXTENDED RELEASE TAB PO SCH (10:42)
[2017-06-16] MEDS: DOCUSATE SODIUM 50 MG/SENNA 8.6 MG TAB PO SCH ×2 (10:43→21:09)
[2017-06-16] MEDS: CALCITRIOL 0.25 MCG CAP PO SCH (10:44)
[2017-06-16] MEDS: DILTIAZEM-CD 120 MG CAP ER PO SCH (10:45)
[2017-06-16 11:51] VITALS: BP 130/81; PULSE 92; RESP 18; O2SAT 100
[2017-06-16] MEDS ORDERED: LIDOCAINE HCL 1% PF 5 ML AMPULE OTHER ONE (12:00)
[2017-06-16] MEDS ORDERED: PHENYLEPH/NS 1000 MCG/10 ML SYR IV ONE (12:00)
[2017-06-16] MEDS ORDERED: PROPOFOL 200 MG/20 ML AMP IV ONE (12:00)
--- NOTE | 2017-06-16 12:59 | HHI.PR ---
Subjective Remarks F/U GIB and pancreatitis. No gross bleeding. Denies abdominal pain awaiting EGD discussed with RN Objective Vitals Vital Signs Date Time Temp Pulse Resp B/P (MAP) Pulse Ox O2 Delivery O2 Flow Rate FiO2 06/16/17 11:51 92 18 130/81 (97) 100 06/16/17 08:02 98.7 91 20 153/75 (101) 100 06/16/17 04:49 98.1 94 18 105/66 (79) 100 06/15/17 23:42 98.4 89 18 161/88 (112) 100 06/15/17 20:46 97 06/15/17 20:24 98.8 74 18 133/78 (96) 97 06/15/17 15:55 97.7 74 18 122/58 (79) 100 I/O 06/15/17 06/15/17 06/15/17 06/16/17 06/16/17 06/16/17 07:00 15:00 23:00 07:00 15:00 23:00 Intake Total 1700 ml 480 ml Output Total 640 ml 400 ml Balance 1700 ml -160 ml -400 ml Intake Oral 480 ml IV Total 1300 ml Packed Cells 400 ml Output Urine Total 640 ml 400 ml # Voids 4 # Bowel Movements 1 Result Diagram: 06/16/17 0435 06/16/17 0435 Imaging Last Impressions Chest X-Ray 06/15/17 0503 Signed Impressions: Service Date/Time: Thursday, June 15, 2017 05:06 - CONCLUSION: 1. No acute cardiopulmonary disease. Franklin Espinal MD Abdomen/Pelvis CT 06/15/17 0000 Signed Impressions: Service Date/Time: Thursday, June 15, 2017 06:53 - CONCLUSION: 1. Continued evidence of mild acute and chronic pancreatitis in the head of the pancreas. 2. Hepatosplenomegaly 3. Status post cholecystectomy 4. No other acute abnormalities. Saeed Al MD Objective Remarks GENERAL: This is a well-nourished, well-developed patient, in no apparent distress. SKIN: No rashes, ecchymoses or lesions. Cool and dry. Right foot on the plantar aspect at base of third and fourth digit with induration and discoloration CARDIOVASCULAR: Regular rate and rhythm without murmurs, gallops, or rubs. RESPIRATORY: Clear to auscultation. Breath sounds equal bilaterally. No wheezes , rales, or rhonchi. GASTROINTESTINAL: Abdomen soft, non-tender, nondistended. No guarding. PD catheter in place MUSCULOSKELETAL: Extremities without clubbing, cyanosis, or edema. No joint tenderness, effusion, or edema noted. No calf tenderness. Negative Homans sign bilaterally. NEUROLOGICAL: Awake and alert. Cranial nerves II through XII intact. Motor and sensory grossly within normal limits. Five out of 5 muscle strength in all muscle groups. Normal speech. A/P Problem List: (1) ESRD on peritoneal dialysis ICD Code: N18.6 - End stage renal disease; Z99.2 - Dependence on renal dialysis Status: Acute (2) Atypical chest pain ICD Code: R07.89 - Other chest pain Status: Resolved (3) Abdominal pain ICD Code: R10.9 - Abdominal pain Status: Acute (4) HTN (hypertension) ICD Code: I10 - Hypertension Status: Chronic (5) Acute on chronic pancreatitis ICD Code: K85.90 - Acute pancreatitis without necrosis or infection, unspecified; K86.1 - Other chronic pancreatitis Status: Acute (6) Hypotension arterial ICD Code: I95.9 - Hypotension, unspecified Status: Acute (7) Tobacco abuse ICD Code: Z72.0 - Tobacco use Status: Chronic (8) GI bleed ICD Code: K92.2 - Gastrointestinal hemorrhage, unspecified Status: Acute (9) Anemia ICD Code: D64.9 - Anemia, unspecified Status: Acute (10) Acute pancreatitis ICD Code: K85.9 - Acute pancreatitis Status: Acute (11) HCV (hepatitis C virus) ICD Code: B19.20 - Viral hepatitis C Status: Acute (12) S/P cardiac pacemaker procedure ICD Code: Z95.0 - Presence of cardiac pacemaker Status: Acute Assessment and Plan - GIB, Hemoccult positive stool. No active bleed. Continue PPI for EGD/ Colonoscopy - Anemia with drop in Hgb. S/P 2 units PRBC. Monitor - Acute on chronic Pancreatitis, unclear etiology. Hx of pancreatitis, undetermined etiology. Hx of pancreatic mass with benign path. 2012. He was seen in the ER on 06/[address] scan abdomen and pelvis at that time noted acute pancreatitis without ductal dilatation and he was discharged home on a clear liquid diet with Lortab and Zofran. Pain has improved CT Scan abdomen and pelvis (06/15/17)---> Continued evidence of mild acute and chronic pancreatitis in the head of the pancreas. Hepatosplenomegaly. S/P Cholecystectomy. No other acute abnormalities. Triglycerides 213 - HCV. Outpatient follow-up - Atypical chest pain. Resolved. Of note, he has recently been evaluated by cardiology for atypical chest pain and they did not feel this was suggestive of ischemia given a prior negative SPECT in the past year as outpatient. 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 - ESRD, on PD. Nephrology managing - P. Afib. Hold anticoagulation at this time HTN. Continue to monitor with home meds Hyperlipidemia. Stable Hx CVA. Coumadin on hold. Discharge Planning Discharge when cleared by GI Problem Qualifiers (1) Hypotension arterial: Qualified Codes: I95.9 - Hypotension, unspecified (2) GI bleed: Qualified Codes: K92.2 - Gastrointestinal hemorrhage, unspecified Colby Mckeon MD Jun 16, 2017 12:59
--- NOTE | 2017-06-16 13:37 | PD.PROCEDR ---
GI Procedure REFERRING PHYSICIAN Fatou PROCEDURE PERFORMED EGD with biopsy followed by colonoscopy with snare polypectomy INDICATION FOR PROCEDURE Anemia, guaiac-positive stools PROCEDURE: The procedure, risks and benefits were discussed with Mr. Arroyo and informed consent was obtained. Anesthesia sedated him with Diprivan. He was placed in the left lateral decubitus position. EGD: The Pentax videoscope was introduced through the oropharynx and advanced to the second portion of the duodenum under direct visualization. Retroflexion was performed in the stomach. FINDINGS: Esophagus there was distal esophageal mucosal erythema with superficial ulceration at the GE junction consistent with grade B reflux esophagitis with an irregular Z line and this was biopsied Stomach there was small hiatal hernia there is also some patchy erythema in the antrum but no ulcerations or erosions no blood or bleeding this was biopsied The duodenum this was normal Colonoscopy: The Pentax videoscope was introduced through the rectum and advanced to cecum where the ileocecal valve and appendiceal orifice were identified. Retroflexion was performed in the rectum. Colonic prep was fair FINDINGS: Colonic withdrawal time greater than 6 minutes as the scope slowly withdrawn colonic mucosa was carefully inspected the patient was noted to have 6 polyps 4 in the proximal transverse one in the distal transverse and 1 in the descending colon all were excised using cold snare technique and the polyps were medium in size sessile colonic examination was otherwise unremarkable so as retroflexion in rectal examination ESTIMATED BLOOD LOSS: None SPECIMENS REMOVED: Esophageal gastric and colonic samples COMPLICATIONS: None IMPRESSION: Erosive reflux esophagitis Irregular Z line Gastritis Colon polyps PLAN: Await biopsies Continue supportive care Monitor labs Recommend PPI Recommend repeat EGD in 2 months Recommend colonoscopy in one year May resume anticoagulation in 3 days Follow-up with GI post discharge Bacilio Mitchell MD Jun 16, 2017 13:37
[2017-06-16 14:32] VITALS: BP 146/79; PULSE 76; RESP 24; TEMP 97.8; O2SAT 100
--- NOTE | 2017-06-16 16:08 | HHI.NPPN ---
Subjective History of Present Illness 67 year old male with Hypotension anemia Review of Systems General Constitutional: Fatigue Objective Data Data 06/16/17 06/17/17 19:00 07:00 Intake Total 400 ml Output Total 700 ml Balance -300 ml Other 400 ml Output Urine Total 700 ml # Bowel Movements 1 Vital Signs Date Time Temp Pulse Resp B/P (MAP) Pulse Ox O2 Delivery O2 Flow Rate FiO2 06/16/17 14:32 97.8 76 24 146/79 (101) 100 06/16/17 13:41 98.0 80 18 110/65 (80) 100 06/16/17 11:51 92 18 130/81 (97) 100 06/16/17 10:01 97 06/16/17 08:02 98.7 91 20 153/75 (101) 100 06/16/17 04:49 98.1 94 18 105/66 (79) 100 06/15/17 23:42 98.4 89 18 161/88 (112) 100 06/15/17 20:46 97 06/15/17 20:24 98.8 74 18 133/78 (96) 97 -: 06/16/17 0435 06/16/17 0435 Physical Exam General Appearance: Well Developed, Well Nourished Throat Throat Exam: Oral Mucosa [place] & Moist Neck Neck Exam: Neck Supple Pulmonary Resp Exam: Clear Bilaterally, Breath Sounds Equal Cardiology CV Exam: Regular, Normal Sinus Rhythm Gastrointestinal/Abdomen GI Exam: Soft, Non-Tender, Bowel Sounds Present Extremeties Extremities Exam: No Edema Assessment/Plan Problem List: (1) ESRD (end stage renal disease) on dialysis ICD Codes: N18.6 - End stage renal failure on dialysis; Z99.2 - Dependence on renal dialysis Status: Chronic Plan: On peritoneal dialysis this will be resumed tonight continue to observe he is undergoing preparation for colonoscopy Use 1.5% BP improved UF 400 CC (2) HTN (hypertension) ICD Codes: I10 - Hypertension Status: Chronic Plan: Blood pressure drops frequently (3) Anemia ICD Codes: D64.9 - Anemia, unspecified Status: Acute Plan: colonoscopy Few Polyps EGD esophagitis Michelle Bird MD Jun 16, 2017 16:08
[2017-06-16 16:15] LABS: HEMOGLOBIN A1b 2.1 %; HEMOGLOBIN Ao 85.3 %; HEMOGLOBIN LA1C 2.1 %; HEMOGLOBIN P3 5.3 %
[2017-06-16 20:42] VITALS: BP 167/83; PULSE 91; RESP 18; TEMP 98.4; O2SAT 100
[2017-06-16] MEDS: TAMSULOSIN HCL 0.4 MG CAP PO SCH (21:09)
[2017-06-17] VITALS: BP 147/78; PULSE 74; RESP 18; TEMP 98; O2SAT 98
[2017-06-17 04:32] VITALS: BP 120/69; PULSE 75; RESP 18; TEMP 98; O2SAT 99
--- NOTE | 2017-06-17 08:02 | HHI.GIFU ---
Subjective Remarks Resting in bed. Still getting PD. No n/v, abdominal pain. Tolerating diet. No active bleeding. Objective Vitals I&O Vital Signs Date Time Temp Pulse Resp B/P (MAP) Pulse Ox O2 Delivery O2 Flow Rate FiO2 06/17/17 06:22 21 06/17/17 04:32 98.0 75 18 120/69 (86) 99 06/17/17 00:00 98.0 74 18 147/78 (101) 98 06/16/17 20:42 98.4 91 18 167/83 (111) 100 06/16/17 14:32 97.8 76 24 146/79 (101) 100 06/16/17 13:41 98.0 80 18 110/65 (80) 100 06/16/17 11:51 92 18 130/81 (97) 100 06/16/17 10:01 97 06/16/17 08:02 98.7 91 20 153/75 (101) 100 I/O 06/16/17 06/16/17 06/16/17 06/17/17 06/17/17 06/17/17 07:00 15:00 23:00 07:00 15:00 23:00 Intake Total 400 ml Output Total 700 ml Balance -300 ml Other 400 ml Output Urine Total 700 ml # Bowel Movements 1 Laboratory Date/Time Source Procedure Growth Status 06/15/17 05:20 Blood Peripheral Aerobic Blood Culture - Preliminary NO GROWTH IN 1 DAY Resulted 06/15/17 05:20 Blood Peripheral Anaerobic Blood Culture - Preliminary NO GROWTH IN 1 DAY Resulted Imaging Last Impressions Chest X-Ray 06/15/17 0503 Signed Impressions: Service Date/Time: Thursday, June 15, 2017 05:06 - CONCLUSION: 1. No acute cardiopulmonary disease. Franklin Espinal MD Abdomen/Pelvis CT 06/15/17 0000 Signed Impressions: Service Date/Time: Thursday, June 15, 2017 06:53 - CONCLUSION: 1. Continued evidence of mild acute and chronic pancreatitis in the head of the pancreas. 2. Hepatosplenomegaly 3. Status post cholecystectomy 4. No other acute abnormalities. Saeed Al MD Physical Exam HEENT: Normocephalic; atraumatic; no jaundice. CHEST: CTA CARDIAC: RRR ABDOMEN: Soft, nondistended, nontender; no hepatosplenomegaly; bowel sounds are present in all four quadrants. [place] EXTREMITIES: No clubbing, cyanosis, or edema. SKIN: Normal; no rash; no jaundice. HIGH HEEL BUILDER: No focal deficits; alert and oriented times three. Assessment and Plan Plan ASSESSMENT: - GIB, Hemoccult positive stool. HH dropped from 13.8/40.3 on 06/10 to 8.7/25.6 on admission. No obvious bleeding. Hemoccult (+). No NSAIDs, No ETOH. S/P EGD/Colonoscopy (06/16/17)---> Erosive reflux esophagitis, Irregular Z line, Gastritis, Colon polyps. Pathology pending. Add PPI. No active bleeding. HH stable. - Anemia with drop in Hgb. S/P 2 units PRBC. Yesterday's HH stable. Today's pending. - Acute on chronic Pancreatitis, unclear etiology. Hx of pancreatitis, undetermined etiology. Hx of pancreatic mass with benign path. 2012. He was seen in the ER on 06/[address] scan abdomen and pelvis at that time noted acute pancreatitis without ductal dilatation and he was discharged home on a clear liquid diet with Lortab and Zofran. Pain has improved, continues to have nausea. CT Scan abdomen and pelvis (07/20)---> Continued evidence of mild acute and chronic pancreatitis in the head of the pancreas. Hepatosplenomegaly. S/P Cholecystectomy. No other acute abnormalities. Lipase 283. Triglycerides 213. IgG 4 level pending. Clinically , asymptomatic. Tolerating his diet. - HCV. Tx naive. - Atypical chest pain. RESOLVED. Of note, he has recently been evaluated by cardiology for atypical chest pain and they did not feel this was suggestive of ischemia given a prior negative SPECT in the past year as outpatient. 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 - ESRD, on PD. - P. Afib, HTN, Anxiety, Hyperlipidemia, Hx CVA. Coumadin on hold. PLAN: - Heart healthy diet - Await pathology - Protonix 40mg po daily - Recommend repeat EGD in 2 months - Recommend colonoscopy in one year - May resume anticoagulation in 2 days - FU FEROZ 2 weeks - GI will sign off, please reconsult as needed - Pt seen and examined by Dr. Mitchell and myself and this note is written on his behalf Mary Escamilla 14, 2017 08:02
[2017-06-17 08:31] VITALS: BP 123/68; PULSE 76; RESP 22; TEMP 98.2; O2SAT 98
[2017-06-17 08:33] LABS: AUTOMATED NEUTROPHIL # 2.7 TH/MM3 (1.8-7.7); BASOPHIL # 0.1 TH/MM3 (0-0.2); BASOPHIL % 1.4 % (0.0-2.0); EOSINOPHIL # 0.2 TH/MM3 (0-0.4); EOSINOPHIL % 3.2 % (0.0-4.0); HEMATOCRIT 23.6 % (39.0-51.0); HEMO FLAGS DIFF FINAL; LYMPHOCYTE # 1.5 TH/MM3 (1.0-4.8); MEAN CELL VOLUME 92.6 FL (80.0-100.0); MEAN CORPUSCULAR HEMOGLOBIN 32.1 PG (27.0-34.0); MEAN CORPUSCULAR HGB CONC 34.6 % (32.0-36.0); MONO % 7.3 % (0.0-8.0); NEUT % 56.1 % (16.0-70.0); PLATELET COUNT 139 TH/MM3 (150-450); RED BLOOD COUNT 2.55 MIL/MM3 (4.50-5.90); RED CELL DISTRIBUTION WIDTH 13.9 % (11.6-17.2); WHITE BLOOD COUNT 4.8 TH/MM3 (4.0-11.0)
[2017-06-17 08:41] LABS: INTERNATIONAL NORMALIZED RATIO 1.1 RATIO; PROTHROMBIN TIME - PATIENT 12.7 SEC (9.8-11.6)
[2017-06-17] MEDS: SODIUM CHLORIDE 0.9% FLUSH 10 ML FLUSH IV FLUSH SCH (09:00)
[2017-06-17] MEDS ORDERED: PANTOPRAZOLE SOD 40 MG DELAYED RELEASE TAB PO SCH (09:00)
[2017-06-17 09:23] LABS: ALKALINE PHOSPHATASE 67 U/L (45-117); ALT (GPT) 52 U/L (12-78); ANION GAP 12 MEQ/L (5-15); AST (GOT) 44 U/L (15-37); BICARBONATE 20.2 MEQ/L (21.0-32.0); BLOOD UREA NITROGEN 80 MG/DL (7-18); CHLORIDE 111 MEQ/L (98-107); GLOMERULAR FILTRATION RATE 8 ML/MIN (>89); MAGNESIUM 2.1 MG/DL (1.5-2.5); SODIUM (NA) 143 MEQ/L (136-145); TOTAL BILIRUBIN ADULT 0.4 MG/DL (0.2-1.0)
[2017-06-17] MEDS: DILTIAZEM-CD 120 MG CAP ER PO SCH (09:52)
[2017-06-17] MEDS: SEVELAMER CARBONATE 800 MG TAB PO SCH ×2 (09:52→13:00)
[2017-06-17] MEDS: DOCUSATE SODIUM 50 MG/SENNA 8.6 MG TAB PO SCH (09:52)
[2017-06-17] MEDS: METOPROLOL SUCCINATE 50 MG EXTENDED RELEASE TAB PO SCH (09:52)
[2017-06-17] MEDS: CALCITRIOL 0.25 MCG CAP PO SCH (09:53)
[2017-06-17 11:26] VITALS: BP 122/69; PULSE 89; RESP 22; TEMP 98.2; O2SAT 100
--- NOTE | 2017-06-17 12:53 | HHI.DS ---
Discharge Summary Admission Date Jun 15, 2017 at 08:12 Discharge Date: Jun 17, 2017 Admitting Diagnosis gi bleed,resolved hypotension, anemia,ESRD (1) ESRD on peritoneal dialysis ICD Code: N18.6 - End stage renal disease; Z99.2 - Dependence on renal dialysis Diagnosis: Principal Status: Acute (2) Atypical chest pain ICD Code: R07.89 - Other chest pain Diagnosis: Principal Status: Resolved (3) Abdominal pain ICD Code: R10.9 - Abdominal pain Diagnosis: Principal Status: Acute (4) HTN (hypertension) ICD Code: I10 - Hypertension Diagnosis: Secondary Status: Chronic (5) Tobacco abuse ICD Code: Z72.0 - Tobacco use Diagnosis: Secondary Status: Chronic (6) GI bleed ICD Code: K92.2 - Gastrointestinal hemorrhage, unspecified Diagnosis: Principal Status: Acute (7) Anemia ICD Code: D64.9 - Anemia, unspecified Diagnosis: Principal Status: Acute (8) HCV (hepatitis C virus) ICD Code: B19.20 - Viral hepatitis C Diagnosis: Principal Status: Acute (9) S/P cardiac pacemaker procedure ICD Code: Z95.0 - Presence of cardiac pacemaker Diagnosis: Principal Status: Acute Procedures none Brief History - From Admission PATIENT is a 67 year old with a history of idiopathic pancreatitis, who presented to the emergency room for evaluation of chest pain with associated lightheadedness. He reports that he went on a walk yesterday and afterwards, he was feeling lightheaded. He felt better when he was lying down, but every time, he went to sit up, his symptoms would return. He was also having some chest discomfort described as intermittent sharp pains anteriorly on the left side of his chest. He was also feeling a little short of breath and therefore called 911, who brought him to the emergency room. Here, he was noted to have a Drop in hgb from a recent visit 5 days ago. Of note, he has recently been evaluated by cardiology for atypical chest pain and they did not feel this was suggestive of ischemia given a prior negative SPECT in the past year as outpatient. 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 He was seen in the ER on 06/[address] scan abdomen and pelvis at that time noted acute pancreatitis without ductal dilatation and he was discharged home on a clear liquid diet with Lortab and Zofran. Of note, his HH at that time was 13.8/40.3. Today, he was noted to have an H/H of 8.7/25.6 and positive Hemoccult. GI was consulted for GI bleeding. HAS ALREADY BEEN TRANSFUSED 2 UNITS OF PRBC TODAY. He reports that he has been having nausea since he was diagnosed with his pancreatitis. His pain has improved, but he has continued to have intermittent nausea. He has not had any hematemesis. He denies any heartburn or reflux. He denies any current abdominal pain, bowel changes, constipation, diarrhea, melena, or hematochezia. He does not take any NSAIDs. He does not drink ETOH. He does take Coumadin and last had this yesterday on 06/14. CBC/BMP: 06/17/17 0727 06/17/17 0727 Significant Findings Laboratory Tests Test 06/15/17 05:20 06/15/17 10:50 06/15/17 15:12 06/15/17 22:45 White Blood Count 11.4 TH/MM3 (4.0-11.0) Red Blood Count 2.70 MIL/MM3 (4.50-5.90) Hemoglobin 8.7 GM/DL (13.0-17.0) 9.8 GM/DL (13.0-17.0) 9.0 GM/DL (13.0-17.0) 10.0 GM/DL (13.0-17.0) Hematocrit 25.6 % (39.0-51.0) 29.1 % (39.0-51.0) 25.3 % (39.0-51.0) 28.3 % (39.0-51.0) Monocytes (%) (Auto) 10.2 % (0.0-8.0) Monocytes # (Auto) 1.2 TH/MM3 (0-0.9) Prothrombin Time 18.1 SEC (9.8-11.6) Activated Partial Thromboplast Time 24.1 SEC (24.3-30.1) Blood Gas HCO3 16 mmol/L (22-26) Blood Gas Base Excess -7.7 mmol/L (-2-2) Arterial Blood pH 7.44 (7.380-7.420) Arterial Blood Partial Pressure CO2 24 mmHg (38-42) Arterial Blood Oxygen Content 11.2 Vol % (12.0-20.0) Blood Gas Hemoglobin 8.4 G/DL (12.0-16.0) Blood Urea Nitrogen 68 MG/DL (7-18) Creatinine 7.00 MG/DL (0.60-1.30) Random Glucose 125 MG/DL (74-106) Total Protein 5.1 GM/DL (6.4-8.2) Albumin 2.1 GM/DL (3.4-5.0) Calcium Level 7.4 MG/DL (8.5-10.1) Chloride Level 111 MEQ/L (98-107) Carbon Dioxide Level 18.3 MEQ/L (21.0-32.0) Estimat Glomerular Filtration Rate 8 ML/MIN (>89) Lactic Acid Level 2.4 mmol/L (0.4-2.0) Troponin I LESS THAN 0.02 NG/ML Triglycerides Level 213 MG/DL (42-150) Cholesterol Level 106 MG/DL (120-200) HDL Cholesterol 26.3 MG/DL (40.0-60.0) Test 06/16/17 04:35 06/17/17 07:27 Red Blood Count 2.85 MIL/MM3 (4.50-5.90) 2.55 MIL/MM3 (4.50-5.90) Hemoglobin 9.0 GM/DL (13.0-17.0) 8.2 GM/DL (13.0-17.0) Hematocrit 26.4 % (39.0-51.0) 23.6 % (39.0-51.0) Prothrombin Time 14.4 SEC (9.8-11.6) 12.7 SEC (9.8-11.6) Blood Urea Nitrogen 88 MG/DL (7-18) 80 MG/DL (7-18) Creatinine 6.38 MG/DL (0.60-1.30) 6.64 MG/DL (0.60-1.30) Total Protein 6.1 GM/DL (6.4-8.2) 6.1 GM/DL (6.4-8.2) Albumin 2.9 GM/DL (3.4-5.0) 2.7 GM/DL (3.4-5.0) Calcium Level 8.0 MG/DL (8.5-10.1) Phosphorus Level 2.3 MG/DL (2.5-4.9) Chloride Level 111 MEQ/L (98-107) 111 MEQ/L (98-107) Carbon Dioxide Level 20.0 MEQ/L (21.0-32.0) 20.2 MEQ/L (21.0-32.0) Estimat Glomerular Filtration Rate 9 ML/MIN (>89) 8 ML/MIN (>89) Platelet Count 139 TH/MM3 (150-450) Aspartate Amino Transf (AST/SGOT) 44 U/L (15-37) Imaging Last Impressions Chest X-Ray 06/15/17 0503 Signed Impressions: Service Date/Time: Thursday, June 15, 2017 05:06 - CONCLUSION: 1. No acute cardiopulmonary disease. Franklin Espinal MD Abdomen/Pelvis CT 06/15/17 0000 Signed Impressions: Service Date/Time: Thursday, June 15, 2017 06:53 - CONCLUSION: 1. Continued evidence of mild acute and chronic pancreatitis in the head of the pancreas. 2. Hepatosplenomegaly 3. Status post cholecystectomy 4. No other acute abnormalities. Saeed Al MD PE at Discharge GENERAL: This is a well-nourished, well-developed patient, in no apparent distress. SKIN: No rashes, ecchymoses or lesions. Cool and dry. Right foot on the plantar aspect at base of third and fourth digit with induration and discoloration CARDIOVASCULAR: Regular rate and rhythm without murmurs, gallops, or rubs. RESPIRATORY: Clear to auscultation. Breath sounds equal bilaterally. No wheezes , rales, or rhonchi. GASTROINTESTINAL: Abdomen soft, non-tender, nondistended. No guarding. PD catheter in place MUSCULOSKELETAL: Extremities without clubbing, cyanosis, or edema. No joint tenderness, effusion, or edema noted. No calf tenderness. Negative Homans sign bilaterally. NEUROLOGICAL: Awake and alert. Cranial nerves II through XII intact. Motor and sensory grossly within normal limits. Five out of 5 muscle strength in all muscle groups. Normal speech. Hospital Course - GIB, Hemoccult positive stool. No active bleed. EGD with esophagitis, irregular Z line and gastritis. Colonoscopy status post polypectomy. Stable. Follow up pathology outpatient cleared for discharge by GI. Avoid NSAIDs - Anemia with drop in Hgb. S/P 2 units PRBC. Asymptomatic. Monitor - Acute on chronic Pancreatitis, unclear etiology. Hx of pancreatitis, undetermined etiology. Hx of pancreatic mass with benign path. 2012. He was seen in the ER on 06/[address] scan abdomen and pelvis at that time noted acute pancreatitis without ductal dilatation and he was discharged home on a clear liquid diet with Lortab and Zofran. Pain has improved CT Scan abdomen and pelvis (06/15/17)---> Continued evidence of mild acute and chronic pancreatitis in the head of the pancreas. Hepatosplenomegaly. S/P Cholecystectomy. No other acute abnormalities. Triglycerides 213. Improving tolerating diet - HCV. Outpatient follow-up - Atypical chest pain. Resolved. Of note, he has recently been evaluated by cardiology for atypical chest pain and they did not feel this was suggestive of ischemia given a prior negative SPECT in the past year as outpatient. 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 - ESRD, on PD. Nephrology managing - P. Afib. Restart Coumadin on the HTN. Continue to monitor with home meds Hyperlipidemia. Stable Hx CVA. Coumadin on hold. Restart on the Pt Condition on Discharge: Stable Discharge Disposition: Discharge Home Discharge Time: > 30 minutes Discharge Instructions DIET: Follow Instructions for: Heart Healthy Diet, Renal Failure Diet Activities you can perform: Regular-No Restrictions Activities to Avoid: Driving Follow up Referrals: Gastroenterology - 2 Weeks @ [facility] New Medications: Walker with Front Wheels (Walker with Front Wheels) 1 Mis Mis EA .ROUTE DIRECTED, #1 0 Refills Colby Mckeon MD Jun 17, 2017 12:53
[2017-06-17] MEDS ORDERED: COUM5TAB PO (12:55)
--- NOTE | 2017-06-17 13:00 | HHI.DCPOC ---
Discharge Care Plan Diagnosis: (1) GI bleed (2) Anemia (3) Atrial fibrillation Your Health Problems Are: Bleeding Tendency Goals to Promote Your Health * To prevent worsening of your condition and complications * To maintain your health at the optimal level Directions to Meet Your Goals Please remember to complete labs on on 06/19 and follow up with nephrology, cardiology, gastroenterology, and PCP. Take your medications as prescribed Follow your dietary instruction Follow activity as directed Keep your appointments as scheduled Take your immunizations and boosters as scheduled If your symptoms worsen call your PCP, if no PCP go to Urgent Care Center or Emergency Room Smoking is Dangerous to Your Health. Avoid second hand smoke Call the 24-hour hour crisis hotline for domestic abuse at Lisandra Coronado Jun 17, 2017 13:00
[2017-06-17] MEDS ORDERED: PANT40TA3 PO (13:01)
--- NOTE | 2017-06-17 13:09 | HHI.FF ---
Face to Face Verification Diagnosis: (1) Physical deconditioning Physical Therapy Order: Improve ambulation, Strength and gait training I have seen patient Vickey T Jr Cruz on 06/17/17. My clinical findings support the need for the requested home health care services because: Deconditioned w/ increased weakness High risk of falls I certify that my clinical findings support that this patient is homebound because: Unsteady gait/balance Lisandra Coronado Jun 17, 2017 13:09
== END 2017-06-17 17:27 | disposition home or self-care (01) ==
LOC: NEPE 04:54 → NEDA 08:12 → NEPFCDU 10:24
PROVIDERS: ADMIT Internal Medicine; ATTEND Internal Medicine
DX: I95.9 Hypotension, unspecified (principal); D64.9 Anemia, unspecified; K21.0 Gastro-esophageal reflux disease with esophagitis; K44.9 Diaphragmatic hernia without obstruction or gangrene; K29.70 Gastritis, unspecified, without bleeding; D12.4 Benign neoplasm of descending colon; D12.3 Benign neoplasm of transverse colon; R07.89 Other chest pain; I12.0 Hypertensive chronic kidney disease with stage 5 chronic kidney disease or end stage renal disease; N18.6 End stage renal disease; R42 Dizziness and giddiness; K85.90 Acute pancreatitis without necrosis or infection, unspecified; I48.0 Paroxysmal atrial fibrillation; F17.210 Nicotine dependence, cigarettes, uncomplicated; R23.1 Pallor; I69.011 Memory deficit following nontraumatic subarachnoid hemorrhage; E86.1 Hypovolemia; R19.5 Other fecal abnormalities; R73.09 Other abnormal glucose; D69.1 Qualitative platelet defects; R06.02 Shortness of breath; Z99.2 Dependence on renal dialysis; Z95.0 Presence of cardiac pacemaker; Z79.01 Long term (current) use of anticoagulants
CPT/HCPCS: 00740; 36430; 36600; 43239; 45385; 71010; 74176; 80053; 80061; 82150; 82550; 82784; 82787; 82805; 83036; 83605; 83690; 83735; 83880; 84100; 84439; 84443; 84484; 85014; 85018; 85025; 85610; 85730; 86850; 86900; 86901; 86920; 86927; 87040; 88305; 88312; 90935; 93005; 96361; 96374; 96375; 96376; 97110; 97162; 97166; 97530; 99291; C9113; G0378; G8987; G8988; J2370; J2405; J7030; J7050; P9016; P9017

== ENCOUNTER 2017-09-25 12:15 | Observation (INO) | payer MEDICARE, MEDICAID ==
[~2017-09-25] VITALS: Ht 188 cm; Wt 97.7 kg
[2017-09-25] VITALS (9 sets, daily range): BP systolic 119–168; BP diastolic 68–97; PULSE 59–63; RESP 18–22; TEMP 97.4–98.6; O2SAT 98–100
[~2017-09-25 12:15] MED LIST changes: -HYDR-3535 PO; +PANT40TA3 PO; +WALKER WHEELS/F1 MIS
[2017-09-25] MEDS ORDERED: SODIUM CHLORIDE 0.9% FLUSH 10 ML FLUSH IV FLUSH PRN ×2 (12:30→16:15)
[2017-09-25] MEDS ORDERED: COLA100C5 PO (13:01)
[2017-09-25] MEDS ORDERED: METO1TAB9 PO (13:01)
[2017-09-25] MEDS ORDERED: NAME10TA PO (13:01)
[2017-09-25 13:09] LABS: BILIRUBIN, URINE NEG (NEG); BLOOD, URINE NEG (NEG); GLUCOSE,URINE NEG (NEG); KETONE, URINE NEG (NEG); NITRITE,URINE NEG (NEG); PH, URINE 6.5 (5.0-8.5); URINE COLOR YELLOW (YELLW/STRAW); URINE LEUKOCYTE ESTERASE NEG (NEG)
[2017-09-25 13:19] LABS: AUTOMATED NEUTROPHIL # 5.5 TH/MM3 (1.8-7.7); BASOPHIL # 0.1 TH/MM3 (0-0.2); BASOPHIL % 0.6 % (0.0-2.0); EOSINOPHIL # 0.3 TH/MM3 (0-0.4); EOSINOPHIL % 3.5 % (0.0-4.0); HEMATOCRIT 39.5 % (39.0-51.0); HEMOGLOBIN 13.8 GM/DL (13.0-17.0); LYMPH % 29.9 % (9.0-44.0); LYMPHOCYTE # 2.8 TH/MM3 (1.0-4.8); MEAN CELL VOLUME 86.5 FL (80.0-100.0); MEAN CORPUSCULAR HEMOGLOBIN 30.1 PG (27.0-34.0); MEAN CORPUSCULAR HGB CONC 34.8 % (32.0-36.0); MEAN PLATELET VOLUME 7.9 FL (7.0-11.0); MONO % 8.2 % (0.0-8.0); MONOCYTE # 0.8 TH/MM3 (0-0.9); NEUT % 57.8 % (16.0-70.0); PLATELET COUNT 209 TH/MM3 (150-450); RED BLOOD COUNT 4.57 MIL/MM3 (4.50-5.90); RED CELL DISTRIBUTION WIDTH 14.9 % (11.6-17.2); WHITE BLOOD COUNT 9.5 TH/MM3 (4.0-11.0)
[2017-09-25 13:29] LABS: INTERNATIONAL NORMALIZED RATIO 1.5 RATIO; PROTHROMBIN TIME - PATIENT 14.7 SEC (9.8-11.6)
--- NOTE | 2017-09-25 13:38 | RADRPT ---
EXAM DATE/TIME: 09/25/2017 13:04 [facility] COMPARISON: CT BRAIN W/O CONTRAST, April 14, 2017, 5:37. EXTERNAL COMPARISON : INDICATIONS : Altered mental status. RADIATION DOSE: 36.53 CTDIvol (mGy) MEDICAL HISTORY : Cerebrovascular disease. Cardiovascular disease Hypertension.Hep C. SURGICAL HISTORY : None. ENCOUNTER: Initial ACUITY: 1 day PAIN SCALE: 0/10 LOCATION: cranial TECHNIQUE: Multiple contiguous axial images were obtained of the head. Using automated exposure control and adj ustment of the mA and/or kV according to patient size, radiation dose was kept as low as reasonably a chievable to obtain optimal diagnostic quality images. DICOM format image data is available electro nically for review and comparison. FINDINGS: CEREBRUM: The ventricles are normal for age. No evidence of midline shift, mass lesion, hemorrhage or acute in farction. Lacunar infarct in the left caudate head stable from prior. Decreased attenuation in the left super tentorial white matter stable from prior. Physiologic calcification in the basal ganglia. No extra-axial fluid collections are seen. POSTERIOR FOSSA: The cerebellum and brainstem are intact. The 4th ventricle is midline. The cerebellopontine angle i s unremarkable. EXTRACRANIAL: The visualized portion of the orbits is intact. SKULL: The calvaria is intact. No evidence of skull fracture. CONCLUSION: 1. No acute findings. 2. Stable left caudate lacunar infarct. Cruz Parker MD on September 25, 2017 at 13:35 Board Certified Radiologist. This report was verified electronically.
[2017-09-25 13:54] LABS: ALBUMIN 3.7 GM/DL (3.4-5.0); ALKALINE PHOSPHATASE 107 U/L (45-117); ALT (GPT) 44 U/L (12-78); AST (GOT) 35 U/L (15-37); BICARBONATE 18.4 MEQ/L (21.0-32.0); BLOOD UREA NITROGEN 39 MG/DL (7-18); CALCIUM 8.6 MG/DL (8.5-10.1); CHLORIDE 105 MEQ/L (98-107); CREATININE 6.69 MG/DL (0.60-1.30); GLOMERULAR FILTRATION RATE 8 ML/MIN (>89); GLUCOSE,RANDOM 79 MG/DL (74-106); SODIUM (NA) 135 MEQ/L (136-145); TOTAL BILIRUBIN ADULT 0.4 MG/DL (0.2-1.0); TOTAL PROTEIN 8.4 GM/DL (6.4-8.2); TROPONIN I LESS THAN 0.02 NG/ML (0.02-0.05)
[2017-09-25 13:56] LABS: ACETAMINOPHEN LESS THAN 2.0 MCG/ML (10.0-30.0)
--- NOTE | 2017-09-25 14:01 | RADRPT ---
EXAM DATE/TIME: 09/25/2017 13:26 [facility] COMPARISON: CHEST SINGLE AP, June 15, 2017, 5:06. INDICATIONS : Short of breath since 2016, memory loss, weakness MEDICAL HISTORY : Renal disease, end stage. Hypertension SURGICAL HISTORY : Appendectomy. Cholecystectomy. loop recorder, peritoneal dialysis catheter ENCOUNTER: Initial ACUITY: 3 months PAIN SCORE: 0/10 LOCATION: Bilateral chest FINDINGS: A single view of the chest demonstrates the lungs to be symmetrically aerated without evidence of mas s, infiltrate or effusion. The cardiomediastinal contours are unremarkable. Osseous structures are intact. 2 loop recorder devices project over the lower left chest. CONCLUSION: The lungs are clear. Cruz Parker MD on September 25, 2017 at 13:59 Board Certified Radiologist. This report was verified electronically.
[2017-09-25] MEDS ORDERED: ACETAMINOPHEN 325 MG TAB PO ONE (15:45)
--- NOTE | 2017-09-25 15:51 | PD ---
HPI Chief Complaint: Altered Mental Status Time Seen by Provider: 12:27 Travel History International Travel<30 days: No Contact w/Intl Traveler<30days: No Traveled to known affect area: No History of Present Illness HPI 67-year-old male came to the emergency room with history of altered mental status. He lives by himself at home and there is a home care nurse who calms. She was there this morning and found him confused and called 911. She told the paramedics that she last saw him yesterday when he was his baseline mental status. Patient has history of stroke and has poor short-term memory. However his confusion today seemed worse than his baseline. When patient arrived he was having trouble saying certain words. Upon asking names of his supervisor boiler repair patient could not remember.I showed him my stethoscope and asked him to name it and he could not remember the name. Patient was also complaining of left-sided chest pain on route. Patient has a pacemaker and is in and out of paced rhythm on route. His blood glucose was 124 by EMS. Vital signs were otherwise stable. Patient was confused and was not the best historian. He could not describe his pain. No radiation of the pain. Patient does his own peritoneal dialysis and told the paramedics that he did last night. He could not remember his hospital admissions officer name either. [facility] Past Medical History Narrative Medical List of his past medical, surgical, social and family history as reviewed from the nursing note. Hx Anticoagulant Therapy: Yes Arthritis: No Asthma: No Atrial Fibrillation: Yes Autoimmune Disease: No Blood Disorders: No Anxiety: No Depression: No Heart Rhythm Problems: Yes (atrial fibrillation) Cancer: No Cardiac Catheterization: Yes Cardiovascular Problems: Yes High Cholesterol: Yes (pancreatitis chronic) Chemotherapy: No Chest Pain: No Congestive Heart Failure: No COPD: No Cerebrovascular Accident: Yes Diabetes: No Dialysis: Yes (PERITONEAL) Diminished Hearing: No Endocrine: No Gastrointestinal Disorders: Yes (chronic PANCREATITIS ) GERD: No Glaucoma: No Genitourinary: No Headaches: No Hepatitis: Yes (C) Hiatal Hernia: No Heparin Induced Thrombocytopen: No Hypertension: Yes Immune Disorder: No Implanted Vascular Access Dvce: Yes Insomnia: Yes (OCCASIONAL) Kidney Stones: No Musculoskeletal: No Neurologic: Yes (stroke 2016) Psychiatric: No Reproductive: No Respiratory: Yes Integumentary: No Immunizations Current: Yes Migraines: No Pancreatitis: Yes Radiation Therapy: No Renal Failure: Yes Seizures: No Sickle Cell Disease: No Sleep Apnea: Yes (doesn't use his CPAP) Thyroid Disease: No Ulcer: No Past Surgical History Abdominal Surgery: Yes (appendectomy at age 10) AICD: No Appendectomy: Yes Arteriovenous Shunt: No Body Medical Devices: Right abdominal peritoneal dialysis port, pacemaker Cardiac Surgery: Yes (Ablation) Coronary Artery Bypass Graft: No Ear Surgery: No Endocrine Surgery: No Eye Surgery: No Genitourinary Surgery: No Gynecologic Surgery: No Insulin Pump: No Joint Replacement: No Neurologic Surgery: No Oral Surgery: Yes (Tonsillectomy) Pacemaker: No Thoracic Surgery: Yes (LOOP RECORDER INSERT) Tonsillectomy: Yes Other Surgery: Yes (peritoneal shunt) Family History Family Myocardial Infarction: Yes (SISTER) Social History Alcohol Use: No Tobacco Use: Yes (1PPD) Substance Use: No Allergies-Medications (Allergen,Severity, Reaction): Coded Allergies: Iodinated Contrast- Oral and IV Dye (Verified Allergy, Severe, Itching, ) patient states that he only has itching when he drinks the contrast or has it iv. Patient states he does not have a reaction to topical iodine. diatrizoate meglumine (Unverified Allergy, Mild, Itching, 06/15/17) STATES AFTER IV CONTRAST FROM LAST HOSPITAL VISIT WAS ITCHY FOR 10 DAYS WITH BAD HEARTBURN gadobenic acid (Unverified Allergy, Mild, Itching, 06/15/17) STATES AFTER IV CONTRAST FROM LAST HOSPITAL VISIT WAS ITCHY FOR 10 DAYS WITH BAD HEARTBURN gadodiamide (Unverified Allergy, Mild, Itching, 06/15/17) STATES AFTER IV CONTRAST FROM LAST HOSPITAL VISIT WAS ITCHY FOR 10 DAYS WITH BAD HEARTBURN gadoteridol (Unverified Allergy, Mild, Itching, 06/15/17) STATES AFTER IV CONTRAST FROM LAST HOSPITAL VISIT WAS ITCHY FOR 10 DAYS WITH BAD HEARTBURN iodixanol (Unverified Allergy, Mild, Itching, 06/15/17) STATES AFTER IV CONTRAST FROM LAST HOSPITAL VISIT WAS ITCHY FOR 10 DAYS WITH BAD HEARTBURN iohexol (Unverified Allergy, Mild, Itching, 06/15/17) STATES AFTER IV CONTRAST FROM LAST HOSPITAL VISIT WAS ITCHY FOR 10 DAYS WITH BAD HEARTBURN Comments List of his allergies reviewed from the nursing note. Reported Meds & Prescriptions Reported Meds & Active Scripts Active Reported Colace (Docusate Sodium) 100 Mg Capsule 100 Mg PO TID Namenda (Memantine) 10 Mg Tab 10 Mg PO DAILY Metoprolol Succinate ER 24 HR (Metoprolol Succinate) 50 Mg Tab 50 Mg PO DAILY Tiazac (Diltiazem ER 24 HR) 120 Mg Caper 120 Mg PO DAILY Tamsulosin (Tamsulosin HCl) 0.4 Mg Cap 0.4 Mg PO HS Calcitriol 0.5 Mcg Cap 0.5 Mcg PO DAILY Ropinirole 0.25 Mg Tab 0.25 Mg PO DAILY Renvela (Sevelamer Carbonate) 800 Mg Tab 1,600 Mg PO TID Dialyvite 800 (B-Complex W/ C & Folic Acid) 1 Tab 1 Tab PO DAILY Narrative Medication List of his home medications reviewed from the nursing note. Review of Systems ROS Limitations: Altered Mental Status Except as stated in HPI: all other systems reviewed are Neg Cardiovascular: Positive: Chest Pain or Discomfort Physical Exam Narrative GENERAL: Awake, confused, moderate distress, anxious SKIN: Focused skin assessment warm/dry. HEAD: Atraumatic. Normocephalic. EYES: Pupils equal and round. No scleral icterus. No injection or drainage. ENT: No nasal bleeding or discharge. Mucous membranes pink and moist. NECK: Trachea midline. No JVD. CARDIOVASCULAR: Regular rate and rhythm. No murmur appreciated. RESPIRATORY: No accessory muscle use. Clear to auscultation. Breath sounds equal bilaterally. GASTROINTESTINAL: Abdomen soft, non-tender, nondistended. Hepatic and splenic margins not palpable. MUSCULOSKELETAL: No obvious deformities. No clubbing. No cyanosis. No edema. NEUROLOGICAL: Awake but confused, GCS of 14. No obvious cranial nerve deficits. Motor grossly within normal limits. Normal speech. Had partial expressive aphasia PSYCHIATRIC: Appropriate mood and affect; insight and judgment normal. Data Data Last Documented VS Orders Orders Electrocardiogram (09/25/17 12:27) Ammonia (09/25/17 12:27) Complete Blood Count With Diff (09/25/17 12:27) Comprehensive Metabolic Panel (09/25/17 12:27) Creatine Kinase (Cpk) (09/25/17 12:27) Prothrombin Time / Inr (Pt) (09/25/17 12:27) Troponin I (09/25/17 12:27) Thyroid Stimulating Hormone (09/25/17 12:27) Urinalysis - C+S If Indicated (09/25/17 12:27) Lactic Acid Sepsis Protocol (09/25/17 12:27) Blood Culture (09/25/17 12:27) Chest, Single Ap (09/25/17 12:27) Ct Brain W/O Iv Contrast(Rout) (09/25/17 12:27) Blood Glucose (09/25/17 12:27) Ecg Monitoring (09/25/17:) Iv Access Insert/Monitor (09/25/17 12:27) Oximetry (09/25/17 12:27) Sodium Chloride 0.9% Flush (Ns Flush) (09/25/17 12:30) Drug Screen, Random Urine (09/25/17:27) Alcohol (Ethanol) (09/25/17 12:27) Tylenol (Acetaminophen) (09/25/17 12:27) Salicylates (Aspirin) (09/25/17 12:27) Acetaminophen (Tylenol) (09/25/17 15:45) Levothyroxine (Synthroid) (09/25/17 16:00) Admit Order (Ed Use Only) (09/25/17 15:58) Consult Nephrology (09/25/17 ) ^ Other Nursing Orders (09/25/17 15:57) Place In Observation (09/25/17 ) Vital Signs (Adult) Q4H (09/25/17 16:01) Neuro Checks Q4H (09/25/17 16:01) Activity Oob With Assistance (09/25/17 16:01) Group Therapy Counselor / Telemetry .CONTINUOUS (09/25/17 16:01) Diet Renal (09/25/17 Dinner) Sodium Chloride 0.9% Flush (Ns Flush) (09/25/17 16:15) Sodium Chloride 0.9% Flush (Ns Flush) (09/25/17 21:00) Basic Metabolic Panel (Bmp) (09/26/17 06:00) Complete Blood Count With Diff (09/26/17 06:00) Creatine Kinase (Cpk) (09/25/17 18:45) Troponin I (09/25/17 18:45) Electrocardiogram (09/25/17 18:45) Electrocardiogram (09/26/17 00:45) Pt Request For Service (09/25/17 16:01) Case Management Consult (09/25/17 16:01) Naloxone Inj (Narcan Inj) (09/25/17 16:15) ^ Seizure Precautions (09/25/17 16:01) Eeg Study (09/25/17 ) Labs Laboratory Tests Test 09/25/17 12:45 09/25/17 12:50 White Blood Count 9.5 TH/MM3 Red Blood Count 4.57 MIL/MM3 Hemoglobin 13.8 GM/DL Hematocrit 39.5 % Mean Corpuscular Volume 86.5 FL Mean Corpuscular Hemoglobin 30.1 PG Mean Corpuscular Hemoglobin Concent 34.8 % Red Cell Distribution Width 14.9 % Platelet Count 209 TH/MM3 Mean Platelet Volume 7.9 FL Neutrophils (%) (Auto) 57.8 % Lymphocytes (%) (Auto) 29.9 % Monocytes (%) (Auto) 8.2 % Eosinophils (%) (Auto) 3.5 % Basophils (%) (Auto) 0.6 % Neutrophils # (Auto) 5.5 TH/MM3 Lymphocytes # (Auto) 2.8 TH/MM3 Monocytes # (Auto) 0.8 TH/MM3 Eosinophils # (Auto) 0.3 TH/MM3 Basophils # (Auto) 0.1 TH/MM3 CBC Comment DIFF FINAL Differential Comment Prothrombin Time 14.7 SEC Prothromb Time International Ratio 1.5 RATIO Blood Urea Nitrogen 39 MG/DL Creatinine 6.69 MG/DL Random Glucose 79 MG/DL Total Protein 8.4 GM/DL Albumin 3.7 GM/DL Calcium Level 8.6 MG/DL Alkaline Phosphatase 107 U/L Aspartate Amino Transf (AST/SGOT) 35 U/L Alanine Aminotransferase (ALT/SGPT) 44 U/L Total Bilirubin 0.4 MG/DL Sodium Level 135 MEQ/L Potassium Level 4.1 MEQ/L Chloride Level 105 MEQ/L Carbon Dioxide Level 18.4 MEQ/L Anion Gap 12 MEQ/L Estimat Glomerular Filtration Rate 8 ML/MIN Total Creatine Kinase 69 U/L Troponin I LESS THAN 0.02 NG/ML Thyroid Stimulating Hormone 3rd Gen 6.000 uIU/ML Salicylates Level 2.3 MG/DL Acetaminophen Level LESS THAN 2.0 MCG/ML Ethyl Alcohol Level LESS THAN 3 MG/DL Urine Color YELLOW Urine Turbidity CLEAR Urine pH 6.5 Urine Specific [place] 1.006 Urine Protein 30 mg/dL Urine Glucose (UA) NEG mg/dL Urine Ketones NEG mg/dL Urine Occult Blood NEG Urine Nitrite NEG Urine Bilirubin NEG Urine Urobilinogen LESS THAN 2.0 MG/DL Urine Leukocyte Esterase NEG Urine RBC 1 /hpf Urine WBC LESS THAN 1 /hpf Microscopic Urinalysis Comment CATH-CULT NOT IND Lactic Acid Level 1.5 mmol/L Ammonia 28 MCMOL/L Urine Opiates Screen NEG Urine Barbiturates Screen NEG Urine Amphetamines Screen NEG Urine Benzodiazepines Screen NEG Urine Cocaine Screen NEG Urine Cannabinoids Screen NEG MDM Medical Decision Making Medical Screen Exam Complete: Yes Emergency Medical Condition: Yes Medical Record Reviewed: Yes Interpretation(s) Twelve-lead EKG was reviewed by me. Normal sinus rhythm, normal axis, lateral and inferior ST depression in lateral T wave inversions, first-degree AV block. This is new since his last EKG done in June 2017. Heart rate of 62 bpm. Differential Diagnosis ACS, non-STEMI, intracranial bleed, electrolyte abnormality Narrative Course 3:[address] and chest x-ray were within normal limit. Blood test results of back and his TSH is elevated. Rest of the blood test results are within normal limit. Currently patient is complaining of headache. I went to talk to him and let him know about his findings. At this point patient was fully awake and was able to answer questions much daily. He told me his supervisor boiler repair is Dr. Cheng. Patient says he's not sure how he got the headache because he really gets headache. He does not remember clearly coming to the emergency room. He thinks he called 911. When I told him that his nurse called he seemed confused. I'm concerned that the patient may have had a partial seizure when this happened. Which would explain his confused state and bizarre behavior as well as a postictal headache. I would like to admit him also for the abnormal EKG findings. Awaiting for the hospitalist to call back. Patient is okay with the admission. Patient was given by mouth Synthroid. 3:59 PM patient told me that his hospital admissions officer is Dr. Santos. Patient also told me that he has to devices in his chest. One is a pacemaker and the other one is a loop recorder. They're both [employer]. I discussed the case with the hospitalist was accepted. Patient is once again completely coherent at this point. Procedures EKG Prior to Arrival: Yes Diagnosis Primary Impression: Altered mental status Qualified Codes: R41.0 - Disorientation, unspecified Additional Impressions: Chest pain Qualified Codes: R07.9 - Chest pain, unspecified Acute electrocardiogram changes Hypothyroidism Qualified Codes: E03.9 - Hypothyroidism, unspecified Admitting Information Admitting Physician Requests: Admit Scripts Apixaban (Eliquis) 5 Mg Tab 5 MG PO BID for Blood Clot Prevention, #60 TAB 0 Refills Prov: Mae Mendez DO 09/27/17 Leona Aguayo MD Sep 25, 2017 15:51
[2017-09-25] MEDS ORDERED: LEVOTHYROXINE SODIUM 150 MCG TAB PO ONE (16:00)
[2017-09-25] MEDS ORDERED: NALOXONE HCL 0.4 MG/ML AMP IV PUSH PRN (16:15)
--- NOTE | 2017-09-25 17:56 | HHI.HP ---
[facility] Griffin Her MD Admission Diagnosis chest pain, EKG changes, altered mental Diagnoses: Travel History International Travel<30 Days: No Contact w/Intl Traveler <30 Da: No Traveled to Known Affected Are: No History of Present Illness History from patient, ER physician communication, and review medical records. Patient is known to me from his prior hospitalizations. According to the ER, patient was quite confused upon initial arrival. They were told that patient's visiting nurse was the one who called ambulance because he was confused. However I do know this patient quite well. He is usually forgets fall and has memory loss chronically. He apparently is much more awake and alert as the time goes by while in emergency room and was given more history to ER staff later on. Therefore, ER staff was concerned that patient may have had seizures as there was quite difference in his mental status from an initial arrival to ER versus bilateral lower later. Patient told me that he called 911 himself because of dyspnea. He reports that his nurse visited him yesterday. Today, the nurse was passing by his house while the ambulance was at the front of his home and therefore she came into the house and discussed with ambulance personnel. He reports he is forgetful and therefore usually write down his symptoms with date and time in his logbook. His logbook is not with him. He also reports off chest pain. He states this has been associated with his shortness of breath. Last night around 7 PM, he states he was not able to sleep because of this pain awake all night. The pain continued until the morning and finally decided to call 911 at 11:30 AM. He did not take any nitroglycerin. He does not have it on hand at home. He reports he usually gets these chest pains which was why he waited long. Reports the chest pain is worse when you touch his chest where the pacemaker site is. He denies any radiation of the pain. However was nauseous during that time. Also reports of dyspnea and dizziness which really has been there since June. Again he reported later that nausea also has been chronic. Although he does have baseline memory loss, he reports he thinks he has been more confused than his normal. According to ER physician, when she initially examined him and ask him to name different objects, he was not able to do so. He admitted that to me as well and states that that was embarrassing because he usually knows the names such a stethoscope. He is on Coumadin at home 5 mg. Today's INR is 1.5. He denies any prior history of trauma or falls or syncope. Review of Systems Except as stated in HPI: all other systems reviewed are Neg Past Family Social History Past Medical History htn afib bradycardia- s/p ppm s/p loop recorder on coumdadin 1970s-hepatitis C esrd pd cva Pancreatitis Pancreatic mass with benign biopsy 2012 Past Surgical History appendectomy tonsillectomy PD catheter loop monitor cholecystectomy 08/2016 PPM Placement PD catheter placement Loop monitor EGD Cardiac ablation x 2 Allergies: Coded Allergies: Iodinated Contrast- Oral and IV Dye (Verified Allergy, Severe, Itching, ) patient states that he only has itching when he drinks the contrast or has it iv. Patient states he does not have a reaction to topical iodine. diatrizoate meglumine (Unverified Allergy, Mild, Itching, 06/15/17) STATES AFTER IV CONTRAST FROM LAST HOSPITAL VISIT WAS ITCHY FOR 10 DAYS WITH BAD HEARTBURN gadobenic acid (Unverified Allergy, Mild, Itching, 06/15/17) STATES AFTER IV CONTRAST FROM LAST HOSPITAL VISIT WAS ITCHY FOR 10 DAYS WITH BAD HEARTBURN gadodiamide (Unverified Allergy, Mild, Itching, 06/15/17) STATES AFTER IV CONTRAST FROM LAST HOSPITAL VISIT WAS ITCHY FOR 10 DAYS WITH BAD HEARTBURN gadoteridol (Unverified Allergy, Mild, Itching, 06/15/17) STATES AFTER IV CONTRAST FROM LAST HOSPITAL VISIT WAS ITCHY FOR 10 DAYS WITH BAD HEARTBURN iodixanol (Unverified Allergy, Mild, Itching, 06/15/17) STATES AFTER IV CONTRAST FROM LAST HOSPITAL VISIT WAS ITCHY FOR 10 DAYS WITH BAD HEARTBURN iohexol (Unverified Allergy, Mild, Itching, 06/15/17) STATES AFTER IV CONTRAST FROM LAST HOSPITAL VISIT WAS ITCHY FOR 10 DAYS WITH BAD HEARTBURN Family History dad- laryngeal ca, but was heavy smoker and drinker mom- chf dad- not sure Social History did use iv drugs when he was young - in the 1970s smokes 0.5 pack to 1 pack a day havent drank etoh in 40yrs, , never abused etoh Physical Exam Vital Signs Vital Signs Date Time Temp Pulse Resp B/P (MAP) Pulse Ox O2 Delivery O2 Flow Rate FiO2 09/25/17 15:47 63 22 168/95 (119) 100 Nasal Cannula 2.00 09/25/17 12:35 61 21 150/97 (114) 99 Nasal Cannula 2.00 09/25/17 12:34 61 21 99 Nasal Cannula 2.00 09/25/17 12:25 60 18 137/89 (105) 98 Physical Exam GENERAL: This is a well-nourished, well-developed patient, in no apparent distress. SKIN: No rashes, ecchymoses or lesions. Cool and dry. HEAD: Atraumatic. Normocephalic. No temporal or scalp tenderness. EYES: No scleral icterus. No injection or drainage. ENT: Nose without bleeding, purulent drainage or septal hematoma.. Airway patent. NECK: Trachea midline. No JVD. Supple, nontender, no meningeal signs. CARDIOVASCULAR: Regular rate and rhythm without murmurs, gallops, or rubs. RESPIRATORY: Clear to auscultation. Breath sounds equal bilaterally. No wheezes , rales, or rhonchi. GASTROINTESTINAL: Abdomen soft, non-tender, nondistended. No guarding. Peritoneal dialysis catheter site clean. MUSCULOSKELETAL: Extremities without clubbing, cyanosis, or edema. No calf tenderness. NEUROLOGICAL: Awake and alert. Motor and sensory grossly within normal limits. Normal speech. Laboratory Laboratory Tests Test 09/25/17 12:45 09/25/17 12:50 White Blood Count 9.5 Red Blood Count 4.57 Hemoglobin 13.8 Hematocrit 39.5 Mean Corpuscular Volume 86.5 Mean Corpuscular Hemoglobin 30.1 Mean Corpuscular Hemoglobin Concent 34.8 Red Cell Distribution Width 14.9 Platelet Count 209 Mean Platelet Volume 7.9 Neutrophils (%) (Auto) 57.8 Lymphocytes (%) (Auto) 29.9 Monocytes (%) (Auto) 8.2 Eosinophils (%) (Auto) 3.5 Basophils (%) (Auto) 0.6 Neutrophils # (Auto) 5.5 Lymphocytes # (Auto) 2.8 Monocytes # (Auto) 0.8 Eosinophils # (Auto) 0.3 Basophils # (Auto) 0.1 CBC Comment DIFF FINAL Differential Comment Prothrombin Time 14.7 Prothromb Time International Ratio 1.5 Blood Urea Nitrogen 39 Creatinine 6.69 Random Glucose 79 Total Protein 8.4 Albumin 3.7 Calcium Level 8.6 Alkaline Phosphatase 107 Aspartate Amino Transf (AST/SGOT) 35 Alanine Aminotransferase (ALT/SGPT) 44 Total Bilirubin 0.4 Sodium Level 135 Potassium Level 4.1 Chloride Level 105 Carbon Dioxide Level 18.4 Anion Gap 12 Estimat Glomerular Filtration Rate 8 Total Creatine Kinase 69 Troponin I LESS THAN 0.02 Thyroid Stimulating Hormone 3rd Gen 6.000 Salicylates Level 2.3 Acetaminophen Level LESS THAN 2.0 Ethyl Alcohol Level LESS THAN 3 Urine Color YELLOW Urine Turbidity CLEAR Urine pH 6.5 Urine Specific [place] 1.006 Urine Protein 30 Urine Glucose (UA) NEG Urine Ketones NEG Urine Occult Blood NEG Urine Nitrite NEG Urine Bilirubin NEG Urine Urobilinogen LESS THAN 2.0 Urine Leukocyte Esterase NEG Urine RBC 1 Urine WBC LESS THAN 1 Microscopic Urinalysis Comment CATH-CULT NOT IND Lactic Acid Level 1.5 Ammonia 28 Urine Opiates Screen NEG Urine Barbiturates Screen NEG Urine Amphetamines Screen NEG Urine Benzodiazepines Screen NEG Urine Cocaine Screen NEG Urine Cannabinoids Screen NEG Date/Time Source Procedure Growth Status 09/25/17 12:50 Blood Peripheral Aerobic Blood Culture Pending Received 09/25/17 12:50 Blood Peripheral Anaerobic Blood Culture Pending Received Result Diagram: 09/25/17 1245 09/25/17 1245 Imaging Last [address] 09/25/17 1227 Signed Impressions: Service Date/Time: September 13:04 - CONCLUSION: 1. No acute findings. 2. Stable left caudate lacunar infarct. Cruz Parker MD Chest X-Ray 09/25/177 Signed Impressions: Service Date/Time: September 13:26 - CONCLUSION: The lungs are clear. Cruz Parker MD Laboratory Tests Test 09/25/17 12:45 Prothromb Time International Ratio 1.5 RATIO Prothrombin Time 14.7 SEC (9.8-11.6) Caprini VTE Risk Assessment Caprini VTE Risk Assessment: Mod/High Risk (score >= 2) Caprini Risk Assessment Model Point Value = 1 Point Value = 2 Point Value = 3 Point Value = 5 Age 41-60 Minor surgery BMI > 25 kg/m2 Swollen legs Varicose veins or History of unexplained or recurrent spontaneous Oral contraceptives or hormone replacement Sepsis (< 1 month) Serious lung disease, including pneumonia (< 1 month) Abnormal pulmonary function Acute myocardial infarction Congestive heart failure (< 1 month) History of inflammatory bowel disease Medical patient at bed rest Age 61-74 Arthroscopic surgery Major open surgery (> 45 min) Laparoscopic surgery (> 45 min) Malignancy Confined to bed (> 72 hours) Immobilizing plaster cast Central venous access Age >= 75 History of VTE Family history of VTE Factor V Leiden Prothrombin [id number] Lupus anticoagulant Anticardiolipin antibodies Elevated serum homocysteine Heparin-induced thrombocytopenia Other congenital or acquired thrombophilia Stroke (< 1 month) Elective arthroplasty Hip, pelvis, or leg fracture Acute spinal cord injury (< 1 month) Prophylaxis Regimen Total Risk Factor Score Risk Level Prophylaxis Regimen 0-1 Low Early ambulation 2 Moderate Order ONE of the following: *Sequential Compression Device (SCD) *Heparin 5000 units SQ BID 3-4 Higher Order ONE of the following medications: *Heparin 5000 units SQ TID *Enoxaparin/Lovenox 40 mg SQ daily (WT < 150 kg, CrCl > 30 mL/min) *Enoxaparin/Lovenox 30 mg SQ daily (WT < 150 kg, CrCl > 10-29 mL/min) *Enoxaparin/Lovenox 30 mg SQ BID (WT < 150 kg, CrCl > 30 mL/min) AND/OR *Sequential Compression Device (SCD) 5 or more Highest Order ONE of the following medications: *Heparin 5000 units SQ TID (Preferred with Epidurals) *Enoxaparin/Lovenox 40 mg SQ daily (WT < 150 kg, CrCl > 30 mL/min) *Enoxaparin/Lovenox 30 mg SQ daily (WT < 150 kg, CrCl > 10-29 mL/min) *Enoxaparin/Lovenox 30 mg SQ BID (WT < 150 kg, CrCl > 30 mL/min) AND *Sequential Compression Device (SCD) Assessment and Plan Assessment and Plan Impression: AMS - difficult to assess as pt's baseline is also forgetful memory impairment possible seizures chest pain - likely musculoskeletal, but with given EKG changes of t wave inversions in lateral leads EKG changes- with lateral T inversions subtherapeutic INR htn afib bradycardia- s/p ppm s/p loop recorder on coumdadin 1970s-hepatitis C esrd pd cva Pancreatitis Pancreatic mass with benign biopsy 2012 Plan: eeg head ct reviewed serial enzymes and ekg interrogate pacemaker / loop recorder Consult patient' employee health nurse due to ekg changes It is somewhat difficult to evaluate in this patient as he is quite forgetful at baseline. He is known to me from his previous hospitalizations. I am not convinced that he has true altered mental status as initially suspected in the ER. As to his chest pain, it is also quite reproducible and it is mainly where his pacemaker and recorders are located. resume rest of home meds adjust INR - pharmacy coumadin consult no need to overlap with heparin- will do by adjusting one extra coumadin dose instead (pt can follow up outpatient with [facility] nurse for INR check and adjust INR by PCP) Discussed Condition With patient, ER MD, nursing staff Chago Bucio MD Sep 25, 2017 17:56
[2017-09-25] MEDS: DOCUSATE SODIUM 100 MG CAP PO SCH (18:52)
[2017-09-25] MEDS: SEVELAMER CARBONATE 800 MG TAB PO SCH (18:52)
[2017-09-25] MEDS: SODIUM CHLORIDE 0.9% FLUSH 10 ML FLUSH IV FLUSH SCH (21:27)
[2017-09-25] MEDS: TAMSULOSIN HCL 0.4 MG CAP PO SCH (21:27)
[2017-09-25 22:43] LABS: FREE T4 1.13 NG/DL (0.76-1.46); TROPONIN I LESS THAN 0.02 NG/ML (0.02-0.05)
[2017-09-25] MEDS: ACETAMINOPHEN 325 MG TAB PO PRN (22:46)
[2017-09-26 02:11] LABS: AUTOMATED NEUTROPHIL # 3.7 TH/MM3 (1.8-7.7); BASOPHIL # 0.1 TH/MM3 (0-0.2); BASOPHIL % 1.9 % (0.0-2.0); EOSINOPHIL # 0.3 TH/MM3 (0-0.4); HEMATOCRIT 37.6 % (39.0-51.0); HEMOGLOBIN 12.9 GM/DL (13.0-17.0); LYMPH % 35.5 % (9.0-44.0); LYMPHOCYTE # 2.6 TH/MM3 (1.0-4.8); MEAN CORPUSCULAR HEMOGLOBIN 29.7 PG (27.0-34.0); MEAN CORPUSCULAR HGB CONC 34.2 % (32.0-36.0); MONO % 7.6 % (0.0-8.0); MONOCYTE # 0.5 TH/MM3 (0-0.9); PLATELET COUNT 173 TH/MM3 (150-450); RED BLOOD COUNT 4.32 MIL/MM3 (4.50-5.90); WHITE BLOOD COUNT 7.2 TH/MM3 (4.0-11.0)
[2017-09-26 02:38] LABS: BLOOD UREA NITROGEN 40 MG/DL (7-18); CALCIUM 8.4 MG/DL (8.5-10.1); CHLORIDE 108 MEQ/L (98-107); CREATININE 6.68 MG/DL (0.60-1.30); GLOMERULAR FILTRATION RATE 8 ML/MIN (>89); GLUCOSE,RANDOM 90 MG/DL (74-106); SODIUM (NA) 141 MEQ/L (136-145)
[2017-09-26 02:41] LABS: TROPONIN I LESS THAN 0.02 NG/ML (0.02-0.05)
[2017-09-26 03:45] VITALS: BP 104/65; PULSE 62; RESP 20; TEMP 98.3; O2SAT 95
[2017-09-26 04:00] VITALS: PULSE 62
[2017-09-26 08:00] VITALS: BP 148/86; PULSE 64; PULSE 65; RESP 12; TEMP 97.4; O2SAT 97
[2017-09-26] MEDS: DOCUSATE SODIUM 100 MG CAP PO SCH ×3 (09:01→18:02)
[2017-09-26] MEDS: CALCITRIOL 0.25 MCG CAP PO SCH (09:01)
[2017-09-26] MEDS: MEMANTINE HCL 10 MG TAB PO SCH (09:01)
[2017-09-26] MEDS: SEVELAMER CARBONATE 800 MG TAB PO SCH ×4 (09:02→18:02)
[2017-09-26] MEDS: SODIUM CHLORIDE 0.9% FLUSH 10 ML FLUSH IV FLUSH SCH ×2 (09:02→20:20)
[2017-09-26] MEDS: VITAMIN B CMPLX/VITC/FOLIC AC CAP PO SCH (09:02)
[2017-09-26] MEDS: DILTIAZEM-CD 120 MG CAP ER PO SCH (09:02)
[2017-09-26] MEDS: METOPROLOL SUCCINATE 50 MG EXTENDED RELEASE TAB PO SCH (09:02)
--- NOTE | 2017-09-26 10:46 | HHI.PR ---
Subjective Remarks Follow-up AMS/encephalopathy/end-stage renal disease on peritoneal dialysis/ atypical chest pain 09/26/17-patient seen and examined, alert and oriented 3. Patient states he does have left upper anterior chest wall pain with only touch and denies any pain with coughing otherwise denies any shortness of breath or heart palpitation. he had Peritoneal dialysis overnight. States, he has been compliant with medical care Objective Vitals Vital Signs Date Time Temp Pulse Resp B/P (MAP) Pulse Ox O2 Delivery O2 Flow Rate FiO2 09/26/17 08:00 97.4 64 12 148/86 (106) 97 09/26/17 04:00 62 09/26/17 04:00 Nasal Cannula 4.00 09/26/17 03:45 98.3 62 20 104/65 (78) 95 09/26/17 00:00 Nasal Cannula 4.00 09/25/17 23:49 59 09/25/17 23:36 98.6 60 18 120/68 (85) 99 09/25/17 21:21 Nasal Cannula 3.00 09/25/17 20:07 97.4 62 18 165/91 (115) 99 09/25/17 20:04 60 09/25/17 19:36 97.8 60 18 149/89 (109) 100 09/25/17 19:03 97.8 60 20 119/90 (100) 100 09/25/17 18:35 09/25/17 15:47 63 22 168/95 (119) 100 Nasal Cannula 2.00 09/25/17 12:35 61 21 150/97 (114) 99 Nasal Cannula 2.00 09/25/17 12:34 61 21 99 Nasal Cannula 2.00 09/25/17 12:25 60 18 137/89 (105) 98 I/O 09/25/17 09/25/17 09/25/17 09/26/17 09/26/17 09/26/17 07:00 15:00 23:00 07:00 15:00 23:00 Intake Total 240 ml 111 ml Output Total 425 ml Balance -185 ml 111 ml Intake Oral 240 ml Other 111 ml Output Urine Total 425 ml # Bowel Movements 0 Result Diagram: 09/26/17 0124 09/26/17 0129 Imaging Last Impressions Head CT 09/25/17 1227 Signed Impressions: Service Date/Time: September 13:04 - CONCLUSION: 1. No acute findings. 2. Stable left caudate lacunar infarct. Cruz Parker MD Chest X-Ray 09/25/17 1227 Signed Impressions: Service Date/Time: September 13:26 - CONCLUSION: The lungs are clear. Cruz Parker MD Objective Remarks GENERAL: NAD SKIN: Warm and dry. HEAD: Normocephalic. EYES: No scleral icterus. No injection or drainage. NECK: Supple, trachea midline. No JVD or lymphadenopathy. CARDIOVASCULAR: Regular rate and rhythm without murmurs, gallops, or rubs. RESPIRATORY: Breath sounds equal bilaterally. No accessory muscle use. GASTROINTESTINAL: Abdomen soft, non-tender, nondistended. MUSCULOSKELETAL: No cyanosis, or edema. BACK: Nontender without obvious deformity. No CVA tenderness. Procedures none A/P Problem List: (1) Costochondral pain ICD Code: R07.1 - Chest pain on breathing (2) Atypical chest pain ICD Code: R07.89 - Other chest pain Status: Resolved (3) ESRD on peritoneal dialysis ICD Code: N18.6 - End stage renal disease; Z99.2 - Dependence on renal dialysis Status: Acute Assessment and Plan 67-year-old man with AMS Now resolved Ammonia within normal limit EEG ordered to rule out seizure disorder Peritoneal dialysis was resumed overnight Atypical chest pain Likely secondary to costochondral pain However patient with ST changes on EKG, cardiology has been consulted End-stage renal disease on peritoneal dialysis Nephrology was consulted Peritoneal dialysis was resumed overnight Discharge Planning Likely discharge patient home pending cardiology clearance Anshul Gordon MD Sep 26, 2017 10:46
[2017-09-26] MEDS ORDERED: REGADENOSON INJ 0.4 MG/5 ML SYR ONE (13:03)
--- NOTE | 2017-09-26 14:22 | RADRPT ---
EXAM DATE/TIME: 09/26/2017 12:54 [place] COMPARISON: No previous studies available for comparison. INDICATIONS : Angina. Atrial fibrillation. DOSE: 26.8 mCi Tc99m Myoview at stress. 8.8 mCi Tc99m Myoview at rest. 0.4 mg Lexiscan STRESS SYMPTOMS: Dyspnea, lightheadedness and headache. EJECTION FRACTION: 69% MEDICAL HISTORY : Stroke. Renal disease, end stage. Hypertension. SURGICAL HISTORY : Loop recorder. ENCOUNTER: Initial ACUITY: 1 day PAIN SCALE: 3/10 LOCATION: Bilateral chest TECHNIQUE: The patient underwent pharmacologic stress with infusion of prescribed dose. Continuous ECG tracing was monitored during stress. Gated SPECT imaging was performed after stress and conventional SPECT i maging was performed at rest. The examination was performed on a SPECT/CT scanner, both attenuation and non-corrected datasets were reviewed. FINDINGS: DISTRIBUTION: The maximum perfused segment at stress is in the posterior basal wall. PERFUSION STUDY: The pattern of perfusion at stress is within normal limits. GATED STUDY: There is intact wall motion and thickening without hypokinetic or dyskinetic segments. CONCLUSION: Normal examination. RISK CATEGORY: Low (<1% Annual Mortality Rate) Griffin Euceda MD on September 26, 2017 at 14:18 Board Certified Radiologist. This report was verified electronically.
--- NOTE | 2017-09-26 14:33 | EKG ---
Date Performed: 09/25/2017 Time Performed: 12:24:43 PTAGE: 67 years EKG: Sinus rhythm WITH FIRST DEGREE AV BLOCK ST DEVIATION AND MODERATE T-WAVE ABNORMALITY, CONSIDER ANTEROLATERAL ISCH EMIA ABNORMAL ECG INTERPRETATION BASED ON A DEFAULT AGE OF 40 YEARS PREVIOUS TRACING 06/15/17 Since the prior tracing, the fairly marked anterolateral ST-T wave changes are new. Clinical correlation to exclude ischemia will be important. DOCTOR: Meg Ureña Interpretating Date/Time 09/26/2017 14:31:19
--- NOTE | 2017-09-26 14:38 | EKG ---
Date Performed: 09/25/2017 Time Performed: 19:06:24 PTAGE: 67 years EKG: Sinus rhythm WITH FIRST DEGREE AV BLOCK ST DEVIATION AND MODERATE T-WAVE ABNORMALITY, CONSIDER ANTEROLATERAL ISCH EMIA ABNORMAL ECG PREVIOUS TRACING : 09/25/2017 12.24 Since the prior tracing, there has been no significant sheikh DOCTOR: Meg Ureña Interpretating Date/Time 09/26/2017 14:35:44
[2017-09-26 15:12] LABS: INTERNATIONAL NORMALIZED RATIO 1.7 RATIO; PROTHROMBIN TIME - PATIENT 16.8 SEC (9.8-11.6)
--- NOTE | 2017-09-26 15:23 | MB ---
cc: KENDALL BROWN M.D. DATE OF CONSULTATION 09/26/2017 REASON FOR CONSULTATION Chest pain, abnormal EKG. HISTORY OF PRESENT ILLNESS The patient is a 67-year-old white male, followed in our office by Dr. Shaq Dias, with a history of multiple medical problems including paroxysmal atrial fibrillation, pacemaker implant, nonsustained ventricular tachycardia, end-stage renal disease, who was brought to the hospital mainly with altered mental status. He was felt to be confused by his home health care nurse who called emergency services. The patient has a very poor short-term memory so he does write things down as much as he can. He has noted daily left-sided chest pain for the past two weeks, some described as "sharp," some "pressure." There is no pleurisy or associated shortness of breath, nausea or diaphoresis. He has not been able to pinpoint any precipitating or exacerbating factor for the chest pains which often last most of the day in a constant fashion. He has had minimal intermittent pedal edema. He denies lightheadedness, syncope, near-syncope, palpitations, paroxysmal nocturnal dyspnea. PAST MEDICAL HISTORY 1. Paroxysmal atrial fibrillation status post ablations 04/13/2015 and 06/11/2016. 2. End-stage renal disease. 3. Hypertension. 4. History of the leadless pacemaker implant 05/09/2017 ([employer] Micra). 5. Nonsustained ventricular tachycardia demonstrated by Holter monitoring 2014 at which time no ischemia was seen on nuclear stress testing and echo showed normal ejection fraction. 6. Hepatitis C. 7. CVA. 8. Status post implantable loop recorder placement 04/12/2016. 9. History of GI bleeding necessitating blood transfusions June 2017. At that time endoscopy reportedly showed esophagitis, gastritis, polyps, none of which were actively bleeding. 10.Chronic pancreatitis. MEDICATIONS His cardiac medications at home: 1. Metoprolol ER 50 mg q. day. 2. Diltiazem CD 120 mg q. day. 3. Coumadin 5 mg q. day. FAMILY HISTORY Noncontributory. SOCIAL HISTORY The patient smokes about a half to a pack of cigarettes per day. He denies alcohol or drug abuse. REVIEW OF SYSTEMS As in the history of present illness, otherwise negative or noncontributory. He also denies headache, abdominal pain, melena, dyspepsia, bright red blood per rectum, fevers, flu symptoms. PHYSICAL EXAMINATION VITAL SIGNS: Blood pressure is 148/86 with a pulse of 64, respirations 12. GENERAL: In general he is a well-developed, well-nourished white male in no acute distress. HEENT/NECK: Jugular venous pressure is normal. Carotid pulses are 2+ bilaterally and without bruits. CHEST: Examination of the chest reveals clear lung jordan. CARDIAC: On cardiac examination he has a regular rhythm and rate without S3, S4, or murmur. There is a left-sided chest wall tenderness reproducing his presenting symptoms. ABDOMEN: On abdominal examination he has a soft, nontender abdomen. Bowel sounds are present. There is no definite hepatosplenomegaly. EXTREMITIES: Examination of extremities reveals no clubbing, cyanosis or edema. EKG EKG from 09/25/2017 at 12:24 p.m. shows sinus rhythm, anterolateral ST and T-wave abnormalities, consider ischemia. LABORATORY Laboratory data includes WBC 7.2, hemoglobin 12.9, platelets 173, potassium 3.7, BUN 40, creatinine 6.68, negative cardiac enzymes, INR 1.5. IMAGING Chest x-ray shows no acute disease. IMPRESSION Overall atypical chest pains for the past two weeks, abnormal EKG in this 67-year-old white male with a history of multiple medical problems including paroxysmal atrial fibrillation, hypertension, end-stage renal disease, nonsustained ventricular tachycardia, CVA, GI bleeding, history of leadless pacemaker implant. Despite some episodes of chest pain lasting most of the day in a constant fashion over the last two weeks cardiac enzymes are negative for myocardial infarction. His EKGs do show dynamic anterolateral ST-segment and T-wave changes. Of note, the patient had a normal nuclear stress test 10/30/2016. There is no definite evidence clinically for acute pulmonary embolism. RECOMMENDATIONS 1. Recheck a Lexiscan nuclear stress test. Even if ischemia is demonstrated would recommend medical therapy initially, especially with his history of GI bleeding with endoscopy showing no definitive source in June 2017. 2. Continue warfarin for his history of paroxysmal atrial fibrillation and CVA. MD CIPRIANO [place]/BLUE /12:20 PM /3:03 PM [id number]
[2017-09-26 16:00] VITALS: BP 129/83; PULSE 63; RESP 14; TEMP 97.9; O2SAT 100
[2017-09-26] MEDS ORDERED: WARFARIN SOD 5 MG TAB PO SCH (16:00)
--- NOTE | 2017-09-26 16:02 | ECHRPT ---
Indication: CONCLUSIONS The left ventricular systolic function is normal with an estimated ejection fraction in the range of 60-65%. Normal left ventricular size. Wall thickness is normal. BP: 148 / 86 HR: Rhythm: MEASUREMENTS (Male / Female) Normal Values Technical Quality:Good 2D ECHO LV Diastolic Diameter PLAX 4.6 cm 4.2 - 5.9 / 3.9 - 5.3 cm LV Systolic Diameter PLAX 3.1 cm IVS Diastolic Thickness 1.1 cm 0.6 - 1.0 / 0.6 - 0.9 cm LVPW Diastolic Thickness 1.1 cm 0.6 - 1.0 / 0.6 - 0.9 cm LV Relative Wall Thickness 0.5 RV Internal Dim ED PLAX 2.3 cm M-MODE Aortic Root Diameter MM 3.3 cm LA Systolic Diameter MM 3.9 cm LA Ao Ratio MM 1.2 AV Cusp Separation MM 1.8 cm DOPPLER Mitral E Point Velocity 177.0 cm/s Mitral A Point Velocity 101.0 cm/s Mitral E to A Ratio 1.8 TR Peak Velocity 223.0 cm/s TR Peak Gradient 19.9 mmHg Right Atrial Pressure 10.0 mmHg Pulmonary Artery Systolic Pressu 29.9 mmHg Right Ventricular Systolic Press 29.9 mmHg FINDINGS LEFT VENTRICLE The left ventricular systolic function is normal with an estimated ejection fraction in the range of 60-65%. Normal left ventricular size. Wall thickness is normal. RIGHT VENTRICLE Normal right ventricular size and systolic function. LEFT ATRIUM The left atrial size is normal. RIGHT ATRIUM The right atrial size is normal. ATRIAL SEPTUM Normal atrial septal thickness without atrial level shunting by limited color doppler interrogation. AORTA The aortic root and proximal ascending aorta are not well visualized. MITRAL VALVE Structurally normal mitral valve. [id number] mitral valve regurgitation. AORTIC VALVE Trileaflet aortic valve. No aortic valve stenosis or regurgitation. TRICUSPID VALVE Structurally normal tricuspid valve. No tricuspid valve stenosis there is mild tricuspid valve regur gitation. There is estimated mild pulmonary hypertension present (range 30-40 mmHg). PULMONARY VALVE No pulmonary valve regurgitation or stenosis. VESSELS The inferior vena cava is normal in size. PERICARDIUM No pericardial effusion. Roly Lui MD, FACC (Electronically Signed) Final Date:26 September 2017 16:01
--- NOTE | 2017-09-26 16:36 | EKG ---
Date Performed: 09/26/2017 Time Performed: 01:26:18 PTAGE: 67 years EKG: Possible Sinus rhythm with ventricular demand pacing. Nonspecific ST abnormality Abnormal ECG PREVIOUS TRACING : 09/25/2017 19.06 Compared to previous tracing, possible ventricular demand p acing is now evident. DOCTOR: Jf Morgan Interpretating Date/Time 09/26/2017 16:35:20
[2017-09-26] MEDS: ACETAMINOPHEN 325 MG TAB PO PRN (18:05)
--- NOTE | 2017-09-26 18:31 | PD.CONS ---
HPI Service Nephrology Consult Requested By Dr. Bucio Reason for Consult End-stage renal disease on peritoneal dialysis Primary Care Physician Griffin Her MD History of Present Illness Patient is a 67-year-old white male with history of hypertension, CVA, atrial fibrillation, nonsustained V. tach, cardiomyopathy, pacemaker implant who had memory deficit, he remembers now that the he received emergency care and the he was confused unable to recall exact things, he does remember getting chest pain and pressure, and this resolved now, patient is on peritoneal dialysis and received dialysis last night. Past Family Social History Allergies: Coded Allergies: Iodinated Contrast- Oral and IV Dye (Verified Allergy, Severe, Itching, ) patient states that he only has itching when he drinks the contrast or has it iv. Patient states he does not have a reaction to topical iodine. diatrizoate meglumine (Unverified Allergy, Mild, Itching, 06/15/17) STATES AFTER IV CONTRAST FROM LAST HOSPITAL VISIT WAS ITCHY FOR 10 DAYS WITH BAD HEARTBURN gadobenic acid (Unverified Allergy, Mild, Itching, 06/15/17) STATES AFTER IV CONTRAST FROM LAST HOSPITAL VISIT WAS ITCHY FOR 10 DAYS WITH BAD HEARTBURN gadodiamide (Unverified Allergy, Mild, Itching, 06/15/17) STATES AFTER IV CONTRAST FROM LAST HOSPITAL VISIT WAS ITCHY FOR 10 DAYS WITH BAD HEARTBURN gadoteridol (Unverified Allergy, Mild, Itching, 06/15/17) STATES AFTER IV CONTRAST FROM LAST HOSPITAL VISIT WAS ITCHY FOR 10 DAYS WITH BAD HEARTBURN iodixanol (Unverified Allergy, Mild, Itching, 06/15/17) STATES AFTER IV CONTRAST FROM LAST HOSPITAL VISIT WAS ITCHY FOR 10 DAYS WITH BAD HEARTBURN iohexol (Unverified Allergy, Mild, Itching, 06/15/17) STATES AFTER IV CONTRAST FROM LAST HOSPITAL VISIT WAS ITCHY FOR 10 DAYS WITH BAD HEARTBURN Past Medical History End-stage renal disease Hypertension Cardiomyopathy Atrial fibrillation Nonsustained V. tach CVA Hypertensive heart disease History of chronic pancreatitis Past Surgical History Heart catheterization Ablation Pacemaker Tenckhoff catheter Cholecystectomy Reported Medications Reported Meds & Active Scripts Active Coumadin (Warfarin) 5 Mg Tab 5 Mg PO DAILY Restart Coumadin in 2 days on 06/19 Repeat INR on and follow up with attache. Reported Colace (Docusate Sodium) 100 Mg Capsule 100 Mg PO TID Namenda (Memantine) 10 Mg Tab 10 Mg PO DAILY Metoprolol Succinate ER 24 HR (Metoprolol Succinate) 50 Mg Tab 50 Mg PO DAILY Tiazac (Diltiazem ER 24 HR) 120 Mg Caper 120 Mg PO DAILY Tamsulosin (Tamsulosin HCl) 0.4 Mg Cap 0.4 Mg PO HS Calcitriol 0.5 Mcg Cap 0.5 Mcg PO DAILY Ropinirole 0.25 Mg Tab 0.25 Mg PO DAILY Renvela (Sevelamer Carbonate) 800 Mg Tab 1,600 Mg PO TID Dialyvite 800 (B-Complex W/ C & Folic Acid) 1 Tab 1 Tab PO DAILY Active Ordered Medications Current Medications Medications (Trade) Dose Ordered Sig/Maximus Route Start Time Stop Time Status Last Admin (NS Flush) 2 ml UNSCH PRN IV FLUSH 09/25/17 16:15 (NS Flush) 2 ml BID IV FLUSH 09/25/17 21:00 09/26/17 09:02 (Narcan Inj) 0.4 mg UNSCH PRN IV PUSH 09/25/17 16:15 (Rocaltrol) 0.5 mcg DAILY PO 09/26/17 09:00 09/26/17 09:01 (Cardizem Cd) 120 mg DAILY PO 09/26/17 09:00 09/26/17 09:02 (Colace) 100 mg TID PO 09/25/17 18:00 09/26/17 18:02 (Namenda) 10 mg DAILY PO 09/26/17 09:00 09/26/17 09:01 (Toprol Xl) 50 mg DAILY PO 09/26/17 09:00 09/26/17 09:02 (Requip) 0.25 mg DAILY PO 09/26/17 09:00 09/26/17 09:08 (Renvela) 1,600 mg TID PO 09/25/17 18:00 09/26/17 18:02 (Flomax) 0.4 mg HS PO 09/25/17 21:00 09/25/17 21:27 (Coumadin) 5 mg DAILY@1600 PO 09/26/17 16:00 09/26/17 18:02 (Nephrocaps) 1 cap DAILY PO 09/26/17 09:00 09/26/17 09:02 (Tylenol) 650 mg Q4H PRN PO 09/25/17 22:00 09/26/17 18:05 Pharmacy Profile Note 0 ml @ 0 mls/hr UNSCH OTHER 09/26/17 11:00 Family History Noncontributory Social History History of smoking in the past Physical Exam Vital Signs Vital Signs Date Time Temp Pulse Resp B/P (MAP) Pulse Ox O2 Delivery O2 Flow Rate FiO2 09/26/17 16:00 97.9 14 129/83 (98) 100 09/26/17 08:00 97.4 64 12 148/86 (106) 97 09/26/17 08:00 Nasal Cannula 2.00 09/26/17 08:00 65 09/26/17 04:00 62 09/26/17 04:00 Nasal Cannula 4.00 09/26/17 03:45 98.3 62 20 104/65 (78) 95 09/26/17 00:00 Nasal Cannula 4.00 09/25/17 23:49 59 09/25/17 23:36 98.6 60 18 120/68 (85) 99 09/25/17 21:21 Nasal Cannula 3.00 09/25/17 20:07 97.4 62 18 165/91 (115) 99 09/25/17 20:04 60 09/25/17 19:36 97.8 60 18 149/89 (109) 100 09/25/17 19:03 97.8 60 20 119/90 (100) 100 09/25/17 18:35 Physical Exam GENERAL: Well-nourished, well-developed patient. SKIN: Warm and dry. HEAD: Normocephalic. EYES: No scleral icterus. No injection or drainage. NECK: Supple, trachea midline. No JVD or lymphadenopathy. CARDIOVASCULAR: Regular rate and rhythm without murmurs, gallops, or rubs. RESPIRATORY: Breath sounds equal bilaterally. No accessory muscle use. GASTROINTESTINAL: Abdomen soft, non-tender, nondistended. EXTREMITIES: No cyanosis, or edema. NEUROLOGICAL: Awake, alert, and oriented x 3. Non-focal. Laboratory Laboratory Tests Test 09/25/17 22:08 09/26/17 01:24 09/26/17 01:29 09/26/17 14:23 Total Creatine Kinase 59 58 Troponin I LESS THAN 0.02 LESS THAN 0.02 Free Thyroxine 1.13 Total Triiodothyronine 101 White Blood Count 7.2 Red Blood Count 4.32 Hemoglobin 12.9 Hematocrit 37.6 Mean Corpuscular Volume 87.0 Mean Corpuscular Hemoglobin 29.7 Mean Corpuscular Hemoglobin Concent 34.2 Red Cell Distribution Width 15.0 Platelet Count 173 Mean Platelet Volume 8.0 Neutrophils (%) (Auto) 51.0 Lymphocytes (%) (Auto) 35.5 Monocytes (%) (Auto) 7.6 Eosinophils (%) (Auto) 4.0 Basophils (%) (Auto) 1.9 Neutrophils # (Auto) 3.7 Lymphocytes # (Auto) 2.6 Monocytes # (Auto) 0.5 Eosinophils # (Auto) 0.3 Basophils # (Auto) 0.1 CBC Comment DIFF FINAL Differential Comment Blood Urea Nitrogen 40 Creatinine 6.68 Random Glucose 90 Calcium Level 8.4 Sodium Level 141 Potassium Level 3.7 Chloride Level 108 Carbon Dioxide Level 23.0 Anion Gap 10 Estimat Glomerular Filtration Rate 8 Prothrombin Time 16.8 Prothromb Time International Ratio 1.7 Date/Time Source Procedure Growth Status 09/25/17 12:50 Blood Peripheral Aerobic Blood Culture - Preliminary NO GROWTH IN 1 DAY Resulted 09/25/17 12:50 Blood Peripheral Anaerobic Blood Culture - Preliminary NO GROWTH IN 1 DAY Resulted Result Diagram: 09/26/17 0124 09/26/17 0129 Imaging Last Impressions Myocardial Perfusion Scan Nuc Med 09/26/17 0000 Signed Impressions: Service Date/Time: Tuesday, September 26, 2017 12:54 - CONCLUSION: Normal examination. RISK CATEGORY: Low (<1%% Annual Mortality Rate) Griffin Euceda MD Head CT 09/25/171226 Signed Impressions: Service Date/Time: September 13:04 - CONCLUSION: 1. No acute findings. 2. Stable left caudate lacunar infarct. Cruz Parker MD Chest X-Ray 09/25/171226 Signed Impressions: Service Date/Time: September 13:26 - CONCLUSION: The lungs are clear. Cruz Parker MD Assessment and Plan Problem List: (1) ESRD on peritoneal dialysis ICD Codes: N18.6 - End stage renal disease; Z99.2 - Dependence on renal dialysis Status: Acute Plan: Patient is on peritoneal dialysis, no complication noted Altered mental status resolved Memory deficit versus due to previous stroke Continue supportive care. If patient is Discharged can be followed as an outpatient (2) HTN (hypertension) ICD Codes: I10 - Hypertension Status: Chronic Plan: Monitor blood pressure (3) Memory impairment ICD Codes: R41.3 - Other amnesia Status: Acute Plan: History of previous CVA Problem Qualifiers (1) HTN (hypertension): Qualified Codes: I10 - Essential (primary) hypertension Michelle Bird MD Sep 26, 2017 18:31
[2017-09-26 20:00] VITALS: PULSE 60
[2017-09-26] MEDS: TAMSULOSIN HCL 0.4 MG CAP PO SCH (20:20)
[2017-09-26 20:26] VITALS: BP 131/84; PULSE 62; RESP 18; TEMP 98.3; O2SAT 96
--- NOTE | 2017-09-26 21:09 | MG ---
cc: ARIELLE TILLMAN MD Lab No: Date: 09/26/17 Age: 67 Sex: M Race: REFERRING PHYSICIAN Dr. Bucio An EEG was obtained on this 67-year-old patient being evaluated for confusion. There is mid to high amplitude, 8-10 per second rhythms posteriorly. There is beta activity frontally. There are occasional intermixed beta rhythms during wakefulness. The patient enters sleep stage I and II. There are sleepy spindles and K complexes. Photic stimulation was unremarkable. INTERPRETATION Normal awake and asleep EEG. Arielle Tillman MD [facility] /8:20 PM /9:03 PM
[2017-09-27] VITALS: PULSE 61
[2017-09-27 00:03] VITALS: BP 124/73; PULSE 72; RESP 18; TEMP 98.3; O2SAT 96
[2017-09-27 04:00] VITALS: PULSE 68
[2017-09-27 04:10] VITALS: BP 125/81; PULSE 67; RESP 18; TEMP 98.2; O2SAT 92
[2017-09-27 08:00] VITALS: BP 120/65; PULSE 63; PULSE 72; RESP 16; TEMP 97.4; O2SAT 97
[2017-09-27 08:36] LABS: INTERNATIONAL NORMALIZED RATIO 1.6 RATIO; PROTHROMBIN TIME - PATIENT 16.4 SEC (9.8-11.6)
--- NOTE | 2017-09-27 08:42 | HHI.PR ---
Objective Vitals Vital Signs Date Time Temp Pulse Resp B/P (MAP) Pulse Ox O2 Delivery O2 Flow Rate FiO2 09/27/17 04:10 98.2 67 18 125/81 (96) 92 09/27/17 04:00 Room Air 09/27/17 04:00 68 09/27/17 00:03 98.3 72 18 124/73 (90) 96 09/27/17 00:00 Room Air 09/27/17 00:00 61 09/26/17 20:26 98.3 62 18 131/84 (100) 96 09/26/17 20:00 60 09/26/17 20:00 Room Air 09/26/17 16:00 97.9 14 129/83 (98) 100 09/26/17 16:00 63 I/O 09/26/17 09/26/17 09/26/17 09/27/17 09/27/17 09/27/17 07:00 15:00 23:00 07:00 15:00 23:00 Intake Total 240 ml 111 ml 240 ml 240 ml Output Total 425 ml 475 ml 0 ml Balance -185 ml 111 ml -235 ml 240 ml Intake Oral 240 ml 240 ml 240 ml Other 111 ml Output Urine Total 425 ml 475 ml 0 ml # Bowel Movements 0 0 Result Diagram: 09/26/17 0124 09/26/17 0129 Procedures none A/P Problem List: (1) Costochondral pain ICD Code: R07.1 - Chest pain on breathing (2) Atypical chest pain ICD Code: R07.89 - Other chest pain Status: Resolved (3) ESRD on peritoneal dialysis ICD Code: N18.6 - End stage renal disease; Z99.2 - Dependence on renal dialysis Status: Acute Mae Mendez DO Sep 27, 2017 08:42
[2017-09-27 08:50] LABS: BICARBONATE 22.7 MEQ/L (21.0-32.0); CALCIUM 8.9 MG/DL (8.5-10.1); CREATININE 6.52 MG/DL (0.60-1.30)
[2017-09-27] MEDS: CALCITRIOL 0.25 MCG CAP PO SCH (10:52)
[2017-09-27] MEDS: DILTIAZEM-CD 120 MG CAP ER PO SCH (10:52)
[2017-09-27] MEDS: SODIUM CHLORIDE 0.9% FLUSH 10 ML FLUSH IV FLUSH SCH (10:52)
[2017-09-27] MEDS: VITAMIN B CMPLX/VITC/FOLIC AC CAP PO SCH (10:53)
[2017-09-27] MEDS: SEVELAMER CARBONATE 800 MG TAB PO SCH ×2 (10:53→12:47)
[2017-09-27] MEDS: MEMANTINE HCL 10 MG TAB PO SCH (10:53)
[2017-09-27] MEDS: DOCUSATE SODIUM 100 MG CAP PO SCH ×2 (10:54→12:48)
[2017-09-27] MEDS: METOPROLOL SUCCINATE 50 MG EXTENDED RELEASE TAB PO SCH (10:54)
[2017-09-27] MEDS ORDERED: APIX5TAB PO (11:52)
[2017-09-27 12:00] VITALS: BP 120/74; PULSE 71; PULSE 72; RESP 17; TEMP 98.2; O2SAT 98
--- NOTE | 2017-09-27 12:05 | HHI.DS ---
Discharge Summary Admission Date Sep 25, 2017 at 15:59 Discharge Date: Sep 27, 2017 Admitting Diagnosis chest pain, EKG changes, altered mental (1) Costochondral pain ICD Code: R07.1 - Chest pain on breathing Diagnosis: Principal (2) Atypical chest pain ICD Code: R07.89 - Other chest pain Diagnosis: Principal Status: Resolved (3) ESRD on peritoneal dialysis ICD Code: N18.6 - End stage renal disease; Z99.2 - Dependence on renal dialysis Diagnosis: Principal Status: Acute Procedures EEG INTERPRETATION Normal awake and asleep EEG. Brief History - From Admission History from patient, ER physician communication, and review medical records. Patient is known to me from his prior hospitalizations. According to the ER, patient was quite confused upon initial arrival. They were told that patient's visiting nurse was the one who called ambulance because he was confused. However I do know this patient quite well. He is usually forgets fall and has memory loss chronically. He apparently is much more awake and alert as the time goes by while in emergency room and was given more history to ER staff later on. Therefore, ER staff was concerned that patient may have had seizures as there was quite difference in his mental status from an initial arrival to ER versus bilateral lower later. Patient told me that he called 911 himself because of dyspnea. He reports that his nurse visited him yesterday. Today, the nurse was passing by his house while the ambulance was at the front of his home and therefore she came into the house and discussed with ambulance personnel. He reports he is forgetful and therefore usually write down his symptoms with date and time in his logbook. His logbook is not with him. He also reports off chest pain. He states this has been associated with his shortness of breath. Last night around 7 PM, he states he was not able to sleep because of this pain awake all night. The pain continued until the morning and finally decided to call 911 at 11:30 AM. He did not take any nitroglycerin. He does not have it on hand at home. He reports he usually gets these chest pains which was why he waited long. Reports the chest pain is worse when you touch his chest where the pacemaker site is. He denies any radiation of the pain. However was nauseous during that time. Also reports of dyspnea and dizziness which really has been there since June. Again he reported later that nausea also has been chronic. Although he does have baseline memory loss, he reports he thinks he has been more confused than his normal. According to ER physician, when she initially examined him and ask him to name different objects, he was not able to do so. He admitted that to me as well and states that that was embarrassing because he usually knows the names such a stethoscope. He is on Coumadin at home 5 mg. Today's INR is 1.5. He denies any prior history of trauma or falls or syncope. CBC/BMP: 09/26/17 0124 09/27/17 0635 Significant Findings Laboratory Tests Test 09/25/17 12:45 09/25/17 12:50 09/25/17 22:08 09/26/17 01:24 Monocytes (%) (Auto) 8.2 % (0.0-8.0) Prothrombin Time 14.7 SEC (9.8-11.6) Blood Urea Nitrogen 39 MG/DL (7-18) Creatinine 6.69 MG/DL (0.60-1.30) Total Protein 8.4 GM/DL (6.4-8.2) Sodium Level 135 MEQ/L (136-145) Carbon Dioxide Level 18.4 MEQ/L (21.0-32.0) Estimat Glomerular Filtration Rate 8 ML/MIN (>89) Troponin I LESS THAN 0.02 NG/ML LESS THAN 0.02 NG/ML Thyroid Stimulating Hormone 3rd Gen 6.000 uIU/ML (0.358-3.740) Salicylates Level 2.3 MG/DL (2.8-20.0) Acetaminophen Level LESS THAN 2.0 MCG/ML Urine Protein 30 mg/dL (NEG-TRACE) Red Blood Count 4.32 MIL/MM3 (4.50-5.90) Hemoglobin 12.9 GM/DL (13.0-17.0) Hematocrit 37.6 % (39.0-51.0) Test 09/26/17 01:29 09/26/17 14:23 09/27/17 06:35 Blood Urea Nitrogen 40 MG/DL (7-18) 40 MG/DL (7-18) Creatinine 6.68 MG/DL (0.60-1.30) 6.52 MG/DL (0.60-1.30) Calcium Level 8.4 MG/DL (8.5-10.1) Chloride Level 108 MEQ/L (98-107) 108 MEQ/L (98-107) Estimat Glomerular Filtration Rate 8 ML/MIN (>89) 9 ML/MIN (>89) Troponin I LESS THAN 0.02 NG/ML Prothrombin Time 16.8 SEC (9.8-11.6) 16.4 SEC (9.8-11.6) Imaging Last Impressions Myocardial Perfusion Scan Nuc Med 09/26/17 0000 Signed Impressions: Service Date/Time: Tuesday, September 26, 2017 12:54 - CONCLUSION: Normal examination. RISK CATEGORY: Low (<1%% Annual Mortality Rate) Griffin Euceda MD Head CT 09/25/17 1227 Signed Impressions: Service Date/Time: September 13:04 - CONCLUSION: 1. No acute findings. 2. Stable left caudate lacunar infarct. Cruz Parker MD Chest X-Ray 09/25/177 Signed Impressions: Service Date/Time: September 13:26 - CONCLUSION: The lungs are clear. Cruz Parker MD PE at Discharge GENERAL: NAD SKIN: Warm and dry. HEAD: Normocephalic. EYES: No scleral icterus. No injection or drainage. NECK: Supple, trachea midline. No JVD or lymphadenopathy. CARDIOVASCULAR: Regular rate and rhythm without murmurs, gallops, or rubs. RESPIRATORY: Breath sounds equal bilaterally. No accessory muscle use. GASTROINTESTINAL: Abdomen soft, non-tender, nondistended. MUSCULOSKELETAL: No cyanosis, or edema. BACK: Nontender without obvious deformity. No CVA tenderness. Pt update on day of discharge Patient is currently doing well. No acute concerns. Wants to go home. Hospital Course Mr. Arroyo is a pleasant 67 year old male with a history of ESRD on PD, Afib on Warfarin who was admitted to the hospital due to altered mental status. He also complained of sharp chest pain. EEG was negative. Cardiology was consulted. Dr. Morgan evaluated patient and obtained Lexiscan which was unremarkable. Cardiology cleared for discharge. Patient continued PD here in the hospital. I had a long discussion with patient regarding his anti-coagulation regimen. He lives alone and reports good compliance with medications including warfarin. However, when he came to the hospital, his INR was subtherapeutic. I suspect most of the time he is probably subtherapeutic. He checks his INR once a month. He may have had a TIA. I believe Apixaban 5mg BID would be a better approach for consistent anticoagulation than Warfarin. He has ESRD but not above 80 years old or not below 60kg. Thus, Apixaban 5mg BID would be appropriate - this was also discussed with anti-coagulation pharmacist. Patient has an appointment with his manager motor on Friday09/29/2017. I have encouraged him to discuss with his manager motor regarding anti-coagulation. Pt Condition on Discharge: Good Discharge Disposition: Discharge Home Discharge Time: > 30 minutes Discharge Instructions DIET: Follow Instructions for: Renal Failure Diet Activities you can perform: Regular-No Restrictions Follow up Referrals: Cardiology - 3-5 Days with Shaq Dias MD PCP Follow-up - 1 Week New Medications: Apixaban (Eliquis) 5 Mg Tab 5 MG PO BID for Blood Clot Prevention, #60 TAB 0 Refills Continued Medications: B-Complex W/ C & Folic Acid (Dialyvite 800) 1 Tab 1 TAB PO DAILY for Nutritional Supplement Calcitriol (Calcitriol) 0.5 Mcg Cap 0.5 MCG PO DAILY for Calcium Supplement, #30 CAP 0 Refills Diltiazem ER 24 HR (Tiazac) 120 Mg Caper 120 MG PO DAILY, #30 CAP 0 Refills Docusate Sodium (Colace) 100 Mg Capsule 100 MG PO TID for Constipation, #60 CAP 0 Refills Memantine (Namenda) 10 Mg Tab 10 MG PO DAILY for Alzheimer Disease, #30 TAB 0 Refills Metoprolol Succinate ER 24 HR (Metoprolol Succinate ER 24 HR) 50 Mg Tab 50 MG PO DAILY, #30 TAB 0 Refills Ropinirole (Ropinirole) 0.25 Mg Tab 0.25 MG PO DAILY, #30 TAB 0 Refills Sevelamer Carbonate (Renvela) 800 Mg Tab 1600 MG PO TID for Control phosphorous levels, #90 TAB 0 Refills Tamsulosin (Tamsulosin) 0.4 Mg Cap 0.4 MG PO HS for Manage Prostate Problems, #30 CAP 0 Refills Discontinued Medications: Warfarin (Coumadin) 5 Mg Tab 5 MG PO DAILY for Blood Clot Prevention, #30 TAB 0 Refills Restart Coumadin in 2 days on 06/19 Repeat INR on and follow up with manager motor. Mae Mendez DO Sep 27, 2017 12:05
== END 2017-09-27 13:15 | disposition home or self-care (01) ==
LOC: NEPE 12:15 → UNDOADMIN 15:59 → NEDH 15:59 → INTOOBSV 16:03 → N04A 18:40 → NEDH 18:40 → UNDODISIN 09-27 13:15
PROVIDERS: ADMIT Hospitalist; ATTEND Hospitalist
DX: R07.1 Chest pain on breathing (principal); R41.82 Altered mental status, unspecified; N18.6 End stage renal disease; I42.9 Cardiomyopathy, unspecified; I13.11 Hypertensive heart and chronic kidney disease without heart failure, with stage 5 chronic kidney disease, or end stage renal disease; K86.1 Other chronic pancreatitis; I44.0 Atrioventricular block, first degree; I48.0 Paroxysmal atrial fibrillation; E03.9 Hypothyroidism, unspecified; E78.00 Pure hypercholesterolemia, unspecified; G47.30 Sleep apnea, unspecified; F17.210 Nicotine dependence, cigarettes, uncomplicated; Z79.01 Long term (current) use of anticoagulants; Z86.19 Personal history of other infectious and parasitic diseases; Z91.041 Radiographic dye allergy status; Z95.0 Presence of cardiac pacemaker; Z99.2 Dependence on renal dialysis; Z86.73 Personal history of transient ischemic attack (TIA), and cerebral infarction without residual deficits
CPT/HCPCS: 70450; 71045; 78452; 80048; 80053; 80307; 81001; 82140; 82550; 83605; 84439; 84443; 84480; 84484; 85025; 85610; 87040; 90935; 93005; 93017; 93306; 95819; 97162; 99285; A9502; G0257; G0378; G8987; G8988; J2785; 90945

== ENCOUNTER 2017-10-08 00:02 | Observation (INO) | payer MEDICARE, MEDICAID ==
[2017-10-08] VITALS (8 sets, daily range): BP systolic 94–142; BP diastolic 51–82; PULSE 60–68; RESP 16–18; TEMP 98–98.7; O2SAT 95–99
[~2017-10-08] VITALS: Ht 188 cm; Wt 85.0 kg
[~2017-10-08 00:02] MED LIST changes: +APIX5TAB PO; +COLA100C5 PO; -COUM5TAB PO; -METO1TAB43 PO; +METO1TAB9 PO; +NAME10TA PO; -PANT40TA3 PO; -WALKER WHEELS/F1 MIS; -ZOFR4TAB3 SL
[2017-10-08] MEDS ORDERED: SODIUM CHLOR 0.9% 250 ML INJ 250 ML IV ONE (00:30)
--- NOTE | 2017-10-08 00:34 | PD ---
HPI Chief Complaint: Syncope/Near-Syncope Time Seen by Provider: 00:17 Travel History International Travel<30 days: No Contact w/Intl Traveler<30days: No Traveled to known affect area: No History of Present Illness HPI The patient is a 67 year old male who presents to the [facility] emergency department with a history of having a syncopal event prior to arrival. The patient reports having neck and shoulder pain after the syncope. The patient was noted by a family member to have a blood pressure after the syncopal event in the 70s systolic. The patient's blood pressure on ambulance services arrival was in the 90s. The patient has a history of hypertension. The patient reports that he has not felt well since approximately 7 PM. He reports that he last ate at 5 PM. He reports that at 7 PM he began to have a generalized abdominal discomfort. The patient reports that he is a dialysis patient. He reports that he has been on peritoneal dialysis for the last 4 years. He reports that he normally starts his dialysis sessions at 11:30 PM. He lasted dialysis last night. He reports that the color of the fluid was normal-appearing. He denies having any fevers. He reports that at 9 PM he began to have vomiting and diarrhea. He reports that he has had vomiting 2, diarrhea at least 10 times. He reports the diarrhea is brown in color. He denies having any blood in his stool or mucus in his stool. He denies any recent antibiotic use or sick contacts. He denies having any unusual food intake. He denies having any chest pain or chest pressure. He denies having any shortness of breath currently. The patient reports that he did feel short of breath after the episode. He denies having any lower extremity edema, calf pain, or erythema. On review of systems otherwise, he denies having any recent cough or congestion,urinary symptoms, or new neurologic symptoms. The patient reports a prior history of stroke. The patient reports that over the last few weeks he has also noticed that he has numbness in bilateral feet. [facility] Past Medical History Narrative Medical The patient's past medical history is significant for hypertension, chronic renal failure on peritoneal dialysis, hyperlipidemia, cerebrovascular accident, atrial fibrillation, hepatitis C, chronic pancreatitis, and sleep apnea Hx Anticoagulant Therapy: Yes Arthritis: No Asthma: No Atrial Fibrillation: Yes Autoimmune Disease: No Blood Disorders: No Anxiety: No Depression: No Heart Rhythm Problems: Yes (atrial fibrillation) Cancer: No Cardiac Catheterization: Yes Cardiovascular Problems: Yes High Cholesterol: Yes (pancreatitis chronic) Chemotherapy: No Chest Pain: No Congestive Heart Failure: No COPD: No Cerebrovascular Accident: Yes Diabetes: No Dialysis: Yes (PERITONEAL) Diminished Hearing: No Endocrine: No Gastrointestinal Disorders: Yes (chronic PANCREATITIS ) GERD: No Glaucoma: No Genitourinary: No Headaches: No Hepatitis: Yes (C) Hiatal Hernia: No Heparin Induced Thrombocytopen: No Hypertension: Yes Immune Disorder: No Implanted Vascular Access Dvce: Yes Insomnia: Yes (OCCASIONAL) Kidney Stones: No Musculoskeletal: No Neurologic: Yes (stroke 2016) Psychiatric: No Reproductive: No Respiratory: Yes Integumentary: No Immunizations Current: Yes Migraines: No Pancreatitis: Yes Radiation Therapy: No Renal Failure: Yes Seizures: No Sickle Cell Disease: No Sleep Apnea: Yes (doesn't use his CPAP) Thyroid Disease: No Ulcer: No Tetanus Vaccination: < 5 Years Influenza Vaccination: Yes Past Surgical History Narrative Surgical The patient's past surgical history is significant for a pacemaker placement, peritoneal dialysis catheter placement, cholecystectomy, appendectomy, tonsillectomy. Abdominal Surgery: Yes (appendectomy at age 10) AICD: No Appendectomy: Yes Arteriovenous Shunt: No Body Medical Devices: Right abdominal peritoneal dialysis port, pacemaker Cardiac Surgery: Yes (Ablation) Cholecystectomy: Yes Coronary Artery Bypass Graft: No Ear Surgery: No Endocrine Surgery: No Eye Surgery: No Genitourinary Surgery: No Gynecologic Surgery: No Insulin Pump: No Joint Replacement: No Neurologic Surgery: No Oral Surgery: Yes (Tonsillectomy) Pacemaker: No Thoracic Surgery: Yes (LOOP RECORDER INSERT) Tonsillectomy: Yes Other Surgery: Yes (peritoneal shunt) Family History Family Myocardial Infarction: Yes (SISTER) Social History Alcohol Use: No Tobacco Use: Yes (One half pack per day) Substance Use: No Allergies-Medications (Allergen,Severity, Reaction): Coded Allergies: Iodinated Contrast- Oral and IV Dye (Verified Allergy, Severe, Itching, 10/08/17) patient states that he only has itching when he drinks the contrast or has it iv. Patient states he does not have a reaction to topical iodine. diatrizoate meglumine (Unverified Allergy, Mild, Itching, 10/08/17) STATES AFTER IV CONTRAST FROM LAST HOSPITAL VISIT WAS ITCHY FOR 10 DAYS WITH BAD HEARTBURN gadobenic acid (Unverified Allergy, Mild, Itching, 10/08/17) STATES AFTER IV CONTRAST FROM LAST HOSPITAL VISIT WAS ITCHY FOR 10 DAYS WITH BAD HEARTBURN gadodiamide (Unverified Allergy, Mild, Itching, 10/08/17) STATES AFTER IV CONTRAST FROM LAST HOSPITAL VISIT WAS ITCHY FOR 10 DAYS WITH BAD HEARTBURN gadoteridol (Unverified Allergy, Mild, Itching, 10/08/17) STATES AFTER IV CONTRAST FROM LAST HOSPITAL VISIT WAS ITCHY FOR 10 DAYS WITH BAD HEARTBURN iodixanol (Unverified Allergy, Mild, Itching, 10/08/17) STATES AFTER IV CONTRAST FROM LAST HOSPITAL VISIT WAS ITCHY FOR 10 DAYS WITH BAD HEARTBURN iohexol (Unverified Allergy, Mild, Itching, 10/08/17) STATES AFTER IV CONTRAST FROM LAST HOSPITAL VISIT WAS ITCHY FOR 10 DAYS WITH BAD HEARTBURN Reported Meds & Prescriptions Reported Meds & Active Scripts Active Eliquis (Apixaban) 5 Mg Tab 5 Mg PO BID Reported Colace (Docusate Sodium) 100 Mg Capsule 100 Mg PO TID Namenda (Memantine) 10 Mg Tab 10 Mg PO DAILY Metoprolol Succinate ER 24 HR (Metoprolol Succinate) 50 Mg Tab 50 Mg PO DAILY Tiazac (Diltiazem ER 24 HR) 120 Mg Caper 120 Mg PO DAILY Tamsulosin (Tamsulosin HCl) 0.4 Mg Cap 0.4 Mg PO HS Calcitriol 0.5 Mcg Cap 0.5 Mcg PO DAILY Ropinirole 0.25 Mg Tab 0.25 Mg PO DAILY Renvela (Sevelamer Carbonate) 800 Mg Tab 1,600 Mg PO TID Dialyvite 800 (B-Complex W/ C & Folic Acid) 1 Tab 1 Tab PO DAILY Review of Systems Except as stated in HPI: all other systems reviewed are Neg General / Constitutional: No: Fever Eyes: No: Visual changes HENT: Positive: Neck Pain, No: Headaches, Rhinorrhea, Congestion Cardiovascular: Positive: Syncope, Dyspnea on exertion, No: Chest Pain or Discomfort, Diaphoresis Respiratory: Positive: Shortness of Breath Gastrointestinal: No: Abdominal Pain Genitourinary: No: Dysuria Musculoskeletal: No: Pain Skin: No Rash Neurologic: Positive: Syncope, No: Weakness, Focal Abnormalities, Change in Mentation, Slurred Speech, Sensory Disturbance Psychiatric: No: Depression Endocrine: No: Polydipsia Hematologic/Lymphatic: No: Easy Bruising Physical Exam Narrative General: The patient is a well-developed well-nourished male in no acute distress. Head and Neck exam: Head is normocephalic atraumatic. Eyes: EOMI, pupils are equal round and reactive to light. Nose: Midline septum with pink mucous membranes Mouth: Dentition unremarkable. Moist mucus membranes. Posterior oropharynx is not erythematous. No tonsillar hypertrophy. Uvula midline. Airway patent. Neck: No palpable lymphadenopathy. No nuchal rigidity. No thyromegaly. Cardiovascular: Regular rate and rhythm without murmurs, gallops, or rubs. No pulse deficit to the extremities on simultaneous auscultation and palpation of his radial artery. Lungs: Clear to auscultation bilaterally. No wheezes, rhonchi, or rales. Abdomen: Soft, with tenderness on palpation of bilateral lower quadrants of the abdomen. The patient has a peritoneal dialysis catheter in place that appears to be in good repair without any signs of erythema, edema, or purulent drainage. No other tenderness on palpation of the upper quadrants of the abdomen or midepigastric area. No guarding, rebound, or rigidity. Normal bowel sounds are audible. Extremities: No clubbing, cyanosis, or edema. 2+ pulses in all 4 extremities. No calf tenderness on palpation. Back: No costovertebral angle tenderness to palpation. Neurologic Exam: Grossly nonfocal Skin Exam: No rash noted. Intact skin that is warm and dry. Data Data Last Documented VS Vital Signs Date Time Temp Pulse Resp B/P (MAP) Pulse Ox O2 Delivery O2 Flow Rate FiO2 10/08/17 00:20 16 98 Room Air 10/08/17 00:11 98.7 60 116/66 (83) Orders Orders Electrocardiogram (10/08/17:17) Complete Blood Count With Diff (10/08/17:) Comprehensive Metabolic Panel (10/08/17:) Creatine Kinase (Cpk) (10/08/17:) Ckmb (Isoenzyme) Profile (10/08/17:) Troponin I (10/08/17:) B-Type Natriuretic Peptide (10/08/17:) Prothrombin Time / Inr (Pt) (3/7/18 00:17) Act Partial Throm Time (Ptt) (10/08/17 00:17) Lipase (10/08/17 00:17) Magnesium (Mg) (10/08/17 00:17) Chest, Single Ap (10/08/17 00:17) Ct Brain W/O Iv Contrast(Rout) (10/08/17 00:17) Ct Abd/Pel W/O Iv Contrast (10/08/17 00:17) Iv Access Insert/Monitor (10/08/17 00:17) Ecg Monitoring (10/08/17 00:17) Oximetry (10/08/17 00:17) Ct Cerv Spine W/O Contrast (10/08/17 ) Shoulder, Complete (>2vws) (10/08/17 ) Sodium Chlor 0.9% 250 Ml Inj (Ns 250 Ml (10/08/17 00:30) Admit Order (Ed Use Only) (10/08/17 02:42) Labs Laboratory Tests Test 10/08/17 00:20 White Blood Count 9.9 TH/MM3 Red Blood Count 4.71 MIL/MM3 Hemoglobin 14.0 GM/DL Hematocrit 40.9 % Mean Corpuscular Volume 86.8 FL Mean Corpuscular Hemoglobin 29.7 PG Mean Corpuscular Hemoglobin Concent 34.3 % Red Cell Distribution Width 15.4 % Platelet Count 200 TH/MM3 Mean Platelet Volume 7.8 FL Neutrophils (%) (Auto) 72.6 % Lymphocytes (%) (Auto) 18.7 % Monocytes (%) (Auto) 6.5 % Eosinophils (%) (Auto) 1.5 % Basophils (%) (Auto) 0.7 % Neutrophils # (Auto) 7.2 TH/MM3 Lymphocytes # (Auto) 1.9 TH/MM3 Monocytes # (Auto) 0.6 TH/MM3 Eosinophils # (Auto) 0.2 TH/MM3 Basophils # (Auto) 0.1 TH/MM3 CBC Comment DIFF FINAL Differential Comment Prothrombin Time 20.1 SEC Prothromb Time International Ratio 2.0 RATIO Activated Partial Thromboplast Time 27.5 SEC Blood Urea Nitrogen 38 MG/DL Creatinine 7.04 MG/DL Random Glucose 139 MG/DL Total Protein 7.3 GM/DL Albumin 3.2 GM/DL Calcium Level 8.3 MG/DL Magnesium Level 2.1 MG/DL Alkaline Phosphatase 95 U/L Aspartate Amino Transf (AST/SGOT) 22 U/L Alanine Aminotransferase (ALT/SGPT) 38 U/L Total Bilirubin 0.4 MG/DL Sodium Level 140 MEQ/L Potassium Level 3.6 MEQ/L Chloride Level 110 MEQ/L Carbon Dioxide Level 19.9 MEQ/L Anion Gap 10 MEQ/L Estimat Glomerular Filtration Rate 8 ML/MIN Total Creatine Kinase 71 U/L Troponin I LESS THAN 0.02 NG/ML B-Type Natriuretic Peptide 143 PG/ML Lipase 472 U/L [facility] Medical Decision Making Medical Screen Exam Complete: Yes Emergency Medical Condition: Yes Medical Record Reviewed: Yes Interpretation(s) Last Impressions Head CT 10/08/1716 Signed Impressions: Service Date/Time: Sunday, October 08, 2017 00:55 - CONCLUSION: 1. No acute intracranial abnormality is identified. 2. Nonacute and stable findings include mild generalized atrophy and encephalomalacia in the left frontal periventricular white matter. Griffin Craig MD Chest X-Ray 10/08/1716 Signed Impressions: Service Date/Time: Sunday, October 08, 2017 00:30 - CONCLUSION: No acute cardiopulmonary abnormality is identified. Griffin Craig MD Abdomen/Pelvis CT 10/08/1716 Signed Impressions: Service Date/Time: Sunday, October 08, 2017 00:59 - CONCLUSION: 1. No acute finding is identified within the abdomen or pelvis. 2. Severe atherosclerotic disease. Griffin Craig MD Shoulder X-Ray 10/08/17 Signed Impressions: Service Date/Time: Sunday, October 08, 2017 00:31 - CONCLUSION: No acute right shoulder abnormality is identified. Griffin Craig MD Cervical Spine CT 10/08/17 Signed Impressions: Service Date/Time: Sunday, October 08, 2017 00:55 - CONCLUSION: No acute cervical spine abnormality is identified. Griffin Craig MD Differential Diagnosis Acute pancreatitis, versus gastroenteritis, versus electrolyte derangements, versus dehydration, versus vasovagal syncope, versus acute coronary syndrome Narrative Course During the course of the patient's emergency department visit, the patient's history, examination, and differential diagnosis were reviewed with the patient. The patient was placed on a hospital monitor with oximetry and frequent blood pressure monitoring. The patient had IV access obtained and blood work sent for analysis. An EKG was done on arrival. The patient's EKG reveals sinus rhythm with a heart rate of 60, QRS duration 94 ms, QTC [address] segment elevation. T waves are inverted in V3, V4, V5, V6. The patient was initially provided normal saline at 250 mm IV fluid bolus 1. The patient's laboratory studies were reviewed and remarkable for a white count of 9.9, hemoglobin 14, platelets 200 was 72.6 neutrophils, CMP is remarkable for a chloride of 110, CO2 19.9, BUN 38, creatinine 7.04, glucose 139, cardiac enzymes within normal limits. BNP 143, lipase 472. PT 20.1, INR 2.0, PTT 27.5 Radiology studies were reviewed and remarkable for a CT scan of the brain that shows no acute abnormality. CT scan of C-spine shows no acute abnormality. A chest x-ray shows no acute cardiopulmonary disease. CT scan of the abdomen pelvis shows no acute abnormality. Right shoulder x-ray reveals no acute shoulder dislocation or fracture. The patient will be admitted for observation regarding syncope with brief episode of hypotension. The patient will be gently rehydrated. The patient's results were discussed with the patient, including the plan of care. I explained that further testing and/ or monitoring is indicated based on the patient's history, examination, and/ or laboratory findings. Therefore, I recommended admission for additional evaluation. The patient expressed understanding and was agreeable with this plan. The patient was admitted to the hospital in stable condition and sent to a bed under the care of the [facility] Hospitalist. Physician Communication Physician Communication The patient's case including history, pertinent physical examination findings, and laboratory studies were discussed with Dr. Reece. It was agreed that the patient would be admitted to the [facility] Hospitalist service. Diagnosis Primary Impression: Syncope Qualified Codes: R55 - Syncope and collapse Admitting Information Admitting Physician Requests: Observation Kendy Gomez MD Oct 08, 2017 00:34
[2017-10-08 00:48] LABS: AUTOMATED NEUTROPHIL # 7.2 TH/MM3 (1.8-7.7); BASOPHIL # 0.1 TH/MM3 (0-0.2); BASOPHIL % 0.7 % (0.0-2.0); EOSINOPHIL # 0.2 TH/MM3 (0-0.4); EOSINOPHIL % 1.5 % (0.0-4.0); HEMATOCRIT 40.9 % (39.0-51.0); LYMPH % 18.7 % (9.0-44.0); LYMPHOCYTE # 1.9 TH/MM3 (1.0-4.8); MEAN CELL VOLUME 86.8 FL (80.0-100.0); MEAN CORPUSCULAR HEMOGLOBIN 29.7 PG (27.0-34.0); MEAN CORPUSCULAR HGB CONC 34.3 % (32.0-36.0); MEAN PLATELET VOLUME 7.8 FL (7.0-11.0); MONO % 6.5 % (0.0-8.0); MONOCYTE # 0.6 TH/MM3 (0-0.9); NEUT % 72.6 % (16.0-70.0); PLATELET COUNT 200 TH/MM3 (150-450); RED BLOOD COUNT 4.71 MIL/MM3 (4.50-5.90); RED CELL DISTRIBUTION WIDTH 15.4 % (11.6-17.2); WHITE BLOOD COUNT 9.9 TH/MM3 (4.0-11.0)
--- NOTE | 2017-10-08 00:54 | RADRPT ---
EXAM DATE/TIME: 10/08/2017 00:30 [facility] COMPARISON: CHEST SINGLE AP, September 25, 2017, 13:26. INDICATIONS : Syncope. MEDICAL HISTORY : Renal disease, end stage. Hypertension SURGICAL HISTORY : Appendectomy. Cholecystectomy. loop recorder, peritoneal dialysis catheter ENCOUNTER: Initial ACUITY: 1 day PAIN SCORE: 9/10 LOCATION: Bilateral chest FINDINGS: Portable AP view of the chest demonstrates a normal-sized cardiac silhouette. Loop recorder overlies the left chest. No effusion, consolidation, or pneumothorax is identified. The bones and soft tissues demonstrate no acute finding. EKG lines overlie the patient. CONCLUSION: No acute cardiopulmonary abnormality is identified. Griffin Craig MD on October 08, 2017 at 0:52 Board Certified Radiologist. This report was verified electronically.
--- NOTE | 2017-10-08 00:55 | RADRPT ---
EXAM DATE/TIME: 10/08/2017 00:31 [facility] COMPARISON: No previous studies available for comparison. INDICATIONS : Right shoulder pain post syncope. MEDICAL HISTORY : Renal disease, end stage. Hypertension SURGICAL HISTORY : Appendectomy. Cholecystectomy. loop recorder, peritoneal dialysis catheter ENCOUNTER: Initial ACUITY: 1 day PAIN SCORE: 9/10 LOCATION: Right upper extremity FINDINGS: 4 views of the right shoulder demonstrate no fracture or dislocation. The acromioclavicular joint is intact but demonstrates mild osteoarthritis change. The visualized soft tissues demonstrate no abnorm ality. Visualized portions of the right lung are clear. No displaced rib fracture is seen. CONCLUSION: No acute right shoulder abnormality is identified. Griffin Craig MD on October 08, 2017 at 0:52 Board Certified Radiologist. This report was verified electronically.
[2017-10-08 01:01] LABS: PROTHROMBIN TIME - PATIENT 20.1 SEC (9.8-11.6)
[2017-10-08 01:06] LABS: ALBUMIN 3.2 GM/DL (3.4-5.0); ALT (GPT) 38 U/L (12-78); AST (GOT) 22 U/L (15-37); BICARBONATE 19.9 MEQ/L (21.0-32.0); BLOOD UREA NITROGEN 38 MG/DL (7-18); CALCIUM 8.3 MG/DL (8.5-10.1); CHLORIDE 110 MEQ/L (98-107); CREATININE 7.04 MG/DL (0.60-1.30); GLOMERULAR FILTRATION RATE 8 ML/MIN (>89); GLUCOSE,RANDOM 139 MG/DL (74-106); MAGNESIUM 2.1 MG/DL (1.5-2.5); SODIUM (NA) 140 MEQ/L (136-145)
[2017-10-08 01:10] LABS: ALKALINE PHOSPHATASE 95 U/L (45-117); TOTAL BILIRUBIN ADULT 0.4 MG/DL (0.2-1.0); TOTAL PROTEIN 7.3 GM/DL (6.4-8.2); TROPONIN I LESS THAN 0.02 NG/ML (0.02-0.05)
--- NOTE | 2017-10-08 01:15 | RADRPT ---
EXAM DATE/TIME: 10/08/2017 00:55 [facility] COMPARISON: CT BRAIN W/O CONTRAST, September 25, 2017, 13:04. INDICATIONS : Trauma; fall. RADIATION DOSE: 41.16 CTDIvol (mGy) MEDICAL HISTORY : Cardiovascular disease. Stroke Hypertension.renal disease, hep c SURGICAL HISTORY : Appendectomy. ENCOUNTER: Initial ACUITY: 1 day PAIN SCALE: 5/10 LOCATION: Bilateral cranial TECHNIQUE: Multiple contiguous axial images were obtained of the head. Using automated exposure control and adj ustment of the mA and/or kV according to patient size, radiation dose was kept as low as reasonably a chievable to obtain optimal diagnostic quality images. DICOM format image data is available electro nically for review and comparison. FINDINGS: CEREBRUM: There is mild generalized atrophy. Ventricles are normal given degree of atrophy present. There is mi ld bilateral basal ganglia calcification. Stable low density is present in the left frontal periventr icular white matter. No midline shift, mass lesion, hemorrhage or acute infarction. No extra-axial fluid collections are seen. POSTERIOR FOSSA: The cerebellum and brainstem demonstrate no acute finding. The 4th ventricle is midline. The cerebe llopontine angle is unremarkable. EXTRACRANIAL: Visualized sinuses are clear. SKULL: The calvaria is intact. No evidence of skull fracture. CONCLUSION: 1. No acute intracranial abnormality is identified. 2. Nonacute and stable findings include mild generalized atrophy and encephalomalacia in the left fro ntal periventricular white matter. Griffin Craig MD on October 08, 2017 at 1:10 Board Certified Radiologist. This report was verified electronically.
--- NOTE | 2017-10-08 01:21 | RADRPT ---
EXAM DATE/TIME: 10/08/2017 00:59 [facility] COMPARISON: CT ABDOMEN & PELVIS W/O CONTRAST, June 15, 2017, 6:53. INDICATIONS : Trauma; fall ORAL CONTRAST: No oral contrast ingested. RADIATION DOSE: 15.23 CTDIvol (mGy) MEDICAL HISTORY : Cardiovascular disease. Hypertension. Stroke.liver disease, hep c, renal disease. SURGICAL HISTORY : Appendectomy. ENCOUNTER: Initial ACUITY: 1 day PAIN SCALE: 5/10 LOCATION: Bilateral abdomen TECHNIQUE: Volumetric scanning of the abdomen and pelvis was performed. Using automated exposure control and ad justment of the mA and/or kV according to patient size, radiation dose was kept as low as reasonably achievable to obtain optimal diagnostic quality images. DICOM format image data is available electro nically for review and comparison. FINDINGS: LOWER LUNGS: The visualized lower lungs are clear. There is a stable metallic structure in the right ventricular a pex. LIVER: Homogeneous density without lesion. There is no dilation of the biliary tree. There has been prior cholecystectomy with clips in the gallbladder fossa. SPLEEN: Upper limits for normal in size at 13.1 cm. PANCREAS: There are calcifications within the pancreatic head. The appearance is stable. Body and tail demonstr ate no abnormality. KIDNEYS: The kidneys are atrophic. There is no mass, stone, or hydronephrosis. ADRENAL GLANDS: Within normal limits. VASCULAR: There is no aortic aneurysm. There is severe atherosclerotic disease with ectasia. The infrarenal aor ta measures up to 2.8 cm. BOWEL/MESENTERY: The stomach, small bowel, and colon demonstrate no acute abnormality. There is no free intraperitone al air or fluid. ABDOMINAL WALL: There is a peritoneal dialysis catheter that enters the left lower quadrant and terminates in the lef t pelvis. RETROPERITONEUM: There is no lymphadenopathy. BLADDER: No wall thickening or mass. REPRODUCTIVE: Within normal limits. INGUINAL: There is no lymphadenopathy. There is a small fat containing left inguinal hernia. MUSCULOSKELETAL: There are mild degenerative changes of the lumbar spine. CONCLUSION: 1. No acute finding is identified within the abdomen or pelvis. 2. Severe atherosclerotic disease. Griffin Craig MD on October 08, 2017 at 1:14 Board Certified Radiologist. This report was verified electronically.
--- NOTE | 2017-10-08 01:26 | RADRPT ---
EXAM DATE/TIME: 10/08/2017 00:55 [facility] COMPARISON: No previous studies available for comparison. INDICATIONS : Trauma; fall. RADIATION DOSE: 42.95 CTDIvol (mGy) MEDICAL HISTORY : Cardiovascular disease. Hypertension. Stroke.renal disease, liver disease, hep c SURGICAL HISTORY : Appendectomy. ENCOUNTER: Initial ACUITY: 1 day PAIN SCALE: 5/10 LOCATION: Bilateral neck TECHNIQUE: Volumetric scanning of the cervical spine was performed. Multiplanar reconstructions in the sagittal, coronal and oblique axial planes were performed. Using automated exposure control and adjustment o f the mA and/or kV according to patient size, radiation dose was kept as low as reasonably achievable to obtain optimal diagnostic quality images. DICOM format image data is available electronically f or review and comparison. FINDINGS: There is normal sagittal spine alignment of the cervical spine. No anterolisthesis or retrolisthesis is present. The atlantoaxial relationship is within normal limits. There is no prevertebral soft tiss ue swelling present. No fracture or dislocation is identified. No disc herniation is visualized in th e upper cervical spine. There are blebs at the lung apices with calcified granuloma in the right upper lobe. Otherwise, the v isualized portions of the posterior fossa, paraspinous soft tissues, and upper lung zones demonstrate no acute abnormality. CONCLUSION: No acute cervical spine abnormality is identified. Griffin Craig MD on October 08, 2017 at 1:20 Board Certified Radiologist. This report was verified electronically.
[2017-10-08] MEDS ORDERED: NALOXONE HCL 0.4 MG/ML AMP IV PUSH PRN (03:15)
[2017-10-08] MEDS ORDERED: SODIUM CHLORIDE 0.9% FLUSH 10 ML FLUSH IV FLUSH PRN ×2 (03:15→11:00)
[2017-10-08] MEDS ORDERED: ACETAMINOPHEN 325 MG TAB PO PRN ×2 (03:15→14:30)
[2017-10-08] MEDS: SODIUM CHLORIDE 0.9% FLUSH 10 ML FLUSH IV FLUSH SCH ×2 (09:00→21:00)
--- NOTE | 2017-10-08 10:52 | EKG ---
Date Performed: 10/08/2017 Time Performed: 00:12:46 PTAGE: 67 years EKG: Sinus rhythm ST DEVIATION AND MODERATE T-WAVE ABNORMALITY, CONSIDER ANTERIOR ISCHEMIA ABNORMAL ECG NO PREVIOUS TRACING DOCTOR: Roly Lui Interpretating Date/Time 10/08/2017 10:52:17
--- NOTE | 2017-10-08 10:56 | PD.CONS ---
HPI Service Nephrology Consult Requested By Dr. Gomez Reason for Consult ESRD management Primary Care Physician Griffin Her MD History of Present Illness Patient is 67-year-old white male with history of end-stage renal disease, hypertension, on peritoneal dialysis, he stated he developed abdominal pain last night and he used a heating pad but he then develop nausea and vomiting and severe diarrhea which caused his blood pressure to drop he was feeling tired and lethargic and he called his daughter who in turn check the blood pressure which was very low and called the ambulance, he did miss his treatment he said the prior to that he was using 1.5% solutions. He reports decrease sensorium, passing out and complaining of shoulder pain with x-ray was negative for any shoulder dislocation. Review of Systems Constitutional: COMPLAINS OF: Fatigue Gastrointestinal: COMPLAINS OF: Abdominal pain, Diarrhea, Nausea, Vomiting Musculoskeletal: COMPLAINS OF: Joint pain, Muscle aches Psychiatric: COMPLAINS OF: Anxiety Past Family Social History Allergies: Coded Allergies: Iodinated Contrast- Oral and IV Dye (Verified Allergy, Severe, Itching, 10/08/17) patient states that he only has itching when he drinks the contrast or has it iv. Patient states he does not have a reaction to topical iodine. diatrizoate meglumine (Unverified Allergy, Mild, Itching, 10/08/17) STATES AFTER IV CONTRAST FROM LAST HOSPITAL VISIT WAS ITCHY FOR 10 DAYS WITH BAD HEARTBURN gadobenic acid (Unverified Allergy, Mild, Itching, 10/08/17) STATES AFTER IV CONTRAST FROM LAST HOSPITAL VISIT WAS ITCHY FOR 10 DAYS WITH BAD HEARTBURN gadodiamide (Unverified Allergy, Mild, Itching, 10/08/17) STATES AFTER IV CONTRAST FROM LAST HOSPITAL VISIT WAS ITCHY FOR 10 DAYS WITH BAD HEARTBURN gadoteridol (Unverified Allergy, Mild, Itching, 10/08/17) STATES AFTER IV CONTRAST FROM LAST HOSPITAL VISIT WAS ITCHY FOR 10 DAYS WITH BAD HEARTBURN iodixanol (Unverified Allergy, Mild, Itching, 10/08/17) STATES AFTER IV CONTRAST FROM LAST HOSPITAL VISIT WAS ITCHY FOR 10 DAYS WITH BAD HEARTBURN iohexol (Unverified Allergy, Mild, Itching, 10/08/17) STATES AFTER IV CONTRAST FROM LAST HOSPITAL VISIT WAS ITCHY FOR 10 DAYS WITH BAD HEARTBURN Past Medical History End-stage renal disease Hypertension Cardiomyopathy Atrial fibrillation Nonsustained V. tach CVA Hypertensive heart disease History of chronic pancreatitis Past Surgical History Heart catheterization Ablation Pacemaker Tenckhoff catheter Cholecystectomy Reported Medications Reported Meds & Active Scripts Active Eliquis (Apixaban) 5 Mg Tab 5 Mg PO BID Reported Colace (Docusate Sodium) 100 Mg Capsule 100 Mg PO TID Namenda (Memantine) 10 Mg Tab 10 Mg PO DAILY Metoprolol Succinate ER 24 HR (Metoprolol Succinate) 50 Mg Tab 50 Mg PO DAILY Tiazac (Diltiazem ER 24 HR) 120 Mg Caper 120 Mg PO DAILY Tamsulosin (Tamsulosin HCl) 0.4 Mg Cap 0.4 Mg PO HS Calcitriol 0.5 Mcg Cap 0.5 Mcg PO DAILY Ropinirole 0.25 Mg Tab 0.25 Mg PO DAILY Renvela (Sevelamer Carbonate) 800 Mg Tab 1,600 Mg PO TID Dialyvite 800 (B-Complex W/ C & Folic Acid) 1 Tab 1 Tab PO DAILY Active Ordered Medications Current Medications Medications (Trade) Dose Ordered Sig/Maximus Route Start Time Stop Time Status Last Admin (NS Flush) 2 ml UNSCH PRN IV FLUSH 10/08/17 03:15 (NS Flush) 2 ml BID IV FLUSH 10/08/17 09:00 (Tylenol) 650 mg Q4H PRN PO 10/08/17 03:15 10/08/17 05:45 (Narcan Inj) 0.4 mg UNSCH PRN IV PUSH 10/08/17 03:15 (Heparin Inj) 1,000 units WITH DIALYSIS PRN XX 10/08/17 11:00 UNV (NS Flush) 10 ml UNSCH PRN IV FLUSH 10/08/17 11:00 UNV Family History Noncontributory Social History History of smoking, used to drink in the past Physical Exam Vital Signs Vital Signs Date Time Temp Pulse Resp B/P (MAP) Pulse Ox O2 Delivery O2 Flow Rate FiO2 10/08/17 07:30 62 16 94/55 (68) 96 Room Air 10/08/17 00:20 16 98 Room Air 10/08/17 00:11 98.7 60 17 116/66 (83) 95 Physical Exam GENERAL: Well-nourished, well-developed patient. SKIN: Warm and dry. HEAD: Normocephalic. EYES: No scleral icterus. No injection or drainage. NECK: Supple, trachea midline. No JVD or lymphadenopathy. CARDIOVASCULAR: Regular rate and rhythm without murmurs, gallops, or rubs. RESPIRATORY: Breath sounds equal bilaterally. No accessory muscle use. GASTROINTESTINAL: Abdomen soft, non-tender, nondistended. PD catheter in place EXTREMITIES: No cyanosis, or edema. NEUROLOGICAL: Awake, alert, and oriented x 3. Non-focal. Laboratory Laboratory Tests Test 10/08/17 00:20 White Blood Count 9.9 Red Blood Count 4.71 Hemoglobin 14.0 Hematocrit 40.9 Mean Corpuscular Volume 86.8 Mean Corpuscular Hemoglobin 29.7 Mean Corpuscular Hemoglobin Concent 34.3 Red Cell Distribution Width 15.4 Platelet Count 200 Mean Platelet Volume 7.8 Neutrophils (%) (Auto) 72.6 Lymphocytes (%) (Auto) 18.7 Monocytes (%) (Auto) 6.5 Eosinophils (%) (Auto) 1.5 Basophils (%) (Auto) 0.7 Neutrophils # (Auto) 7.2 Lymphocytes # (Auto) 1.9 Monocytes # (Auto) 0.6 Eosinophils # (Auto) 0.2 Basophils # (Auto) 0.1 CBC Comment DIFF FINAL Differential Comment Prothrombin Time 20.1 Prothromb Time International Ratio 2.0 Activated Partial Thromboplast Time 27.5 Blood Urea Nitrogen 38 Creatinine 7.04 Random Glucose 139 Total Protein 7.3 Albumin 3.2 Calcium Level 8.3 Magnesium Level 2.1 Alkaline Phosphatase 95 Aspartate Amino Transf (AST/SGOT) 22 Alanine Aminotransferase (ALT/SGPT) 38 Total Bilirubin 0.4 Sodium Level 140 Potassium Level 3.6 Chloride Level 110 Carbon Dioxide Level 19.9 Anion Gap 10 Estimat Glomerular Filtration Rate 8 Total Creatine Kinase 71 Troponin I LESS THAN 0.02 B-Type Natriuretic Peptide 143 Lipase 472 Result Diagram: 10/08/17 0020 10/08/1719 Imaging Last Impressions Head CT 10/08/1716 Signed Impressions: Service Date/Time: Sunday, October 08, 2017 00:55 - CONCLUSION: 1. No acute intracranial abnormality is identified. 2. Nonacute and stable findings include mild generalized atrophy and encephalomalacia in the left frontal periventricular white matter. Griffin Craig MD Chest X-Ray 10/08/1716 Signed Impressions: Service Date/Time: Sunday, October 08, 2017 00:30 - CONCLUSION: No acute cardiopulmonary abnormality is identified. Griffin Craig MD Abdomen/Pelvis CT 10/08/177 Signed Impressions: Service Date/Time: Sunday, October 08, 2017 00:59 - CONCLUSION: 1. No acute finding is identified within the abdomen or pelvis. 2. Severe atherosclerotic disease. Griffin Craig MD Shoulder X-Ray 10/08/17 Signed Impressions: Service Date/Time: Sunday, October 08, 2017 00:31 - CONCLUSION: No acute right shoulder abnormality is identified. Griffin Craig MD Cervical Spine CT 10/08/17 Signed Impressions: Service Date/Time: Sunday, October 08, 2017 00:55 - CONCLUSION: No acute cervical spine abnormality is identified. Griffin Craig MD Assessment and Plan Problem List: (1) ESRD (end stage renal disease) on dialysis ICD Codes: N18.6 - End stage renal failure on dialysis; Z99.2 - Dependence on renal dialysis Status: Chronic Plan: Patient is seen in the emergency feeling better this peritoneal dialysis will be started Likely he had vasovagal phenomena due to nausea and vomiting He is stable Blood pressure has improved he did receive 250 cc of crystalloid (2) Syncope ICD Codes: R55 - Syncope and collapse Status: Acute Plan: Likely due to vasovagal phenomena (3) HTN (hypertension) ICD Codes: I10 - Hypertension Status: Chronic Plan: He is hypotensive continue to monitor Problem Qualifiers (1) Syncope: Qualified Codes: R55 - Syncope and collapse Michelle Bird MD Oct 08, 2017 10:56
[2017-10-08] MEDS ORDERED: HEPARIN SODIUM - IV 10,000 UNITS/10 ML VIAL XX PRN (11:00)
--- NOTE | 2017-10-08 13:01 | HHI.HP ---
[facility] Service [place] [facility] Primary Care Physician Griffin Her MD Admission Diagnosis Syncope, n/v/d Diagnoses: Chief Complaint: syncope, hypotension Travel History International Travel<30 Days: No Contact w/Intl Traveler <30 Da: No Traveled to Known Affected Are: No History of Present Illness Written by Sandra Zamora, acting as scribe for Dr. Mckeon on 10/08/17 at 12:56. 67-year-old male with ESRD on PD, HTN, HLD, TIA, afib on Coumadin ( transitioning to Eliquis), hepatitis C, chronic pancreatitis, presents with a 3 day history of hypotension, episode of syncope, and some abdominal discomfort, nausea/vomiting, and diarrhea. The patient states he came into the hospital because his blood pressure "fell out". He states he wasn't really able to function. His daughter lives next door so he called her to come over yesterday. She checked his blood pressure which was 60/40 and a few minutes later it was 58 /37 so he asked his daughter to call 911. He reports feeling lightheaded and believes he passed out. He complains of neck and shoulder pain from the fall. Prior to this episode, he states on Thursday 10/05 he also didn't feel well; his BP was low, having a lot of flatus and diarrhea that persisted for half the day. His blood pressure continued to be low into Friday 10/06. He also felt very nauseous and vomited x1. He reports some lower abdominal discomfort. He denies recalling any fevers/chills, chest pain, or shortness of breath. He is on peritoneal dialysis and denies noticing any changes of the peritoneal fluid or around the catheter site. He does still make urine, denies noticing any changes including no dysuria. He saw his stonemason helper Dr. Dias yesterday who wants him to stop his Coumadin and start Eliquis on Tuesday 10/10. Last Coumadin dose was 10/07. He states he was here in the hospital recently because he had a TIA. He denies any other new medication changes. He denies any other medical complaints at this time. Review of Systems Except as stated in HPI: all other systems reviewed are Neg Past Family Social History Past Medical History ESRD on PD HTN HLD TIA afib on Coumadin (transitioning to Eliquis) hepatitis C chronic pancreatitis Past Surgical History Pacemaker placement Peritoneal dialysis catheter placement Cholecystectomy Appendectomy Tonsillectomy Cardiac ablation Loop recorder Reported Medications Eliquis (Apixaban) 5 Mg Tab 5 Mg PO BID Colace (Docusate Sodium) 100 Mg Capsule 100 Mg PO TID Namenda (Memantine) 10 Mg Tab 10 Mg PO DAILY Metoprolol Succinate ER 24 HR (Metoprolol Succinate) 50 Mg Tab 50 Mg PO DAILY Tiazac (Diltiazem ER 24 HR) 120 Mg Caper 120 Mg PO DAILY Tamsulosin (Tamsulosin HCl) 0.4 Mg Cap 0.4 Mg PO HS Calcitriol 0.5 Mcg Cap 0.5 Mcg PO DAILY Ropinirole 0.25 Mg Tab 0.25 Mg PO DAILY Renvela (Sevelamer Carbonate) 800 Mg Tab 1,600 Mg PO TID Dialyvite 800 (B-Complex W/ C & Folic Acid) 1 Tab 1 Tab PO DAILY Allergies: Coded Allergies: Iodinated Contrast- Oral and IV Dye (Verified Allergy, Severe, Itching, 10/08/17) patient states that he only has itching when he drinks the contrast or has it iv. Patient states he does not have a reaction to topical iodine. diatrizoate meglumine (Unverified Allergy, Mild, Itching, 10/08/17) STATES AFTER IV CONTRAST FROM LAST HOSPITAL VISIT WAS ITCHY FOR 10 DAYS WITH BAD HEARTBURN gadobenic acid (Unverified Allergy, Mild, Itching, 10/08/17) STATES AFTER IV CONTRAST FROM LAST HOSPITAL VISIT WAS ITCHY FOR 10 DAYS WITH BAD HEARTBURN gadodiamide (Unverified Allergy, Mild, Itching, 10/08/17) STATES AFTER IV CONTRAST FROM LAST HOSPITAL VISIT WAS ITCHY FOR 10 DAYS WITH BAD HEARTBURN gadoteridol (Unverified Allergy, Mild, Itching, 10/08/17) STATES AFTER IV CONTRAST FROM LAST HOSPITAL VISIT WAS ITCHY FOR 10 DAYS WITH BAD HEARTBURN iodixanol (Unverified Allergy, Mild, Itching, 10/08/17) STATES AFTER IV CONTRAST FROM LAST HOSPITAL VISIT WAS ITCHY FOR 10 DAYS WITH BAD HEARTBURN iohexol (Unverified Allergy, Mild, Itching, 10/08/17) STATES AFTER IV CONTRAST FROM LAST HOSPITAL VISIT WAS ITCHY FOR 10 DAYS WITH BAD HEARTBURN Active Ordered Medications Current Medications Medications (Trade) Dose Ordered Sig/Maximus Route Start Time Stop Time Status Last Admin (NS Flush) 2 ml UNSCH PRN IV FLUSH 10/08/17 03:15 (NS Flush) 2 ml BID IV FLUSH 10/08/17 09:00 (Tylenol) 650 mg Q4H PRN PO 10/08/17 03:15 10/08/17 05:45 (Narcan Inj) 0.4 mg UNSCH PRN IV PUSH 10/08/17 03:15 (Heparin Inj) 1,000 units WITH DIALYSIS PRN XX 10/08/17 11:00 (NS Flush) 10 ml UNSCH PRN IV FLUSH 10/08/17 11:00 Family History Family history positive for diabetes Social History Smokes tobacco, 1/2 PPD Denies alcohol use Denies illicit drug use Physical Exam Vital Signs Vital Signs Date Time Temp Pulse Resp B/P (MAP) Pulse Ox O2 Delivery O2 Flow Rate FiO2 10/08/17 11:43 10/08/17 11:00 66 16 95/51 (66) 97 10/08/17 07:30 62 16 94/55 (68) 96 Room Air 10/08/17 00:20 16 98 Room Air 10/08/17 00:11 98.7 60 17 116/66 (83) 95 Physical Exam GENERAL: Well-nourished, well-developed pleasant male patient in [facility]. SKIN: Warm and dry. No rash. HEAD: Normocephalic. Atraumatic. EYES: Pupils equal and round. No scleral icterus. No injection or drainage. ENT: No nasal bleeding or discharge. Mucous membranes pink and moist. NECK: Supple. Trachea midline. CARDIOVASCULAR: Regular rate and rhythm. S1, S2 noted. No murmur appreciated. RESPIRATORY: No accessory muscle use. Clear to auscultation. Breath sounds equal bilaterally. GASTROINTESTINAL: Abdomen soft, nondistended. TTP at hypogastric region. Normoactive bowel sounds x4. PD catheter site clean, no surrounding erythema. MUSCULOSKELETAL: No obvious deformities. Extremities without clubbing, cyanosis , or edema. NEUROLOGICAL: Awake and alert. No obvious cranial nerve deficits. Motor grossly within normal limits. Normal speech. PSYCHIATRIC: Appropriate mood and affect; insight and judgment normal. Laboratory Laboratory Tests Test 10/08/17 00:20 White Blood Count 9.9 Red Blood Count 4.71 Hemoglobin 14.0 Hematocrit 40.9 Mean Corpuscular Volume 86.8 Mean Corpuscular Hemoglobin 29.7 Mean Corpuscular Hemoglobin Concent 34.3 Red Cell Distribution Width 15.4 Platelet Count 200 Mean Platelet Volume 7.8 Neutrophils (%) (Auto) 72.6 Lymphocytes (%) (Auto) 18.7 Monocytes (%) (Auto) 6.5 Eosinophils (%) (Auto) 1.5 Basophils (%) (Auto) 0.7 Neutrophils # (Auto) 7.2 Lymphocytes # (Auto) 1.9 Monocytes # (Auto) 0.6 Eosinophils # (Auto) 0.2 Basophils # (Auto) 0.1 CBC Comment DIFF FINAL Differential Comment Prothrombin Time 20.1 Prothromb Time International Ratio 2.0 Activated Partial Thromboplast Time 27.5 Blood Urea Nitrogen 38 Creatinine 7.04 Random Glucose 139 Total Protein 7.3 Albumin 3.2 Calcium Level 8.3 Magnesium Level 2.1 Alkaline Phosphatase 95 Aspartate Amino Transf (AST/SGOT) 22 Alanine Aminotransferase (ALT/SGPT) 38 Total Bilirubin 0.4 Sodium Level 140 Potassium Level 3.6 Chloride Level 110 Carbon Dioxide Level 19.9 Anion Gap 10 Estimat Glomerular Filtration Rate 8 Total Creatine Kinase 71 Troponin I LESS THAN 0.02 B-Type Natriuretic Peptide 143 Lipase 472 Result Diagram: 10/08/170 10/08/1719 Imaging Last Impressions Head CT 10/08/1716 Signed Impressions: Service Date/Time: Sunday, October 08, 2017 00:55 - CONCLUSION: 1. No acute intracranial abnormality is identified. 2. Nonacute and stable findings include mild generalized atrophy and encephalomalacia in the left frontal periventricular white matter. Griffin Craig MD Chest X-Ray 10/08/1716 Signed Impressions: Service Date/Time: Sunday, October 08, 2017 00:30 - CONCLUSION: No acute cardiopulmonary abnormality is identified. Griffni Craig MD Abdomen/Pelvis CT 10/08/1716 Signed Impressions: Service Date/Time: Sunday, October 08, 2017 00:59 - CONCLUSION: 1. No acute finding is identified within the abdomen or pelvis. 2. Severe atherosclerotic disease. Griffin Craig MD Shoulder X-Ray 10/08/17 0000 Signed Impressions: Service Date/Time: Sunday, October 08, 2017 00:31 - CONCLUSION: No acute right shoulder abnormality is identified. Griffin Craig MD Cervical Spine CT 10/08/17 0000 Signed Impressions: Service Date/Time: Sunday, October 08, 2017 00:55 - CONCLUSION: No acute cervical spine abnormality is identified. MD Juan Elias VTE Risk Assessment Juan VTE Risk Assessment: Mod/High Risk (score >= 2) Caprini Risk Assessment Model Point Value = 1 Point Value = 2 Point Value = 3 Point Value = 5 Age 41-60 Minor surgery BMI > 25 kg/m2 Swollen legs Varicose veins or History of unexplained or recurrent spontaneous Oral contraceptives or hormone replacement Sepsis (< 1 month) Serious lung disease, including pneumonia (< 1 month) Abnormal pulmonary function Acute myocardial infarction Congestive heart failure (< 1 month) History of inflammatory bowel disease Medical patient at bed rest Age 61-74 Arthroscopic surgery Major open surgery (> 45 min) Laparoscopic surgery (> 45 min) Malignancy Confined to bed (> 72 hours) Immobilizing plaster cast Central venous access Age >= 75 History of VTE Family history of VTE Factor V Leiden Prothrombin [id number] Lupus anticoagulant Anticardiolipin antibodies Elevated serum homocysteine Heparin-induced thrombocytopenia Other congenital or acquired thrombophilia Stroke (< 1 month) Elective arthroplasty Hip, pelvis, or leg fracture Acute spinal cord injury (< 1 month) Prophylaxis Regimen Total Risk Factor Score Risk Level Prophylaxis Regimen 0-1 Low Early ambulation 2 Moderate Order ONE of the following: *Sequential Compression Device (SCD) *Heparin 5000 units SQ BID 3-4 Higher Order ONE of the following medications: *Heparin 5000 units SQ TID *Enoxaparin/Lovenox 40 mg SQ daily (WT < 150 kg, CrCl > 30 mL/min) *Enoxaparin/Lovenox 30 mg SQ daily (WT < 150 kg, CrCl > 10-29 mL/min) *Enoxaparin/Lovenox 30 mg SQ BID (WT < 150 kg, CrCl > 30 mL/min) AND/OR *Sequential Compression Device (SCD) 5 or more Highest Order ONE of the following medications: *Heparin 5000 units SQ TID (Preferred with Epidurals) *Enoxaparin/Lovenox 40 mg SQ daily (WT < 150 kg, CrCl > 30 mL/min) *Enoxaparin/Lovenox 30 mg SQ daily (WT < 150 kg, CrCl > 10-29 mL/min) *Enoxaparin/Lovenox 30 mg SQ BID (WT < 150 kg, CrCl > 30 mL/min) AND *Sequential Compression Device (SCD) Assessment and Plan Problem List: (1) Syncope ICD Code: R55 - Syncope and collapse Status: Acute Assessment and Plan 67-year-old male with ESRD on PD, HTN, HLD, TIA, afib on Coumadin ( transitioning to Eliquis), hepatitis C, chronic pancreatitis, presents with a 3 day history of hypotension, episode of syncope, and some abdominal discomfort, nausea/vomiting, and diarrhea. Syncope: suspect secondary to dehydration from recent gastroenteritis with nausea/vomiting/diarrhea. However, need to rule out other etiologies. -Head CT images reviewed, no acute findings; shows stable mild generalized atrophy and encephalomalacia in left frontal periventricular white matter -S/p IVF 250cc bolus in the ED -Check orthostatics -Neuro checks, monitor on telemetry -Monitor for improvement Fall with neck/shoulder pain: from syncopal event as above -Head CT and C-spine CT without any acute abnormalities -Shoulder xray reviewed and unremarkable -Heating pads and pain control as needed -Consult PT Abdominal Pain/Nausea/Vomiting/Diarrhea: suspect gastroenteritis, symptoms improving. Lipase elevated at 472 likely from ESRD(has lower abd pain). LFTs wnl. -Abdomen/Pelvis CT reviewed, shows no acute findings -Check UA -Send peritoneal fluid for culture -Repeat lipase in the am -Supportive treatment with antiemetics and pain control prn ESRD on PD: acute on chronic, Cr 7, slightly worse than baseline -Consult nephrology -Resume peritoneal dialysis Atrial Fibrillation: previously on Coumadin, last dose yesterday 10/07, instructed by stonemason helper Dr. Dias to start Eliquis on 10/10 -Continue to hold coumadin and start Eliquis on 10/10 if patient still in hospital -Holding patient's cardizem and metoprolol with hypotension -Outpatient f/up with stonemason helper TIA: chronic -patient plans to transition from Coumadin to Eliquis -outpatient f/up Hypertension: now with hypotension as above -hold patient's diltiazem and metoprolol for now -monitor BP, adjust antihypertensives as needed DVT Prophylaxis: teds/SCDs; holding Coumadin with plan to transition to Eliquis on 10/10 Discussed Condition With Patient, RN This note was transcribed by juanjose Zamora. I, Dr. Colby Mckeon personally performed the history, physical exam, and medical decision making; and confirmed the accuracy of the information in the transcribed note. Authenticated by Dr. Colby Mckeon on 10/08/17 at 13:06. Problem Qualifiers (1) Syncope: Qualified Codes: R55 - Syncope and collapse Sandra Zamora PA-C Oct 08, 2017 13:01 Colby Mckeon MD Oct 08, 2017 13:06
[2017-10-08] MEDS ORDERED: ACETAMINOPHEN/HYDROcodone 325 MG/5 MG TAB PO PRN (14:30)
[2017-10-08] MEDS ORDERED: ONDANSETRON HCL 4 MG/2 ML VIAL IVP PRN (14:30)
[2017-10-08] MEDS: SEVELAMER CARBONATE 800 MG TAB PO SCH (17:45)
[2017-10-08] MEDS ORDERED: TAMSULOSIN HCL 0.4 MG CAP PO SCH (21:00)
[2017-10-09] VITALS (7 sets, daily range): BP systolic 125–164; BP diastolic 69–87; PULSE 62–80; RESP 16–20; TEMP 97.7–98.3; O2SAT 95–98
[2017-10-09 05:29] LABS: AUTOMATED NEUTROPHIL # 3.5 TH/MM3 (1.8-7.7); BASOPHIL % 0.5 % (0.0-2.0); EOSINOPHIL # 0.3 TH/MM3 (0-0.4); EOSINOPHIL % 4.2 % (0.0-4.0); HEMATOCRIT 36.6 % (39.0-51.0); HEMOGLOBIN 12.5 GM/DL (13.0-17.0); LYMPH % 34.2 % (9.0-44.0); LYMPHOCYTE # 2.3 TH/MM3 (1.0-4.8); MEAN CELL VOLUME 87.1 FL (80.0-100.0); MEAN CORPUSCULAR HEMOGLOBIN 29.7 PG (27.0-34.0); MEAN CORPUSCULAR HGB CONC 34.1 % (32.0-36.0); MEAN PLATELET VOLUME 7.8 FL (7.0-11.0); MONO % 8.6 % (0.0-8.0); MONOCYTE # 0.6 TH/MM3 (0-0.9); NEUT % 52.5 % (16.0-70.0); PLATELET COUNT 151 TH/MM3 (150-450); RED BLOOD COUNT 4.21 MIL/MM3 (4.50-5.90); RED CELL DISTRIBUTION WIDTH 15.3 % (11.6-17.2); WHITE BLOOD COUNT 6.6 TH/MM3 (4.0-11.0)
[2017-10-09 05:39] LABS: INTERNATIONAL NORMALIZED RATIO 2.1 RATIO; PROTHROMBIN TIME - PATIENT 21.5 SEC (9.8-11.6)
[2017-10-09 05:50] LABS: BICARBONATE 22.4 MEQ/L (21.0-32.0); CALCIUM 8.1 MG/DL (8.5-10.1); CREATININE 7.07 MG/DL (0.60-1.30)
--- NOTE | 2017-10-09 07:17 | HHI.PR ---
Subjective Remarks Follow-up hypotension. Patient without complaints denies dizziness or weakness. No nausea and abdominal pain. He wants to go home. Ambulated in the hallway. Discussed with nursing, PT and nephrology Objective Vitals Vital Signs Date Time Temp Pulse Resp B/P (MAP) Pulse Ox O2 Delivery O2 Flow Rate FiO2 10/09/17 04:09 97.7 80 18 135/74 (94) 98 10/09/17 03:55 62 10/09/17 00:33 62 10/09/17 00:24 98.2 67 16 132/83 (99) 96 10/08/17 21:37 61 10/08/17 19:44 98.0 68 16 132/75 (94) 98 10/08/17 16:07 98.0 64 18 134/72 (92) 99 10/08/17 13:24 98.2 61 18 142/82 (102) 99 10/08/17 11:43 10/08/17 11:00 66 16 95/51 (66) 97 10/08/17 07:30 62 16 94/55 (68) 96 Room Air I/O 10/08/17 10/08/17 10/08/17 10/09/17 10/09/17 10/09/17 07:00 15:00 23:00 07:00 15:00 23:00 # Voids 1 Result Diagram: 10/09/17 0457 10/09/17 045 Imaging Last Impressions Head CT 10/08/1716 Signed Impressions: Service Date/Time: Sunday, October 08, 2017 00:55 - CONCLUSION: 1. No acute intracranial abnormality is identified. 2. Nonacute and stable findings include mild generalized atrophy and encephalomalacia in the left frontal periventricular white matter. Griffin Craig MD Chest X-Ray 10/08/1716 Signed Impressions: Service Date/Time: Sunday, October 08, 2017 00:30 - CONCLUSION: No acute cardiopulmonary abnormality is identified. Griffin Craig MD Abdomen/Pelvis CT 10/08/1716 Signed Impressions: Service Date/Time: Sunday, October 08, 2017 00:59 - CONCLUSION: 1. No acute finding is identified within the abdomen or pelvis. 2. Severe atherosclerotic disease. Griffin Craig MD Shoulder X-Ray 10/08/17 0000 Signed Impressions: Service Date/Time: Sunday, October 08, 2017 00:31 - CONCLUSION: No acute right shoulder abnormality is identified. Griffin Craig MD Cervical Spine CT 10/08/17 0000 Signed Impressions: Service Date/Time: Sunday, October 08, 2017 00:55 - CONCLUSION: No acute cervical spine abnormality is identified. Griffin Craig MD Objective Remarks GENERAL: Well-nourished, well-developed pleasant male patient in NAD. SKIN: Warm and dry. No rash. CARDIOVASCULAR: Regular rate and rhythm. S1, S2 noted. No murmur appreciated. RESPIRATORY: No accessory muscle use. Clear to auscultation. Breath sounds equal bilaterally. GASTROINTESTINAL: Abdomen soft, nondistended. Nontender. Normoactive bowel sounds x4. PD catheter site clean, no surrounding erythema. MUSCULOSKELETAL: No obvious deformities. Extremities without clubbing, cyanosis , or edema. NEUROLOGICAL: Awake and alert. No obvious cranial nerve deficits. Motor grossly within normal limits. Normal speech. PSYCHIATRIC: Appropriate mood and affect; insight and judgment normal. Procedures None A/P Problem List: (1) Syncope ICD Code: R55 - Syncope and collapse Status: Acute Assessment and Plan 67-year-old male with ESRD on PD, HTN, HLD, TIA, afib on Coumadin ( transitioning to Eliquis), hepatitis C, chronic pancreatitis, presents with a 3 day history of hypotension, episode of syncope, and some abdominal discomfort, nausea/vomiting, and diarrhea. Syncope: suspect secondary to dehydration from recent gastroenteritis with nausea/vomiting/diarrhea. No recurrence. He is hemodynamically improved and neurologically intact. He is mildly orthostatic but asymptomatic continue to hold BP medications Fall with neck/shoulder pain: from syncopal event as above. Trauma workup negative. Symptomatic treatment. Fall precautions. Continue physical therapy Abdominal Pain/Nausea/Vomiting/Diarrhea: suspect gastroenteritis, symptoms improving. Lipase elevated at 472 likely from ESRD(has lower abd pain). LFTs wnl. UA and culture of peritoneal fluid ordered ESRD on PD: acute on chronic, Cr 7, stable on PD per nephrology Atrial Fibrillation: previously on Coumadin, last dose 10/07, instructed by gameroom technician Dr. Dias to start Eliquis on 10/10. Holding patient's cardizem and metoprolol with hypotension. Discharge with home care visiting nurse to monitor vital signs Hypertension: now with hypotension as above DVT Prophylaxis: teds/SCDs; holding Coumadin with plan to transition to Eliquis on 10/10 Discharge Planning Discharge patient to home with home care visiting nurse and physical therapy Condition on discharge: Improved Renal diet as tolerated Ad Lnynette activity Rx written: None Follow-up with primary care physician and nephrology Problem Qualifiers (1) Syncope: Qualified Codes: R55 - Syncope and collapse Colby Mckeon MD Oct 09, 2017 07:17
[2017-10-09] MEDS ORDERED: VITAMIN B CMPLX/VITC/FOLIC AC CAP PO SCH (09:00)
[2017-10-09] MEDS ORDERED: CALCITRIOL 0.25 MCG CAP PO SCH (09:00)
[2017-10-09] MEDS ORDERED: MEMANTINE HCL 10 MG TAB PO SCH (09:00)
--- NOTE | 2017-10-09 09:18 | HHI.FF ---
Face to Face Verification Diagnosis: (1) Pancreatitis (2) Atrial fibrillation (3) ESRD on peritoneal dialysis Physical Therapy Order: Evaluate and Treat, Improve ambulation, Strength and gait training Home Health Nursing Order: Medical education Signs/symptoms of disease process Nursing assessment with vital signs I have seen patient Vickey ArroyoJr on 10/09/17. My clinical findings support the need for the requested home health care services because: Deconditioned w/ increased weakness Limited ability to care for self I certify that my clinical findings support that this patient is homebound because: Unsteady gait/balance Unsafe to leave home unassisted Unable to use public transportation Sandra Zamora PA-C Oct 09, 2017 09:18
[2017-10-09] MEDS: SODIUM CHLORIDE 0.9% FLUSH 10 ML FLUSH IV FLUSH SCH (09:41)
[2017-10-09] MEDS: SEVELAMER CARBONATE 800 MG TAB PO SCH (09:41)
== END 2017-10-09 13:55 | disposition home or self-care (01) ==
LOC: NEPC 00:02 → NEDA 02:43 → NEDH 06:24 → NEPFCDU 13:22
PROVIDERS: ADMIT Internal Medicine; ATTEND Internal Medicine
DX: R55 Syncope and collapse (principal); I95.9 Hypotension, unspecified; M54.2 Cervicalgia; M25.511 Pain in right shoulder; R10.9 Unspecified abdominal pain; R11.2 Nausea with vomiting, unspecified; R19.7 Diarrhea, unspecified; I13.11 Hypertensive heart and chronic kidney disease without heart failure, with stage 5 chronic kidney disease, or end stage renal disease; N18.6 End stage renal disease; E78.5 Hyperlipidemia, unspecified; B19.20 Unspecified viral hepatitis C without hepatic coma; R94.31 Abnormal electrocardiogram [ECG] [EKG]; J84.10 Pulmonary fibrosis, unspecified; K40.90 Unilateral inguinal hernia, without obstruction or gangrene, not specified as recurrent; G93.89 Other specified disorders of brain; Z99.2 Dependence on renal dialysis; Z86.73 Personal history of transient ischemic attack (TIA), and cerebral infarction without residual deficits; Z79.01 Long term (current) use of anticoagulants; Z95.0 Presence of cardiac pacemaker
CPT/HCPCS: 70450; 71045; 72125; 73030; 74176; 80048; 80053; 82550; 83690; 83735; 83880; 84484; 85025; 85610; 85730; 90935; 93005; 96360; 96361; 97161; 99285; G0257; G0378; G8987; G8988; J7050; 90945